=== PATIENT | female | born 1945 | race Caucasian/White ===

== ENCOUNTER 2016-05-25 11:15 | Emergency (ER) | payer MEDICARE, BC ==
[2016-05-25] MEDS ORDERED: IPRATROPIUM-ALBUTEROL 3 ML NEB INHALATION STA (12:18)
--- NOTE | 2016-05-25 12:53 | XR ---
EXAMINATION TYPE: XR chest 2V DATE OF EXAM: 05/25/2016 12:25 PM COMPARISON: Prior chest x-ray September 12, 2012. HISTORY: Cough per order. Congestion and shortness of breath. TECHNIQUE: Frontal and lateral views of the chest are obtained. FINDINGS: There is chronic parenchymal change with small bilateral pleural effusions seen best on la teral chest x-ray. No suspicious focal airspace opacity or pneumothorax is seen bilaterally. The car diac silhouette size is within normal limits. Degenerative change in both shoulders at the glenohumer al joint is noted. IMPRESSION: Chronic emphysematous change with tiny bilateral pleural effusions.
--- NOTE | 2016-05-25 12:56 | ED ---
General Adult HPI - General Chief complaint: Upper Respiratory Infection Stated complaint: CHARAN Time Seen by Provider: 05/25/16 12:13 Source: patient, RN notes reviewed Mode of arrival: ambulatory Limitations: no limitations - History of Present Illness Initial comments: Patient 70-year-old female who presents emergency room today with cough congestion over the last week and a half. Does admit that she was on antibiotics azithromycin and prednisone. States that she is feeling better but is still having some symptoms of cough congestion with some clear sputum at this time. Patient does admit to using albuterol inhaler at home. She again states symptoms are improved but not completely better. Patient states she was worried about a possible pneumonia and decided to come here to the emergency room his doctor shops was closed. Patient denies any recent fever, chills, shortness of breath, chest pain, back pain, abdominal pain, nausea or vomiting, numbness or tingling, dysuria or hematuria, constipation or diarrhea, headaches or visual changes, or any other complaints. - Related Data Home Medications Medication Instructions Recorded Confirmed ALPRAZolam [Xanax] 0.25 mg PO HS PRN 05/25/16 05/25/16 Albuterol Inhaler [Ventolin Hfa 1 - 2 puff INHALATION RT-Q6H PRN 05/25/16 Inhaler] Amitriptyline HCl [Elavil] 10 mg PO BID 05/25/16 05/25/16 Aspirin EC [Ecotrin Low Dose] 81 mg PO HS 05/25/16 05/25/16 Hydrochlorothiazide [Hydrodiuril] 25 mg PO DAILY 05/25/16 05/25/16 Metoprolol Tartrate [Lopressor] 25 mg PO BID 05/25/16 05/25/16 Oxybutynin Chloride [Ditropan] 5 mg PO BID 05/25/16 05/25/16 Simvastatin [Zocor] 40 mg PO HS 05/25/16 05/25/16 Previous Rx's Medication Instructions Recorded Albuterol Nebulized [Ventolin 2.5 mg INHALATION Q4H PRN 10 Days 05/25/16 Nebulized] Allergies Allergy/AdvReac Type Severity Reaction Status Date / Time nitrofurantoin AdvReac Abdominal Verified 05/25/16 12:54 [From Macrodantin] Pain Sulfa (Sulfonamide AdvReac Nausea Verified 05/25/16 12:54 Antibiotics) Review of Systems ROS Statement: Those systems with pertinent positive or pertinent negative responses have been documented in the HPI. ROS Other: All systems not noted in ROS Statement are negative. Past Medical History Past Medical History: Hypertension Additional Past Medical History / Comment(s): stress incontinence History of Any Multi-Drug Resistant Organisms: None Reported Past Surgical History: Bladder Surgery, Breast Surgery, Cholecystectomy, Joint Replacement Additional Past Surgical History / Comment(s): left and right knee replacement, rectocele, bowel surgery Past Psychological History: No Psychological Hx Reported Smoking Status: Former smoker Past Alcohol Use History: None Reported Past Drug Use History: None Reported General Exam - General Exam Comments Initial Comments: General: The patient is awake and alert, in no distress, and does not appear acutely ill. Eye: Pupils are equal, round and reactive to light, extra-ocular movements are intact. No nystagmus. There is normal conjunctiva bilaterally. No signs of icterus. Ears, nose, mouth and throat: There are moist mucous membranes and no oral lesions. Neck: The neck is supple, there is no tenderness or JVD. Cardiovascular: There is a regular rate and rhythm. No murmur, rub or gallop is appreciated. Respiratory: Mild expiratory wheeze on expiration bilaterally. respirations are non-labored, breath sounds are equal. No stridor, rales, or rhonchi. Musculoskeletal: Normal ROM, no tenderness. Strength 5/5. Sensation intact. Pulses equal bilaterally 2+. Neurological: A&O x 3. CN II-XII intact, There are no obvious motor or sensory deficits. Coordination appears grossly intact. Speech is normal. Skin: Skin is warm and dry and no rashes or lesions are noted. Psychiatric: Cooperative, appropriate mood & affect, normal judgment. Limitations: no limitations Course Vital Signs 05/25/16 05/25/16 05/25/16 11:23 12:35 12:42 Temperature 97.5 F L Pulse Rate 81 80 76 Respiratory 20 Rate Blood Pressure 144/67 O2 Sat by Pulse 94 L Oximetry Medical Decision Making - Medical Decision Making Patient reexamined at this time shows no signs of distress. Patient's chest x- ray reviewed shows no sign of pneumonia. Patient admits to feeling better after breathing treatment. Lung sounds clear afterwards. Patient will be given a prescription for breathing machine. And nebulized treatments at home. Patient advised follow-up family doctor over the next 2 days. Advised return if any symptoms increase or worsen or for any other concerns. Disposition Clinical Impression: Acute bronchitis Disposition: HOME SELF-CARE Condition: Good Instructions: Acute Bronchitis (ED) Additional Instructions: Please use medication as discussed. Please follow-up with family doctor in the next 2 days of symptoms have not improved. Please return to emergency room if the symptoms increase or worsen or for any other concerns. Prescriptions: Albuterol Nebulized [Ventolin Nebulized] 2.5 mg INHALATION Q4H PRN 10 Days PRN Reason: Cough Time of Disposition: 13:30
[2016-05-25 13:42] VITALS: BP 132/70; PULSE 74; RESP 18; TEMP 98
== END 2016-05-25 13:42 | disposition home or self-care (01) ==
LOC: EC 11:15
DX: J20.9 Acute bronchitis, unspecified (principal); I10 Essential (primary) hypertension; Z79.82 Long term (current) use of aspirin; Z79.899 Other long term (current) drug therapy; Z87.891 Personal history of nicotine dependence
CPT/HCPCS: 71020; 94640; 99283

== ENCOUNTER 2016-08-21 11:47 | Day surgery (SDC) | payer MEDICARE, BC ==
[2016-08-19 13:27] VITALS: BMI 38.6
[~2016-08-21 11:47] MED LIST: DEXAMETHASONE SOD PHOSPHATE 10 MG/ML 1 ML VIAL IV ONE; HEPARIN SODIUM,PORCINE 5,000 UNIT/ML 1 ML VIAL SQ ONE; HYDROmorphone 1 MG/ML 1 ML SYRINGE IVP PRN; MIDAZOLAM 2 MG/2 ML VIAL IV PRN; ONDANSETRON 4 MG/2 ML VIAL IVP ONE; Pre Op ABX Message 1 EACH MISC MISCELLANE ONE
[2016-08-21] MEDS ORDERED: BUPIVACAINE LIPOSOME/PF 1.3% 20 ML, SODIUM CHLORIDE 0.9% 10 ML MISCELLANE ONE ×2 (12:35)
[2016-08-21] MEDS: LACTATED RINGERS 1,000 ML IV SCH (13:15)
[2016-08-21] MEDS ORDERED: NA PHOS,M-B/NA PHOS,DI-BA 133 ML ENEMA RECTAL ONE (13:30)
[2016-08-21] MEDS ORDERED: ceFAZolin 2 GM in SODIUM CHLORIDE 0.9% 100 ML IVPB STA (14:14)
[2016-08-21] MEDS ORDERED: metroNIDAZOLE-NS PMX 500 MG in SALINE 1 100ML.BAG IVPB STA (14:15)
[2016-08-21] MEDS ORDERED: LIDOCAINE 1% INJ 10MG/ML (20 ML MDV) ONE (14:35)
[2016-08-21] MEDS ORDERED: SUCCINYLCHOLINE CHLORIDE 100 MG/5 ML SYR IV ONE (14:35)
[2016-08-21] MEDS ORDERED: PROPOFOL 10 MG/ML 20 ML VIAL IV ONE (14:35)
[2016-08-21] MEDS ORDERED: MIDAZOLAM 2 MG/2 ML VIAL ONE (14:35)
[2016-08-21] MEDS ORDERED: LIDOCAINE 2%-EPI 1:100,000 20 ML VIAL SQ ONE (15:17)
[2016-08-21] MEDS ORDERED: HYDROcodone/APAP 5-325MG 1 EACH TAB PO PRN (15:21)
--- NOTE | 2016-08-21 15:28 | P.OP ---
Date of Procedure: 08/21/16 Preoperative Diagnosis: Large internal hemorrhoids Postoperative Diagnosis: Low rectal mass 2 Procedure(s) Performed: Exam under anesthesia Transanal excision of rectal mucosal massx2 Anesthesia: MELYA, local Surgeon: Teresita Graham Pathology: other Condition: other (ASA 3) Disposition: PACU Indications for Procedure: 70 years old female presents with rectal bleeding. Informed consent obtained and she elected to undergo exam under anesthesia and possible open hemorrhoidectomy. Operative Findings: Internal hemorrhoids. Rectal mucosal prolapse Description of Procedure: Patient was brought to the operating room and placed in jackknife prone position. The buttock tapes were applied to expose the anal opening. Protruding masses was seen from the anal opening. Small external hemorrhoids seen. Upon insertion of a lighted endoscope,hypervascular protruding mass were seen in the 12 and 9 o'clock position along with hemorrhoids. These were excised using Harmonic. This was closed using 3-0 Vicryl. 30 mL of Exparel was injected Final Pathologic Diagnosis ANORECTAL MUCOSA, BIOPSY: POLYPOID ANORECTAL MUCOSA WITH DILATED SUBMUCOSAL HEMORRHOIDAL TYPE VESSELS, ACUTE AND CHRONIC INFLAMMATION, MUCOSAL ULCERATION, AND EDEMA.
[2016-08-21] MEDS: ACETAMINOPHEN IV (For NPO) 1,000 MG in EMPTY BAG 1 BAG IVPB SCH ×2 (19:22→23:30)
[2016-08-21] MEDS ORDERED: AMITRIPTYLINE HCL 10 MG TAB PO SCH (21:00)
[2016-08-21] MEDS: METOPROLOL SUCCINATE (ER) 25 MG TAB.ER.24H PO SCH (21:20)
[2016-08-22 03:31] VITALS: RESP 16
[2016-08-22] MEDS: ACETAMINOPHEN IV (For NPO) 1,000 MG in EMPTY BAG 1 BAG IVPB SCH ×2 (05:12→13:09)
[2016-08-22] MEDS ORDERED: HYDROCHLOROTHIAZIDE 25 MG TAB PO SCH (09:00)
[2016-08-22] MEDS: METOPROLOL SUCCINATE (ER) 25 MG TAB.ER.24H PO SCH (10:02)
[2016-08-22] MEDS: LACTATED RINGERS 1,000 ML IV SCH (10:03)
[2016-08-22 13:02] VITALS: BP 142/71; PULSE 75; TEMP 97.5
[2016-08-22] MEDS ORDERED: ACETAMINOPHEN TAB 500 MG TAB PO STA (13:17)
--- NOTE | 2016-08-22 14:29 | P.DS ---
Providers Date of admission: 08/21/2016 Expected date of discharge: 08/22/16 Attending physician: Teresita Graham Primary care physician: Sunil Cagle - Discharge Diagnosis(es) (1) Hemorrhoids Status: Acute Hospital Course: Kevin Dudley is 70-year-old female who underwent a hemorrhoidectomy by Dr. graham. Postoperatively she is very well without any complaint of pain nausea vomiting. She been ablating well she's not had used any narcotic pain medication. As him getting very well there is no bleeding. Pain is well-controlled with Tylenol. She is passing flatus. Due to the fact she is doing well I recommended discharge to follow with Dr. graham in a week's time. All questions were answered Procedures: Open hemorrhoidectomy Patient Condition at Discharge: Good Plan - Discharge Summary New Discharge Prescriptions: Docusate [Colace] 100 mg PO BID #30 capsule Hydrocodone/Acetaminophen [[place] 5-325] 1 each PO Q6HR PRN #30 tab PRN Reason: Pain Discharge Medication List ALPRAZolam [Xanax] 0.25 mg PO HS PRN 05/25/16 [History] Albuterol Inhaler [Ventolin Hfa Inhaler] 1 - 2 puff INHALATION RT-Q6H PRN [History] Amitriptyline HCl [Elavil] 10 mg PO HS 05/25/16 [History] Aspirin EC [Ecotrin Low Dose] 81 mg PO HS 05/25/16 [History] Hydrochlorothiazide [Hydrodiuril] 25 mg PO DAILY 05/25/16 [History] Metoprolol Tartrate [Lopressor] 25 mg PO BID 05/25/16 [History] Oxybutynin Chloride [Ditropan] 5 mg PO BID 05/25/16 [History] Simvastatin [Zocor] 40 mg PO HS 05/25/16 [History] Biotin 5 mg PO DAILY 08/19/16 [History] Cholecalciferol [Vitamin D3] 1,000 unit PO DAILY 08/19/16 [History] Cranberry Extract [Cranberry] 500 mg PO DAILY 08/19/16 [History] Flaxseed Oil [[place]-3 Flaxseed Oil] 1,000 mg PO DAILY 08/19/16 [History] L.acidoph,Paracasei, B.lactis [Probiotic] 1 each PO DAILY 08/19/16 [History] Multivits-Min/Iron/FA/Lutein [Centrum Silver Women Tablet] 1 each PO DAILY 08/19 [History] Vitamin E (Dl,Tocopheryl Acet) [Vitamin E] 400 unit PO DAILY 08/19/16 [History] Docusate [Colace] 100 mg PO BID #30 capsule 08/21/16 [Rx] Hydrocodone/Acetaminophen [[place] 5-325] 1 each PO Q6HR PRN #30 tab 08/21/16 [Rx] Follow up Appointment(s)/Referral(s): Teresita Graham MD [STAFF PHYSICIAN] - 08/25/16 (CALL OFFICE FOR APPOINTMENT, CLOSED AT TIME OF DISCHARGE.) Patient Instructions/Handouts: *Surgery [facility] - ([facility]) Hemorrhoidectomy Post-Op Instructions Activity/Diet/Wound Care/Special Instructions: USe sitz bath TID Discharge Disposition: HOME SELF-CARE
== END 2016-08-22 14:00 | disposition home or self-care (01) ==
LOC: OR 11:47 → 3SUR 16:09 → OR 08-22 14:00
PROVIDERS: ATTEND Surgery
DX: K64.8 Other hemorrhoids (principal); K62.6 Ulcer of anus and rectum; K64.4 Residual hemorrhoidal skin tags; J45.909 Unspecified asthma, uncomplicated; I10 Essential (primary) hypertension; Z88.1 Allergy status to other antibiotic agents; Z88.2 Allergy status to sulfonamides; Z87.891 Personal history of nicotine dependence
CPT/HCPCS: 88305; 46255; J2250; J1644; J1100; J0690; J2405; J2001; J0131 ×2; J0330; C9290; J2704

== ENCOUNTER → 2017-05-08 | Outpatient (CLI) | payer MEDICARE, BC ==
--- NOTE | 2017-05-08 16:04 | PE ---
Nuclear medicine PET/CT HISTORY: Solitary pulmonary nodule, R 91.1, lung cancer initial Patient received 16 mCi F-18 FDG intravenously in delayed scanning was performed from the skull base to the mid thighs. An attenuation correction and localization CT was also performed on the exam is co rrelated prior CT chest 04/17/2017. Neck and chest: The large posterior pleural-based mass in the left lower lobe is again noted along th e left lower lobe with loss of fat plane at the level the lateral margin of the aorta and measures ap proximately 7.6 x 6 x 7.2 cm in superior segment. There is associated hypermetabolic uptake. There is no evident adenopathy, no pleural or pericardial effusion. Coronary artery calcifications are present. There is a calcified nodule present within the left upper lobe. Emphysematous changes are present within the lungs. Pulmonary artery is dilated. Abdomen pelvis: There is no evident adrenal mass or retroperitoneal adenopathy. No evident liver mass . Patient is post cholecystectomy. Vascular calcifications are noted. No hypermetabolic uptake. Posto p change noted to the rectosigmoid junction. No evident pelvic adenopathy. Extensive diverticular maxi nge in the sigmoid colon. Uterus is not seen. Osseous structures are within normal limits. Muscular uptake is noted incidentally. IMPRESSION: Findings compatible with bronchogenic carcinoma. Correlate for pulmonary artery hypertens ion. Emphysema. Coronary artery disease. Postop changes.
== END | disposition home or self-care (01) ==
LOC: RADPETMAIN 07:49
PROVIDERS: ATTEND Nurse Practitioner Adult Health
DX: R91.1 Solitary pulmonary nodule (principal); I25.10 Atherosclerotic heart disease of native coronary artery without angina pectoris; J43.9 Emphysema, unspecified; Z98.890 Other specified postprocedural states
CPT/HCPCS: 78815; A9552

== ENCOUNTER 2017-05-12 14:24 | Emergency (ER) | payer MEDICARE, BC ==
[2017-05-12] MEDS ORDERED: methylPREDNISolone SOD SUCCI 125 MG/2 ML VIAL IV STA (15:24)
[2017-05-12] MEDS ORDERED: IPRATROPIUM-ALBUTEROL 3 ML NEB INHALATION STA (15:24)
--- NOTE | 2017-05-12 15:27 | ED ---
General Adult HPI - General Chief complaint: Shortness of Breath Stated complaint: SOB/Cancer Pt Time Seen by Provider: 05/12/17 15:11 Source: patient, RN notes reviewed Mode of arrival: wheelchair Limitations: no limitations - History of Present Illness Initial comments: Patient is a 71-year-old female who presents emergency room today with a chief complaint of some shortness of breath over the last 2 weeks. Patient does admit that she started new medication Breo inhaler. She believes it may be related as shortly after starting this medication can having similar symptoms. Patient does admit that she was recently diagnosed with lung cancer. She states that she was admitted to the hospital and discharged home approximately 3 weeks ago. Patient also admits to some back pain or back. Patient denies any other complaints or symptoms currently. Patient denies any recent fever, chills, chest pain, abdominal pain, nausea or vomiting, numbness or tingling, dysuria or hematuria, constipation or diarrhea, headaches or visual changes, or any other complaints. - Related Data Home Medications Medication Instructions Recorded Confirmed Albuterol Inhaler [Ventolin Hfa 1 - 2 puff INHALATION RT-Q6H PRN 05/25/16 Inhaler] Amitriptyline HCl [Elavil] 10 mg PO HS 05/25/16 05/12/17 Aspirin EC [Ecotrin Low Dose] 81 mg PO HS 05/25/16 05/12/17 Metoprolol Tartrate [Lopressor] 25 mg PO BID 05/25/16 05/12/17 Oxybutynin Chloride [Ditropan] 5 mg PO BID 05/25/16 05/12/17 Simvastatin [Zocor] 40 mg PO HS 05/25/16 05/12/17 Biotin 5 mg PO DAILY 08/19/16 05/12/17 Cholecalciferol [Vitamin D3] 1,000 unit PO DAILY 08/19/16 05/12/17 Cranberry Fruit Extract [Cranberry] 500 mg PO DAILY 08/19/16 05/12/17 Flaxseed Oil [[place]-3 Flaxseed Oil] 1,000 mg PO DAILY 08/19/16 05/12/17 Multivit-Min/Iron/Folic/Lutein 1 tab PO DAILY 08/19/16 05/12/17 [Centrum Silver Women Tablet] Vitamin E (Dl,Tocopheryl Acet) 400 unit PO DAILY 08/19/16 05/12/17 [Vitamin E] Fluticasone/Vilanterol [Breo 1 puff INHALATION RT-DAILY 05/12/17 05/12/17 Ellipta 200-25 Mcg INH] Previous Rx's Medication Instructions Recorded ALPRAZolam [Xanax] 0.25 mg PO TID PRN #90 tab 04/22/17 Famotidine [Pepcid] 20 mg PO DAILY #30 tab 04/22/17 Hydrochlorothiazide [Hydrodiuril] 25 mg PO DAILY #30 tab 04/22/17 Melatonin 5 mg PO HS PRN tablet 04/22/17 Albuterol Nebulized [Ventolin 2.5 mg INHALATION Q4H PRN 10 Days 05/12/17 Nebulized] nebu Allergies Allergy/AdvReac Type Severity Reaction Status Date / Time nitrofurantoin AdvReac Abdominal Verified 05/12/17 14:56 [From Macrodantin] Pain Sulfa (Sulfonamide AdvReac Nausea Verified 05/12/17 14:56 Antibiotics) Review of Systems ROS Statement: Those systems with pertinent positive or pertinent negative responses have been documented in the HPI. ROS Other: All systems not noted in ROS Statement are negative. Past Medical History Past Medical History: COPD, Hyperlipidemia, Hypertension Additional Past Medical History / Comment(s): bleeding from hemorrhoids,stress incontinence,bronchitis, overactive bladder, kidney stone History of Any Multi-Drug Resistant Organisms: None Reported Past Surgical History: Bladder Surgery, Breast Surgery, Cholecystectomy, Joint Replacement Additional Past Surgical History / Comment(s): left complete knee replacement, rt partial knee replacement,rectocele, bowel surgery to unkink colon,cyst removed breast,bladder surgery x3, bladder suspension, hemorrhoidectomy, rectal prolapse repair Past Anesthesia/Blood Transfusion Reactions: No Reported Reaction Additional Past Anesthesia/Blood Transfusion Reaction / Comment(s): no hx blood transfusion Past Psychological History: Anxiety Smoking Status: Former smoker Past Alcohol Use History: None Reported Past Drug Use History: None Reported - Past Family History Mother Family Medical History: No Reported History Father History Unknown: Yes General Exam - General Exam Comments Initial Comments: General: The patient is awake and alert, in no distress, and does not appear acutely ill. Eye: Pupils are equal, round and reactive to light, extra-ocular movements are intact. No nystagmus. There is normal conjunctiva bilaterally. No signs of icterus. Ears, nose, mouth and throat: There are moist mucous membranes and no oral lesions. Neck: The neck is supple, there is no tenderness or JVD. Cardiovascular: There is a regular rate and rhythm. No murmur, rub or gallop is appreciated. Respiratory: Decreased lung sounds bilaterally. respirations are non-labored, breath sounds are equal. No wheezes, stridor, rales, or rhonchi Musculoskeletal: Normal ROM, no tenderness. Strength 5/5. Sensation intact. Pulses equal bilaterally 2+. Neurological: A&O x 3. CN II-XII intact, There are no obvious motor or sensory deficits. Coordination appears grossly intact. Speech is normal. Skin: Skin is warm and dry and no rashes or lesions are noted. Psychiatric: Cooperative, appropriate mood & affect, normal judgment. Limitations: no limitations Course Vital Signs 05/12/17 05/12/17 05/12/17 14:43 15:31 15:41 Temperature 97.9 F Pulse Rate 100 108 H 108 H Respiratory 25 H Rate Blood Pressure 114/58 O2 Sat by Pulse 95 Oximetry 05/12/17 16:15 Temperature 98.8 F Pulse Rate 97 Respiratory 18 Rate Blood Pressure 133/60 O2 Sat by Pulse 95 Oximetry Medical Decision Making - Medical Decision Making Patient's labs been reviewed does show 22,000 white count. Patient's chest x- ray does reveal pulmonary mass. Pulses be visualized on patient's CAT scan which is negative for any evidence of CT. Patient currently being treated for a new lung cancer. Does have a point with oncology next week. Patient states feeling much better here in emergency room after breathing treatment. She denies any complaints at this time. Patient advised to discontinue previously prescribed inhaler. Will be given a prescription for albuterol for her nebulizer at home. Advised to return here to the emergency room symptoms increase worsen or for any other concerns. Patient states understanding. - Lab Data Result diagrams: 05/12/17 15:37 05/12/17 15:37 Lab Results 05/12/17 05/12/17 05/12/17 Range/Units 15:37 15:37 15:37 WBC 22.6 H (3.8-10.6) k/uL RBC 4.36 (3.80-5.40) m/uL Hgb 11.8 (11.4-16.0) gm/dL Hct 36.7 (34.0-46.0) % MCV 84.2 (80.0-100.0) fL MCH 27.0 (25.0-35.0) pg MCHC 32.1 (31.0-37.0) g/dL RDW 15.2 (11.5-15.5) % Plt Count 418 (150-450) k/uL Neutrophils % 85 % Lymphocytes % 9 % Monocytes % 3 % Eosinophils % 1 % Basophils % 0 % Neutrophils # 19.1 H (1.3-7.7) k/uL Lymphocytes # 2.1 (1.0-4.8) k/uL Monocytes # 0.6 (0-1.0) k/uL Eosinophils # 0.2 (0-0.7) k/uL Basophils # 0.1 (0-0.2) k/uL PT (9.0-12.0) sec INR (<1.2) APTT (22.0-30.0) sec Sodium 139 (137-145) mmol/L Potassium 3.5 (3.5-5.1) mmol/L Chloride 99 (98-107) mmol/L Carbon Dioxide 32 H (22-30) mmol/L Anion Gap 8 mmol/L BUN 22 H (7-17) mg/dL Creatinine 0.84 (0.52-1.04) mg/dL Est GFR (MDRD) Af Amer >60 (>60 ml/min/1.73 sqM) Est GFR (MDRD) Non-Af >60 (>60 ml/min/1.73 sqM) Glucose 115 H (74-99) mg/dL Calcium 9.6 (8.4-10.2) mg/dL Magnesium 2.0 (1.6-2.3) mg/dL Total Bilirubin 0.6 (0.2-1.3) mg/dL AST 38 H (14-36) U/L ALT 46 (9-52) U/L Alkaline Phosphatase 136 H (38-126) U/L Total Creatine Kinase <20 L (30-135) U/L CK-MB (CK-2) 0.4 (0.0-2.4) ng/mL CK-MB (CK-2) Rel Index Troponin I 0.020 (0.000-0.034) ng/mL NT-Pro-B Natriuret Pep pg/mL Total Protein 5.6 L (6.3-8.2) g/dL Albumin 3.0 L (3.5-5.0) g/dL 05/12/17 05/12/17 Range/Units 15:37 15:37 WBC (3.8-10.6) k/uL RBC (3.80-5.40) m/uL Hgb (11.4-16.0) gm/dL Hct (34.0-46.0) % MCV (80.0-100.0) fL MCH (25.0-35.0) pg MCHC (31.0-37.0) g/dL RDW (11.5-15.5) % Plt Count (150-450) k/uL Neutrophils % % Lymphocytes % % Monocytes % % Eosinophils % % Basophils % % Neutrophils # (1.3-7.7) k/uL Lymphocytes # (1.0-4.8) k/uL Monocytes # (0-1.0) k/uL Eosinophils # (0-0.7) k/uL Basophils # (0-0.2) k/uL PT 10.5 (9.0-12.0) sec INR 1.1 (<1.2) APTT 23.6 (22.0-30.0) sec Sodium (137-145) mmol/L Potassium (3.5-5.1) mmol/L Chloride (98-107) mmol/L Carbon Dioxide (22-30) mmol/L Anion Gap mmol/L BUN (7-17) mg/dL Creatinine (0.52-1.04) mg/dL Est GFR (MDRD) Af Amer (>60 ml/min/1.73 sqM) Est GFR (MDRD) Non-Af (>60 ml/min/1.73 sqM) Glucose (74-99) mg/dL Calcium (8.4-10.2) mg/dL Magnesium (1.6-2.3) mg/dL Total Bilirubin (0.2-1.3) mg/dL AST (14-36) U/L ALT (9-52) U/L Alkaline Phosphatase (38-126) U/L Total Creatine Kinase (30-135) U/L CK-MB (CK-2) (0.0-2.4) ng/mL CK-MB (CK-2) Rel Index Troponin I (0.000-0.034) ng/mL NT-Pro-B Natriuret Pep 1700 pg/mL Total Protein (6.3-8.2) g/dL Albumin (3.5-5.0) g/dL Disposition Clinical Impression: Bronchitis Disposition: HOME SELF-CARE Condition: Good Instructions: Acute Bronchitis (ED) Additional Instructions: Please follow-up with the system dispatcher / oncologist over the next 2 days. Please use medication as discussed. Please discontinue prescription prescribed inhaler. Please return to the emergency room symptoms increase worsen or for any other concerns. Prescriptions: Albuterol Nebulized [Ventolin Nebulized] 2.5 mg INHALATION Q4H PRN 10 Days nebu PRN Reason: Cough Referrals: Sunil Cagle MD [Primary Care Provider] - 1-2 days Rajendra Burgos MD [STAFF PHYSICIAN] - 1-2 days Time of Disposition: 17:12
[2017-05-12 15:51] LABS: Basophils # (A) 0.1 k/uL (0-0.2); Basophils % (A) 0 %; Eosinophils # (A) 0.2 k/uL (0-0.7); Eosinophils % (A) 1 %; HCT 36.7 % (34.0-46.0); HGB 11.8 gm/dL (11.4-16.0); Lymphocytes # (A) 2.1 k/uL (1.0-4.8); Lymphocytes % (A) 9 %; MCHC 32.1 g/dL (31.0-37.0); MCV 84.2 fL (80.0-100.0); Mean Platelet Volume 6.6; Monocytes # (A) 0.6 k/uL (0-1.0); Monocytes % (A) 3 %; Neutrophils # (A) 19.1 k/uL (1.3-7.7); Neutrophils % (A) 85 %; Platelet Count 418 k/uL (150-450); RBC 4.36 m/uL (3.80-5.40); RDW 15.2 % (11.5-15.5); WBC 22.6 k/uL (3.8-10.6)
[2017-05-12 16:01] LABS: ALT 46 U/L (9-52); AST 38 U/L (14-36); Alkaline Phosphatase 136 U/L (38-126); Anion Gap 8 mmol/L; Blood Urea Nitrogen 22 mg/dL (7-17); Calcium 9.6 mg/dL (8.4-10.2); Carbon Dioxide 32 mmol/L (22-30); Chloride 99 mmol/L (98-107); Glucose 115 mg/dL (74-99); INR 1.1 (<1.2); Partial Thromboplastin Time 23.6 sec (22.0-30.0); Potassium 3.5 mmol/L (3.5-5.1); Prothrombin Time 10.5 sec (9.0-12.0); Sodium 139 mmol/L (137-145); Total Bilirubin 0.6 mg/dL (0.2-1.3); Total Protein 5.6 g/dL (6.3-8.2)
--- NOTE | 2017-05-12 16:03 | XR ---
EXAMINATION TYPE: XR chest 2V DATE OF EXAM: 05/12/2017 COMPARISON: 04/21/2017 INDICATION: Chest pain known lung cancer TECHNIQUE: Frontal and lateral views of the chest are obtained. FINDINGS: The heart size is normal. The pulmonary vasculature is normal. There is enlargement of a left perihilar mass estimated at 9.6 cm cranial caudal by 6.3 cm transverse which has enlarged from prior study.. IMPRESSION: 1. Enlarging left perihilar mass.
[2017-05-12 16:12] LABS: Creatine Kinase <20 U/L (30-135)
[2017-05-12] MEDS ORDERED: RX INFO: IV CONTRAST WAS GIVEN 1 EACH MISC MISCELLANE PRN (16:18)
[2017-05-12 16:24] LABS: Creatine Kinase MB 0.4 ng/mL (0.0-2.4)
--- NOTE | 2017-05-12 17:05 | CT ---
EXAMINATION TYPE: CT angio chest DATE OF EXAM: 05/12/2017 4:57 PM COMPARISON: NONE HISTORY: Difficulty breathing x 1 week. History of lung cancer. CT DLP: 647.00 mGycm Automated exposure control for dose reduction was used. CONTRAST: CTA scan of the thorax is performed with IV Contrast, patient injected with 83 mL of Omnipaque 350, p ulmonary embolism protocol. There are 3-D post processed images.. FINDINGS: Thoracic aorta is intact. There is no evidence of aneurysm or dissection. There is a 9 x 8 cm area of masslike consolidation in the region of superior segment of the left lower lobe. I see no filling defects in the pulmonary arteries. There is no mediastinal adenopathy. The bony thor ax appears intact. There is a 2 cm left bronchial lymph node. IMPRESSION: NO EVIDENCE OF PULMONARY EMBOLISM. LARGE LEFT LOWER LOBE MASS THAT IS INCREASED SLIGHTLY IN SIZE COMP ARED TO 04/27/2017.
[2017-05-12 23:30] VITALS: BP 151/69; PULSE 88; RESP 18; TEMP 97.6
== END 2017-05-12 17:25 | disposition home or self-care (01) ==
LOC: EC 14:24
DX: J44.9 Chronic obstructive pulmonary disease, unspecified (principal); R00.0 Tachycardia, unspecified; E78.5 Hyperlipidemia, unspecified; I10 Essential (primary) hypertension; F41.9 Anxiety disorder, unspecified; Z85.118 Personal history of other malignant neoplasm of bronchus and lung; Z87.891 Personal history of nicotine dependence; Z88.2 Allergy status to sulfonamides; Z88.1 Allergy status to other antibiotic agents; Z79.51 Long term (current) use of inhaled steroids; Z79.82 Long term (current) use of aspirin; Z79.899 Other long term (current) drug therapy
CPT/HCPCS: 99285; 96374; 36415; 94640; 93005; 83880; 80053; 82550; 82553; 83735; 84484; 85025; 85610; 85730; 71046; 71275; J2930; Q9967

== ENCOUNTER 2017-05-31 18:06 | Emergency (ER) | payer MEDICARE, BC ==
--- NOTE | 2017-05-31 19:03 | ED ---
General Adult HPI - General Chief complaint: Recheck/Abnormal Lab/Rx Stated complaint: High potassium Time Seen by Provider: 05/31/17 18:55 Source: patient, RN notes reviewed, old records reviewed Mode of arrival: wheelchair Limitations: no limitations - History of Present Illness Initial comments: 71-year-old female presents for evaluation of outpatient lab abnormality. Patient was called at home today stating that her potassium was high. She is uncertain of how high it was. She had labs drawn on Wednesday which was 3 days ago. These were screening labs as the patient is about to start chemo and radiation for lung cancer. She has a history of COPD. She does have some dyspnea, this is stable, unchanged from baseline. No new complaints today. Patient's only reason for visit is elevated potassium. - Related Data Home Medications Medication Instructions Recorded Confirmed Albuterol Inhaler [Ventolin Hfa 1 - 2 puff INHALATION RT-Q6H PRN 05/25/16 Inhaler] Amitriptyline HCl [Elavil] 10 mg PO HS 05/25/16 05/31/17 Aspirin EC [Ecotrin Low Dose] 81 mg PO HS 05/25/16 05/31/17 Metoprolol Tartrate [Lopressor] 25 mg PO BID 05/25/16 05/31/17 Oxybutynin Chloride [Ditropan] 5 mg PO BID 05/25/16 05/31/17 Simvastatin [Zocor] 40 mg PO HS 05/25/16 05/31/17 Biotin 5 mg PO DAILY 08/19/16 05/31/17 Cholecalciferol [Vitamin D3] 1,000 unit PO DAILY 08/19/16 05/31/17 Cranberry Fruit Extract [Cranberry] 500 mg PO DAILY 08/19/16 05/31/17 Flaxseed Oil [[place]-3 Flaxseed Oil] 1,000 mg PO DAILY 08/19/16 05/31/17 Multivit-Min/Iron/Folic/Lutein 1 tab PO DAILY 08/19/16 05/31/17 [Centrum Silver Women Tablet] Vitamin E (Dl,Tocopheryl Acet) 400 unit PO DAILY 08/19/16 05/31/17 [Vitamin E] Fluticasone/Vilanterol [Breo 1 puff INHALATION RT-DAILY 05/12/17 05/31/17 Ellipta 200-25 Mcg INH] Albuterol Nebulized [Ventolin 2.5 mg INHALATION RT-Q4H PRN 05/31/17 05/31/17 Nebulized] Previous Rx's Medication Instructions Recorded ALPRAZolam [Xanax] 0.25 mg PO TID PRN #90 tab 04/22/17 Famotidine [Pepcid] 20 mg PO DAILY #30 tab 04/22/17 Hydrochlorothiazide [Hydrodiuril] 25 mg PO DAILY #30 tab 04/22/17 Melatonin 5 mg PO HS PRN tablet 04/22/17 Allergies Allergy/AdvReac Type Severity Reaction Status Date / Time nitrofurantoin AdvReac Abdominal Verified 05/31/17 18:59 [From Macrodantin] Pain Sulfa (Sulfonamide AdvReac Nausea Verified 05/31/17 18:59 Antibiotics) Review of Systems ROS Statement: Those systems with pertinent positive or pertinent negative responses have been documented in the HPI. ROS Other: All systems not noted in ROS Statement are negative. Past Medical History Past Medical History: COPD, Hyperlipidemia, Hypertension Additional Past Medical History / Comment(s): bleeding from hemorrhoids,stress incontinence,bronchitis, overactive bladder, kidney stone History of Any Multi-Drug Resistant Organisms: None Reported Past Surgical History: Bladder Surgery, Breast Surgery, Cholecystectomy, Joint Replacement Additional Past Surgical History / Comment(s): left complete knee replacement, rt partial knee replacement,rectocele, bowel surgery to unkink colon,cyst removed breast,bladder surgery x3, bladder suspension, hemorrhoidectomy, rectal prolapse repair Past Anesthesia/Blood Transfusion Reactions: No Reported Reaction Additional Past Anesthesia/Blood Transfusion Reaction / Comment(s): no hx blood transfusion Past Psychological History: Anxiety Smoking Status: Former smoker Past Alcohol Use History: None Reported Past Drug Use History: None Reported - Past Family History Mother Family Medical History: No Reported History Father History Unknown: Yes General Exam Limitations: no limitations General appearance: alert, in no apparent distress Head exam: Present: atraumatic, normocephalic Eye exam: Present: normal appearance, PERRL ENT exam: Present: normal exam Neck exam: Present: normal inspection. Absent: tenderness, meningismus Respiratory exam: Present: other (Mild dyspnea, patient states at baseline). Absent: decreased breath sounds Cardiovascular Exam: Present: regular rate, normal rhythm GI/Abdominal exam: Present: soft. Absent: distended, tenderness Extremities exam: Present: normal inspection, full ROM. Absent: tenderness Neurological exam: Present: alert, oriented X3, CN II-XII intact. Absent: motor sensory deficit Psychiatric exam: Present: normal affect, normal mood Skin exam: Present: warm, dry, intact. Absent: cyanosis, diaphoretic Course Vital Signs 05/31/17 18:09 Temperature 98.2 F Pulse Rate 89 Respiratory 18 Rate Blood Pressure 116/65 O2 Sat by Pulse 93 L Oximetry EKG Findings - EKG Comments: EKG Findings:: EKG shows sinus rhythm with occasional PVC, ventricular rate 100 , GA of 01 20, QRS duration 80, QTC 443, no acute signs of hyperkalemia Medical Decision Making - Medical Decision Making 74-year-old female with diagnosis of squamous cell lung cancer presents with outpatient lab abnormality of elevated potassium. Patient was sent in for evaluation of hyperkalemia. Repeat laboratory studies are obtained, potassium is 4.7 which is normal, magnesium and other electrolytes within normal limits. Patient's white blood cell count is significantly elevated however this has been chronic over the past several months and according to the patient is secondary to her lung cancer. She is also on steroids. Case is discussed with the patient's helix coil winder Dr. Rodas, patient will be discharged with outpatient follow-up. - Lab Data Result diagrams: 05/31/17 19:20 05/31/17 19:20 Lab Results 05/31/17 05/31/17 Range/Units 19:20 19:20 WBC 32.7 H* (3.8-10.6) k/uL RBC 4.24 (3.80-5.40) m/uL Hgb 11.0 L (11.4-16.0) gm/dL Hct 35.9 (34.0-46.0) % MCV 84.5 (80.0-100.0) fL MCH 26.0 (25.0-35.0) pg MCHC 30.8 L (31.0-37.0) g/dL RDW 16.4 H (11.5-15.5) % Plt Count 455 H (150-450) k/uL Neutrophils % (Manual) 81 % Band Neutrophils % 11 % Lymphocytes % (Manual) 6 % Monocytes % (Manual) 1 % Metamyelocytes % 2 % Myelocytes % 1 % Neutrophils # (Manual) 30.00 H (1.3-7.7) k/uL Lymphocytes # (Manual) 1.96 (1.0-4.8) k/uL Monocytes # (Manual) 0.33 (0-1.0) k/uL Metamyelocytes # (Man) 0.65 H (0) k/uL Myelocytes # (Manual) 0.33 H (0) k/uL Nucleated RBCs 0 (0-0) /100 WBC Manual Slide Review Performed Hypochromasia Slight Anisocytosis Slight Sodium 141 (137-145) mmol/L Potassium 4.7 (3.5-5.1) mmol/L Chloride 99 (98-107) mmol/L Carbon Dioxide 33 H (22-30) mmol/L Anion Gap 9 mmol/L BUN 23 H (7-17) mg/dL Creatinine 0.70 (0.52-1.04) mg/dL Est GFR (MDRD) Af Amer >60 (>60 ml/min/1.73 sqM) Est GFR (MDRD) Non-Af >60 (>60 ml/min/1.73 sqM) Glucose 193 H (74-99) mg/dL Calcium 9.6 (8.4-10.2) mg/dL Magnesium 2.1 (1.6-2.3) mg/dL Total Bilirubin 0.2 (0.2-1.3) mg/dL AST 29 (14-36) U/L ALT 54 H (9-52) U/L Alkaline Phosphatase 152 H (38-126) U/L Total Protein 5.3 L (6.3-8.2) g/dL Albumin 2.8 L (3.5-5.0) g/dL Disposition Clinical Impression: Hyperkalemia Disposition: HOME SELF-CARE Condition: Fair Referrals: Sunil Cagle MD [Primary Care Provider] - 1-2 days Darryl Garica MD [STAFF PHYSICIAN] - 1-2 days Time of Disposition: 20:49
[2017-05-31 19:40] LABS: Anisocytosis Slight; HCT 35.9 % (34.0-46.0); Hypochromasia Slight; MCHC 30.8 g/dL (31.0-37.0); MCV 84.5 fL (80.0-100.0); Mean Platelet Volume 6.3; Platelet Count 455 k/uL (150-450); RBC 4.24 m/uL (3.80-5.40); RDW 16.4 % (11.5-15.5)
[2017-05-31 19:43] LABS: WBC 32.7 k/uL (3.8-10.6)
[2017-05-31 19:45] LABS: ALT 54 U/L (9-52); AST 29 U/L (14-36); Albumin 2.8 g/dL (3.5-5.0); Alkaline Phosphatase 152 U/L (38-126); Anion Gap 9 mmol/L; Blood Urea Nitrogen 23 mg/dL (7-17); Calcium 9.6 mg/dL (8.4-10.2); Carbon Dioxide 33 mmol/L (22-30); Chloride 99 mmol/L (98-107); Glucose 193 mg/dL (74-99); Magnesium 2.1 mg/dL (1.6-2.3); Potassium 4.7 mmol/L (3.5-5.1); Sodium 141 mmol/L (137-145); Total Bilirubin 0.2 mg/dL (0.2-1.3); Total Protein 5.3 g/dL (6.3-8.2)
[2017-05-31 20:42] LABS: Neutrophils % (M) 81 %
[2017-05-31 20:43] LABS: Band Neutrophils % 11 %; Lymphocytes # (M) 1.96 k/uL (1.0-4.8); Metamyelocytes # (M) 0.65 k/uL (0); Metamyelocytes % 2 %; Monocytes # (M) 0.33 k/uL (0-1.0); Myelocytes # (M) 0.33 k/uL (0); Myelocytes % 1 %; Nucleated Red Blood Cells 0 /100 WBC (0-0); Total Cells Counted 200
[2017-05-31 21:10] VITALS: BP 121/74; PULSE 82; RESP 16; TEMP 98.7
== END 2017-05-31 21:10 | disposition home or self-care (01) ==
LOC: EC 18:06
DX: E78.5 Hyperlipidemia, unspecified (principal); J44.9 Chronic obstructive pulmonary disease, unspecified; I10 Essential (primary) hypertension; F41.9 Anxiety disorder, unspecified; C34.90 Malignant neoplasm of unspecified part of unspecified bronchus or lung; N32.81 Overactive bladder; Z87.891 Personal history of nicotine dependence; Z79.51 Long term (current) use of inhaled steroids; Z79.82 Long term (current) use of aspirin; Z79.899 Other long term (current) drug therapy; Z88.1 Allergy status to other antibiotic agents; Z88.2 Allergy status to sulfonamides
CPT/HCPCS: 36415; 80053; 83735; 85025; 93005; 99284

== ENCOUNTER → 2017-06-04 | Outpatient (CLI) | payer MEDICARE, BC ==
--- NOTE | 2017-06-04 23:25 | MR ---
EXAMINATION TYPE: MR brain wo/w con DATE OF EXAM: 06/04/2017 COMPARISON: NONE HISTORY: Newly diagnosed Lung cancer with symptoms of Shortness of breath per order. TECHNIQUE: Multiplanar, multisequence images of the brain and brainstem is performed without and with IV contras t, utilizing 10 mL intravenous Gadavist . FINDINGS: Diffusion weighted images demonstrate no evidence of a recent infarct or other diffusion ab normality. There is no worrisome extra-axial fluid collection. There is mild ventricular and sulcal prominence consistent with mild age-related cerebral atrophy. There are scattered foci of T2 hyperint ensity seen throughout the superficial, deep, and periventricular white matter bilaterally. Lesions a re nonspecific in appearance and distribution, most likely on basis of product of chronic small vesse l ischemic change in patient of this age. Midline structures demonstrate normal morphology. The craniocervical junction appears within normal limits. Post contrast images demonstrate no abnormal enhancement. The dural venous sinuses appear pa tent. The visualized sinuses are clear and the globes are intact. Some patchy fluid signal right mast oid air cells is present. IMPRESSION: 1. No suspicious enhancing intraparenchymal mass is seen to suggest metastatic disease to the brain. 2. There is background mild diffuse cerebral atrophy and moderate to severe chronic small vessel isch emic change identified. 3. Patchy fluid signal right mastoid air cells likely product of retained secretions, clinical correl ation to rule out right-sided mastoiditis advised.
== END | disposition home or self-care (01) ==
LOC: RADMRIMAIN 18:31
PROVIDERS: ATTEND Radiology Radiation Oncology
DX: G31.9 Degenerative disease of nervous system, unspecified (principal); I67.82 Cerebral ischemia; C34.12 Malignant neoplasm of upper lobe, left bronchus or lung; R06.02 Shortness of breath
CPT/HCPCS: 70553; A9581

== ENCOUNTER 2017-06-17 10:45 | Emergency (ER) | payer MEDICARE, BC ==
--- NOTE | 2017-06-17 11:18 | ED ---
General Adult HPI - General Chief complaint: Recheck/Abnormal Lab/Rx Stated complaint: Larthargic, Low Blood Pressure, ca pt Time Seen by Provider: 06/17/17 10:50 Source: patient, RN notes reviewed Mode of arrival: wheelchair Limitations: physical limitation - History of Present Illness Initial comments: This is a 71-year-old female presents emergency Department with a previous diagnosis of lung cancer and a recent diagnosis of pneumonia. Patient comes in today to get radiation therapy but when she got there her pulse ox was low because she was off oxygen for about 10 minutes. Patient has been on 2 L of oxygen since she left the hospital. Patient's pulse ox is back up to normal. Patient denied any symptoms. Patient denies difficulty breathing or shortness of breath. Patient denies any lightheadedness or dizziness per patient denies headache patient denies numbness weakness. Patient denies chest pain. Patient' s blood pressure was also in the 90s which family member state has been somewhat normal for her. Patient denies any abdominal pain patient denies nausea vomiting diarrhea. He states that she did not appear to be in any respiratory distress or to be off balance or lightheaded. - Related Data Home Medications Medication Instructions Recorded Confirmed Albuterol Inhaler [Ventolin Hfa 1 - 2 puff INHALATION RT-Q6H PRN 05/25/16 Inhaler] Amitriptyline HCl [Elavil] 10 mg PO HS 05/25/16 06/17/17 Aspirin EC [Ecotrin Low Dose] 81 mg PO HS 05/25/16 06/17/17 Metoprolol Tartrate [Lopressor] 25 mg PO BID 05/25/16 06/17/17 Oxybutynin Chloride [Ditropan] 5 mg PO BID@0800,1700 05/25/16 06/17/17 Simvastatin [Zocor] 40 mg PO HS 05/25/16 06/17/17 Biotin 5 mg PO DAILY@169908/19/16 06/17/17 Cholecalciferol [Vitamin D3] 1,000 unit PO DAILY@169908/19/16 06/17/17 Cranberry Fruit Extract [Cranberry] 500 mg PO DAILY@169908/19/16 06/17/17 Multivit-Min/Iron/Folic/Lutein 1 tab PO DAILY@169908/19/16 06/17/17 [Centrum Silver Women Tablet] Vitamin E (Dl,Tocopheryl Acet) 400 unit PO DAILY@1700 08/19/16 06/17/17 [Vitamin E] Bisacodyl [Dulcolax] 10 mg RECTAL DAILY PRN 06/17/17 06/17/17 Budesonide-Formot 160-4.5 Mcg 2 puff INHALATION RT-BID@06/17/17 06/17/17 [Symbicort 160-4.5 Mcg Inhaler] Famotidine [Pepcid] 20 mg PO DAILY@59906/17/17 06/17/17 Furosemide [Lasix] 40 mg PO DAILY@59906/17/17 06/17/17 HYDROcodone/APAP 5-325MG [Sondheimer 1 tab PO Q4HR PRN 06/17/17 06/17/17 5-325] Ipratropium-Albuterol Nebulize 3 ml INHALATION RT-QID@,,,06/17/1706/17 [Duoneb 0.5 mg-3 mg/3 ml Soln] Levofloxacin [Levaquin] 750 mg PO DAILY 06/17/17 06/17/17 Magnesium Hydroxide [Milk of 2,400 mg PO DAILY PRN 06/17/17 06/17/17 Magnesia] Na Phos,M-B/Na Phos,Di-Ba [Fleet 133 ml RECTAL DAILY PRN 06/17/17 06/17/17 Adult] Hel[place]-3 Fatty Acids/Fish Oil [Fish 1 cap PO DAILY@169906/17/17 06/17/17 Oil 1,000 mg Softgel] Potassium Chloride ER [K-Dur 20] 20 meq PO BID@0800,1700 06/17/17 06/17/17 Sennosides-Docusate Sodium 2 tab PO DAILY 06/17/17 06/17/17 [Senokot-S] Previous Rx's Medication Instructions Recorded Melatonin 5 mg PO HS PRN tablet 04/22/17 ALPRAZolam [Xanax] 0.25 mg PO TID PRN #90 tab 06/16/17 Gabapentin [Neurontin] 300 mg PO HS cap 06/16/17 Temazepam [Restoril] 30 mg PO HS PRN #14 cap 06/16/17 predniSONE 10 mg PO DAILY #10 tab 06/16/17 Allergies Allergy/AdvReac Type Severity Reaction Status Date / Time nitrofurantoin AdvReac Abdominal Verified 06/17/17 11:35 [From Macrodantin] Pain Sulfa (Sulfonamide AdvReac Nausea Verified 06/17/17 11:35 Antibiotics) Review of Systems ROS Statement: Those systems with pertinent positive or pertinent negative responses have been documented in the HPI. ROS Other: All systems not noted in ROS Statement are negative. Past Medical History Past Medical History: Cancer, COPD, Hyperlipidemia, Hypertension Additional Past Medical History / Comment(s): bleeding from hemorrhoids,stress incontinence,bronchitis, overactive bladder, kidney stone Lung CA History of Any Multi-Drug Resistant Organisms: None Reported Past Surgical History: Bladder Surgery, Breast Surgery, Cholecystectomy, Joint Replacement Additional Past Surgical History / Comment(s): left complete knee replacement, rt partial knee replacement,rectocele, bowel surgery to unkink colon,cyst removed breast,bladder surgery x3, bladder suspension, hemorrhoidectomy, rectal prolapse repair Past Anesthesia/Blood Transfusion Reactions: No Reported Reaction Additional Past Anesthesia/Blood Transfusion Reaction / Comment(s): no hx blood transfusion Past Psychological History: Anxiety Smoking Status: Former smoker Past Alcohol Use History: None Reported Past Drug Use History: None Reported - Past Family History Mother Family Medical History: No Reported History Father History Unknown: Yes General Exam - General Exam Comments Initial Comments: GENERAL: Patient is well-developed and well-nourished. Patient is nontoxic and well- hydrated and is in no acute distress. ENT: Neck is soft and supple. No significant lymphadenopathy is noted. Oropharynx is clear. Moist mucous membranes. Neck has full range of motion without eliciting any pain. EYES: The sclera were anicteric and conjunctiva were pink and moist. Extraocular movements were intact and pupils were equal round and reactive to light. Eyelids were unremarkable. PULMONARY: Patient has crackles on the left base and diminished breath sounds on the right. CARDIOVASCULAR: There is a regular rate and rhythm without any murmurs gallops or rubs. ABDOMEN: Soft and nontender with normal bowel sounds. No palpable organomegaly was noted. There is no palpable pulsatile mass. SKIN: Skin is clear with no lesions or rashes and otherwise unremarkable. NEUROLOGIC: Patient is alert and oriented x3. Cranial nerves II through XII are grossly intact. Motor and sensory are also intact. Normal speech, volume and content. Symmetrical smile. MUSCULOSKELETAL: Normal extremities with adequate strength and full range of motion. 2+ edema bilaterally LYMPHATICS: No significant lymphadenopathy is noted PSYCHIATRIC: Normal psychiatric evaluation. Normal interpersonal interactions appears functionally intact in deals appropriately with others. No signs of depression. No signs of anxiety. Limitations: physical limitation Course Vital Signs 06/17/17 06/17/17 06/17/17 10:50 11:04 11:19 Temperature 98.7 F 97.9 F Pulse Rate 83 84 Respiratory 16 18 Rate Blood Pressure 91/53 94/57 103/53 O2 Sat by Pulse 98 96 Oximetry 06/17/17 06/17/17 06/17/17 11:47 12:35 13:01 Temperature Pulse Rate 90 86 94 Respiratory 20 18 18 Rate Blood Pressure 111/56 100/58 122/59 O2 Sat by Pulse 91 L 97 97 Oximetry 06/17/17 13:31 Temperature Pulse Rate 94 Respiratory Rate Blood Pressure 97/52 O2 Sat by Pulse Oximetry Medical Decision Making - Medical Decision Making EKG shows normal sinus rhythm at 88 bpm TX interval is 130 QRS is 86 QT interval 358 QTC is 433. Patient's EKG shows no ST segment elevation or depression or T wave abnormalities are noted. Chest x-ray shows a possible pneumonia I spoke with Dr. Cagle about the pneumonia and the elevated white count he believes at the pneumonia has not resolved in the previous admission and he believes white count is from the steroids that the patient is currently on patient will be discharged home. - Lab Data Result diagrams: 06/17/17 11:50 06/17/17 11:50 Lab Results 06/17/17 06/17/17 06/17/17 Range/Units 11:50 11:50 11:50 WBC 22.3 H (3.8-10.6) k/uL RBC 4.10 (3.80-5.40) m/uL Hgb 10.5 L (11.4-16.0) gm/dL Hct 35.4 (34.0-46.0) % MCV 86.4 (80.0-100.0) fL MCH 25.7 (25.0-35.0) pg MCHC 29.8 L (31.0-37.0) g/dL RDW 17.3 H (11.5-15.5) % Plt Count 282 (150-450) k/uL Neutrophils % 94 % Lymphocytes % 3 % Monocytes % 3 % Eosinophils % 0 % Basophils % 0 % Neutrophils # 20.9 H (1.3-7.7) k/uL Lymphocytes # 0.6 L (1.0-4.8) k/uL Monocytes # 0.6 (0-1.0) k/uL Eosinophils # 0.0 (0-0.7) k/uL Basophils # 0.0 (0-0.2) k/uL Hypochromasia Moderate Anisocytosis Slight PT (9.0-12.0) sec INR (<1.2) APTT (22.0-30.0) sec Sodium 144 (137-145) mmol/L Potassium 4.2 (3.5-5.1) mmol/L Chloride 92 L (98-107) mmol/L Carbon Dioxide 46 H* (22-30) mmol/L Anion Gap 6 mmol/L BUN 24 H (7-17) mg/dL Creatinine 0.80 (0.52-1.04) mg/dL Est GFR (MDRD) Af Amer >60 (>60 ml/min/1.73 sqM) Est GFR (MDRD) Non-Af >60 (>60 ml/min/1.73 sqM) Glucose 149 H (74-99) mg/dL Calcium 8.8 (8.4-10.2) mg/dL Magnesium 2.0 (1.6-2.3) mg/dL Total Bilirubin 0.4 (0.2-1.3) mg/dL AST 26 (14-36) U/L ALT 33 (9-52) U/L Alkaline Phosphatase 131 H (38-126) U/L Total Creatine Kinase <20 L (30-135) U/L CK-MB (CK-2) 0.7 (0.0-2.4) ng/mL CK-MB (CK-2) Rel Index Troponin I 0.070 H* (0.000-0.034) ng/mL NT-Pro-B Natriuret Pep pg/mL Total Protein 5.0 L (6.3-8.2) g/dL Albumin 2.6 L (3.5-5.0) g/dL Urine Color Urine Appearance (Clear) Urine pH (5.0-8.0) Ur Specific [place] (1.001-1.035) Urine Protein (Negative) Urine Glucose (UA) (Negative) Urine Ketones (Negative) Urine Blood (Negative) Urine Nitrite (Negative) Urine Bilirubin (Negative) Urine Urobilinogen (<2.0) mg/dL Ur Leukocyte Esterase (Negative) Urine WBC (0-5) /hpf Ur Squamous Epith Cells (0-4) /hpf Hyaline Casts (0-2) /lpf Urine Mucus (None) /hpf 06/17/17 06/17/17 06/17/17 Range/Units 11:50 11:50 11:50 WBC (3.8-10.6) k/uL RBC (3.80-5.40) m/uL Hgb (11.4-16.0) gm/dL Hct (34.0-46.0) % MCV (80.0-100.0) fL MCH (25.0-35.0) pg MCHC (31.0-37.0) g/dL RDW (11.5-15.5) % Plt Count (150-450) k/uL Neutrophils % % Lymphocytes % % Monocytes % % Eosinophils % % Basophils % % Neutrophils # (1.3-7.7) k/uL Lymphocytes # (1.0-4.8) k/uL Monocytes # (0-1.0) k/uL Eosinophils # (0-0.7) k/uL Basophils # (0-0.2) k/uL Hypochromasia Anisocytosis PT 11.1 (9.0-12.0) sec INR 1.2 H (<1.2) APTT 23.0 (22.0-30.0) sec Sodium (137-145) mmol/L Potassium (3.5-5.1) mmol/L Chloride (98-107) mmol/L Carbon Dioxide (22-30) mmol/L Anion Gap mmol/L BUN (7-17) mg/dL Creatinine (0.52-1.04) mg/dL Est GFR (MDRD) Af Amer (>60 ml/min/1.73 sqM) Est GFR (MDRD) Non-Af (>60 ml/min/1.73 sqM) Glucose (74-99) mg/dL Calcium (8.4-10.2) mg/dL Magnesium (1.6-2.3) mg/dL Total Bilirubin (0.2-1.3) mg/dL AST (14-36) U/L ALT (9-52) U/L Alkaline Phosphatase (38-126) U/L Total Creatine Kinase (30-135) U/L CK-MB (CK-2) (0.0-2.4) ng/mL CK-MB (CK-2) Rel Index Troponin I (0.000-0.034) ng/mL NT-Pro-B Natriuret Pep 70010 pg/mL Total Protein (6.3-8.2) g/dL Albumin (3.5-5.0) g/dL Urine Color Yellow Urine Appearance Clear (Clear) Urine pH 5.0 (5.0-8.0) Ur Specific [place] 1.009 (1.001-1.035) Urine Protein Negative (Negative) Urine Glucose (UA) Negative (Negative) Urine Ketones Negative (Negative) Urine Blood Negative (Negative) Urine Nitrite Negative (Negative) Urine Bilirubin Negative (Negative) Urine Urobilinogen <2.0 (<2.0) mg/dL Ur Leukocyte Esterase Small H (Negative) Urine WBC 2 (0-5) /hpf Ur Squamous Epith Cells 2 (0-4) /hpf Hyaline Casts 4 H (0-2) /lpf Urine Mucus Rare H (None) /hpf Disposition Clinical Impression: Hypoxia Disposition: HOME SELF-CARE Condition: Good Instructions: Dyspnea (ED) Referrals: Sunil Cagle MD [Primary Care Provider] - 1-2 days Time of Disposition: 14:26
[2017-06-17 12:10] VITALS: TEMP 97.9
[2017-06-17 12:24] LABS: Anisocytosis Slight; Basophils % (A) 0 %; Eosinophils % (A) 0 %; HCT 35.4 % (34.0-46.0); HGB 10.5 gm/dL (11.4-16.0); Hypochromasia Moderate; Lymphocytes # (A) 0.6 k/uL (1.0-4.8); Lymphocytes % (A) 3 %; MCH 25.7 pg (25.0-35.0); MCHC 29.8 g/dL (31.0-37.0); MCV 86.4 fL (80.0-100.0); Monocytes # (A) 0.6 k/uL (0-1.0); Monocytes % (A) 3 %; Neutrophils # (A) 20.9 k/uL (1.3-7.7); Neutrophils % (A) 94 %; Platelet Count 282 k/uL (150-450); RDW 17.3 % (11.5-15.5); WBC 22.3 k/uL (3.8-10.6)
[2017-06-17 12:26] LABS: ALT 33 U/L (9-52); AST 26 U/L (14-36); Albumin 2.6 g/dL (3.5-5.0); Alkaline Phosphatase 131 U/L (38-126); Blood Urea Nitrogen 24 mg/dL (7-17); Calcium 8.8 mg/dL (8.4-10.2); Chloride 92 mmol/L (98-107); Glucose 149 mg/dL (74-99); Sodium 144 mmol/L (137-145); Total Bilirubin 0.4 mg/dL (0.2-1.3)
[2017-06-17] MEDS ORDERED: FUROSEMIDE 10 MG/ML 4 ML VIAL IV STA (12:26)
[2017-06-17 12:27] LABS: INR 1.2 (<1.2); Prothrombin Time 11.1 sec (9.0-12.0)
[2017-06-17 12:29] LABS: Appearance,Urine Clear (Clear); Bilirubin,Urine Negative (Negative); Blood,Urine Negative (Negative); Color,Urine Yellow; Glucose,Urine (UA) Negative (Negative); Hyaline Casts,Urine 4 /lpf (0-2); Ketones,Urine Negative (Negative); Leukocyte Esterase,Urine Small (Negative); Mucus,Urine Rare /hpf; Nitrite,Urine Negative (Negative); Protein,Urine Negative (Negative); Specific Gravity,Urine 1.009 (1.001-1.035); Squamous Epithelial Cell,Urine 2 /hpf (0-4); Urobilinogen,Urine <2.0 mg/dL (<2.0); WBC,Urine 2 /hpf (0-5)
--- NOTE | 2017-06-17 12:32 | XR ---
EXAMINATION TYPE: XR chest 2V DATE OF EXAM: 06/17/2017 COMPARISON: NONE INDICATION: Posterior left lung mass, previous abnormal chest TECHNIQUE: Frontal and lateral views of the chest are obtained. FINDINGS: The heart size is mildly prominent. The pulmonary vasculature is normal. Posterior left lung mass is again evident. Small left pleural effusion may be present. Left basilar i nfiltrate may be present. IMPRESSION: 1. Left lower lobe infiltrate. Correlate for pneumonia. 2. Posterior left lung mass.
[2017-06-17 12:36] VITALS: RESP 18
[2017-06-17 12:45] LABS: Anion Gap 6 mmol/L
[2017-06-17 12:48] LABS: Carbon Dioxide 46 mmol/L (22-30); Potassium 4.2 mmol/L (3.5-5.1)
[2017-06-17 12:52] LABS: Creatine Kinase <20 U/L (30-135)
[2017-06-17 13:01] LABS: Creatine Kinase MB 0.7 ng/mL (0.0-2.4)
[2017-06-17] MEDS ORDERED: cefTRIAXone IN SWFI 1,000 MG/10 ML SYRINGE IVP STA (13:43)
[2017-06-17 14:53] VITALS: BP 124/61; PULSE 91
== END 2017-06-17 14:54 | disposition home or self-care (01) ==
LOC: EC 10:45
DX: R09.02 Hypoxemia (principal); R53.83 Other fatigue; D72.829 Elevated white blood cell count, unspecified; E78.5 Hyperlipidemia, unspecified; I10 Essential (primary) hypertension; C34.90 Malignant neoplasm of unspecified part of unspecified bronchus or lung; J44.9 Chronic obstructive pulmonary disease, unspecified; Z87.891 Personal history of nicotine dependence; Z79.82 Long term (current) use of aspirin; Z79.51 Long term (current) use of inhaled steroids; Z79.899 Other long term (current) drug therapy; Z88.2 Allergy status to sulfonamides; Z88.1 Allergy status to other antibiotic agents
CPT/HCPCS: 36415; 93005; 83880; 80053; 82550; 82553; 83735; 84484; 85025; 85610; 85730; 81001; 71046; 99284; 96374; 96375; J1940; J0696

== ENCOUNTER → 2017-06-23 | Outpatient (CLI) | payer MEDICARE, BC ==
--- NOTE | 2017-06-23 16:09 | CT ---
EXAMINATION TYPE: CT angio chest DATE OF EXAM: 06/23/2017 COMPARISON: Prior CT 05/12/2017 HISTORY: PE, shortness of breath and lung mass CT DLP: 455.6 mGycm Automated exposure control for dose reduction was used. CONTRAST: CTA scan of the thorax is performed with IV Contrast, patient injected with 100 mL of Omnipaque 350, pulmonary embolism protocol. MIP images are created and reviewed. 3D reconstructed images are creat ed on an independent workstation and reviewed. FINDINGS: LUNGS: The lungs are similar, left lower lobe lung mass is again noted, there is extension into the l eft hilar region and the mass may grow slightly in the interval, there is extensive emphysematous maxi nge again identified. There is a small left greater than right pleural effusion, no pneumothorax is seen. Some associated basilar atelectatic changes are present. The tracheobronchial tree is patent. Pulmonary nodule in the left upper lobe medially is again noted. AORTA: No additional significant abnormality is seen. MEDIASTINUM: There is satisfactory enhancement of the pulmonary artery and its branches, there is no CT evidence for pulmonary embolism. Pulmonary artery is prominent, consider pulmonary artery hyperten italo. Coronary artery calcifications are extensive. No pericardial effusion is seen. OTHER: No additional significant abnormality is seen. IMPRESSION: ENLARGING LEFT LOWER LOBE LUNG MASS. POSSIBLE PULMONARY ARTERY HYPERTENSION. CORONARY ARTERY DISEASE. EMPHYSEMA. NO EVIDENT PULMONARY EMBOLISM.
== END | disposition home or self-care (01) ==
LOC: RADCTMAIN 12:36
PROVIDERS: ATTEND Internal Medicine Geriatric Medicine
DX: C34.32 Malignant neoplasm of lower lobe, left bronchus or lung (principal); J43.9 Emphysema, unspecified; I25.10 Atherosclerotic heart disease of native coronary artery without angina pectoris
CPT/HCPCS: 71275; Q9967

== ENCOUNTER → 2017-08-16 | Outpatient (CLI) | payer MEDICARE, BC ==
[2017-08-16 14:20] LABS: Blood Urea Nitrogen 17 mg/dL (7-17)
--- NOTE | 2017-08-16 15:39 | CT ---
EXAMINATION TYPE: CT chest w con DATE OF EXAM: 08/16/2017 COMPARISON: Prior CT chest 06/23/[address] chest 04/17/2017, PET CT 05/08/2017 HISTORY: Follow up lung cancer CT DLP: 715 mGycm Automated exposure control for dose reduction was used. CONTRAST: CT scan of the chest is performed with IV Contrast, patient injected with 100 mL of Isovue 300. FINDINGS: LUNGS: Indeterminate nodular density measures 5 mm in the right lower lobe on axial image 36, coronal image 67. The abnormal soft tissue in the left lung base has diminished in size and currently is poo rly defined and show some air bronchograms and measures approximately 3.7 cm in transverse dimension by 5.7 cm x 3.2 cm. Minimal local fluid may be present. Thickening of the interlobular septal lines p resent in the left lower lobe. Emphysematous changes are present. There is no additional mass. MEDIASTINUM: There are no greater than 1 cm hilar or mediastinal lymph nodes. No pericardial effusi on is seen. There is a small hiatal hernia. Patient is post cholecystectomy. AORTA: No additional significant abnormality is seen. OTHER: No additional significant abnormality is seen. IMPRESSION: Abnormal soft tissue in the left lower lobe has diminished in size. There is a soft tiss ue nodule right lower lobe is stable dating to April 2017.
== END | disposition home or self-care (01) ==
LOC: RADCTMAIN 13:39
PROVIDERS: ATTEND Internal Medicine Hematology & Oncology
DX: C34.32 Malignant neoplasm of lower lobe, left bronchus or lung (principal); R91.8 Other nonspecific abnormal finding of lung field; Z88.8 Allergy status to other drugs, medicaments and biological substances
CPT/HCPCS: 82565; 84520; 71260; 36415; Q9967

== ENCOUNTER → 2017-11-16 | Outpatient (CLI) | payer MEDICARE, BC ==
[2017-11-16 13:44] LABS: Blood Urea Nitrogen 20 mg/dL (7-17)
--- NOTE | 2017-11-16 14:51 | CT ---
EXAMINATION TYPE: CT chest w con DATE OF EXAM: 11/16/2017 COMPARISON: 08/16/2017 HISTORY: Follow up to lung CA CT DLP: 549.6 mGycm Automated exposure control for dose reduction was used. CONTRAST: CT scan of the chest is performed with IV Contrast, patient injected with 100 mL of Isovue 300. FINDINGS: LUNGS: Increasing left lower lobe patchy infiltrates with air space consolidation. Small left-sided p leural effusion. The right lung is clear. Upper lobe emphysematous changes are mild to moderate in de gree. MEDIASTINUM: There are no greater than 1 cm hilar or mediastinal lymph nodes. No pericardial effusi on is seen. Thoracic aorta is of normal caliber. The heart is not enlarged. UPPER ABDOMEN: No significant abnormality appreciated. OTHER: Cholecystectomy clips are in place. IMPRESSION: 1. Progressive left lower lobe infiltrates and areas of airspace consolidation. Correlate for pneumon ia. Consider bronchoscopic evaluation if felt clinically indicated.
== END | disposition home or self-care (01) ==
LOC: RADCTMAIN 12:53
PROVIDERS: ATTEND Internal Medicine Hematology & Oncology
DX: C34.32 Malignant neoplasm of lower lobe, left bronchus or lung (principal)
CPT/HCPCS: 82565; 84520; 71260; Q9967

== ENCOUNTER 2017-11-23 11:08 | Emergency (ER) | payer MEDICARE, BC ==
[2017-11-23] MEDS ORDERED: ALBUTEROL NEBULIZED 2.5 MG/3 ML INHALATION STA (11:30)
[2017-11-23] MEDS ORDERED: SODIUM CHLORIDE 0.9% 1,000 ML IV STA (11:30)
[2017-11-23] MEDS ORDERED: IPRATROPIUM 0.5 MG/2.5 ML NEBU INHALATION STA (11:30)
--- NOTE | 2017-11-23 11:32 | ED ---
General Adult HPI - General Stated complaint: Diff Breathing Time Seen by Provider: 11/23/17 11:30 Source: RN notes reviewed, old records reviewed - History of Present Illness Initial comments: This is a 71-year-old female the ER for evaluation today. Patient concern for pneumonia. Patient has multiple medical comorbidities COPD and chemotherapy. Patient with history of CVA. Patient denies any pain. No fevers. Does have mild increased cough no significant congestion. Shortness of breath with exertion. No recent hospitalizations no recent travel history - Related Data Home Medications Medication Instructions Recorded Confirmed Albuterol Inhaler [Ventolin Hfa 1 - 2 puff INHALATION RT-Q6H PRN 05/25/16 Inhaler] Amitriptyline HCl [Elavil] 10 mg PO HS 05/25/16 11/23/17 Aspirin EC [Ecotrin Low Dose] 81 mg PO HS 05/25/16 11/23/17 Metoprolol Tartrate [Lopressor] 25 mg PO BID 05/25/16 11/23/17 Oxybutynin Chloride [Ditropan] 5 mg PO BID@0800,1700 05/25/16 11/23/17 Simvastatin [Zocor] 40 mg PO HS 05/25/16 11/23/17 Biotin 5 mg PO DAILY@1700 08/19/16 11/23/17 Cholecalciferol [Vitamin D3] 1,000 unit PO DAILY 08/19/16 11/23/17 Cranberry Fruit Extract [Cranberry] 500 mg PO DAILY 08/19/16 11/23/17 Multivit-Min/Iron/Folic/Lutein 1 tab PO DAILY@1700 08/19/16 11/23/17 [Centrum Silver Women Tablet] Vitamin E (Dl,Tocopheryl Acet) 400 unit PO DAILY 08/19/16 11/23/17 [Vitamin E] Budesonide-Formot 160-4.5 Mcg 2 puff INHALATION RT-BID 06/17/17 11/23/17 [Symbicort 160-4.5 Mcg Inhaler] Famotidine [Pepcid] 20 mg PO DAILY@0600 06/17/17 11/23/17 Furosemide [Lasix] 40 mg PO DAILY@0600 06/17/17 11/23/17 Ipratropium-Albuterol Nebulize 3 ml INHALATION RT-QID@,,,06/17/1711/23 [Duoneb 0.5 mg-3 mg/3 ml Soln] Potassium Chloride ER [K-Dur 20] 20 meq PO DAILY 06/17/17 11/23/17 Flaxseed Oil [[place]-3 Flaxseed Oil] 1,000 mg PO DAILY 11/23/17 11/23/17 Previous Rx's Medication Instructions Recorded Melatonin 5 mg PO HS PRN tablet 04/22/17 ALPRAZolam [Xanax] 0.25 mg PO TID PRN #90 tab 06/16/17 Gabapentin [Neurontin] 300 mg PO HS cap 06/16/17 Allergies Allergy/AdvReac Type Severity Reaction Status Date / Time nitrofurantoin AdvReac Abdominal Verified 11/23/17 12:05 [From Macrodantin] Pain Sulfa (Sulfonamide AdvReac Nausea Verified 11/23/17 12:05 Antibiotics) Review of Systems ROS Statement: Those systems with pertinent positive or pertinent negative responses have been documented in the HPI. ROS Other: All systems not noted in ROS Statement are negative. Past Medical History Past Medical History: Cancer, COPD, Hyperlipidemia, Hypertension Additional Past Medical History / Comment(s): bleeding from hemorrhoids,stress incontinence,bronchitis, overactive bladder, kidney stone Lung CA History of Any Multi-Drug Resistant Organisms: None Reported Past Surgical History: Bladder Surgery, Breast Surgery, Cholecystectomy, Joint Replacement Additional Past Surgical History / Comment(s): left complete knee replacement, rt partial knee replacement,rectocele, bowel surgery to unkink colon,cyst removed breast,bladder surgery x3, bladder suspension, hemorrhoidectomy, rectal prolapse repair Past Anesthesia/Blood Transfusion Reactions: No Reported Reaction Additional Past Anesthesia/Blood Transfusion Reaction / Comment(s): no hx blood transfusion Past Psychological History: Anxiety Smoking Status: Former smoker Past Alcohol Use History: None Reported Past Drug Use History: None Reported - Past Family History Mother Family Medical History: No Reported History Father History Unknown: Yes General Exam General appearance: alert, in no apparent distress Head exam: Present: atraumatic, normocephalic, normal inspection Eye exam: Present: normal appearance, PERRL, EOMI. Absent: scleral icterus, conjunctival injection, periorbital swelling ENT exam: Present: normal exam, mucous membranes moist Neck exam: Present: normal inspection. Absent: tenderness, meningismus, lymphadenopathy Respiratory exam: Present: normal lung sounds bilaterally, wheezes, decreased breath sounds. Absent: respiratory distress, rales, rhonchi, stridor Cardiovascular Exam: Present: regular rate, normal rhythm, normal heart sounds. Absent: systolic murmur, diastolic murmur, rubs, gallop, clicks GI/Abdominal exam: Present: soft, normal bowel sounds. Absent: distended, tenderness, guarding, rebound, rigid Extremities exam: Present: normal inspection, full ROM, normal capillary refill. Absent: tenderness, pedal edema, joint swelling, calf tenderness Back exam: Present: normal inspection Neurological exam: Present: alert, oriented X3, CN II-XII intact Psychiatric exam: Present: normal affect, normal mood Skin exam: Present: warm, dry, intact, normal color. Absent: rash Course Vital Signs 11/23/17 11/23/17 11/23/17 11:34 12:39 13:42 Temperature 97.6 F Pulse Rate 90 90 87 Respiratory 18 18 Rate Blood Pressure 130/74 146/87 O2 Sat by Pulse 97 97 Oximetry 11/23/17 14:01 Temperature Pulse Rate 96 Respiratory Rate Blood Pressure O2 Sat by Pulse Oximetry - Reevaluation(s) Reevaluation #1: 11/23/17 14:03 A she is in no distress after breathing treatment, able to ambulate without shortness of breath EKG Findings - EKG Comments: EKG Findings:: EKG shows normal sinus rhythm rate of 92, MI 1:30, QRS 82, QTc 457 Medical Decision Making - Medical Decision Making 71 female the ER for evaluation, positive shortness of breath improvement with breathing treatment, anemia but hemoglobin is stable. Patient on chemotherapy. Patient is without acute distress and can be discharged home - Lab Data Result diagrams: 11/23/17 12:03 11/23/17 12:03 Lab Results 11/23/17 11/23/17 11/23/17 Range/Units 12:03 12:03 12:03 WBC 3.9 (3.8-10.6) k/uL RBC 2.75 L (3.80-5.40) m/uL Hgb 8.5 L (11.4-16.0) gm/dL Hct 25.6 L (34.0-46.0) % MCV 93.1 (80.0-100.0) fL MCH 30.7 (25.0-35.0) pg MCHC 33.0 (31.0-37.0) g/dL RDW 23.8 H (11.5-15.5) % Plt Count 69 L (150-450) k/uL Neutrophils % (Manual) 79 % Lymphocytes % (Manual) 6 % Monocytes % (Manual) 14 % Eosinophils % (Manual) 1 % Neutrophils # (Manual) 3.08 (1.3-7.7) k/uL Lymphocytes # (Manual) 0.23 L (1.0-4.8) k/uL Monocytes # (Manual) 0.55 (0-1.0) k/uL Eosinophils # (Manual) 0.04 (0-0.7) k/uL Nucleated RBCs 0 (0-0) /100 WBC Manual Slide Review Performed Polychromasia Present Hypochromasia Slight Poikilocytosis Moderate Anisocytosis Moderate Macrocytosis Slight PT (9.0-12.0) sec INR (<1.2) APTT (22.0-30.0) sec Sodium (137-145) mmol/L Potassium (3.5-5.1) mmol/L Chloride (98-107) mmol/L Carbon Dioxide (22-30) mmol/L Anion Gap mmol/L BUN (7-17) mg/dL Creatinine (0.52-1.04) mg/dL Est GFR (CKD-EPI)AfAm (>60 ml/min/1.73 sqM) Est GFR (CKD-EPI)NonAf (>60 ml/min/1.73 sqM) Glucose (74-99) mg/dL Calcium (8.4-10.2) mg/dL Magnesium (1.6-2.3) mg/dL Total Bilirubin (0.2-1.3) mg/dL AST (14-36) U/L ALT (9-52) U/L Alkaline Phosphatase (38-126) U/L Total Creatine Kinase <20 L (30-135) U/L CK-MB (CK-2) 0.5 (0.0-2.4) ng/mL CK-MB (CK-2) Rel Index Troponin I 0.014 (0.000-0.034) ng/mL NT-Pro-B Natriuret Pep 646 pg/mL Total Protein (6.3-8.2) g/dL Albumin (3.5-5.0) g/dL 11/23/17 11/23/17 Range/Units 12:03 12:03 WBC (3.8-10.6) k/uL RBC (3.80-5.40) m/uL Hgb (11.4-16.0) gm/dL Hct (34.0-46.0) % MCV (80.0-100.0) fL MCH (25.0-35.0) pg MCHC (31.0-37.0) g/dL RDW (11.5-15.5) % Plt Count (150-450) k/uL Neutrophils % (Manual) % Lymphocytes % (Manual) % Monocytes % (Manual) % Eosinophils % (Manual) % Neutrophils # (Manual) (1.3-7.7) k/uL Lymphocytes # (Manual) (1.0-4.8) k/uL Monocytes # (Manual) (0-1.0) k/uL Eosinophils # (Manual) (0-0.7) k/uL Nucleated RBCs (0-0) /100 WBC Manual Slide Review Polychromasia Hypochromasia Poikilocytosis Anisocytosis Macrocytosis PT 10.1 (9.0-12.0) sec INR 1.0 (<1.2) APTT 24.6 (22.0-30.0) sec Sodium 141 (137-145) mmol/L Potassium 4.2 (3.5-5.1) mmol/L Chloride 103 (98-107) mmol/L Carbon Dioxide 31 H (22-30) mmol/L Anion Gap 7 mmol/L BUN 16 (7-17) mg/dL Creatinine 0.69 (0.52-1.04) mg/dL Est GFR (CKD-EPI)AfAm >90 (>60 ml/min/1.73 sqM) Est GFR (CKD-EPI)NonAf 88 (>60 ml/min/1.73 sqM) Glucose 118 H (74-99) mg/dL Calcium 9.1 (8.4-10.2) mg/dL Magnesium 2.1 (1.6-2.3) mg/dL Total Bilirubin 0.4 (0.2-1.3) mg/dL AST 27 (14-36) U/L ALT 24 (9-52) U/L Alkaline Phosphatase 99 (38-126) U/L Total Creatine Kinase (30-135) U/L CK-MB (CK-2) (0.0-2.4) ng/mL CK-MB (CK-2) Rel Index Troponin I (0.000-0.034) ng/mL NT-Pro-B Natriuret Pep pg/mL Total Protein 6.0 L (6.3-8.2) g/dL Albumin 3.7 (3.5-5.0) g/dL - Radiology Data Radiology results: report reviewed (Chest x-ray is unchanged), image reviewed Disposition Clinical Impression: Acute exacerbation of chronic obstructive airways disease, Anemia Disposition: HOME SELF-CARE Condition: Good Instructions: Chronic Bronchitis (ED), Anemia (ED) Is patient prescribed a controlled substance at d/c from ED?: No Referrals: Sunil Cagle MD [Primary Care Provider] - 1-2 days
[2017-11-23 11:45] VITALS: RESP 18; TEMP 97.6
[2017-11-23 12:43] LABS: ALT 24 U/L (9-52); AST 27 U/L (14-36); Albumin 3.7 g/dL (3.5-5.0); Alkaline Phosphatase 99 U/L (38-126); Anion Gap 7 mmol/L; Blood Urea Nitrogen 16 mg/dL (7-17); Calcium 9.1 mg/dL (8.4-10.2); Carbon Dioxide 31 mmol/L (22-30); Chloride 103 mmol/L (98-107); Glucose 118 mg/dL (74-99); Magnesium 2.1 mg/dL (1.6-2.3); Potassium 4.2 mmol/L (3.5-5.1); Sodium 141 mmol/L (137-145); Total Bilirubin 0.4 mg/dL (0.2-1.3)
[2017-11-23 12:53] LABS: Partial Thromboplastin Time 24.6 sec (22.0-30.0); Prothrombin Time 10.1 sec (9.0-12.0)
--- NOTE | 2017-11-23 12:58 | XR ---
EXAMINATION TYPE: XR chest 2V DATE OF EXAM: 11/23/2017 COMPARISON: CT chest from one week ago. Two view chest xray June 17, 2017. PET/CT May 08 7. HISTORY: History of lung cancer and COPD with shortness of breath TECHNIQUE: Frontal and lateral views of the chest are obtained. FINDINGS: There is background chronic emphysematous change with persistent small left pleural effusi on and/or pleural thickening and central left hilar and lateral opacities redemonstrated. Right lung remains clear. Some left-sided volume loss with mediastinal shift is redemonstrated. The cardiac albertina houette size is stable and mildly enlarged. The osseous structures are intact. IMPRESSION: Background chronic emphysematous change and mild cardiomegaly with left-sided volume los s and persistent small left pleural effusion and/or pleural thickening with irregular areas of opacit y mid to lower lung could reflect posttreatment change, and/or areas of residual neoplasm, and/or acu te infectious process on background of chronic change. No significant change from most recent CT one week earlier.
[2017-11-23 12:59] LABS: Creatine Kinase <20 U/L (30-135)
[2017-11-23 13:05] LABS: Anisocytosis Moderate; HCT 25.6 % (34.0-46.0); HGB 8.5 gm/dL (11.4-16.0); Hypochromasia Slight; MCH 30.7 pg (25.0-35.0); MCV 93.1 fL (80.0-100.0); Macrocytosis Slight; Mean Platelet Volume 7.8; Poikilocytosis Moderate; RBC 2.75 m/uL (3.80-5.40); RDW 23.8 % (11.5-15.5); WBC 3.9 k/uL (3.8-10.6)
[2017-11-23 13:06] LABS: Platelet Count 69 k/uL (150-450)
[2017-11-23 13:12] LABS: Creatine Kinase MB 0.5 ng/mL (0.0-2.4); Troponin I 0.014 ng/mL (0.000-0.034)
[2017-11-23 13:18] LABS: Eosinophils # (M) 0.04 k/uL (0-0.7); Lymphocytes # (M) 0.23 k/uL (1.0-4.8); Monocytes # (M) 0.55 k/uL (0-1.0); Neutrophils # (M) 3.08 k/uL (1.3-7.7); Neutrophils % (M) 79 %; Nucleated Red Blood Cells 0 /100 WBC (0-0); Total Cells Counted 100
[2017-11-23 13:19] LABS: Polychromasia Present
[2017-11-23 14:45] VITALS: BP 115/75; PULSE 103
== END 2017-11-23 14:43 | disposition home or self-care (01) ==
LOC: EC 11:08
DX: J44.1 Chronic obstructive pulmonary disease with (acute) exacerbation (principal); D64.9 Anemia, unspecified; C34.90 Malignant neoplasm of unspecified part of unspecified bronchus or lung; E78.5 Hyperlipidemia, unspecified; N32.81 Overactive bladder; F41.9 Anxiety disorder, unspecified; Z87.891 Personal history of nicotine dependence; Z79.51 Long term (current) use of inhaled steroids; Z79.82 Long term (current) use of aspirin; Z79.899 Other long term (current) drug therapy; Z88.1 Allergy status to other antibiotic agents; Z88.2 Allergy status to sulfonamides
CPT/HCPCS: 36415; 71046; 80053; 82550; 82553; 83735; 83880; 84484; 85025; 85610; 85730; 93005; 94644; 99285

== ENCOUNTER → 2018-01-26 | Outpatient (CLI) | payer MEDICARE, BC ==
[2018-01-26 12:02] LABS: Blood Urea Nitrogen 22 mg/dL (7-17)
--- NOTE | 2018-01-26 13:01 | CT ---
EXAMINATION TYPE: CT chest w con DATE OF EXAM: 01/26/2018 COMPARISON: CT chest November 16, 2017 and older studies back to April 17, 2017. PET/CT May 08 17 HISTORY: Follow up lung cancer left lung. CT DLP: 695 mGycm. Automated Exposure Control for Dose Reduction was Utilized. TECHNIQUE: CT scan of the thorax is performed following with IV Contrast, patient injected with 100 mL of Isovue 300. FINDINGS: LUNGS: Background moderate underlying emphysematous changes redemonstrated bilaterally. There is pers istent small left pleural fluid collection. There is persistent irregular masslike consolidation left hilar region with peribronchial consolidation corresponding to site of original neoplasm that is juwan rly irregular and wedge-shaped posteriorly. There is increasing lateral midlung consolidation with ai r bronchograms that has a somewhat triangular shaped. Overall findings are slightly more prominent or consolidative in the left hilar region with more central low density noted for reference axial image 26 abutting the draining inferior left pulmonary vein measuring roughly 4.8 cm transversely by 2.5 c m AP diameter. There is stable 6 mm medial right midlung nodule-like symptoms 18 unchanged from origi nal studies. No pneumothorax is seen bilaterally. No new nodules or masses right lung are clearly gavin ntified. MEDIASTINUM: There are no new greater than 1 cm hilar or mediastinal lymph nodes. Prominent but vicente bcentimeter prevascular, subcarinal, and AP window lymph nodes are felt stable. Stable tiny pericardi al effusion is seen. Main pulmonary artery remains dilated 3.2 cm axial image 24, CT findings consis tent with underlying pulmonary artery hypertension. Stable mild cardiomegaly. Redemonstration of lolis nary artery desiccation which is noted marker for coronary artery disease. OTHER: Small hiatal hernia is present currently. Cholecystectomy clips are redemonstrated. Mild to mo derate multilevel spurring in the thoracic spine is redemonstrated. Roughly 1.0 cm lesion posteriorly upper pole level right kidney favoring simple cyst is seen best coronal image 80. IMPRESSION: There is increasing suspicious irregular low dense masslike consolidation left hilar sabrina on at the area of primary neoplasm worrisome for local neoplastic recurrence. Follow-up PET/CT can be performed to further evaluate.
== END | disposition home or self-care (01) ==
LOC: RADCTMAIN 11:26
PROVIDERS: ATTEND Internal Medicine Hematology & Oncology
DX: R91.8 Other nonspecific abnormal finding of lung field (principal); C34.32 Malignant neoplasm of lower lobe, left bronchus or lung; Z88.2 Allergy status to sulfonamides; Z88.1 Allergy status to other antibiotic agents
CPT/HCPCS: 82565; 84520; 71260; 36415; Q9967

== ENCOUNTER → 2018-04-18 | Outpatient (CLI) | payer MEDICARE, BC ==
[2018-04-18 11:16] LABS: Blood Urea Nitrogen 19 mg/dL (7-17)
--- NOTE | 2018-04-18 13:15 | CT ---
EXAMINATION TYPE: CT chest w con DATE OF EXAM: 04/18/2018 COMPARISON: Prior chest 01/26/2018 HISTORY: Follow up scan per patient CT DLP: 514.8 mGycm Automated exposure control for dose reduction was used. CONTRAST: CT scan of the chest is performed with IV Contrast, patient injected with 100 mL of Isovue 300. FINDINGS: LUNGS: There is abnormal density at the left lung base similar to prior exam, calcified nodule again seen in the lingula. Emphysematous changes are present within the lungs. No evident pleural or perica rdial effusion. Finding loss present in the left hemithorax, there are interstitial changes. MEDIASTINUM: Abnormal soft tissue density in the left hilar region shows a similar appearance. Medias tinal nodes show a stable appearance. Coronary artery calcifications again seen. AORTA: No additional significant abnormality is seen. OTHER: Small hiatal hernia is present. Colonic interposition present anterior to the liver. No evide nt adrenal mass. Patient is post cholecystectomy. Nonobstructive calcifications, vascular calcificati ons associated with the left kidney. IMPRESSION: Findings are similar to prior exam. No significant interval change.
== END | disposition home or self-care (01) ==
LOC: RADCTMAIN 10:39
PROVIDERS: ATTEND Internal Medicine Hematology & Oncology
DX: Z03.89 Encounter for observation for other suspected diseases and conditions ruled out (principal); C34.32 Malignant neoplasm of lower lobe, left bronchus or lung
CPT/HCPCS: 82565; 84520; 71260; 36415; Q9967

== ENCOUNTER → 2018-05-28 | Outpatient (CLI) | payer MEDICARE, BC ==
--- NOTE | 2018-05-31 16:09 | PE ---
Nuclear medicine PET/CT HISTORY: Lung carcinoma, subsequent Patient received 11.7 mCi F-18 FDG intravenously in delayed scanning was performed from the skull bas e to the mid thighs. Localization and attenuation correction CT scan was performed. Correlation to prior nuclear medicine PET/CT 05/08/2017, chest CT 04/18/2018 Neck and chest: There is no cervical or supraclavicular adenopathy. Right upper lobe lung nodule medi ally is stable and subcentimeter in size. The parenchymal density seen in the left lower lobe shows g reater confluence, there is likely posttreatment change with areas of air bronchogram, there is volum e loss. There is hypermetabolic uptake noted within the left lower lobe mass in peripheral pattern ce ntral low uptake, SUV is 13.6, tumor volume appears somewhat decreased. The left lower lobe atelectat ic change which is developed in the interval shows SUV 4.4, more peripherally in the left lower lobe there is uptake present with SUV 5.4. No other significant changes. Abdomen pelvis: There is no adrenal mass. Patient is post cholecystectomy. Liver is unremarkable. The re is a small hiatal hernia. No retroperitoneal adenopathy. No suspicious hypermetabolic uptake. Dive rticular change noted in the sigmoid colon, postop changes noted rectum. No pelvic adenopathy. No анан picious hypermetabolic uptake. Osseous structures show mild uptake possibly due to posttreatment, marrow activation changes. IMPRESSION: Interval findings of the left lower lobe. Findings likely due to treatment.
== END | disposition home or self-care (01) ==
LOC: RADPETMAIN 12:12
PROVIDERS: ATTEND Nurse Practitioner Adult Health
DX: R91.1 Solitary pulmonary nodule (principal)
CPT/HCPCS: 78815; A9552

== ENCOUNTER 2018-06-06 12:19 | Inpatient (IN) | payer MEDICARE, BC ==
[2018-06-06] MEDS ORDERED: HYDROmorphone 1 MG/ML 1 ML SYRINGE IVP STA (13:29)
[2018-06-06] MEDS ORDERED: IPRATROPIUM-ALBUTEROL 3 ML NEB INHALATION STA (13:29)
--- NOTE | 2018-06-06 13:33 | ED ---
General Adult HPI - General Chief complaint: Shortness of Breath Stated complaint: Back pain/sob Time Seen by Provider: 06/06/18 12:30 Source: patient, RN notes reviewed Mode of arrival: ambulatory Limitations: no limitations - History of Present Illness Initial comments: Patient is a pleasant 72-year-old female presenting to the emergency Department with thoracic back pain. Symptoms started several weeks ago. Symptoms have progressed. Patient is having some increase source of breath over the past couple of days. Patient does have a history of lung cancer that has improved with treatment. Patient did see Dr. Quinn today. Results from recent PET scan showed recurrent of cancer. Patient was advised come to the emergency department for hospitalization. She states Dr. Quinn will discuss case further with Dr. Garcia and come up with a plan of treatment for her. She states she was also sent here for pain control. Patient states she does feel a little bit chilled. - Related Data Home Medications Medication Instructions Recorded Confirmed Amitriptyline HCl [Elavil] 10 mg PO HS 05/25/16 06/06/18 Aspirin EC [Ecotrin Low Dose] 81 mg PO HS 05/25/16 06/06/18 Metoprolol Tartrate [Lopressor] 25 mg PO BID 05/25/16 06/06/18 Oxybutynin Chloride [Ditropan] 5 mg PO BID@0800,1700 05/25/16 06/06/18 Simvastatin [Zocor] 40 mg PO HS 05/25/16 06/06/18 Biotin 5 mg PO DAILY@1700 08/19/16 06/06/18 Cholecalciferol [Vitamin D3] 1,000 unit PO DAILY 08/19/16 06/06/18 Cranberry Fruit Extract [Cranberry] 500 mg PO DAILY 08/19/16 06/06/18 Multivit-Min/Iron/Folic/Lutein 1 tab PO DAILY@1700 08/19/16 06/06/18 [Centrum Silver Women Tablet] Budesonide-Formot 160-4.5 Mcg 2 puff INHALATION RT-BID 06/17/17 06/06/18 [Symbicort 160-4.5 Mcg Inhaler] Famotidine [Pepcid] 20 mg PO DAILY@0600 06/17/17 06/06/18 Furosemide [Lasix] 40 mg PO DAILY@0600 06/17/17 11/23/17 Potassium Chloride ER [K-Dur 20] 20 meq PO DAILY 06/17/17 06/06/18 Flaxseed Oil [[place]-3 Flaxseed Oil] 1,000 mg PO DAILY 11/23/17 06/06/18 Albuterol Inhaler [Ventolin Hfa 2 puff INHALATION RT-Q4H 06/06/18 06/06/18 Inhaler] Albuterol Nebulized (Conc) 2.5 mg INHALATION RT-QID 06/06/18 06/06/18 [Ventolin Nebulized (Conc)] Baclofen [Lioresal] 10 mg PO TID 06/06/18 06/06/18 Cyclobenzaprine [Flexeril] 10 mg PO BID 06/06/18 06/06/18 Formoterol Fumarate [Perforomist] 20 mcg PO RT-BID 06/06/18 06/06/18 Furosemide [Lasix] 40 mg PO DAILY 06/06/18 06/06/18 Hydrochlorothiazide [Hydrodiuril] 25 mg PO DAILY 06/06/18 06/06/18 Previous Rx's Medication Instructions Recorded Melatonin 5 mg PO HS PRN tablet 04/22/17 ALPRAZolam [Xanax] 0.25 mg PO TID PRN #90 tab 06/16/17 Allergies Allergy/AdvReac Type Severity Reaction Status Date / Time nitrofurantoin AdvReac Abdominal Verified 06/06/18 13:33 [From Macrodantin] Pain Sulfa (Sulfonamide AdvReac Nausea Verified 06/06/18 13:33 Antibiotics) Review of Systems ROS Statement: Those systems with pertinent positive or pertinent negative responses have been documented in the HPI. ROS Other: All systems not noted in ROS Statement are negative. Constitutional: Reports: chills Eyes: Denies: eye pain ENT: Denies: ear pain Respiratory: Reports: cough, dyspnea Cardiovascular: Denies: chest pain Endocrine: Reports: fatigue Gastrointestinal: Denies: abdominal pain Genitourinary: Denies: dysuria Musculoskeletal: Reports: back pain Skin: Denies: rash Neurological: Denies: weakness Past Medical History Past Medical History: Cancer, COPD, Hyperlipidemia, Hypertension Additional Past Medical History / Comment(s): bleeding from hemorrhoids,stress incontinence,bronchitis, overactive bladder, kidney stone Lung CA History of Any Multi-Drug Resistant Organisms: None Reported Past Surgical History: Bladder Surgery, Breast Surgery, Cholecystectomy, Joint Replacement Additional Past Surgical History / Comment(s): left complete knee replacement, rt partial knee replacement,rectocele, bowel surgery to unkink colon,cyst removed breast,bladder surgery x3, bladder suspension, hemorrhoidectomy, rectal prolapse repair Past Anesthesia/Blood Transfusion Reactions: No Reported Reaction Additional Past Anesthesia/Blood Transfusion Reaction / Comment(s): no hx blood transfusion Past Psychological History: Anxiety Smoking Status: Former smoker Past Alcohol Use History: None Reported Past Drug Use History: None Reported - Past Family History Mother Family Medical History: No Reported History Father History Unknown: Yes General Exam Limitations: no limitations General appearance: alert, in no apparent distress Head exam: Present: atraumatic Eye exam: Present: normal appearance, PERRL ENT exam: Present: normal oropharynx Neck exam: Present: normal inspection Respiratory exam: Present: decreased breath sounds Cardiovascular Exam: Present: regular rate, normal rhythm Expanded Peripheral pulses: 2+: Posterior Tibialis (R), Posterior Tibialis (L) GI/Abdominal exam: Present: soft. Absent: tenderness Extremities exam: Present: normal inspection. Absent: pedal edema, calf tenderness Back exam: Present: tenderness (Mild tenderness left lateral mid thoracic region ) Neurological exam: Present: alert Psychiatric exam: Present: normal affect, normal mood Skin exam: Present: normal color Course Vital Signs 06/06/18 06/06/18 06/06/18 12:26 12:40 13:00 Temperature 99.1 F Pulse Rate 89 93 Respiratory 18 19 Rate Blood Pressure 133/72 126/109 O2 Sat by Pulse 98 92 L 97 Oximetry 06/06/18 06/06/18 06/06/18 13:30 13:48 13:57 Temperature Pulse Rate 92 92 91 Respiratory 25 H Rate Blood Pressure 136/80 O2 Sat by Pulse 99 Oximetry 06/06/18 06/06/18 06/06/18 14:00 14:30 15:00 Temperature Pulse Rate 97 102 H Respiratory 21 30 H 39 H Rate Blood Pressure 113/71 125/89 116/53 O2 Sat by Pulse 96 99 96 Oximetry - Reevaluation(s) Reevaluation #1: 06/06/18 17:02 Patient does have concern for sepsis diagnosed at 1702. Blood culture and lactic acid and antibiotics will be added. EKG Findings - EKG Comments: EKG Findings:: Normal sinus rhythm 88. WV 1:30. QRS 82. QT 356. QTc 4:30. Left axis. Normal QRS. No acute ST change. Medical Decision Making - Medical Decision Making Patient reevaluated and updated. Case was discussed in detail with Dr. Cagle, who will admit his patient with consults. He does also recommend antibiotics and Decadron. Case was also discussed with Dr. Garcia, who will consult. - Lab Data Result diagrams: 06/06/18 13:05 06/06/18 13:05 Lab Results 06/06/18 06/06/18 06/06/18 Range/Units 13:05 13:05 13:05 WBC 17.2 H (3.8-10.6) k/uL RBC 4.05 (3.80-5.40) m/uL Hgb 11.1 L (11.4-16.0) gm/dL Hct 33.9 L (34.0-46.0) % MCV 83.5 (80.0-100.0) fL MCH 27.3 (25.0-35.0) pg MCHC 32.7 (31.0-37.0) g/dL RDW 15.6 H (11.5-15.5) % Plt Count 401 (150-450) k/uL Neutrophils % 86 % Lymphocytes % 6 % Monocytes % 5 % Eosinophils % 1 % Basophils % 0 % Neutrophils # 14.8 H (1.3-7.7) k/uL Lymphocytes # 1.0 (1.0-4.8) k/uL Monocytes # 0.8 (0-1.0) k/uL Eosinophils # 0.2 (0-0.7) k/uL Basophils # 0.0 (0-0.2) k/uL Hypochromasia Slight PT 10.3 (9.0-12.0) sec INR 1.0 (<1.2) APTT 28.2 (22.0-30.0) sec Sodium 141 (137-145) mmol/L Potassium 5.3 H (3.5-5.1) mmol/L Chloride 102 (98-107) mmol/L Carbon Dioxide 33 H (22-30) mmol/L Anion Gap 6 mmol/L BUN 21 H (7-17) mg/dL Creatinine 0.66 (0.52-1.04) mg/dL Est GFR (CKD-EPI)AfAm >90 (>60 ml/min/1.73 sqM) Est GFR (CKD-EPI)NonAf 89 (>60 ml/min/1.73 sqM) Glucose 94 (74-99) mg/dL Calcium 9.4 (8.4-10.2) mg/dL Total Bilirubin 0.5 (0.2-1.3) mg/dL AST 36 (14-36) U/L ALT 25 (9-52) U/L Alkaline Phosphatase 147 H (38-126) U/L Total Protein 6.4 (6.3-8.2) g/dL Albumin 3.3 L (3.5-5.0) g/dL - Radiology Data Radiology results: image reviewed (Chest x-ray shows left lower lobe volume loss and consolidation.) Critical Care Time Critical Care Time: Yes Total Critical Care Time: 32 Disposition Clinical Impression: Squamous cell carcinoma of lung, stage III, Acute exacerbation of chronic obstructive airways disease, Pneumonia, Sepsis Disposition: ADMITTED IP TO THIS HOSP Is patient prescribed a controlled substance at d/c from ED?: No Referrals: Sunil Cagle MD [Primary Care Provider] - 1-2 days Decision Time: 17:03
[2018-06-06 13:57] LABS: Basophils % (A) 0 %; Eosinophils # (A) 0.2 k/uL (0-0.7); Eosinophils % (A) 1 %; HCT 33.9 % (34.0-46.0); HGB 11.1 gm/dL (11.4-16.0); Hypochromasia Slight; Lymphocytes % (A) 6 %; MCH 27.3 pg (25.0-35.0); MCHC 32.7 g/dL (31.0-37.0); MCV 83.5 fL (80.0-100.0); Monocytes # (A) 0.8 k/uL (0-1.0); Monocytes % (A) 5 %; Neutrophils # (A) 14.8 k/uL (1.3-7.7); Neutrophils % (A) 86 %; Platelet Count 401 k/uL (150-450); RBC 4.05 m/uL (3.80-5.40); RDW 15.6 % (11.5-15.5); WBC 17.2 k/uL (3.8-10.6)
[2018-06-06 14:10] LABS: ALT 25 U/L (9-52); AST 36 U/L (14-36); Albumin 3.3 g/dL (3.5-5.0); Alkaline Phosphatase 147 U/L (38-126); Anion Gap 6 mmol/L; Blood Urea Nitrogen 21 mg/dL (7-17); Calcium 9.4 mg/dL (8.4-10.2); Carbon Dioxide 33 mmol/L (22-30); Chloride 102 mmol/L (98-107); Glucose 94 mg/dL (74-99); Potassium 5.3 mmol/L (3.5-5.1); Sodium 141 mmol/L (137-145); Total Bilirubin 0.5 mg/dL (0.2-1.3); Total Protein 6.4 g/dL (6.3-8.2)
[2018-06-06 14:35] LABS: Partial Thromboplastin Time 28.2 sec (22.0-30.0); Prothrombin Time 10.3 sec (9.0-12.0)
--- NOTE | 2018-06-06 15:08 | XR ---
EXAMINATION TYPE: XR chest 2V DATE OF EXAM: 06/06/2018 COMPARISON: 11/23/[address] 05/28/2018 HISTORY: 72 year-old female shortness of breath, left-sided pain, difficulty breathing TECHNIQUE: Frontal and lateral views FINDINGS: Heart normal size. Persistent left mid and lower lung opacity with volume loss characterized by eleva tion of the left hemidiaphragm and shift of the heart towards the left. Right lung and pleural space appear clear. IMPRESSION: Left lower lobe volume loss with consolidation that could represent pneumonia or postradiation therap y change. Underlying neoplastic recurrence noted posteromedially in the left lower lobe on patient's PET/CT.
[2018-06-06] MEDS ORDERED: IPRATROPIUM-ALBUTEROL 3 ML NEB INHALATION PRN (17:04)
[2018-06-06] MEDS ORDERED: PNEUMONIA PROTOCOL UTILIZED 1 EACH MISC PO PRN (17:04)
[2018-06-06] MEDS ORDERED: AZITHROMYCIN 500 MG in SODIUM CHLORIDE 0.9% 250 ML IVPB STA (17:07)
[2018-06-06] MEDS ORDERED: SODIUM CHLORIDE 0.9% 500 ML 500 ML IV STA (17:11)
[2018-06-06] MEDS: SODIUM CHLORIDE 0.9% 1,000 ML IV SCH (19:00)
[2018-06-06] MEDS: IPRATROPIUM-ALBUTEROL 3 ML NEB INHALATION SCH (20:12)
[2018-06-06 21:28] VITALS: BMI 34.7
[2018-06-06] MEDS: DEXAMETHASONE SOD PHOSPHATE 4 MG/ML 1 ML VIAL IV SCH ×2 (22:49→23:27)
[2018-06-06] MEDS: MORPHINE SULFATE 4 MG/ML SYRINGE IVP PRN (23:44)
[2018-06-07] MEDS ORDERED: ALBUTEROL INHALER 60 PUFF/8 GM INHALER INHALATION SCH
[2018-06-07] MEDS: MELATONIN 5 MG TABLET PO PRN ×2 (01:06→23:55)
[2018-06-07] MEDS: ALPRAZolam 0.25 MG TAB PO PRN ×2 (01:06→23:55)
[2018-06-07] MEDS: SODIUM CHLORIDE 0.9% 1,000 ML IV SCH ×3 (04:25→23:54)
[2018-06-07] MEDS: FAMOTIDINE 20 MG TAB PO SCH (05:24)
[2018-06-07] MEDS: DEXAMETHASONE SOD PHOSPHATE 4 MG/ML 1 ML VIAL IV SCH ×3 (05:24→18:01)
[2018-06-07] MEDS: MORPHINE SULFATE 4 MG/ML SYRINGE IVP PRN ×3 (05:24→22:01)
[2018-06-07] MEDS: IPRATROPIUM-ALBUTEROL 3 ML NEB INHALATION SCH ×4 (07:09→20:35)
[2018-06-07] MEDS: SYMBICORT 160-4.5 MCG INHALER INHALATION SCH ×3 (07:09→20:41)
[2018-06-07] MEDS: FORMOTEROL FUMARATE 20 MCG/2 ML NEBU INHALATION SCH ×2 (07:09→20:35)
[2018-06-07] MEDS ORDERED: SODIUM CHLORIDE 0.9% NEBULIZ 3 ML INHALATION ONE (07:35)
[2018-06-07] MEDS: CYCLOBENZAPRINE 10 MG TAB PO SCH ×2 (07:59→22:03)
[2018-06-07] MEDS: CHOLECALCIFEROL 1,000 UNIT TAB PO SCH (07:59)
[2018-06-07] MEDS: METOPROLOL TARTRATE 25 MG TAB PO SCH ×2 (07:59→22:03)
[2018-06-07] MEDS: OXYBUTYNIN CHLORIDE 5 MG TAB PO SCH ×2 (07:59→16:59)
[2018-06-07] MEDS: AZITHROMYCIN 500 MG TAB PO SCH (08:00)
[2018-06-07] MEDS: FUROSEMIDE 40 MG TAB PO SCH (08:00)
[2018-06-07] MEDS: POTASSIUM CHLORIDE ER 20 MEQ TAB.ER PO SCH (08:00)
[2018-06-07] MEDS: BACLOFEN 10 MG TAB PO SCH ×3 (08:00→22:03)
[2018-06-07] MEDS ORDERED: ALBUTEROL NEB (CONC) 2.5 MG/0.5 ML INHALATION SCH (08:00)
[2018-06-07] MEDS ORDERED: NON-FORMULARY DRUG (Flaxseed Oil [Omega-3 Flaxseed Oil] 1,000 MG) PO SCH (09:00)
[2018-06-07] MEDS ORDERED: NON-FORMULARY DRUG (Cranberry Fruit Extract [Cranberry] 500 MG) PO SCH (09:00)
--- NOTE | 2018-06-07 10:06 | XR ---
EXAMINATION TYPE: XR chest 2V DATE OF EXAM: 06/07/2018 COMPARISON: 06/06/2018 HISTORY: Shortness of breath TECHNIQUE: Frontal and lateral views of the chest are obtained. FINDINGS: Scattered senescent parenchymal changes noted. Hyperinflation compatible with COPD. Persistent infiltrate left perihilar left lower lobe regions. Follow-up until resolution recommended. Suspect pneumonia. Heart size is stable. Mediastinal structures are stable and grossly unremarkable. No evidence for hilar prominence. Degenerative changes dorsal spine. IMPRESSION: 1. Persistent infiltrate left perihilar left lower lobe regions. Follow-up until resolution recommend ed. Suspect pneumonia.
--- NOTE | 2018-06-07 15:20 | P.PN ---
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 She was not felt to be a surgical candidate, and therefore initiated concurrent chemoradiation. She only tolerated her first cycle of chemotherapy however, and finished radiotherapy treatment on 07/26/2017. She now has imaging worrisome for local recurrence within the left lung. Since being seen in our office yesterday, the patient has been improving. She is still having left posterior rib pain, but it is now only 4-5/10. Seems improved, and she is having fewer muscle spasms (on flexeril). She was running a fever in the ER and there is some concern for possible pneumonia (perhaps post-obstructive). She is feeling quite fatigued. Very anxious regarding recurrent cancer. Objective - Vital Signs Vital signs: Vital Signs Temp 98.0 F 06/07/18 07:21 Pulse 96 06/07/18 11:30 Resp 18 06/07/18 08:00 BP 128/68 06/07/18 07:21 Pulse Ox 95 06/07/18 07:21 Intake & Output 06/06/18 06/07/18 06/07/18 18:59 06:59 18:59 Weight 91.626 kg Other: Voiding Method Bedside Commode # Voids 1 - Constitutional General appearance: Present: no acute distress - EENT Eyes: Present: EOMI, PERRLA ENT: Present: hearing grossly normal - Neck Neck: Absent: lymphadenopathy - Respiratory Respiratory: bilateral: diminished (left more diminished at base) - Cardiovascular Rhythm: regular - Gastrointestinal General gastrointestinal: Absent: distended, tenderness - Integumentary Integumentary: Present: pale. Absent: flushed - Neurologic Neurologic: Present: CNII-XII intact. 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 She was not felt to be a surgical candidate, and therefore initiated concurrent chemoradiation. She only tolerated her first cycle of chemotherapy however, and finished radiotherapy treatment on 07/26/2017. She now has imaging suggestive of recurrent disease - likely resulting in her posterior rib pain. 1. Right posterior rib pain: Likely 2/2 recurrent tumor in left lung which has mass effect on the rib. Continue PRN morphine, flexeril and decadron. The patient had a CT simulation for palliative radiotherapy for her pain done yesterday. Working on plan currently; may start while patient hospitalized if she is in house for more than a couple days. 2. Recurrent squamous cell lung cancer: High suspicion based on imaging; pulmonary following. Discussed briefly with Dr. Garcia - she may be a candidate for 2nd line immunotherapy despite low PDL1. No clear evidence of DM. 3. Concern for Pneumonia: Currently on Azithro/Ceftriaxone. Possible due to post-obstruction from tumor. Time with Patient: Less than 30
--- NOTE | 2018-06-07 16:12 | CONS ---
CONSULTATION DATE OF CONSULTATION: 06/07/2018 This is a 72-year-old female who presents to the emergency department with complaints of back pain and shortness of breath. Her pain is primarily thoracic in nature. It started several weeks ago. Her symptoms have progressed. In addition, she has had some increasing shortness of breath over the couple days prior to admission. The patient has recently been seen by her radiation oncologist, who was concerned and re- ordered a PET scan. The PET scan showed progression of her disease, primarily in the left lower lung. She is status post both radiation and chemotherapy for her lung cancer. The patient apparently was sent into the emergency room by her radiation therapist for additional therapy. She was seen in the ER and admitted. Apparently Dr. Quinn and Dr. Garcia are supposed to discuss the case and come up with a plan of treatment. This may include additional chemotherapy and/or radiation therapy. In addition to all of this, the patient states that she is having significant cough. She has got significant thick phlegm production. Slight fever. No chills. Not coughing up any blood. Appetite is good. There is no weight loss. No nausea, vomiting or diarrhea. CURRENT HOME MEDICATIONS: 1. Elavil. 2. Low-dose aspirin. 3. Lopressor. 4. Ditropan. 5. Zocor. 6. Biotin. 7. D3. 8. Cranberry. 9. Eye vitamins. 10.Symbicort. 11.Pepcid. 12.Lasix. 13.Potassium. 14.Flaxseed oil. 15.Albuterol inhaler. 16.Albuterol updrafts. 17.Baclofen. 18.Flexeril. 19.Perforomist. 20.Hydrochlorothiazide. In addition, the patient has been on Xanax and melatonin in the past. ALLERGIES: INCLUDE MACROBID and SULFA ANTIBIOTICS. MEDICAL HISTORY: Includes: 1. Diagnosis of lung cancer a couple of years back. 2. Underlying COPD. 3. Hyperlipidemia. 4. Hypertension. 5. Bleeding hemorrhoids. 6. Stress urinary incontinence. 7. Overactive bladder. 8. Kidney stones. SURGICAL HISTORY: Includes: 1. Bladder surgery. 2. Breast surgery. 3. Cholecystectomy. 4. Joint replacement. 5. Left complete knee replacement. 6. Right partial knee replacement. 7. Rectocele repair. 8. Bowel surgery. 9. Multiple other procedures. SOCIAL HISTORY: Positive for previous tobacco use. She denies any alcohol use or illicit drug use. FAMILY HISTORY: Noncontributory. REVIEW OF SYSTEMS: CONSTITUTIONAL: Fever. NEUROLOGIC: Negative. HEENT: Negative. CARDIOVASCULAR: Chest and back pain, primarily back. PULMONARY: Shortness of breath, cough, chest congestion, thick phlegm production. GI/: Negative. RHEUMATOLOGIC/IMMUNOLOGIC: Negative. ENDOCRINOLOGIC: Negative. DERMATOLOGIC: Negative. PHYSICAL EXAMINATION: Current vital signs are reviewed. Temperature is 98.3, heart rate 94, respiratory rate 18, blood pressure 102/59, mean 73, three-liter saturation 95%. Appears in no acute distress. No conversational dyspnea. No audible wheezing. No use of accessory muscles. HEENT examination is grossly unremarkable. Mucous membranes are moist. Nasal oxygen in place. NECK: Supple. Full range of motion. No adenopathy or thyromegaly. Cardiovascular examination reveals regular rhythm rate. S1, S2 normal. No S3, S4, or murmur. LUNGS: Severely diminished breath sounds throughout. A few scattered mild rhonchi. No wheezes or crackles. Breath sounds are equal bilaterally but diminished throughout. There is prolongation on forced maneuver. Abdomen is soft. Bowel sounds are heard. Extremities are intact. No cyanosis, clubbing or edema. Skin without rash. Neurologic examination is brief but nonfocal. IMAGING: Chest x-ray is reviewed. PET scan is reviewed. PET scan shows significant increased uptake in the left lower lobe area. LABS: Reviewed. White count 17.2, hemoglobin 11.1, hematocrit 33.9, platelet count 401,000. PT, INR, PTT normal. Sodium 141, potassium 5.3, chloride 102, CO2 33, anion gap 6. BUN and creatinine were 21 and 0.66. Albumin 3.3. Influenza studies are negative. Medications are reviewed and will be adjusted accordingly. ASSESSMENT: 1. Recurrent lung cancer, left lower lobe. 2. Pneumonia, left lower lobe, possibly post-obstructive in nature. 3. Chronic obstructive pulmonary disease exacerbation. 4. History of lung cancer of left lung/left lower lobe. 5. Hyperlipidemia. 6. Hypertension. 7. History of bleeding hemorrhoids. 8. History of stress urinary incontinence. 9. History of kidney stones. 10.History of overactive bladder. PLAN: The patient's medications are reviewed. They will be adjusted accordingly. We will make sure she is on antibiotics and updrafts. Additional recommendations and suggestions are forthcoming. Will await the conference by Dr. Garcia and Dr. Adrien Quinn to determine what the best course of treatment for this patient will be. This is in lieu of the fact that the most recent PET scan showed progression of disease, particularly in the left lower lobe. Additional recommendations and suggestions are forthcoming. Prognosis is very guarded. MMODL / IJN: [id number] /
[2018-06-07] MEDS: MULTIVITAMINS, THERA 1 EACH TAB PO SCH (16:59)
[2018-06-07] MEDS ORDERED: NON-FORMULARY DRUG (Biotin [Biotin] 5 MG) PO SCH (17:00)
--- NOTE | 2018-06-07 17:51 | P.CONS ---
History of Present Illness - Reason for Consult Consult date: 06/07/18 recurrent non-small cell lung cancer Requesting physician: Fazal Tripp - Chief Complaint pain in back, SOB - History of Present Illness Nani is a very pleasant female patient of Dr. Garcia who presented tp ER 04/17/17 with c/o recurrent bronchitis and persistent cough that started around February 2017, associated with progressive SOB. CXR revealed 7.9cm LLL lung mass, CT chest 04/17/17 revealed 5.6 x 6 x 4.9 cm mass in LLL, 6.4mm calcified RUL nodule. FNA 04/21/17 was positive for squamous cell carcinoma, PDL-1 was negative, nextgen sequencing revealed TP53. 05/08/17 staging PET revealed suspicious uptake in 7.6cm LLL lung mass with loss of fat plane at the level of lateral margin of aorta, otherwise negative. PFT's revealed poor lung function. She started concurrent weekly carbo/taxol with XRT on 06/02/17. Admitted to ICU with pneumonia and sepsis, discharged on 06/16/17 to [facility], [place] from [facility] 07/13/17. Chemo was held, she continued with XRT, her performance status did not permit concurrent chemoradiation, completed XRT on 07/26/17. 08/16/17 treatment f/u CT chest revealed improvement of her disease. She started chemotherapy with carboplatin/gemzar on 09/03/17 and completed 4 cycles on 11/12/17. F/U CT 11/16/17 revealed airspace disease and consolidation in LLL, 01/26/18 revealed about stable findings and consolidation in LLL, possibly related to XRT, 04/18/18 revealed no evidence of progression. Pt continued to c/o of excessive fatigue , persistent exertional dyspnea, left sided rib and shoulder pain for about 2 months, wraps around the shoulder and around breast to anterior chest, worse when she cough. These persist/progressive complaints led to patient having PET scan 4 days ago. When patient was seeing Dr. Quinn for results he noted that she was very weak, lethargic, short of breath-more than normal so, he recommended she come to the hospital for evaluation and subsequently she was admitted. Since admission patient has been started on steroids which has helped her discomfort in her back and left shoulder. She has been started on antibiotics and nebulizers with some improvement in her cough and SOB. Patient did have a MAXIMUM TEMPERATURE of 101.7 Fahrenheit on admit. She is feeling a little better today, but anxious, as would be expected, with recurrent disease. Denies headaches, dizziness, unilateral weakness, vision changes, numbness, tingling, nausea, acute changes in bowel or bladder habits. Review of Systems 14 point review of systems is negative except as stated in HPI Past Medical History Past Medical History: Cancer, COPD, Hyperlipidemia, Hypertension, Pneumonia Additional Past Medical History / Comment(s): past bleeding from hemorrhoids, stress incontinence,bronchitis, overactive bladder, kidney stone, Lung CA no sx but completed chemo and radiation, 06-06-17 pne/sepsis. History of Any Multi-Drug Resistant Organisms: None Reported Past Surgical History: Bladder Surgery, Breast Surgery, Cholecystectomy, Joint Replacement Additional Past Surgical History / Comment(s): left complete knee replacement, rt partial knee replacement,rectocele, bowel surgery to unkink colon,cyst removed breast,bladder surgery x3, bladder suspension, hemorrhoidectomy, rectal prolapse repair Past Anesthesia/Blood Transfusion Reactions: No Reported Reaction Additional Past Anesthesia/Blood Transfusion Reaction / Comm: no hx blood transfusion Past Psychological History: No Psychological Hx Reported Smoking Status: Former smoker Past Alcohol Use History: None Reported Past Drug Use History: None Reported - Past Family History Mother Family Medical History: No Reported History Father History Unknown: Yes Additional Family Medical History / Comment(s): Sister with breast cancer, sister with colon cancer, brother with lung cancer Medications and Allergies Home Medications Medication Instructions Recorded Confirmed Type Amitriptyline HCl [Elavil] 10 mg PO HS 05/25/16 06/06/18 History Aspirin EC [Ecotrin Low Dose] 81 mg PO HS 05/25/16 06/06/18 History Metoprolol Tartrate [Lopressor] 25 mg PO BID 05/25/16 06/06/18 History Oxybutynin Chloride [Ditropan] 5 mg PO BID@0800,1700 05/25/16 06/06/18 History Simvastatin [Zocor] 40 mg PO HS 05/25/16 06/06/18 History Biotin 5 mg PO DAILY@1700 08/19/16 06/06/18 History Cholecalciferol [Vitamin D3] 1,000 unit PO DAILY 08/19/16 06/06/18 History Cranberry Fruit Extract [Cranberry] 500 mg PO DAILY 08/19/16 06/06/18 History Multivit-Min/Iron/Folic/Lutein 1 tab PO DAILY@1700 08/19/16 06/06/18 History [Centrum Silver Women Tablet] Melatonin 5 mg PO HS PRN tablet 04/22/17 06/06/18 Rx ALPRAZolam [Xanax] 0.25 mg PO TID PRN #90 tab 06/16/17 06/06/18 Rx Budesonide-Formot 160-4.5 Mcg 2 puff INHALATION RT-BID 06/17/17 06/06/18 History [Symbicort 160-4.5 Mcg Inhaler] Famotidine [Pepcid] 20 mg PO DAILY@0600 06/17/17 06/06/18 History Furosemide [Lasix] 40 mg PO DAILY@0600 06/17/17 11/23/17 History Potassium Chloride ER [K-Dur 20] 20 meq PO DAILY 06/17/17 06/06/18 History Flaxseed Oil [[place]-3 Flaxseed Oil] 1,000 mg PO DAILY 11/23/17 06/06/18 History Albuterol Inhaler [Ventolin Hfa 2 puff INHALATION RT-Q4H 06/06/18 06/06/18 History Inhaler] Albuterol Nebulized (Conc) 2.5 mg INHALATION RT-QID 06/06/18 06/06/18 History [Ventolin Nebulized (Conc)] Baclofen [Lioresal] 10 mg PO TID 06/06/18 06/06/18 History Cyclobenzaprine [Flexeril] 10 mg PO BID 06/06/18 06/06/18 History Formoterol Fumarate [Perforomist] 20 mcg PO RT-BID 06/06/18 06/06/18 History Furosemide [Lasix] 40 mg PO DAILY 06/06/18 06/06/18 History Hydrochlorothiazide [Hydrodiuril] 25 mg PO DAILY 06/06/18 06/06/18 History Allergies Allergy/AdvReac Type Severity Reaction Status Date / Time nitrofurantoin AdvReac Abdominal Verified 06/06/18 13:33 [From Macrodantin] Pain Sulfa (Sulfonamide AdvReac Nausea Verified 06/06/18 13:33 Antibiotics) Physical Exam Vitals: Vital Signs Temp Pulse Pulse Resp BP BP Pulse Ox 06/07/18 15:00 18 06/07/18 13:57 98.3 F 94 18 102/59 95 06/07/18 11:30 96 06/07/18 11:17 92 06/07/18 08:00 18 06/07/18 07:43 92 06/07/18 07:36 96 06/07/18 07:35 96 06/07/18 07:26 92 06/07/18 07:21 98.0 F 91 18 128/68 95 06/06/18 23:00 99.1 F 95 20 124/82 98 06/06/18 22:02 100.3 F H 06/06/18 21:30 105 H 16 105/75 06/06/18 20:29 96 06/06/18 20:12 98 06/06/18 20:00 96 20 115/61 99 06/06/18 19:24 101.7 F H 06/06/18 19:00 101 H 20 118/85 99 06/06/18 18:30 98 19 126/66 06/06/18 17:30 97 20 113/75 Intake and Output 06/07/18 06/07/18 06/07/18 06:59 14:59 22:59 Intake Total 600 Balance 600 Intake: Oral 600 Other: Voiding Method Bedside Commode Toilet # Voids 1 3 - Constitutional General appearance: average body habitus, cooperative, no acute distress - EENT Eyes: anicteric sclerae, EOMI ENT: hearing grossly normal, normal oropharynx - Neck Neck: no lymphadenopathy - Respiratory Respiratory: bilateral: CTA, diminished, rhonchi (anterior, left greater than right) - Cardiovascular Rhythm: regular Heart sounds: normal: S1, S2 Abnormal Heart Sounds: no systolic murmur, no diastolic murmur, no rub, no S3 Gallop, no S4 Gallop, no click, no other leg Peripheral Edema: bilateral: None - Gastrointestinal General gastrointestinal: no absent bowel sounds, no decreased bowel sounds, no distended, no hepatomegaly, no hyperactive bowel sounds, normal bowel sounds, no organomegaly, no rigid, no scaphoid, soft, no splenomegaly, no tenderness, no umbilical hernia, no ventral hernia - Integumentary Integumentary: pale - Neurologic Neurologic: CNII-XII intact - Musculoskeletal patient is able to raise both of her arms above her head symmetrically Musculoskeletal: strength equal bilaterally - Psychiatric Psychiatric: A&O x's 3, appropriate affect, intact judgment & insight Results CBC & Chem 7: 06/06/18 13:05 06/06/18 13:05 Labs: Microbiology - Last 24 Hours (Table) 06/06/18 13:05 Blood Culture - Preliminary Blood No Growth after 24 hours Comments: previous PET scan reviewed Chest x-ray: report reviewed Assessment and Plan (1) Pneumonia Narrative/Plan: T-max 101.7F on admission, chest x-ray suspicious for pneumonia in the left lower lobe. Flu A&B returned negative. CBC within normal limits. Continue empiric antibiotics at the direction of internal medicine. Pulmonary is consulted Current Visit: Yes Status: Acute Priority: High Code(s): J18.9 - PNEUMONIA , UNSPECIFIED ORGANISM SNOMED Code(s): 870047402 (2) Pain of metastatic malignancy Narrative/Plan: Steroids initiated with some relief. Radiation to start soon. Pain meds prescribed and will be titrated for comfort Current Visit: Yes Status: Acute Code(s): G89.3 - NEOPLASM RELATED PAIN ( ACUTE) (CHRONIC) SNOMED Code(s): 180033220 (3) Squamous cell carcinoma of lung, stage III Narrative/Plan: Patient recently had PET scan. Discussed case with Dr. Quinn and Dr. Garcia, who have both reviewed PET and the implications for the patient. Unfortunately , it is felt that patient has recurrent disease. Patient has been simulated that she can begin therapy to painful bone metastases , dexamethasone started to help with swelling and pain control. Pt will meet with Dr. Garcia after XRT completed to discuss further treatment options. Current Visit: Yes Status: Chronic Priority: High Code(s): C34.90 - MALIGNANT NEOPLASM OF UNSP PART OF UNSP BRONCHUS OR LUNG SNOMED Code(s): 459304993 Time with Patient: Greater than 30 (>35min spent, >50% counseling and coordinating care)
--- NOTE | 2018-06-07 20:22 | P.HPIM ---
History of Present Illness H&P Date: 06/06/18 Chief Complaint: Severe back pain, relapse lung cancer, possible bone metastasis , COPD, CAD 72-year-old female one of my office patient who had lung cancer was treated with chemotherapy and radiation has been seen oncology on regular basis. Patient just had her PET scan recently which was slightly bit abnormal. Patient was in to see Dr. Quinn her radiation oncologist recently complaining of worsening thoracic pain in the left side consist back in 2017, review her x- ray and findings were consistent with recurrent her lung cancer specially in the base of the left lung. Patient apparently was sent to the emergency department by Dr. Quinn and Dr. Garcia to be admitted for pain management possible need for biopsy or the need to go for urgent radiation therapy. Review of Systems CONSTITUTIONAL: Well-developed no acute respiratory distress.still complaining of left chest wall and left sided thoracic pain EYES: No icterus sclerae, no conjunctivitis. EARS, NOSE, MOUTH, THROAT, and FACE: No sore throat, lymphadenopathy, carotid bruits or deformity. RESPIRATORY: positive chest wall pain positive thoracic spine pain CARDIOVASCULAR: positive chest pain positive PND orthopnea and pa GASTROINTESTINAL: No Abd pain, Nausea or vomiting, no Diarrhea or constipation, No GI Bleed, no distention or masses. GENITOURINARY: Negative for Hematuria or UTI, no kidney stones. INTEGUMENT/BREAST: Negative for any muscular injury with mild osteoarthritis.. HEMATOLOGIC/LYMPHATIC: Negative for bleed or purpura. MUSCULOSKELTAL: Negative for Myalgia or arthralgia. NEURLOGICAL: No LOC, Sz or syncope, blurred vision dizziness or abnormality.. BEHAVIORAL/PSYCH: Negative. ENDOCRINE: Negative. Past Medical History Past Medical History: Cancer, COPD, Hyperlipidemia, Hypertension, Pneumonia Additional Past Medical History / Comment(s): past bleeding from hemorrhoids, stress incontinence,bronchitis, overactive bladder, kidney stone, Lung CA no sx but completed chemo and radiation, 06-06-17 pne/sepsis. History of Any Multi-Drug Resistant Organisms: None Reported Past Surgical History: Bladder Surgery, Breast Surgery, Cholecystectomy, Joint Replacement Additional Past Surgical History / Comment(s): left complete knee replacement, rt partial knee replacement,rectocele, bowel surgery to unkink colon,cyst removed breast,bladder surgery x3, bladder suspension, hemorrhoidectomy, rectal prolapse repair Past Anesthesia/Blood Transfusion Reactions: No Reported Reaction Additional Past Anesthesia/Blood Transfusion Reaction / Comment(s): no hx blood transfusion Smoking Status: Former smoker - Past Family History Mother Family Medical History: No Reported History Father History Unknown: Yes Medications and Allergies Home Medications Medication Instructions Recorded Confirmed Type Amitriptyline HCl [Elavil] 10 mg PO HS 05/25/16 06/06/18 History Aspirin EC [Ecotrin Low Dose] 81 mg PO HS 05/25/16 06/06/18 History Metoprolol Tartrate [Lopressor] 25 mg PO BID 05/25/16 06/06/18 History Oxybutynin Chloride [Ditropan] 5 mg PO BID@0800,1700 05/25/16 06/06/18 History Simvastatin [Zocor] 40 mg PO HS 05/25/16 06/06/18 History Biotin 5 mg PO DAILY@1700 08/19/16 06/06/18 History Cholecalciferol [Vitamin D3] 1,000 unit PO DAILY 08/19/16 06/06/18 History Cranberry Fruit Extract [Cranberry] 500 mg PO DAILY 08/19/16 06/06/18 History Multivit-Min/Iron/Folic/Lutein 1 tab PO DAILY@1700 08/19/16 06/06/18 History [Centrum Silver Women Tablet] Melatonin 5 mg PO HS PRN tablet 04/22/17 06/06/18 Rx ALPRAZolam [Xanax] 0.25 mg PO TID PRN #90 tab 06/16/17 06/06/18 Rx Budesonide-Formot 160-4.5 Mcg 2 puff INHALATION RT-BID 06/17/17 06/06/18 History [Symbicort 160-4.5 Mcg Inhaler] Famotidine [Pepcid] 20 mg PO DAILY@0600 06/17/17 06/06/18 History Furosemide [Lasix] 40 mg PO DAILY@0600 06/17/17 11/23/17 History Potassium Chloride ER [K-Dur 20] 20 meq PO DAILY 06/17/17 06/06/18 History Flaxseed Oil [[place]-3 Flaxseed Oil] 1,000 mg PO DAILY 11/23/17 06/06/18 History Albuterol Inhaler [Ventolin Hfa 2 puff INHALATION RT-Q4H 06/06/18 06/06/18 History Inhaler] Albuterol Nebulized (Conc) 2.5 mg INHALATION RT-QID 06/06/18 06/06/18 History [Ventolin Nebulized (Conc)] Baclofen [Lioresal] 10 mg PO TID 06/06/18 06/06/18 History Cyclobenzaprine [Flexeril] 10 mg PO BID 06/06/18 06/06/18 History Formoterol Fumarate [Perforomist] 20 mcg PO RT-BID 06/06/18 06/06/18 History Furosemide [Lasix] 40 mg PO DAILY 06/06/18 06/06/18 History Hydrochlorothiazide [Hydrodiuril] 25 mg PO DAILY 06/06/18 06/06/18 History Allergies Allergy/AdvReac Type Severity Reaction Status Date / Time nitrofurantoin AdvReac Abdominal Verified 06/06/18 13:33 [From Macrodantin] Pain Sulfa (Sulfonamide AdvReac Nausea Verified 06/06/18 13:33 Antibiotics) Physical Exam Vitals: Vital Signs Temp Pulse Resp BP Pulse Ox 06/06/18 22:02 100.3 F H 06/06/18 21:30 105 H 16 105/75 06/06/18 20:29 96 06/06/18 20:12 98 06/06/18 20:00 96 20 115/61 99 06/06/18 19:24 101.7 F H 06/06/18 19:00 101 H 20 118/85 99 06/06/18 18:30 98 19 126/66 06/06/18 17:30 97 20 113/75 06/06/18 17:00 83 20 116/67 06/06/18 16:30 85 12 117/65 100 06/06/18 16:00 87 16 145/82 100 06/06/18 15:30 92 21 129/43 99 06/06/18 15:00 102 H 39 H 116/53 96 06/06/18 14:30 97 30 H 125/89 99 06/06/18 14:00 21 113/71 96 06/06/18 13:57 91 06/06/18 13:48 92 06/06/18 13:30 92 25 H 136/80 99 06/06/18 13:00 93 19 126/109 97 06/06/18 12:40 92 L 06/06/18 12:26 99.1 F 89 18 133/72 98 Intake and Output 06/06/18 06/06/18 06/06/18 06:59 14:59 22:59 Other: Weight 91.626 kg General Appearance: Alert, cooperative, no distress, appears stated age. Neck HEENT: Supple, no lymphadenopathy, no thyroid enlargement, no carotid bruits. Lungs: decreased breath sond in the left side positive fine rhonchi with slight crackle positive mild expiratory wheezes Chest Wall: decrease expansion with deep inspiration positive tenderness of the left side and no deformity was found on exam, positive costochondral pain and discomfort of the left side. Heart: Regular rate and rhythm, S1, S2 normal, no murmur, rub or gallop. Back: Symmetric, no curvature, ROM normal, no CVA tenderness. Abdomen: Soft, non-tender, bowel sounds active all four quadrants, no masses, no organomegaly. Extremities: Extremities normal, atraumatic, no cyanosis or edema. Pulses: 2+ and symmetric. Skin: Skin color, texture, tugor normal, no rashes or lesions. Neurologic: Alert oriented x3 cranial nerves II through XII intact, no motor deficit, no abnormal balance or gait. Results CBC & Chem 7: 06/06/18 13:05 06/06/18 13:05 Labs: Abnormal Lab Results - Last 24 Hours (Table) 06/06/18 06/06/18 Range/Units 13:05 13:05 WBC 17.2 H (3.8-10.6) k/uL Hgb 11.1 L (11.4-16.0) gm/dL Hct 33.9 L (34.0-46.0) % RDW 15.6 H (11.5-15.5) % Neutrophils # 14.8 H (1.3-7.7) k/uL Potassium 5.3 H (3.5-5.1) mmol/L Carbon Dioxide 33 H (22-30) mmol/L BUN 21 H (7-17) mg/dL Alkaline Phosphatase 147 H (38-126) U/L Albumin 3.3 L (3.5-5.0) g/dL Thrombosis Risk Factor Assmnt - DVT/VTE Prophylaxis DVT/VTE Prophylaxis: Pharmacologic Prophylaxis ordered, Mechanical Prophylaxis ordered Assessment and Plan Plan: 1 intractable back pain: Most likely metastasis from lung cancer, patient will need probably MRI of the entire spinal cord the meanwhile can be on Decadron if agreeable patient will be seen Dr. Quinn and discussed the result possibility going for radiation therapy. 2 recurrent lung cancer: Patient was on chemotherapy and finished radiation as well will be seen Dr. Garcia and talk about further management including chemoimmunotherapy. 3 COPD with mild exacerbation: Patient will continue on O2 along with bronchodilator and steroid inhaler nebulizer. Patient seen Dr. Burgos on regular basis consult their service at this point. 4 obstructive pneumonitis: Patient will be started on ceftriaxone 1 g daily and azithromycin 500 mg a day steroid gonzalez patient will be on no Solu-Medrol or prednisone. 5 CAD: Seeing cardiology patient not having any cardiac symptoms at this point remain on metoprolol and furosemide and still can benefit from a long acting isosorbide. 6 hyperglycemia: Patient be on Accu-Chek with sliding scales coverage. 7 chronic pain syndrome: Has been on baclofen and hydrocodone. 8 hyperlipidemia: Has been on simvastatin 40 mg daily. 9 arrhythmia mostly nonsustained A. fib has been on metoprolol with pulse rate is under control. 10 chronic incontinence: Post surgery remain on Ditropan on as-needed basis. 11 GI prophylaxis: Patient remain on Pepcid. 12 DVT prophylaxis: Patient will be on heparin subcutaneous. CODE STATUS: Full code. Admit patient to inpatient status for more than 2 nights.
[2018-06-07] MEDS: ATORVASTATIN 20 MG TAB PO SCH (22:03)
[2018-06-07] MEDS: ASPIRIN 81 MG PO SCH (22:04)
[2018-06-07] MEDS: AMITRIPTYLINE HCL 10 MG TAB PO SCH (22:06)
[2018-06-08] MEDS: DEXAMETHASONE SOD PHOSPHATE 4 MG/ML 1 ML VIAL IV SCH ×5 (00:29→23:51)
[2018-06-08] MEDS: FAMOTIDINE 20 MG TAB PO SCH (06:41)
[2018-06-08] MEDS: OXYBUTYNIN CHLORIDE 5 MG TAB PO SCH ×2 (08:03→16:55)
[2018-06-08] MEDS: BACLOFEN 10 MG TAB PO SCH ×3 (08:03→21:22)
[2018-06-08] MEDS: FUROSEMIDE 40 MG TAB PO SCH (08:03)
[2018-06-08] MEDS: METOPROLOL TARTRATE 25 MG TAB PO SCH ×2 (08:03→21:22)
[2018-06-08] MEDS: CHOLECALCIFEROL 1,000 UNIT TAB PO SCH (08:03)
[2018-06-08] MEDS: CYCLOBENZAPRINE 10 MG TAB PO SCH ×2 (08:03→21:22)
[2018-06-08] MEDS: AZITHROMYCIN 500 MG TAB PO SCH (08:03)
[2018-06-08] MEDS: POTASSIUM CHLORIDE ER 20 MEQ TAB.ER PO SCH (08:03)
[2018-06-08] MEDS: MORPHINE SULFATE 4 MG/ML SYRINGE IVP PRN ×2 (08:04→21:27)
[2018-06-08] MEDS: IPRATROPIUM-ALBUTEROL 3 ML NEB INHALATION SCH ×4 (08:32→20:02)
[2018-06-08] MEDS: FORMOTEROL FUMARATE 20 MCG/2 ML NEBU INHALATION SCH ×2 (08:33→20:02)
[2018-06-08] MEDS: SYMBICORT 160-4.5 MCG INHALER INHALATION SCH ×2 (08:34→20:02)
[2018-06-08] MEDS: SODIUM CHLORIDE 0.9% 1,000 ML IV SCH (11:08)
--- NOTE | 2018-06-08 13:32 | P.PN ---
Subjective Progress Note Date: 06/08/18 72-year-old female one of my office patient who had lung cancer was treated with chemotherapy and radiation has been seen oncology on regular basis. Patient just had her PET scan recently which was slightly bit abnormal. Patient was in to see Dr. Quinn her radiation oncologist recently complaining of worsening thoracic pain in the left side consist back in 2017, review her x- ray and findings were consistent with recurrent her lung cancer specially in the base of the left lung. Patient apparently was sent to the emergency department by Dr. Quinn and Dr. Garcia to be admitted for pain management possible need for biopsy or the need to go for urgent radiation therapy. 06/08: Patient is followed by oncology and radiation oncology for recurrent squamous cell carcinoma stage III of the left lower lung with recurrent disease. Recommendations are to continue morphine, Flexeril and Decadron. Plan for radiation therapy and possibly secondary immunotherapy. Patient is followed by Dr. Catalan for pneumonia and COPD exacerbation. Patient states that her breathing is improved from yesterday. She has been afebrile, pulse ox 96-97 % on 3 L nasal cannula. Pulse running 92-104. Blood culture showing no growth at 24 hours and see him culture is in progress. IV fluids will be discontinued. Patient is continued on azithromycin, ceftriaxone, DuoNeb, Perforomist, Symbicort and IV Decadron. Review of Systems CONSTITUTIONAL: Well-developed no acute respiratory distress. Complains of left chest wall and left sided thoracic pain EYES: No icterus sclerae, no conjunctivitis. EARS, NOSE, MOUTH, THROAT, and FACE: No sore throat, lymphadenopathy, carotid bruits or deformity. RESPIRATORY: positive chest wall pain positive thoracic spine pain CARDIOVASCULAR: positive chest pain positive PND orthopnea and pa GASTROINTESTINAL: No Abd pain, Nausea or vomiting, no Diarrhea or constipation, No GI Bleed, no distention or masses. GENITOURINARY: Negative for Hematuria or UTI, no kidney stones. INTEGUMENT/BREAST: Negative for any muscular injury with mild osteoarthritis.. HEMATOLOGIC/LYMPHATIC: Negative for bleed or purpura. MUSCULOSKELTAL: Negative for Myalgia or arthralgia. NEURLOGICAL: No LOC, Sz or syncope, blurred vision dizziness or abnormality.. BEHAVIORAL/PSYCH: Negative. ENDOCRINE: Negative. Objective - Vital Signs Vital signs: Vital Signs Temp 97.9 F 06/08/18 07:16 Pulse 92 06/08/18 12:14 Resp 16 06/08/18 08:00 BP 132/81 06/08/18 07:16 Pulse Ox 97 06/08/18 07:16 Intake & Output 06/07/18 06/08/18 06/08/18 18:59 06:59 18:59 Intake Total 600 Balance 600 Intake: Oral 600 Other: Voiding Method Toilet Toilet Toilet # Voids 3 2 - Exam General Appearance: Alert, cooperative, no distress, appears stated age. Patient is found ambulating in her room. Neck HEENT: Supple, no lymphadenopathy, no thyroid enlargement, no carotid bruits. Lungs: decreased breath sond in the left side positive fine rhonchi with slight crackle positive mild expiratory wheezes Chest Wall: decrease expansion with deep inspiration positive tenderness of the left side and no deformity was found on exam, positive costochondral pain and discomfort of the left side. Heart: Regular rate and rhythm, S1, S2 normal, no murmur, rub or gallop. Back: Symmetric, no curvature, ROM normal, no CVA tenderness. Abdomen: Soft, non-tender, bowel sounds active all four quadrants, no masses, no organomegaly. Extremities: Extremities normal, atraumatic, no cyanosis or edema. Pulses: 2+ and symmetric. Skin: Skin color, texture, tugor normal, no rashes or lesions. Neurologic: Alert oriented x3 cranial nerves II through XII intact, no motor deficit, no abnormal balance or gait. - Labs CBC & Chem 7: 06/06/18 13:05 06/06/18 13:05 Labs: Microbiology - Last 24 Hours (Table) 06/07/18 20:30 Gram Stain - Preliminary Sputum Sputum Culture - Preliminary 06/06/18 13:05 Blood Culture - Preliminary Blood No Growth after 24 hours Assessment and Plan Plan: 1 intractable back pain: Most likely metastasis from lung cancer. Consults with radiation oncology and oncology appreciated. Continue Decadron 4 mg IV every 6 hours, Flexeril 10 mg twice daily morphine as needed for pain control. Arrangements to be made for radiation treatment. 2 recurrent lung cancer: Patient was on chemotherapy and finished radiation as well will be seen Dr. Garcia and talk about further management including chemoimmunotherapy. 3 COPD with mild exacerbation: Patient will continue on O2, azithromycin, ceftriaxone, DuoNeb, Perforomist, Symbicort and IV Decadron. Patient seen Dr. Burgos on regular basis consult their service at this point. 4 obstructive pneumonitis: Patient will be started on ceftriaxone 1 g daily and azithromycin 500 mg a day. 5 CAD: Seeing cardiology patient not having any cardiac symptoms at this point remain on metoprolol and furosemide and still can benefit from a long acting isosorbide. 6 hyperglycemia: Patient be on Accu-Chek with sliding scales coverage. 7 chronic pain syndrome: Has been on baclofen and hydrocodone. 8 hyperlipidemia: Has been on simvastatin 40 mg daily. 9 arrhythmia mostly paroxysmal A. fib has been on metoprolol with pulse rate is under control. 10 chronic incontinence: Post surgery remain on Ditropan on as-needed basis. 11 GI prophylaxis: Patient remain on Pepcid. 12 DVT prophylaxis: 13. Chronic hypoxic respiratory failure on home O2 CODE STATUS: Full code. Discharge plan: Home Impression and plan of care have been directed as dictated by the signing physician. Maria Guadalupe Zaragoza nurse practitioner acting as scribe for signing physician.
--- NOTE | 2018-06-08 15:12 | P.PN ---
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 Patient experienced complications with pneumonia and sepsis during her treatment, she required hospitalizations, and rehab following her hospitalizations. Her performance status was quite poor , and did not allow for concurrent chemoradiation. Other medical history includes COPD, hypertension, hyperlipidemia, anxiety, former smoker. Patient was admitted through the emergency department on 06/06/2018 complaints of thoracic back pain, progressive in nature. Patient was seen by radiation oncology Dr. Quinn, and the PET scan was done, which showed increased uptake in the left lower lobe mass with SUV of 13.6. Left lower lobe atelectatic change with SUV of 4.4, and more peripherally in the left lower lobe with uptake of 5.4. She has developed shortness of breath, cough, congestion, fever and left lower lobe postobstructive pneumonia. Currently she is on a combination of Zithromax and Rocephin, today's exam she is awake and alert, sitting up in bed, in no acute distress, she is currently on 3 L per nasal cannula, her pulse ox is 97%, she is afebrile. No new labs. Blood culture showed no growth, sputum cultures pending. Medical and radiation oncology has been consulted for recurrent left lower lung carcinoma of the lung, stage III, possibility of starting radiation therapy or chest wall discomfort, likely being caused by left lung mass. Objective - Vital Signs Vital signs: Vital Signs Temp 97.9 F 06/08/18 07:16 Pulse 92 06/08/18 12:14 Resp 16 06/08/18 08:00 BP 132/81 06/08/18 07:16 Pulse Ox 97 06/08/18 07:16 Intake & Output 06/07/18 06/08/18 06/08/18 18:59 06:59 18:59 Intake Total 600 Balance 600 Intake: Oral 600 Other: Voiding Method Toilet Toilet Toilet # Voids 3 2 - Exam GENERAL EXAM: Alert, pleasant, 72-year-old white female on 2 L per nasal cannula comfortable in no apparent distress. HEAD: Normocephalic/atraumatic. EYES: Normal reaction of pupils, equal size. Conjunctiva pink, sclera white. NOSE: Clear with pink turbinates. THROAT: No erythema or exudates. NECK: No masses, no JVD, no thyroid enlargement, no adenopathy. CHEST: No chest wall deformity. Symmetrical expansion. LUNGS: Equal air entry with diminished breath sounds at the bases, CVS: Regular rate and rhythm, normal S1 and S2, no gallops, no murmurs, no rubs ABDOMEN: Soft, nontender. No hepatosplenomegaly, normal bowel sounds, no guarding or rigidity. EXTREMITIES: No clubbing, no edema, no cyanosis, 2+ pulses and upper and lower extremities. MUSCULOSKELETAL: Muscle strength and tone normal. SPINE: No scoliosis or deformity SKIN: No rashes CENTRAL NERVOUS SYSTEM: Alert and oriented -3. No focal deficits, tone is normal in all 4 extremities. PSYCHIATRIC: Alert and oriented -3. Appropriate affect. Intact judgment and insight. - Labs CBC & Chem 7: 06/06/18 13:05 06/06/18 13:05 Labs: Microbiology - Last 24 Hours (Table) 06/07/18 20:30 Gram Stain - Preliminary Sputum Sputum Culture - Preliminary 06/06/18 13:05 Blood Culture - Preliminary Blood No Growth after 24 hours Assessment and Plan Plan: Assessment: #1. Recurrent squamous cell lung cancer, in the left lower lobe #2. Post-obstructive pneumonia of the left lower lobe #3. Chronic Obstructive pulmonary disease exacerbation #4. History of left lower lobe , cell cancer, status post chemoradiation #5. Hypertension #6. Lipidemia #7. Stress urinary incontinence Plan: Continue current antibiotic coverage, sputum cultures pending, blood culture has been negative, no worsening dyspnea, still has the left-sided chest wall discomfort, medical and radiation oncology are following. Fever or chills, continue with nebulized bronchodilators, IV steroids have been given. Continue to follow I performed a history & physical examination of the patient and discussed their management with my nurse practitioner, Harika Jones. I reviewed the nurse practitioner's note and agree with the documented findings and plan of care. Lung sounds are positive decreased lung sounds The findings and the impression was discussed with the patient. I attest to the documentation by the nurse practitioner. Time with Patient: Less than 30
--- NOTE | 2018-06-08 16:27 | MR ---
MR thoracic spine with and without contrast HISTORY: Abnormal PET/CT, spinal metastasis Multiplanar multisequence and postcontrast images obtained through the thoracic spine following 10 cc Gadavist IV. Correlation to nuclear medicine PET/CT 05/28/2018 At T6 there are marrow signal changes present compatible with extension of patient's posterior left l beau mass. There is extension into the spinal canal with local mass effect on the left lateral aspect of the thecal sac. This extends into the neural foramen on the left. The rib at T6 and T7 also show s ignal changes on the left compatible with tumor involvement. There is associated enhancement followin g contrast administration patient's tumor mass which extends into the spinal canal. Thoracic cord sig nal is maintained. Superior endplate of T5, posterior aspect of T7 also show some marrow signal schaeffer es, no significant spinal stenosis. Some marrow signal changes also present at T4, T8-T9 may be due t o prior treatment. IMPRESSION: Patient's lung mass extends into the spinal canal as described.
[2018-06-08] MEDS: MULTIVITAMINS, THERA 1 EACH TAB PO SCH (17:00)
--- NOTE | 2018-06-08 19:33 | P.PN ---
Subjective Progress Note Date: 06/08/18 Principal diagnosis: pain from malignancy, recurrent NSCLC, pneumonia Pt seen in f/u, pain in left arm, shoulder, back is better, breathing better, sitting up eating Objective - Vital Signs Vital signs: Vital Signs Temp 98.4 F 06/08/18 13:40 Pulse 102 H 06/08/18 16:40 Resp 18 06/08/18 16:00 BP 103/56 06/08/18 13:40 Pulse Ox 95 06/08/18 16:30 Intake & Output 06/08/18 06/08/18 06/09/18 06:59 18:59 06:59 Intake Total 1440 Balance 1440 Intake: Oral 1440 Other: Voiding Method Toilet Toilet # Voids 2 2 - Constitutional General appearance: Present: average body habitus, cooperative, no acute distress - EENT Eyes: Present: anicteric sclerae, EOMI - Respiratory Respiratory: bilateral: diminished - Cardiovascular Heart sounds: normal: S1, S2 - Gastrointestinal General gastrointestinal: Present: normal bowel sounds, soft - Neurologic Neurologic: Present: CNII-XII intact - Musculoskeletal Musculoskeletal: Present: strength equal bilaterally - Psychiatric Psychiatric: Present: A&O x's 3, appropriate affect, intact judgment & insight - Labs CBC & Chem 7: 06/06/18 13:05 06/06/18 13:05 Labs: Microbiology - Last 24 Hours (Table) 06/06/18 13:05 Blood Culture - Preliminary Blood No Growth after 48 hours 06/07/18 20:30 Gram Stain - Preliminary Sputum Sputum Culture - Preliminary Assessment and Plan (1) Pneumonia Narrative/Plan: Cont treatment per Pulmonary, fever pattern better Current Visit: Yes Status: Acute Priority: High Code(s): J18.9 - PNEUMONIA , UNSPECIFIED ORGANISM SNOMED Code(s): 303168011 (2) Pain of metastatic malignancy Narrative/Plan: Improved with steroids. Discussed case with Dr. Quinn. Concern is for invasion of spinal mass on cord. MRI thoracic spine ordered. Further recommendations to follow. Pt will cont steroids Current Visit: Yes Status: Acute Code(s): G89.3 - NEOPLASM RELATED PAIN ( ACUTE) (CHRONIC) SNOMED Code(s): 872022341 (3) Squamous cell carcinoma of lung, stage III Narrative/Plan: Discussed case with Dr. Quinn and Dr. Garcia. Pt now has metastatic, incurable disease. Treatment is palliative in intent. Dr. Quinn managing radiation. Dexamethasone cont to help with swelling and pain control. Dr. Garcia has not decided on definite systemic treatment yet. Pt understands that systemic treatment will not begin until after XRT. Current Visit: Yes Status: Chronic Priority: High Code(s): C34.90 - MALIGNANT NEOPLASM OF UNSP PART OF UNSP BRONCHUS OR LUNG SNOMED Code(s): 773784321
[2018-06-08] MEDS: ATORVASTATIN 20 MG TAB PO SCH (21:22)
[2018-06-08] MEDS: ASPIRIN 81 MG PO SCH (21:22)
[2018-06-08] MEDS: AMITRIPTYLINE HCL 10 MG TAB PO SCH (22:37)
[2018-06-08] MEDS: MELATONIN 5 MG TABLET PO PRN (22:37)
[2018-06-08] MEDS: ALPRAZolam 0.25 MG TAB PO PRN (22:37)
[2018-06-09] MEDS: DEXAMETHASONE SOD PHOSPHATE 4 MG/ML 1 ML VIAL IV SCH ×4 (06:07→22:53)
[2018-06-09] MEDS: FAMOTIDINE 20 MG TAB PO SCH (06:08)
[2018-06-09] MEDS: SYMBICORT 160-4.5 MCG INHALER INHALATION SCH ×2 (07:17→19:28)
[2018-06-09] MEDS: FORMOTEROL FUMARATE 20 MCG/2 ML NEBU INHALATION SCH ×2 (07:17→19:26)
[2018-06-09] MEDS: IPRATROPIUM-ALBUTEROL 3 ML NEB INHALATION SCH ×4 (07:17→19:28)
[2018-06-09] MEDS: POTASSIUM CHLORIDE ER 20 MEQ TAB.ER PO SCH (08:22)
[2018-06-09] MEDS: AZITHROMYCIN 500 MG TAB PO SCH (08:22)
[2018-06-09] MEDS: OXYBUTYNIN CHLORIDE 5 MG TAB PO SCH ×2 (08:22→18:01)
[2018-06-09] MEDS: CHOLECALCIFEROL 1,000 UNIT TAB PO SCH (08:22)
[2018-06-09] MEDS: FUROSEMIDE 40 MG TAB PO SCH (08:22)
[2018-06-09] MEDS: CYCLOBENZAPRINE 10 MG TAB PO SCH ×2 (08:22→20:11)
[2018-06-09] MEDS: BACLOFEN 10 MG TAB PO SCH ×3 (08:22→21:55)
[2018-06-09] MEDS: MORPHINE SULFATE 4 MG/ML SYRINGE IVP PRN ×3 (08:28→21:55)
[2018-06-09] MEDS: METOPROLOL TARTRATE 25 MG TAB PO SCH ×2 (08:34→20:11)
[2018-06-09 09:47] LABS: Basophils % (A) 0 %; Eosinophils # (A) 0.1 k/uL (0-0.7); Eosinophils % (A) 0 %; HCT 35.6 % (34.0-46.0); HGB 10.3 gm/dL (11.4-16.0); Hypochromasia Marked; Lymphocytes # (A) 0.6 k/uL (1.0-4.8); Lymphocytes % (A) 2 %; MCH 25.3 pg (25.0-35.0); MCHC 29.1 g/dL (31.0-37.0); Mean Platelet Volume 7.4; Monocytes # (A) 0.8 k/uL (0-1.0); Monocytes % (A) 3 %; Neutrophils # (A) 23.4 k/uL (1.3-7.7); Neutrophils % (A) 94 %; Platelet Count 556 k/uL (150-450); RBC 4.09 m/uL (3.80-5.40); RDW 15.7 % (11.5-15.5)
[2018-06-09 10:10] LABS: ALT 27 U/L (9-52); AST 22 U/L (14-36); Alkaline Phosphatase 155 U/L (38-126); Anion Gap 8 mmol/L; Blood Urea Nitrogen 29 mg/dL (7-17); Calcium 8.8 mg/dL (8.4-10.2); Carbon Dioxide 29 mmol/L (22-30); Chloride 106 mmol/L (98-107); Glucose 145 mg/dL (74-99); Potassium 5.2 mmol/L (3.5-5.1); Sodium 143 mmol/L (137-145); Total Bilirubin 0.3 mg/dL (0.2-1.3); Total Protein 5.7 g/dL (6.3-8.2)
--- NOTE | 2018-06-09 12:50 | P.PN ---
Subjective Progress Note Date: 06/09/18 72-year-old female one of my office patient who had lung cancer was treated with chemotherapy and radiation has been seen oncology on regular basis. Patient just had her PET scan recently which was slightly bit abnormal. Patient was in to see Dr. Quinn her radiation oncologist recently complaining of worsening thoracic pain in the left side consist back in 2017, review her x- ray and findings were consistent with recurrent her lung cancer specially in the base of the left lung. Patient apparently was sent to the emergency department by Dr. Quinn and Dr. Garcia to be admitted for pain management possible need for biopsy or the need to go for urgent radiation therapy. 06/08: Patient is followed by oncology and radiation oncology for recurrent squamous cell carcinoma stage III of the left lower lung with recurrent disease. Recommendations are to continue morphine, Flexeril and Decadron. Plan for radiation therapy and possibly secondary immunotherapy. Patient is followed by Dr. Catalan for pneumonia and COPD exacerbation. Patient states that her breathing is improved from yesterday. She has been afebrile, pulse ox 96-97 % on 3 L nasal cannula. Pulse running 92-104. Blood culture showing no growth at 24 hours and see him culture is in progress. IV fluids will be discontinued. Patient is continued on azithromycin, ceftriaxone, DuoNeb, Perforomist, Symbicort and IV Decadron. 06/09: Thoracic spine MRI reveals lung mass extends into the spinal canal and radiation oncology is planning to target this area. Patient has been afebrile, pulse running in the 80s and 90s. Pulse ox is 100% on 2 L nasal cannula. White count is 25, hemoglobin 10.3, potassium 5.2, creatinine 0.59. Patient is continued on IV Decadron. Anticipate probable discharge by tomorrow. Review of Systems CONSTITUTIONAL: Well-developed no acute respiratory distress. Complains of left chest wall and left sided thoracic pain EYES: No icterus sclerae, no conjunctivitis. EARS, NOSE, MOUTH, THROAT, and FACE: No sore throat, lymphadenopathy, carotid bruits or deformity. RESPIRATORY: positive chest wall pain positive thoracic spine pain CARDIOVASCULAR: positive chest pain positive PND orthopnea GASTROINTESTINAL: No Abd pain, Nausea or vomiting, no Diarrhea or constipation, No GI Bleed, no distention or masses. GENITOURINARY: Negative for Hematuria or UTI, no kidney stones. INTEGUMENT/BREAST: Negative for any muscular injury with mild osteoarthritis.. HEMATOLOGIC/LYMPHATIC: Negative for bleed or purpura. MUSCULOSKELTAL: Negative for Myalgia or arthralgia. NEURLOGICAL: No LOC, Sz or syncope, blurred vision dizziness or abnormality.. BEHAVIORAL/PSYCH: Negative. ENDOCRINE: Negative. Objective - Vital Signs Vital signs: Vital Signs Temp 97.6 F 06/09/18 06:25 Pulse 88 06/09/18 11:16 Resp 18 06/09/18 06:25 BP 133/72 06/09/18 06:25 Pulse Ox 100 06/09/18 06:25 Intake & Output 06/08/18 06/09/18 06/09/18 18:59 06:59 18:59 Intake Total 1440 750 Balance 1440 750 Intake: Oral 1440 750 Other: Voiding Method Toilet Toilet # Voids 2 2 - Exam General Appearance: Alert, cooperative, no distress, appears stated age. No respiratory distress while at rest. Neck HEENT: Supple, no lymphadenopathy, no thyroid enlargement, no carotid bruits. Lungs: decreased breath sond in the left side positive fine rhonchi with slight crackle positive mild expiratory wheezes Chest Wall: decrease expansion with deep inspiration positive tenderness of the left side and no deformity was found on exam, positive costochondral pain and discomfort of the left side. Heart: Regular rate and rhythm, S1, S2 normal, no murmur, rub or gallop. Back: Symmetric, no curvature, ROM normal, no CVA tenderness. Abdomen: Soft, non-tender, bowel sounds active all four quadrants, no masses, no organomegaly. Extremities: Extremities normal, atraumatic, no cyanosis or edema. Pulses: 2+ and symmetric. Skin: Skin color, texture, tugor normal, no rashes or lesions. Neurologic: Alert oriented x3 cranial nerves II through XII intact, no motor deficit, no abnormal balance or gait. - Labs CBC & Chem 7: 06/09/18 08:41 06/09/18 08:41 Labs: Abnormal Lab Results - Last 24 Hours (Table) 06/09/18 06/09/18 Range/Units 08:41 08:41 WBC 25.0 H (3.8-10.6) k/uL Hgb 10.3 L (11.4-16.0) gm/dL MCHC 29.1 L (31.0-37.0) g/dL RDW 15.7 H (11.5-15.5) % Plt Count 556 H (150-450) k/uL Neutrophils # 23.4 H (1.3-7.7) k/uL Lymphocytes # 0.6 L (1.0-4.8) k/uL Potassium 5.2 H (3.5-5.1) mmol/L BUN 29 H (7-17) mg/dL Glucose 145 H (74-99) mg/dL Alkaline Phosphatase 155 H (38-126) U/L Total Protein 5.7 L (6.3-8.2) g/dL Albumin 3.0 L (3.5-5.0) g/dL Microbiology - Last 24 Hours (Table) 06/06/18 13:05 Blood Culture - Preliminary Blood No Growth after 48 hours Assessment and Plan Plan: 1 intractable back pain secondary to metastatic disease from lung cancer. Consults with radiation oncology and oncology appreciated. Continue Decadron 4 mg IV every 6 hours, Flexeril 10 mg twice daily morphine as needed for pain control. Arrangements to be made for radiation treatment. 2 recurrent lung cancer: Patient was on chemotherapy and finished radiation as well will be seen Dr. Garcia and talk about further management including chemoimmunotherapy. 3 COPD with mild exacerbation: Patient will continue on O2, azithromycin, ceftriaxone, DuoNeb, Perforomist, Symbicort and IV Decadron. Patient seen Dr. Burgos on regular basis consult their service at this point. 4 obstructive pneumonitis: Patient will be started on ceftriaxone 1 g daily and azithromycin 500 mg a day. 5 CAD: Seeing cardiology patient not having any cardiac symptoms at this point remain on metoprolol and furosemide and still can benefit from a long acting isosorbide. 6 hyperglycemia: Patient be on Accu-Chek with sliding scales coverage. 7 chronic pain syndrome: Has been on baclofen and hydrocodone. 8 hyperlipidemia: Has been on simvastatin 40 mg daily. 9 arrhythmia mostly paroxysmal A. fib has been on metoprolol with pulse rate is under control. 10 chronic incontinence: Post surgery remain on Ditropan on as-needed basis. 11 GI prophylaxis: Patient remain on Pepcid. 12 DVT prophylaxis: 13. Chronic hypoxic respiratory failure on home O2 CODE STATUS: Full code. Discharge plan: Home in the next 24 hours Impression and plan of care have been directed as dictated by the signing physician. Maria Guadalupe Zaragoza nurse practitioner acting as scribe for signing physician.
--- NOTE | 2018-06-09 13:51 | P.PN ---
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 Patient experienced complications with pneumonia and sepsis during her treatment, she required hospitalizations, and rehab following her hospitalizations. Her performance status was quite poor , and did not allow for concurrent chemoradiation. Other medical history includes COPD, hypertension, hyperlipidemia, anxiety, former smoker. Patient was admitted through the emergency department on 06/06/2018 complaints of thoracic back pain, progressive in nature. Patient was seen by radiation oncology Dr. Quinn, and the PET scan was done, which showed increased uptake in the left lower lobe mass with SUV of 13.6. Left lower lobe atelectatic change with SUV of 4.4, and more peripherally in the left lower lobe with uptake of 5.4. She has developed shortness of breath, cough, congestion, fever and left lower lobe postobstructive pneumonia. Currently she is on a combination of Zithromax and Rocephin, today's exam she is awake and alert, sitting up in bed, in no acute distress, she is currently on 3 L per nasal cannula, her pulse ox is 97%, she is afebrile. No new labs. Blood culture showed no growth, sputum cultures pending. Medical and radiation oncology has been consulted for recurrent left lower lung carcinoma of the lung, stage III, possibility of starting radiation therapy or chest wall discomfort, likely being caused by left lung mass. On 06/09/2018 patient seen in follow-up on medical surgical floor. She is sitting up on the edge of the bed, in no acute distress, she is satting 100% on 2 L per nasal cannula, hemodynamically she stable, afebrile, thoracic spine MRI was performed yesterday, and showed extension of the left lung mass into the spinal canal with local mass effect on the left lateral aspect of the thecal sac. This extended into the neural roman on the left, the rib at T6 and T7 also showed signal changes on the left compatible with tumor involvement. The tumor mass also extended into the spinal canal, superior endplate of 55, and posterior aspect of T7 also showed some marrow signal changes but no significant spinal stenosis. We spoke to the radiation oncology, and the plan is to start radiation treatments tomorrow. Patient's steroids have been switched to Decadron 4 mg every 6 hours. Antibiotic coverage includes Zithromax and Rocephin. Lung sounds are diminished bilaterally Objective - Vital Signs Vital signs: Vital Signs Temp 97.6 F 06/09/18 06:25 Pulse 88 06/09/18 11:16 Resp 18 06/09/18 06:25 BP 133/72 06/09/18 06:25 Pulse Ox 100 06/09/18 06:25 Intake & Output 06/08/18 06/09/18 06/09/18 18:59 06:59 18:59 Intake Total 1440 750 Balance 1440 750 Intake: Oral 1440 750 Other: Voiding Method Toilet Toilet # Voids 2 2 - Exam GENERAL EXAM: Alert, pleasant, 72-year-old white female on 2 L per nasal cannula comfortable in no apparent distress. HEAD: Normocephalic/atraumatic. EYES: Normal reaction of pupils, equal size. Conjunctiva pink, sclera white. NOSE: Clear with pink turbinates. THROAT: No erythema or exudates. NECK: No masses, no JVD, no thyroid enlargement, no adenopathy. CHEST: No chest wall deformity. Symmetrical expansion. LUNGS: Equal air entry with diminished breath sounds at the bases, CVS: Regular rate and rhythm, normal S1 and S2, no gallops, no murmurs, no rubs ABDOMEN: Soft, nontender. No hepatosplenomegaly, normal bowel sounds, no guarding or rigidity. EXTREMITIES: No clubbing, no edema, no cyanosis, 2+ pulses and upper and lower extremities. MUSCULOSKELETAL: Muscle strength and tone normal. SPINE: No scoliosis or deformity SKIN: No rashes CENTRAL NERVOUS SYSTEM: Alert and oriented -3. No focal deficits, tone is normal in all 4 extremities. PSYCHIATRIC: Alert and oriented -3. Appropriate affect. Intact judgment and insight. - Labs CBC & Chem 7: 06/09/18 08:41 06/09/18 08:41 Labs: Abnormal Lab Results - Last 24 Hours (Table) 06/09/18 06/09/18 Range/Units 08:41 08:41 WBC 25.0 H (3.8-10.6) k/uL Hgb 10.3 L (11.4-16.0) gm/dL MCHC 29.1 L (31.0-37.0) g/dL RDW 15.7 H (11.5-15.5) % Plt Count 556 H (150-450) k/uL Neutrophils # 23.4 H (1.3-7.7) k/uL Lymphocytes # 0.6 L (1.0-4.8) k/uL Potassium 5.2 H (3.5-5.1) mmol/L BUN 29 H (7-17) mg/dL Glucose 145 H (74-99) mg/dL Alkaline Phosphatase 155 H (38-126) U/L Total Protein 5.7 L (6.3-8.2) g/dL Albumin 3.0 L (3.5-5.0) g/dL Microbiology - Last 24 Hours (Table) 06/06/18 13:05 Blood Culture - Preliminary Blood No Growth after 48 hours Assessment and Plan Plan: Assessment: #1. Recurrent squamous cell lung cancer, in the left lower lobe, MRI the thoracic spine showed extension of the posterior left lung mass into the spinal canal with local mass effect on the left lateral aspect of the thecal sac, extending into the neural roman on the left, to the ribs at T6 and T7, and superior endplate of T5, posterior aspect of T7 with some marrow signal changes but no spinal stenosis. Patient will start radiation treatments tomorrow #2. Post-obstructive pneumonia of the left lower lobe #3. Chronic Obstructive pulmonary disease exacerbation #4. History of left lower lobe , cell cancer, status post chemoradiation #5. Hypertension #6. Lipidemia #7. Stress urinary incontinence Plan: Continue current antibiotic coverage, breathing treatments, dexamethasone. Case was discussed with radiation oncology, and the plan is to start radiation treatments tomorrow, thoracic MRI showed extension of the left lung mass into the spinal canal, involvement of the ribs at T6, T7, T5. I performed a history & physical examination of the patient and discussed their management with my nurse practitioner, Harika Jones. I reviewed the nurse practitioner's note and agree with the documented findings and plan of care. Lung sounds are positive decreased lung sounds The findings and the impression was discussed with the patient. I attest to the documentation by the nurse practitioner. Time with Patient: Less than 30
[2018-06-09] MEDS ORDERED: BISACODYL 10 MG SUPP RECTAL PRN (14:07)
[2018-06-09] MEDS ORDERED: MAGNESIUM HYDROXIDE 2,400 MG/10 ML CUP PO PRN (14:07)
--- NOTE | 2018-06-09 18:00 | P.PN ---
Subjective Progress Note Date: 06/09/18 Principal diagnosis: pain from malignancy, recurrent NSCLC, pneumonia Patient seen today in follow-up. We reviewed the results of her MRI, case was discussed with radiation oncology as well as internal medicine. Patient is able to move her left upper extremity, mild pain, can be monitored at times, medications she is currently using are helping. She is sitting up at the bedside today eating her lunch, no acute changes in breathing, congested sounding cough, occasional sputum not purulent or bloody, denies constipation. Objective - Vital Signs Vital signs: Vital Signs Temp 97.7 F 06/09/18 14:31 Pulse 88 06/09/18 15:17 Resp 16 06/09/18 14:31 BP 136/63 06/09/18 14:31 Pulse Ox 98 06/09/18 14:31 Intake & Output 06/08/18 06/09/18 06/09/18 18:59 06:59 18:59 Intake Total 1440 750 840 Balance 1440 750 840 Intake: Oral 1440 750 840 Other: Voiding Method Toilet Toilet Toilet # Voids 2 2 3 - Constitutional General appearance: Present: average body habitus, cooperative, mild distress - EENT Eyes: Present: anicteric sclerae, EOMI ENT: Present: hearing grossly normal - Respiratory Respiratory: bilateral: diminished - Cardiovascular Heart sounds: normal: S1, S2 Abnormal Heart Sounds: Absent: systolic murmur, diastolic murmur, rub, S3 Gallop , S4 Gallop, click, other - Peripheral edema leg Peripheral Edema: bilateral: Trace - Gastrointestinal General gastrointestinal: Present: normal bowel sounds, soft - Integumentary Integumentary: Present: normal - Neurologic Neurologic Comment(s): no numbness or tingling in the left arm or back Neurologic: Present: CNII-XII intact - Musculoskeletal Musculoskeletal Comment(s): mild left upper weakness Musculoskeletal: Present: strength equal bilaterally - Psychiatric Psychiatric: Present: A&O x's 3, appropriate affect, intact judgment & insight - Labs CBC & Chem 7: 06/09/18 08:41 06/09/18 08:41 Labs: Abnormal Lab Results - Last 24 Hours (Table) 06/09/18 06/09/18 Range/Units 08:41 08:41 WBC 25.0 H (3.8-10.6) k/uL Hgb 10.3 L (11.4-16.0) gm/dL MCHC 29.1 L (31.0-37.0) g/dL RDW 15.7 H (11.5-15.5) % Plt Count 556 H (150-450) k/uL Neutrophils # 23.4 H (1.3-7.7) k/uL Lymphocytes # 0.6 L (1.0-4.8) k/uL Potassium 5.2 H (3.5-5.1) mmol/L BUN 29 H (7-17) mg/dL Glucose 145 H (74-99) mg/dL Alkaline Phosphatase 155 H (38-126) U/L Total Protein 5.7 L (6.3-8.2) g/dL Albumin 3.0 L (3.5-5.0) g/dL Microbiology - Last 24 Hours (Table) 06/06/18 13:05 Blood Culture - Preliminary Blood No Growth after 72 hours - Imaging and Cardiology MRI of the spine report reviewed Assessment and Plan (1) Pneumonia Narrative/Plan: Cont treatment per Pulmonary, fever pattern better Current Visit: Yes Status: Acute Priority: High Code(s): J18.9 - PNEUMONIA , UNSPECIFIED ORGANISM SNOMED Code(s): 516936404 (2) Pain of metastatic malignancy Narrative/Plan: Patient will be provided with a steroid taper prescription. She was instructed on eating when taking steroids to prevent gastrointestinal upset and some of the other side effects including insomnia, increased appetite, irritability. Patient is going to use Tylenol for pain she will be provided with a 3 day prescription for [facility] if needed. Reviewed prevention of narcotic-induced constipation. Plan is to start radiation to the spine soon. Current Visit: Yes Status: Acute Code(s): G89.3 - NEOPLASM RELATED PAIN ( ACUTE) (CHRONIC) SNOMED Code(s): 108778063 (3) Squamous cell carcinoma of lung, stage III Narrative/Plan: Discussed case with Dr. Quinn and Dr. Garcia. Pt now has metastatic, incurable disease. Treatment is palliative in intent. Dr. Quinn managing radiation. Dexamethasone cont to help with swelling and pain control. Dr. Garcia has not decided on definite systemic treatment yet. Pt understands that systemic treatment will not begin until after XRT. Follow up with Dr. Garcia scheduled Current Visit: Yes Status: Chronic Priority: High Code(s): C34.90 - MALIGNANT NEOPLASM OF UNSP PART OF UNSP BRONCHUS OR LUNG SNOMED Code(s): 435883759
[2018-06-09] MEDS: MULTIVITAMINS, THERA 1 EACH TAB PO SCH (18:01)
[2018-06-09] MEDS: ATORVASTATIN 20 MG TAB PO SCH (20:10)
[2018-06-09] MEDS: AMITRIPTYLINE HCL 10 MG TAB PO SCH (20:11)
[2018-06-09] MEDS: ASPIRIN 81 MG PO SCH (21:55)
[2018-06-09] MEDS: MELATONIN 5 MG TABLET PO PRN (22:53)
[2018-06-09] MEDS: ALPRAZolam 0.25 MG TAB PO PRN (22:53)
[2018-06-10] MEDS: DEXAMETHASONE SOD PHOSPHATE 4 MG/ML 1 ML VIAL IV SCH ×2 (06:18→11:42)
[2018-06-10] MEDS: FAMOTIDINE 20 MG TAB PO SCH (06:18)
[2018-06-10] MEDS: MORPHINE SULFATE 4 MG/ML SYRINGE IVP PRN (06:33)
[2018-06-10] MEDS: IPRATROPIUM-ALBUTEROL 3 ML NEB INHALATION SCH ×2 (06:49→10:39)
[2018-06-10] MEDS: FORMOTEROL FUMARATE 20 MCG/2 ML NEBU INHALATION SCH (07:06)
[2018-06-10 07:49] VITALS: RESP 16
[2018-06-10] MEDS: POTASSIUM CHLORIDE ER 20 MEQ TAB.ER PO SCH (09:14)
[2018-06-10] MEDS: FUROSEMIDE 40 MG TAB PO SCH (09:41)
[2018-06-10] MEDS: OXYBUTYNIN CHLORIDE 5 MG TAB PO SCH (09:41)
[2018-06-10] MEDS: METOPROLOL TARTRATE 25 MG TAB PO SCH (09:43)
[2018-06-10] MEDS: CYCLOBENZAPRINE 10 MG TAB PO SCH (09:43)
[2018-06-10] MEDS: BACLOFEN 10 MG TAB PO SCH (09:43)
[2018-06-10] MEDS: AZITHROMYCIN 500 MG TAB PO SCH (09:43)
[2018-06-10] MEDS: SYMBICORT 160-4.5 MCG INHALER INHALATION SCH (10:26)
--- NOTE | 2018-06-10 12:58 | P.DS ---
Providers Date of admission: 06/06/18 17:04 Expected date of discharge: 06/10/18 Attending physician: Sunil Cagle Consults: 06/06/18 17:04 Consult Physician Routine Consulting Provider: Rajendra Burgos Consult Reason/Comments: Pneumonia, lung cancer Do you want consulting provider notified?: Yes Consult Physician Routine Consulting Provider: Darryl Garcia Consult Reason/Comments: Oncological care Do you want consulting provider notified?: Already Contacted Consult Physician Routine Consulting Provider: Matthew Quinn Consult Reason/Comments: Radiation oncology evaluation and care Do you want consulting provider notified?: Yes Primary care physician: [facility] Course: 72-year-old female one of my office patient who had lung cancer was treated with chemotherapy and radiation has been seen oncology on regular basis. Patient just had her PET scan recently which was slightly bit abnormal. Patient was in to see Dr. Quinn her radiation oncologist recently complaining of worsening thoracic pain in the left side consist back in 2016, review her x- ray and findings were consistent with recurrent her lung cancer specially in the base of the left lung. Patient apparently was sent to the emergency department by Dr. Quinn and Dr. Garcia to be admitted for pain management possible need for biopsy or the need to go for urgent radiation therapy. 06/08: Patient is followed by oncology and radiation oncology for recurrent squamous cell carcinoma stage III of the left lower lung with recurrent disease. Recommendations are to continue morphine, Flexeril and Decadron. Plan for radiation therapy and possibly secondary immunotherapy. Patient is followed by Dr. Catalan for pneumonia and COPD exacerbation. Patient states that her breathing is improved from yesterday. She has been afebrile, pulse ox 96-97 % on 3 L nasal cannula. Pulse running 92-104. Blood culture showing no growth at 24 hours and see him culture is in progress. IV fluids will be discontinued. Patient is continued on azithromycin, ceftriaxone, DuoNeb, Perforomist, Symbicort and IV Decadron. 06/09: Thoracic spine MRI reveals lung mass extends into the spinal canal and radiation oncology is planning to target this area. Patient has been afebrile, pulse running in the 80s and 90s. Pulse ox is 100% on 2 L nasal cannula. White count is 25, hemoglobin 10.3, potassium 5.2, creatinine 0.59. Patient is continued on IV Decadron. Anticipate probable discharge by tomorrow. 06/10: Patient is scheduled for radiation therapy on Wednesday. Patient states her breathing status is stable at this point. Pulse ox is 97% on 3 L nasal cannula. She has been afebrile. Patient states she had a suppository this morning with good results with bowel movement. Oncology has provided prescriptions for dexamethasone and Millry. Patient will be discharged home today in stable condition. Discharge diagnoses: 1 intractable back pain secondary to metastatic disease from lung cancer. 2 recurrent lung cancer 3 COPD with mild exacerbation 4 obstructive pneumonitis, gram-negative pneumonia 5 CAD 6 hyperglycemia 7 chronic pain syndrome 8 hyperlipidemia 9 paroxysmal A. fib 10 chronic incontinence 11 Chronic hypoxic respiratory failure on home O2 Discharge plan: Home Impression and plan of care have been directed as dictated by the signing physician. Maria Guadalupe Zaragoza nurse practitioner acting as scribe for signing physician. Patient Condition at Discharge: Good Plan - Discharge Summary Discharge Rx Participant: Yes New Discharge Prescriptions: New RX: Dexamethasone 4 mg PO QID #74 tablet HYDROcodone/APAP 5-325MG [Millry 5] 1 each PO Q8HR PRN #9 tab PRN Reason: Severe Pain RX: Azithromycin [Zithromax] 500 mg PO DAILY #5 tab RX: Magnesium Hydroxide [Milk of Magnesia Concentrate] 2,400 mg PO BID PRN ml PRN Reason: Constipation Continue RX: Simvastatin [Zocor] 40 mg PO HS RX: Metoprolol Tartrate [Lopressor] 25 mg PO BID RX: Oxybutynin Chloride [Ditropan] 5 mg PO BID@0800,1700 RX: Aspirin EC [Ecotrin Low Dose] 81 mg PO HS RX: Amitriptyline HCl [Elavil] 10 mg PO HS RX: Cholecalciferol [Vitamin D3] 1,000 unit PO DAILY RX: Multivit-Min/Iron/Folic/Lutein [Centrum Silver Women Tablet] 1 tab PO DAILY@1700 RX: Cranberry Fruit Extract [Cranberry] 500 mg PO DAILY RX: Biotin 5 mg PO DAILY@1700 RX: Melatonin 5 mg PO HS PRN tablet PRN Reason: Insomnia RX: ALPRAZolam [Xanax] 0.25 mg PO TID PRN #90 tab PRN Reason: Anxiety RX: Famotidine [Pepcid] 20 mg PO DAILY@0600 RX: Furosemide [Lasix] 40 mg PO DAILY@0600 RX: Potassium Chloride ER [K-Dur 20] 20 meq PO DAILY RX: Flaxseed Oil [[place]-3 Flaxseed Oil] 1,000 mg PO DAILY RX: Baclofen [Lioresal] 10 mg PO TID RX: Albuterol Inhaler [Ventolin Hfa Inhaler] 2 puff INHALATION RT-Q4H RX: Formoterol Fumarate [Perforomist] 20 mcg PO RT-BID RX: Albuterol Nebulized (Conc) [Ventolin Nebulized (Conc)] 2.5 mg INHALATION RT-QID RX: Hydrochlorothiazide [Hydrodiuril] 25 mg PO DAILY RX: Cyclobenzaprine [Flexeril] 10 mg PO BID RX: Furosemide [Lasix] 40 mg PO DAILY Discharge Medication List RX: Amitriptyline HCl [Elavil] 10 mg PO HS 05/25/16 [History] RX: Aspirin EC [Ecotrin Low Dose] 81 mg PO HS 05/25/16 [History] RX: Metoprolol Tartrate [Lopressor] 25 mg PO BID 05/25/16 [History] RX: Oxybutynin Chloride [Ditropan] 5 mg PO BID@0800,1700 05/25/16 [History] RX: Simvastatin [Zocor] 40 mg PO HS 05/25/16 [History] RX: Biotin 5 mg PO DAILY@1700 08/19/16 [History] RX: Cholecalciferol [Vitamin D3] 1,000 unit PO DAILY 08/19/16 [History] RX: Cranberry Fruit Extract [Cranberry] 500 mg PO DAILY 08/19/16 [History] RX: Multivit-Min/Iron/Folic/Lutein [Centrum Silver Women Tablet] 1 tab PO DAILY@ 1700 08/19/16 [History] RX: Melatonin 5 mg PO HS PRN tablet 04/22/17 [Rx] RX: ALPRAZolam [Xanax] 0.25 mg PO TID PRN #90 tab 06/16/17 [Rx] RX: Famotidine [Pepcid] 20 mg PO DAILY@0600 06/17/17 [History] RX: Furosemide [Lasix] 40 mg PO DAILY@0600 06/17/17 [History] RX: Potassium Chloride ER [K-Dur 20] 20 meq PO DAILY 06/17/17 [History] RX: Flaxseed Oil [[place]-3 Flaxseed Oil] 1,000 mg PO DAILY 11/23/17 [History] RX: Albuterol Inhaler [Ventolin Hfa Inhaler] 2 puff INHALATION RT-Q4H 06/06/18 [ History] RX: Albuterol Nebulized (Conc) [Ventolin Nebulized (Conc)] 2.5 mg INHALATION RT- QID 06/06/18 [History] RX: Baclofen [Lioresal] 10 mg PO TID 06/06/18 [History] RX: Cyclobenzaprine [Flexeril] 10 mg PO BID 06/06/18 [History] RX: Formoterol Fumarate [Perforomist] 20 mcg PO RT-BID 06/06/18 [History] RX: Furosemide [Lasix] 40 mg PO DAILY 06/06/18 [History] RX: Hydrochlorothiazide [Hydrodiuril] 25 mg PO DAILY 06/06/18 [History] HYDROcodone/APAP 5-325MG [Millry 5] 1 each PO Q8HR PRN #9 tab 06/09/18 [Rx] RX: Dexamethasone 4 mg PO QID #74 tablet 06/09/18 [Rx] RX: Azithromycin [Zithromax] 500 mg PO DAILY #5 tab 06/10/18 [Rx] RX: Magnesium Hydroxide [Milk of Magnesia Concentrate] 2,400 mg PO BID PRN ml 06/10/18 [Rx] Follow up Appointment(s)/Referral(s): Sunil Cagle MD [Primary Care Provider] - 06/16/18 11:00 am Mathtew Quinn MD [STAFF PHYSICIAN] - 1 Week Darryl Garcia MD [STAFF PHYSICIAN] - 06/21/18 12:00 pm Patient Instructions/Handouts: Pneumonia (DC) Activity/Diet/Wound Care/Special Instructions: Radiation therapy to start 06/13/2018 at [facility] [place] [facility] at 1:15. [employer] will provide transportation so be ready to be picked up at 12:45. Cardiac diet. Activity as tolerated Oxygen via nasal cannula as needed at home. Discharge Disposition: HOME SELF-CARE
--- NOTE | 2018-06-10 13:51 | P.PN ---
Subjective Progress Note Date: 06/10/18 Principal diagnosis: Recurrent lung cancer, left lower lobe, post obstructive pneumonia of the left lower lobe This is a 72-year-old white female patient past medical history of squamous cell carcinoma of the left lower lobe diagnosed in April 2017, patient was treated with chemotherapy and radiation. Patient experienced complications with pneumonia and sepsis during her treatment, she required hospitalizations, and rehab following her hospitalizations. Her performance status was quite poor , and did not allow for concurrent chemoradiation. Other medical history includes COPD, hypertension, hyperlipidemia, anxiety, former smoker. Patient was admitted through the emergency department on 06/06/2018 complaints of thoracic back pain, progressive in nature. Patient was seen by radiation oncology Dr. Quinn, and the PET scan was done, which showed increased uptake in the left lower lobe mass with SUV of 13.6. Left lower lobe atelectatic change with SUV of 4.4, and more peripherally in the left lower lobe with uptake of 5.4. She has developed shortness of breath, cough, congestion, fever and left lower lobe postobstructive pneumonia. Currently she is on a combination of Zithromax and Rocephin, today's exam she is awake and alert, sitting up in bed, in no acute distress, she is currently on 3 L per nasal cannula, her pulse ox is 97%, she is afebrile. No new labs. Blood culture showed no growth, sputum cultures pending. Medical and radiation oncology has been consulted for recurrent left lower lung carcinoma of the lung, stage III, possibility of starting radiation therapy or chest wall discomfort, likely being caused by left lung mass. On 06/09/2018 patient seen in follow-up on medical surgical floor. She is sitting up on the edge of the bed, in no acute distress, she is satting 100% on 2 L per nasal cannula, hemodynamically she stable, afebrile, thoracic spine MRI was performed yesterday, and showed extension of the left lung mass into the spinal canal with local mass effect on the left lateral aspect of the thecal sac. This extended into the neural roman on the left, the rib at T6 and T7 also showed signal changes on the left compatible with tumor involvement. The tumor mass also extended into the spinal canal, superior endplate of 55, and posterior aspect of T7 also showed some marrow signal changes but no significant spinal stenosis. We spoke to the radiation oncology, and the plan is to start radiation treatments tomorrow. Patient's steroids have been switched to Decadron 4 mg every 6 hours. Antibiotic coverage includes Zithromax and Rocephin. Lung sounds are diminished bilaterally On 06/10/2018 patient seen in follow-up on medical surgical floor. She is awake and alert, in no acute distress, she is supposed to start her radiation treatments today, for the palliation of her pain symptoms related to the extension of the left lung mass into the spinal canal and to the left lateral aspect of the thecal sac with local mass effect. He remains on 3 L per nasal cannula, her pulse ox is 97%, she is afebrile, hemodynamically she stable, lung sounds are diminished, no rhonchi, no wheezes, no fever or chills. Blood and sputum cultures are negative. Today's labs been reviewed, white blood cell count is 25, this could be related to addition of Decadron steroids, sodium was 143, potassium is 5.2, patient potassium supplements were held today, chloride is 106, BUN is 29, creatinine is 0.59. Influenza was not detected remains on oral Zithromax, 500 mg daily, she is on Symbicort, nebulized treatments. Her breathing is improving. Patient is supposed to be discharged home today after her radiation treatment. Need follow-up with Dr. Burgos in the office in 7-10 days. Objective - Vital Signs Vital signs: Vital Signs Temp 97.9 F 06/10/18 05:50 Pulse 99 06/10/18 13:00 Resp 16 06/10/18 13:00 BP 151/79 06/10/18 05:50 Pulse Ox 97 06/10/18 06:52 Intake & Output 06/09/18 06/10/18 06/10/18 18:59 06:59 18:59 Intake Total 840 1000 Balance 840 1000 Intake: Oral 840 1000 Other: Voiding Method Toilet Toilet # Voids 3 2 - Exam GENERAL EXAM: Alert, pleasant, 72-year-old white female on 3 L per nasal cannula comfortable in no apparent distress. HEAD: Normocephalic/atraumatic. EYES: Normal reaction of pupils, equal size. Conjunctiva pink, sclera white. NOSE: Clear with pink turbinates. THROAT: No erythema or exudates. NECK: No masses, no JVD, no thyroid enlargement, no adenopathy. CHEST: No chest wall deformity. Symmetrical expansion. LUNGS: Equal air entry with diminished breath sounds at the bases, CVS: Regular rate and rhythm, normal S1 and S2, no gallops, no murmurs, no rubs ABDOMEN: Soft, nontender. No hepatosplenomegaly, normal bowel sounds, no guarding or rigidity. EXTREMITIES: No clubbing, no edema, no cyanosis, 2+ pulses and upper and lower extremities. MUSCULOSKELETAL: Muscle strength and tone normal. SPINE: No scoliosis or deformity SKIN: No rashes CENTRAL NERVOUS SYSTEM: Alert and oriented -3. No focal deficits, tone is normal in all 4 extremities. PSYCHIATRIC: Alert and oriented -3. Appropriate affect. Intact judgment and insight. - Labs CBC & Chem 7: 06/09/18 08:41 06/09/18 08:41 Labs: Microbiology - Last 24 Hours (Table) 06/07/18 20:30 Gram Stain - Final Sputum Sputum Culture - Final 06/06/18 13:05 Blood Culture - Preliminary Blood No Growth after 72 hours Assessment and Plan Plan: Assessment: #1. Recurrent squamous cell lung cancer, in the left lower lobe, MRI the thoracic spine showed extension of the posterior left lung mass into the spinal canal with local mass effect on the left lateral aspect of the thecal sac, extending into the neural roman on the left, to the ribs at T6 and T7, and superior endplate of T5, posterior aspect of T7 with some marrow signal changes but no spinal stenosis. Patient will start radiation treatments tomorrow #2. Post-obstructive pneumonia of the left lower lobe #3. Chronic Obstructive pulmonary disease exacerbation #4. History of left lower lobe , cell cancer, status post chemoradiation #5. Hypertension #6. Lipidemia #7. Stress urinary incontinence Plan: From pulmonary perspective patient is stable for discharge home today following her radiation treatment, on the course of oral antibiotics, patient can continue on her maintenance nebulized treatments, she has oxygen at home. She will need follow-up with Dr. Burgos in the office in 7-10 days. I performed a history & physical examination of the patient and discussed their management with my nurse practitioner, Harika Jones. I reviewed the nurse practitioner's note and agree with the documented findings and plan of care. Lung sounds are positive decreased lung sounds The findings and the impression was discussed with the patient. I attest to the documentation by the nurse practitioner. Time with Patient: Less than 30
[2018-06-10 14:27] VITALS: BP 134/65; PULSE 95; TEMP 98.3
--- NOTE | 2018-06-14 09:26 | CDI ---
Documentation Clarification Form Date: 06/14/18 From: Elinor Silva Phone: If you have a question regarding this query, please contact Nena Jorge at [phone] between 8am and 5pm. Admit Date: 06/06/2018 5:04:00 PM Patient Name: Nani Byers Visit Number: [id number] Discharge Date: 06/10/2018 3:03:00 PM ATTENTION: The Clinical Documentation Specialists (CDI) and [facility] Coding Staff appreciate your assistance in clarifying documentation. Please respond to the clarification below the line at the bottom and electronically sign. The CDI & [facility] Coding staff will review the response and follow-up if needed. Please note: Queries are made part of the Legal Health Record. If you have any questions, please contact the author of this message via ITS. Dr. Sunil Cagle The patient presented with acute exacerbation of COPD, pneumonia, sepsis and stage III lung cancer per documentation in the ED note. History/Risk Factors: Sepsis is also documented in Dr. Alcaraz's consult note but not documented during the rest of the stay. Clinical Indicators: Elevated WBC and tachycardia WBC: 17.2 Lactic acid: 1.2 Blood cultures: No growth. Vitals signs on admission: T. 99.1 then 101.7 on 06/06, P. 89 - 102 in the ED, R. 18 - 39 in the ED, BP 133/72 Treatment: Antibiotics: IV & PO Zithromax, IV Ceftriaxone IV Bolus: 1/2 liter at 999 mls/hor then @ 100 mls/hr In your professional opinion, please clarify if these findings signify one of the following conditions and cause, if known: Condition Sepsis ruled out SIRS, without underlying infectious process Sepsis Severe Sepsis Septic Shock Other, please specify Unable to determine Link or clarify if there is associated (due to/with): Organ failure Shock sepsis MTDD
== END 2018-06-10 15:03 | disposition home or self-care (01) | DRG 871 ==
LOC: EC 12:19 → 3NMEDONC 17:04 → 4MS4W 22:21
PROVIDERS: ADMIT Internal Medicine Geriatric Medicine; ATTEND Internal Medicine Geriatric Medicine
PROC: DB021ZZ Beam Radiation of Lung using Photons 1 - 10 MeV (ICD-10-PCS; principal; 2018-06-06)
DX: A41.50 Gram-negative sepsis, unspecified (principal); J15.6 Pneumonia due to other Gram-negative bacteria; C34.32 Malignant neoplasm of lower lobe, left bronchus or lung; C79.49 Secondary malignant neoplasm of other parts of nervous system; J44.0 Chronic obstructive pulmonary disease with (acute) lower respiratory infection; J44.1 Chronic obstructive pulmonary disease with (acute) exacerbation; J96.11 Chronic respiratory failure with hypoxia; I48.0 Paroxysmal atrial fibrillation; E78.5 Hyperlipidemia, unspecified; G89.3 Neoplasm related pain (acute) (chronic); G89.4 Chronic pain syndrome; I10 Essential (primary) hypertension; I25.10 Atherosclerotic heart disease of native coronary artery without angina pectoris; N32.81 Overactive bladder; N39.3 Stress incontinence (female) (male); F41.9 Anxiety disorder, unspecified; R73.9 Hyperglycemia, unspecified; Z79.51 Long term (current) use of inhaled steroids; Z79.899 Other long term (current) drug therapy; Z79.82 Long term (current) use of aspirin; Z88.1 Allergy status to other antibiotic agents; Z88.2 Allergy status to sulfonamides; Z87.442 Personal history of urinary calculi; Z87.891 Personal history of nicotine dependence; Z92.21 Personal history of antineoplastic chemotherapy; Z92.3 Personal history of irradiation; Z99.81 Dependence on supplemental oxygen; Z90.49 Acquired absence of other specified parts of digestive tract; Z96.653 Presence of artificial knee joint, bilateral; Z80.3 Family history of malignant neoplasm of breast; Z80.1 Family history of malignant neoplasm of trachea, bronchus and lung; Z80.0 Family history of malignant neoplasm of digestive organs
CPT/HCPCS: 36415; 71046; 72157; 77300; 77301; 77332; 77338; 77470; 80053; 83605; 85025; 85610; 85730; 87040; 87070; 87205; 87502; 93005; 94640; 94760; 96361; 96365; 96367; 96374; 99291

== ENCOUNTER 2018-08-21 23:13 | Inpatient (IN) | payer MEDICARE, BC ==
[2018-08-21] MEDS ORDERED: ACETAMINOPHEN TAB 500 MG TAB PO STA (23:23)
--- NOTE | 2018-08-21 23:24 | ED ---
SOB HPI - General Stated Complaint: SOB,Back pain Time Seen by Provider: 08/21/18 23:14 - History of Present Illness Initial Comments: Nani is a pleasant 72-year-old female with a history of lung cancer for which she's undergone chemo and radiation for approximately a year and a half and has developed progression of disease with metastases. Patient is currently undergoing chemotherapy infusion once every 3 weeks her most recent was August 18. Patient reports that since that time she's been experiencing worsening shortness of breath with any exertion and pleuritic chest pain. Patient reports that over the past 2 nights she's noticed that anytime she gets up to use the restroom she feels very short of breath. She also reports worsening pain in her upper back and pain with deep inspiration. Patient reports that she has been evaluated by her oncologist for this and they believe the pain is secondary to cast disease and side effect of the medications. Patient reports she is unable to sleep last night due to her urinary frequency and the pain and shortness breath she experienced every time she got up to use the restroom. At that tonight she's got up multiple times continues to feel short of breath and come to the ER for evaluation. - Related Data Home Medications Medication Instructions Recorded Confirmed Amitriptyline HCl [Elavil] 10 mg PO HS 05/25/16 08/21/18 Aspirin EC [Ecotrin Low Dose] 81 mg PO HS 05/25/16 08/21/18 Metoprolol Tartrate [Lopressor] 25 mg PO BID 05/25/16 08/21/18 Oxybutynin Chloride [Ditropan] 5 mg PO BID@0800,1700 05/25/16 08/21/18 Simvastatin [Zocor] 40 mg PO HS 05/25/16 08/21/18 Potassium Chloride ER [K-Dur 20] 20 meq PO DAILY 06/17/17 08/21/18 Albuterol Nebulized (Conc) 2.5 mg INHALATION RT-QID 06/06/18 08/21/18 [Ventolin Nebulized (Conc)] Furosemide [Lasix] 40 mg PO DAILY 06/06/18 08/21/18 Previous Rx's Medication Instructions Recorded Melatonin 5 mg PO HS PRN tablet 04/22/17 ALPRAZolam [Xanax] 0.25 mg PO TID PRN #90 tab 06/16/17 Allergies Allergy/AdvReac Type Severity Reaction Status Date / Time nitrofurantoin AdvReac Abdominal Verified 08/21/18 23:28 [From Macrodantin] Pain Sulfa (Sulfonamide AdvReac Nausea Verified 08/21/18 23:28 Antibiotics) Review of Systems ROS Statement: Those systems with pertinent positive or pertinent negative responses have been documented in the HPI. ROS Other: All systems not noted in ROS Statement are negative. Past Medical History Past Medical History: Cancer, COPD, Hyperlipidemia, Hypertension, Pneumonia Additional Past Medical History / Comment(s): past bleeding from hemorrhoids,stress incontinence,bronchitis, overactive bladder, kidney stone, LLL Lung CA, 06-06-17 pne/sepsis. History of Any Multi-Drug Resistant Organisms: None Reported Past Surgical History: Bladder Surgery, Breast Surgery, Cholecystectomy, Joint Replacement Additional Past Surgical History / Comment(s): left complete knee replacement, rt partial knee replacement,rectocele, bowel surgery to unkink colon,cyst remov ed breast,bladder surgery x3, bladder suspension, hemorrhoidectomy, rectal prolapse repair Past Anesthesia/Blood Transfusion Reactions: No Reported Reaction Additional Past Anesthesia/Blood Transfusion Reaction / Comment(s): no hx blood transfusion Smoking Status: Former smoker - Past Family History Mother Family Medical History: No Reported History Father History Unknown: Yes Additional Family Medical History / Comment(s): Sister with breast cancer, sister with colon cancer, brother with lung cancer General Exam - General Exam Comments Initial Comments: Physical Exam GENERAL: Chronically ill appearing elderly female HENT: Normocephalic, Atraumatic. EYES: PERRL, EOMI PULMONARY: Tachypnea CARDIOVASCULAR: Tachycardia ABDOMEN: Soft and nontender with normal bowel sounds. SKIN: Pale, warm to the touch : Deferred NEUROLOGIC: Patient is alert and oriented x3. Moving all extremities spontaneously MUSCULOSKELETAL: Normal extremities with adequate strength and full range of motion. No lower extremity swelling or edema. No calf tenderness. PSYCHIATRIC: Normal psychiatric evaluation. Limitations: no limitations Course Vital Signs 08/21/18 08/22/18 08/22/18 23:18 00:36 01:56 Temperature 102.6 F H 100 F H Pulse Rate 110 H 97 95 Respiratory 26 H 26 H 20 Rate Blood Pressure 133/78 124/83 98/71 O2 Sat by Pulse 98 98 99 Oximetry Procedures - Sepsis Sepsis Focused Exam #1 Sepsis Focused Exam Date: 08/22/18 Sepsis Focused Exam Time: 01:45 Sepsis Focused Exam Complete: Yes Vital Signs & RN Notes Reviewed: Yes Capillary Refill: < 2 Seconds: Fingers, Toes Peripheral Pulses: Normal: Radial (R), Radial (L) Skin Color: Normal for Patient Respiratory Exam: decreased breath sounds (LLL) Cardiovascular Exam: regular rate, normal rhythm Medical Decision Making - Medical Decision Making The patient was seen and evaluated history was obtained from patient and review of medical records Patient vital signs were reviewed patient is tachycardic, tachypneic and febrile A sepsis workup was initiated Tylenol was ordered for the patient's fever as well as IV fluids Labs reveal leukocytosis, chronic anemia Chest x-ray is concerning for left lower no pneumonia considering that this is where the patient has a known masses is concerning for postobstructive pneumonia therefore Rocephin and azithromycin and clindamycin will be ordered Influenza was negative for chest x-rays concerning for left lower lobe pneumonia next line next line patient care was discussed with the admitting physician Dr. Arrieta who recommends IV cefepime twice a day consult to pulmonology and oncology and agrees with plan for admission for further management. Admission orders were placed. - Lab Data Result diagrams: 08/21/18 23:53 08/21/18 23:53 Lab Results 08/21/18 08/21/18 08/21/18 Range/Units 23:53 23:53 23:53 WBC 14.5 H (3.8-10.6) k/uL RBC 3.79 L (3.80-5.40) m/uL Hgb 10.0 L (11.4-16.0) gm/dL Hct 31.9 L (34.0-46.0) % MCV 84.0 (80.0-100.0) fL MCH 26.3 (25.0-35.0) pg MCHC 31.3 (31.0-37.0) g/dL RDW 18.7 H (11.5-15.5) % Plt Count 495 H (150-450) k/uL Neutrophils % 77 % Lymphocytes % 13 % Monocytes % 6 % Eosinophils % 1 % Basophils % 0 % Neutrophils # 11.2 H (1.3-7.7) k/uL Lymphocytes # 1.9 (1.0-4.8) k/uL Monocytes # 0.9 (0-1.0) k/uL Eosinophils # 0.2 (0-0.7) k/uL Basophils # 0.0 (0-0.2) k/uL Hypochromasia Marked Poikilocytosis Slight Anisocytosis Slight Microcytosis Slight PT (9.0-12.0) sec INR (<1.2) APTT (22.0-30.0) sec Sodium 140 (137-145) mmol/L Potassium 4.5 (3.5-5.1) mmol/L Chloride 100 (98-107) mmol/L Carbon Dioxide 33 H (22-30) mmol/L Anion Gap 7 mmol/L BUN 16 (7-17) mg/dL Creatinine 0.51 L (0.52-1.04) mg/dL Est GFR (CKD-EPI)AfAm >90 (>60 ml/min/1.73 sqM) Est GFR (CKD-EPI)NonAf >90 (>60 ml/min/1.73 sqM) Glucose 119 H (74-99) mg/dL Plasma Lactic Acid Sacha 1.0 (0.7-2.0) mmol/L Calcium 9.3 (8.4-10.2) mg/dL Total Bilirubin 0.4 (0.2-1.3) mg/dL AST 18 (14-36) U/L ALT 18 (9-52) U/L Alkaline Phosphatase 142 H (38-126) U/L Troponin I (0.000-0.034) ng/mL Total Protein 5.9 L (6.3-8.2) g/dL Albumin 3.1 L (3.5-5.0) g/dL Influenza Type A RNA (Not Detectd) Influenza Type B (PCR) (Not Detectd) 08/21/18 08/21/18 08/22/18 Range/Units 23:53 23:53 00:33 WBC (3.8-10.6) k/uL RBC (3.80-5.40) m/uL Hgb (11.4-16.0) gm/dL Hct (34.0-46.0) % MCV (80.0-100.0) fL MCH (25.0-35.0) pg MCHC (31.0-37.0) g/dL RDW (11.5-15.5) % Plt Count (150-450) k/uL Neutrophils % % Lymphocytes % % Monocytes % % Eosinophils % % Basophils % % Neutrophils # (1.3-7.7) k/uL Lymphocytes # (1.0-4.8) k/uL Monocytes # (0-1.0) k/uL Eosinophils # (0-0.7) k/uL Basophils # (0-0.2) k/uL Hypochromasia Poikilocytosis Anisocytosis Microcytosis PT 11.0 (9.0-12.0) sec INR 1.0 (<1.2) APTT 28.3 (22.0-30.0) sec Sodium (137-145) mmol/L Potassium (3.5-5.1) mmol/L Chloride (98-107) mmol/L Carbon Dioxide (22-30) mmol/L Anion Gap mmol/L BUN (7-17) mg/dL Creatinine (0.52-1.04) mg/dL Est GFR (CKD-EPI)AfAm (>60 ml/min/1.73 sqM) Est GFR (CKD-EPI)NonAf (>60 ml/min/1.73 sqM) Glucose (74-99) mg/dL Plasma Lactic Acid Sacha (0.7-2.0) mmol/L Calcium (8.4-10.2) mg/dL Total Bilirubin (0.2-1.3) mg/dL AST (14-36) U/L ALT (9-52) U/L Alkaline Phosphatase (38-126) U/L Troponin I 0.013 (0.000-0.034) ng/mL Total Protein (6.3-8.2) g/dL Albumin (3.5-5.0) g/dL Influenza Type A RNA Not Detected (Not Detectd) Influenza Type B (PCR) Not Detected (Not Detectd) - EKG Data -: EKG Interpreted by Me EKG Comments: EKG was obtained at 11:22 PM, rate is 111 rhythm is sinus tachycardia with PVCs in a pattern of bigeminy. There is leftward deviation. In her bowels, VT 122, QRS 80, QTC is 451 there are no acute ST elevations or depressions no evidence of acute ischemia or infarction when compared to previous EKG from May of this year and his tachycardia and bigeminy has replaced the sinus rhythm. Critical Care Time Critical Care Time: Yes Total Critical Care Time: 15 Disposition Clinical Impression: Squamous cell carcinoma of lung, stage III, Pain of metastatic malignancy, Sepsis, Pneumonia Disposition: ADMITTED IP TO THIS HOSP Condition: Serious
[2018-08-22 00:06] LABS: Anisocytosis Slight; Basophils % (A) 0 %; Eosinophils # (A) 0.2 k/uL (0-0.7); Eosinophils % (A) 1 %; HCT 31.9 % (34.0-46.0); Hypochromasia Marked; Lymphocytes # (A) 1.9 k/uL (1.0-4.8); Lymphocytes % (A) 13 %; MCH 26.3 pg (25.0-35.0); MCHC 31.3 g/dL (31.0-37.0); Mean Platelet Volume 6.4; Microcytosis Slight; Monocytes # (A) 0.9 k/uL (0-1.0); Monocytes % (A) 6 %; Neutrophils # (A) 11.2 k/uL (1.3-7.7); Neutrophils % (A) 77 %; Platelet Count 495 k/uL (150-450); Poikilocytosis Slight; RBC 3.79 m/uL (3.80-5.40); RDW 18.7 % (11.5-15.5); WBC 14.5 k/uL (3.8-10.6)
[2018-08-22 00:14] LABS: Partial Thromboplastin Time 28.3 sec (22.0-30.0)
[2018-08-22 00:21] LABS: ALT 18 U/L (9-52); AST 18 U/L (14-36); Albumin 3.1 g/dL (3.5-5.0); Alkaline Phosphatase 142 U/L (38-126); Anion Gap 7 mmol/L; Blood Urea Nitrogen 16 mg/dL (7-17); Calcium 9.3 mg/dL (8.4-10.2); Carbon Dioxide 33 mmol/L (22-30); Chloride 100 mmol/L (98-107); Glucose 119 mg/dL (74-99); Potassium 4.5 mmol/L (3.5-5.1); Sodium 140 mmol/L (137-145); Total Bilirubin 0.4 mg/dL (0.2-1.3); Total Protein 5.9 g/dL (6.3-8.2)
[2018-08-22] MEDS ORDERED: MORPHINE SULFATE 4 MG/ML SYRINGE IVP STA (00:22)
[2018-08-22] MEDS: SODIUM CHLORIDE 0.9% 500 ML 500 ML IV SCH (00:29)
--- NOTE | 2018-08-22 01:04 | XR ---
EXAM: XR Chest, 2 Views CLINICAL HISTORY: ITS.REASON XR Reason: Fever TECHNIQUE: Frontal and lateral views of the chest. COMPARISON: 06/07/18 FINDINGS: Lungs: Nonspecific left lower lobe consolidation. Pleural space: Unremarkable. No pneumothorax. Heart: No suspicious enlargement. Mediastinum: Unremarkable. Bones/joints: No acute fracture. IMPRESSION: Nonspecific left lower lobe consolidation. No definite change. Correlate with CT.
[2018-08-22] MEDS ORDERED: NALOXONE 0.4 MG/ML 1 ML VIAL IV PRN (01:40)
[2018-08-22] MEDS ORDERED: PNEUMONIA PROTOCOL UTILIZED 1 EACH MISC PO PRN (01:42)
[2018-08-22] MEDS ORDERED: IPRATROPIUM-ALBUTEROL 3 ML NEB INHALATION PRN (01:43)
[2018-08-22] MEDS ORDERED: CEFEPIME 1 GM in SODIUM CHLORIDE 0.9% 50 ML IVPB SCH (01:45)
[2018-08-22] MEDS ORDERED: AZITHROMYCIN 500 MG in SODIUM CHLORIDE 0.9% 250 ML IVPB STA (01:47)
[2018-08-22] MEDS ORDERED: cefTRIAXone IN SWFI 1,000 MG/10 ML SYRINGE IVP STA (01:47)
[2018-08-22] MEDS ORDERED: CLINDAMYCIN 600 MG in DEXTROSE 5% IN WATER 50 ML IVPB STA ×2 (01:47)
[2018-08-22 03:36] LABS: Appearance,Urine Cloudy (Clear); Bacteria,Urine Moderate /hpf; Bilirubin,Urine Negative (Negative); Blood,Urine Trace (Negative); Color,Urine Yellow; Glucose,Urine (UA) Negative (Negative); Hyaline Casts,Urine 2 /lpf (0-2); Ketones,Urine Negative (Negative); Leukocyte Esterase,Urine Large (Negative); Mucus,Urine Few /hpf; Nitrite,Urine Positive (Negative); PH, Urine 5.5 (5.0-8.0); Protein,Urine 1+ (Negative); RBC,Urine 5 /hpf (0-5); Specific Gravity,Urine 1.025 (1.001-1.035); Squamous Epithelial Cell,Urine 1 /hpf (0-4); Urobilinogen,Urine <2.0 mg/dL (<2.0)
[2018-08-22] MEDS: IBUPROFEN 400 MG TAB PO PRN (06:19)
[2018-08-22] MEDS: MORPHINE SULFATE 4 MG/ML SYRINGE IV PRN ×3 (07:58→21:18)
[2018-08-22] MEDS: PIPERACILLIN-TAZOBACTAM 3.375 GM in SODIUM CHLORIDE 0.9% 100 ML IVPB SCH ×2 (10:05→18:07)
[2018-08-22] MEDS: POTASSIUM CHLORIDE ER 20 MEQ TAB.ER PO SCH (10:07)
[2018-08-22] MEDS: METOPROLOL TARTRATE 25 MG TAB PO SCH ×2 (10:07→21:08)
[2018-08-22] MEDS: FUROSEMIDE 40 MG TAB PO SCH (10:08)
--- NOTE | 2018-08-22 11:12 | P.HPIM ---
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 Patient just started immunotherapy in July of this year. She recently completed a 5 week course of steroids secondary to metastatic pain. Patient is complaining of muscle aches in the back and around to the front thought to be a side effect of her new medication. Patient states that she has had increasing shortness of breath with a sitter should and increased shortness of breath just getting to the bathroom. She complains of cough that seems to be unchanged from her baseline. She is complaining of increased pain to the upper back with increased pain with deep breathing. She also complains of increased urinary frequency and have negative to the bathroom only during the night. She states she has an overactive bladder does not have much feeling. Patient came into [facility] emergency center for evaluation. Influenza testing was negative, white count 14.5, hemoglobin 10, platelet count 495, alkaline phosphatase 142, CO2 33, troponin 0.013. Urinalysis was cloudy, nitrate positive, leukoesterase large, WBC greater than 182 bacteria moderate. Temperature max 102.6. Chest x-ray showed nonspecific left lower lobe consolidation. No definite change. EKG was a sinus rhythm with frequent PVCs. Patient was provided IV antibiotics emergency center and placed on the [facility] floor consult with pulmonary medicine and oncology requested. Review of Systems All systems: negative Constitutional: Reports chills, Reports fatigue, Reports fever, Denies poor appetite Eyes: denies blurred vision, denies pain Ears, nose, mouth and throat: Denies dysphagia, Denies headache, Denies hoarseness, Denies mouth pain, Denies nasal congestion, Denies nasal discharge, Denies sore throat, Denies vertigo Cardiovascular: Reports decreased exercise tolerance, Reports dyspnea on ex ertion, Denies chest pain, Denies edema, Denies leg edema, Denies lightheadedness, Denies shortness of breath, Denies syncope Respiratory: Reports cough, Reports cough with sputum, Reports dyspnea, Denies excessive sputum, Denies hemoptysis, Denies home oxygen, Denies wheezing Gastrointestinal: Denies abdominal pain, Denies diarrhea, Denies nausea, Denies vomiting Genitourinary: Reports urge incontinence, Reports urgency, Reports urinary frequency, Denies dysuria, Denies hematuria Musculoskeletal: Denies frequent falls, Denies gait dysfunction, Denies myalgias Integumentary: Denies pruritus, Denies rash, Denies wounds Neurological: Denies aphasia, Denies change in speech, Denies confusion, Denies gait dysfunction, Denies numbness, Denies seizures, Denies weakness Psychiatric: Denies anxiety, Denies depression Endocrine: Denies fatigue, Denies weight change Past Medical History Past Medical History: Cancer, COPD, Hyperlipidemia, Hypertension, Pneumonia Additional Past Medical History / Comment(s): past bleeding from hemo rrhoids,stress incontinence,bronchitis, overactive bladder, kidney stone, LLL Lung CA, 06-06-17 pne/sepsis. History of Any Multi-Drug Resistant Organisms: None Reported Past Surgical History: Bladder Surgery, Breast Surgery, Cholecystectomy, Joint Replacement Additional Past Surgical History / Comment(s): left complete knee replacement, rt partial knee replacement,rectocele, bowel surgery to unkink colon,cyst removed breast,bladder surgery x3, bladder suspension, hemorrhoidectomy, rectal prolapse repair Past Anesthesia/Blood Transfusion Reactions: No Reported Reaction Additional Past Anesthesia/Blood Transfusion Reaction / Comment(s): no hx blood transfusion Past Psychological History: No Psychological Hx Reported Additional Psychological History / Comment(s): hx panic attack. pt [facility]/has pull cord memrgnecy system, uses walker when up has 02 Smoking Status: Former smoker Past Alcohol Use History: None Reported Additional Past Alcohol Use History / Comment(s): Patient was a smoker one to 2 packs per day for 30 years and quit in 1998. No illicit drug use, alcohol abuse. Patient lives in [facility]. Past Drug Use History: None Reported - Past Family History Mother Family Medical History: No Reported History Additional Family Medical History / Comment(s): Mother at age 80 from old age. Heart palpitations Father History Unknown: Yes Additional Family Medical History / Comment(s): Father when he was young from ruptured hernia. Sister with breast cancer, sister with colon cancer, sister with lung cancer, brother with lung cancer Medications and Allergies Home Medications Medication Instructions Recorded Confirmed Type Amitriptyline HCl [Elavil] 10 mg PO HS 05/25/16 08/21/18 History Aspirin EC [Ecotrin Low Dose] 81 mg PO HS 05/25/16 08/21/18 History Metoprolol Tartrate [Lopressor] 25 mg PO BID 05/25/16 08/21/18 History Oxybutynin Chloride [Ditropan] 5 mg PO BID@0800,1700 05/25/16 08/21/18 History Simvastatin [Zocor] 40 mg PO HS 05/25/16 08/21/18 History Melatonin 5 mg PO HS PRN tablet 04/22/17 08/21/18 Rx ALPRAZolam [Xanax] 0.25 mg PO TID PRN #90 tab 06/16/17 08/21/18 Rx Potassium Chloride ER [K-Dur 20] 20 meq PO DAILY 06/17/17 08/21/18 History Albuterol Nebulized (Conc) 2.5 mg INHALATION RT-QID 06/06/18 08/21/18 History [Ventolin Nebulized (Conc)] Furosemide [Lasix] 40 mg PO DAILY 06/06/18 08/21/18 History Allergies Allergy/AdvReac Type Severity Reaction Status Date / Time nitrofurantoin AdvReac Abdominal Verified 08/21/18 23:28 [From Macrodantin] Pain Sulfa (Sulfonamide AdvReac Nausea Verified 08/21/18 23:28 Antibiotics) Physical Exam Vitals: Vital Signs Temp Pulse Pulse Resp BP BP Pulse Ox 08/22/18 07:00 97.6 F 95 16 114/64 97 08/22/18 03:00 97.9 F 93 18 92/61 98 08/22/18 01:56 100 F H 95 20 98/71 99 08/22/18 00:36 97 26 H 124/83 98 08/21/18 23:18 102.6 F H 110 H 26 H 133/78 98 Intake and Output 08/21/18 08/22/18 08/22/18 22:59 06:59 14:59 Intake Total 450 Output Total 150 Balance 300 Intake: Oral 450 Output: Urine 150 Other: Voiding Method Bedside Commode Weight 89.811 kg Gen: This is a 72-year-old female. She is resting in bed and appears to be comfortable and in no acute distress. HEENT: Head is atraumatic, normocephalic. Pupils equal, round. Sclerae is anicteric. NECK: Supple. No JVD. No lymphadenopathy. No thyromegaly. LUNGS: Clear to auscultation. No wheezes or rhonchi. No intercostal retractions. HEART: Regular rate and rhythm. No murmur. ABDOMEN: Soft. Bowel sounds are present. No masses. No tenderness. EXTREMITIES: No pedal edema. No calf tenderness. NEUROLOGICAL: Patient is awake, alert and oriented x3. Cranial nerves 2 through 12 are grossly intact. Results CBC & Chem 7: 08/21/18 23:53 08/21/18 23:53 Labs: Abnormal Lab Results - Last 24 Hours (Table) 08/21/18 08/21/18 08/22/18 Range/Units 23:53 23:53 03:15 WBC 14.5 H (3.8-10.6) k/uL RBC 3.79 L (3.80-5.40) m/uL Hgb 10.0 L (11.4-16.0) gm/dL Hct 31.9 L (34.0-46.0) % RDW 18.7 H (11.5-15.5) % Plt Count 495 H (150-450) k/uL Neutrophils # 11.2 H (1.3-7.7) k/uL Carbon Dioxide 33 H (22-30) mmol/L Creatinine 0.51 L (0.52-1.04) mg/dL Glucose 119 H (74-99) mg/dL Alkaline Phosphatase 142 H (38-126) U/L Total Protein 5.9 L (6.3-8.2) g/dL Albumin 3.1 L (3.5-5.0) g/dL Urine Appearance Cloudy H (Clear) Urine Protein 1+ H (Negative) Urine Blood Trace H (Negative) Urine Nitrite Positive H (Negative) Ur Leukocyte Esterase Large H (Negative) Urine WBC >182 H (0-5) /hpf Urine Bacteria Moderate H (None) /hpf Urine Mucus Few H (None) /hpf Thrombosis Risk Factor Assmnt - Choose All That Apply Any of the Below Risk Factors Present?: No Other Risk Factors: Yes Each Risk Factor Represents 2 Points: Age 61-74 years Thrombosis Risk Factor Assessment Total Risk Factor Score: 2 Thrombosis Risk Factor Assessment Level: Low Risk Assessment and Plan Plan: 1. Possible gram-negative pneumonia. Patient will be started on Zosyn. Continue DuoNeb treatments every 4 hours as needed. Consult with pulmonary medicine. Repeat chest x-ray in the morning. 2. Acute UTI secondary to overactive bladder and incontinence. Urine culture in progress. Continue Zosyn. Check postvoid residual. 3. Squamous cell carcinoma of the left lower lung with recurrence, nonsurgical candidate. Patient started immunotherapy in July. Consult with oncology. 4. Posterior rib and muscle pain likely secondary to recurrent tumor status post recent radiation for palliative treatment. This has been reported as related to immunotherapy. 5. Hypertension. Continue Lopressor 25 mg twice daily. 6. Hyperlipidemia. Continue Lipitor 20 mg at bedtime. 7. COPD, stable without exacerbation. Consult with pulmonary medicine. 8. DVT prophylaxis. Heparin subcu. 9. GI prophylaxis. Pepcid. Patient will be admitted to the hospital for a minimum of 2 night stay. Discharge plan: Home to senior apartment, possibly with homecare. Impression and plan of care have been directed as dictated by the signing physician. Maria Guadalupe Zaragoza nurse practitioner acting as scribe for signing physician.
[2018-08-22 11:19] LABS: Glucose,Whole Blood 93 mg/dL (75-99)
--- NOTE | 2018-08-22 14:55 | P.CNPUL ---
History of Present Illness Consult date: 08/22/18 Requesting physician: Samara Arrieta Reason for consult: dyspnea, other Chief complaint: Exertional dyspnea, fever, pain across her back History of present illness: This is a 72-year-old female patient of Dr. 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 Patient was initially diagnosed in April 2017 and was treated with chemotherapy and radiation. Patient did experience pneumonia and sepsis during her treatment, which required hospitalizations. Her overall poor performance status did not allow for concurrent chemoradiation. Most recent PET scan in May 2018 showed recurrent disease in the left lung. Thoracic spine MRI showed a bony metastasis. Patient completed a course of XRT and recently was started on immunotherapy and has received her second treatment last . She could not think of the name of her immunotherapy, but she receives it every 3 weeks. On 08/21/2018 presented to the hospital with complaints of creasing shortness of breath with ambulation, he states she could not catch her breath while she was ambulating to the bathroom, and had to sit and rest to recover. Since the initiation of immunotherapy she has been of increased pain in her back in her right and left shoulders, joint pain. She was told that this could happen with immunotherapy. She denied any fever or chills, no sweats, she does have an occasional cough but it is not any worse than usual, she does have history of underlying COPD she is on oxygen at home, no significant chest congestion, no hemoptysis. She states she was treated with 5 days of antibiotics 2 or 3 weeks ago, for a suspected urinary tract infection. She could not recall the name of it. Chest x-ray was completed and showed nonspecific left lower lobe consolidation, no change compared to previous chest x-ray from 06/07/2018. Patient was febrile on presentation the temp of 102.6F. Labs showed mild leukocytosis, with white blood cell count of 14.5, hemoglobin of 10.0, sodium is 140, potassium is 4.5, chloride is 100, CO2 33, BUN is 16, creatinine 0.51. Troponin was negative 1. Influenza screen was negative, urinalysis showed evidence of infection, with the large amount of leuks, greater than 182 white blood cell count, moderate bacteria and mucus. Review of Systems All systems: negative Constitutional: Denies chills, Denies fever Eyes: denies blurred vision, denies pain Ears, nose, mouth and throat: Denies headache, Denies sore throat Cardiovascular: Denies chest pain, Denies shortness of breath Respiratory: Reports dyspnea, Reports home oxygen, Reports respiratory infections, Denies cough Gastrointestinal: Denies abdominal pain, Denies diarrhea, Denies nausea, Denies vomiting Genitourinary: Reports urinary frequency, Denies dysuria, Denies hematuria Musculoskeletal: Denies myalgias Integumentary: Denies pruritus, Denies rash Neurological: Denies numbness, Denies weakness Psychiatric: Denies anxiety, Denies depression Endocrine: Denies fatigue, Denies weight change Past Medical History Past Medical History: Cancer, COPD, Hyperlipidemia, Hypertension, Pneumonia Additional Past Medical History / Comment(s): past bleeding from hemorrhoids,stress incontinence,bronchitis, overactive bladder, kidney stone, L LL Lung CA, 06-06-17 pne/sepsis. History of Any Multi-Drug Resistant Organisms: None Reported Past Surgical History: Bladder Surgery, Breast Surgery, Cholecystectomy, Joint Replacement Additional Past Surgical History / Comment(s): left complete knee replacement, rt partial knee replacement,rectocele, bowel surgery to unkink colon,cyst removed breast,bladder surgery x3, bladder suspension, hemorrhoidectomy, rectal prolapse repair Past Anesthesia/Blood Transfusion Reactions: No Reported Reaction Additional Past Anesthesia/Blood Transfusion Reaction / Comment(s): no hx blood transfusion Past Psychological History: No Psychological Hx Reported Additional Psychological History / Comment(s): hx panic attack. pt lives in [facility]/has pull cord [employer] system, uses walker when up has 02 Smoking Status: Former smoker Past Alcohol Use History: None Reported Additional Past Alcohol Use History / Comment(s): Patient was a smoker one to 2 packs per day for 30 years and quit in 1998. No illicit drug use, alcohol abuse. Patient lives in [facility]. Past Drug Use History: None Reported - Past Family History Mother Family Medical History: No Reported History Additional Family Medical History / Comment(s): Mother at age 80 from old age. Heart palpitations Father History Unknown: Yes Additional Family Medical History / Comment(s): Father when he was young from ruptured hernia. Sister with breast cancer, sister with colon cancer, sister with lung cancer, brother with lung cancer Medications and Allergies Home Medications Medication Instructions Recorded Confirmed Type Amitriptyline HCl [Elavil] 10 mg PO HS 05/25/16 08/21/18 History Aspirin EC [Ecotrin Low Dose] 81 mg PO HS 05/25/16 08/21/18 History Metoprolol Tartrate [Lopressor] 25 mg PO BID 05/25/16 08/21/18 History Oxybutynin Chloride [Ditropan] 5 mg PO BID@0800,1700 05/25/16 08/21/18 History Simvastatin [Zocor] 40 mg PO HS 05/25/16 08/21/18 History Melatonin 5 mg PO HS PRN tablet 04/22/17 08/21/18 Rx ALPRAZolam [Xanax] 0.25 mg PO TID PRN #90 tab 06/16/17 08/21/18 Rx Potassium Chloride ER [K-Dur 20] 20 meq PO DAILY 06/17/17 08/21/18 History Albuterol Nebulized (Conc) 2.5 mg INHALATION RT-QID 06/06/18 08/21/18 History [Ventolin Nebulized (Conc)] Furosemide [Lasix] 40 mg PO DAILY 06/06/18 08/21/18 History Allergies Allergy/AdvReac Type Severity Reaction Status Date / Time nitrofurantoin AdvReac Abdominal Verified 08/21/18 23:28 [From Macrodantin] Pain Sulfa (Sulfonamide AdvReac Nausea Verified 08/21/18 23:28 Antibiotics) Physical Exam Vitals: Vital Signs Temp Pulse Pulse Resp BP BP Pulse Ox 08/22/18 11:18 92 08/22/18 11:04 94 08/22/18 07:00 97.6 F 95 16 114/64 97 08/22/18 03:00 97.9 F 93 18 92/61 98 08/22/18 01:56 100 F H 95 20 98/71 99 08/22/18 00:36 97 26 H 124/83 98 08/21/18 23:18 102.6 F H 110 H 26 H 133/78 98 Intake and Output 08/21/18 08/22/18 08/22/18 22:59 06:59 14:59 Intake Total 450 Output Total 150 Balance 300 Intake: Oral 450 Output: Urine 150 Other: Voiding Method Bedside Commode # Voids 1 Weight 89.811 kg GENERAL EXAM: Alert, pleasant, 72-year-old white female, on 4 L of oxygen with a pulse ox of 98% comfortable in no apparent distress. HEAD: Normocephalic/atraumatic. EYES: Normal reaction of pupils, equal size. Conjunctiva pink, sclera white. NOSE: Clear with pink turbinates. THROAT: No erythema or exudates. NECK: No masses, no JVD, no thyroid enlargement, no adenopathy. CHEST: No chest wall deformity. Symmetrical expansion. LUNGS: Equal air entry with some expiratory wheezes CVS: Regular rate and rhythm, normal S1 and S2, no gallops, no murmurs, no rubs ABDOMEN: Soft, nontender. No hepatosplenomegaly, normal bowel sounds, no guarding or rigidity. EXTREMITIES: No clubbing, no edema, no cyanosis, 2+ pulses and upper and lower extremities. MUSCULOSKELETAL: Muscle strength and tone normal. SPINE: No scoliosis or deformity SKIN: No rashes CENTRAL NERVOUS SYSTEM: Alert and oriented -3. No focal deficits, tone is normal in all 4 extremities. PSYCHIATRIC: Alert and oriented -3. Appropriate affect. Intact judgment and insight. Results - Laboratory Findings CBC and BMP: 08/21/18 23:53 08/21/18 23:53 PT/INR, D-dimer PT 11.0 sec (9.0-12.0) 08/21/18 23:53 INR 1.0 (<1.2) 08/21/18 23:53 Abnormal lab findings: Abnormal Labs 08/21/18 08/21/18 08/22/18 23:53 23:53 03:15 WBC 14.5 H RBC 3.79 L Hgb 10.0 L Hct 31.9 L RDW 18.7 H Plt Count 495 H Neutrophils # 11.2 H Carbon Dioxide 33 H Creatinine 0.51 L Glucose 119 H Alkaline Phosphatase 142 H Total Protein 5.9 L Albumin 3.1 L Urine Appearance Cloudy H Urine Protein 1+ H Urine Blood Trace H Urine Nitrite Positive H Ur Leukocyte Esterase Large H Urine WBC >182 H Urine Bacteria Moderate H Urine Mucus Few H - Diagnostic Findings Chest x-ray: report reviewed, image reviewed Additional studies: EKG reviewed Assessment and Plan Plan: Assessment: #1. Shortness of breath, possibly related to mild exacerbation of COPD, and increased back pain. Chest x-ray has been reviewed, and showed a stable left lower lobe consolidation related to underlying lung cancer, squamous cell lung cancer. Doubt underlying pneumonia #2. Back pain possibly related to bony metastasis, and initiation of immunotherapy #3. Acute urinary tract infection patient has stress urinary incontinence. Recently treated on outpatient basis with a 5 day course of oral antibiotics #4. Recurrent squamous cell lung cancer with bony metastasis, diagnosed in 2017 status post chemoradiation with recent recurrence, status post XRT to the spine for painful bony metastasis and most recently on immunotherapy #5. Chronic obstructive pulmonary disease causing hypoxemic respiratory failure on home oxygen, stable #6. Hypertension, hyperlipidemia #7. Urinary incontinence Plan: Continue Zosyn for antibiotic coverage, will await the results of the blood and urine cultures. Chest x-ray has been reviewed with Dr. Dunn, and compared to previous exams, stable left lower lobe consolidation related to left lower lung mass, no change from prior. Patient does have some scattered expiratory wheezing, we will treat her for mild exacerbation of COPD, and acute urinary tr act infection. Doubt pneumonia. Influenza screen was negative. Oncology has been consulted. Continue breathing treatments, we will add IV Solu-Medrol, Pulmicort and Perforomist. Continue to follow. I performed a history & physical examination of the patient and discussed their management with my nurse practitioner, Harika Jones. I reviewed the nurse practitioner's note and agree with the documented findings and plan of care. Lung sounds are positive for clear breath sounds. The findings and the impression was discussed with the patient. I attest to the documentation by the nurse practitioner. Time with Patient: Greater than 30
--- NOTE | 2018-08-22 16:13 | P.CONS ---
History of Present Illness - Reason for Consult Consult date: 08/22/18 Sepsis Requesting physician: Kinjal Ramirez - Chief Complaint Fever - History of Present Illness This is a very nice lady who presented with recurrent bronchitis and persistent cough,started around ,her dyspnea became progressivley worse,came to ER on 04/17/2017,CXR revealed 7.9cm LLL lung mass,CT scan of chest on 04/17/2017 revealed 5.6x6x4.9 cm mass in LLL,6.4mm calcified RUL nodule. On 04/21/2017,FNA of lung mass was positive for squamous cell carcinoma. On 05/08/2017,PET scan revealed suspicious uptake in 7.6cm LLL lung mass with loss of fat plane at the level of lateral margin of aorta,otherwise negative. She had PFT which revealed poor lung function. She started concurrent weekly carbo/taxol with XRT on 06/02/2017,she ended up admitted to ICU on 06/06/2017 with pneumonia and spesis,discharged on 06/16/2017,she discharged from [facility] on 07/13/2017,chemo was held and she continued with XRT,her performance status did not permit concurrent emily moradiation,she completed XRT on 07/26/2017. 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 On 08/16/2017,repeat CT scan of chest revealed improvement of her disease. She started chemotherapy with carboplatin/gemzar on 09/03/2017 and completed 4 cycles on 11/12/2017. Repeat CT scan of chest 11/16/2017 revealed airspace disease and consolidation in LLL. Repeat CT scan of chest on 01/26/2018 revealed about stable finding and consolidation in LLL,possibly related to XRT Repeat CT scan of chest on 04/18/2018 revealed no evidence of progression Due to worsening left sided chest pain,repeat PET scan on 05/31/2018 revealed LLL mass,extending to T-spine. MRI of T-spine revealed large LLL mass extending to spinal canal. She completed palliative XRT to the LLL lesion on 06/29/2018. On 07/28/2018,she started Tecentriq Review of Systems A 14 point review of systems assessed and completed and all negative except HPI Past Medical History Past Medical History: Cancer, COPD, Hyperlipidemia, Hypertension, Pneumonia Additional Past Medical History / Comment(s): past bleeding from hemorrhoids,s tress incontinence,bronchitis, overactive bladder, kidney stone, LLL Lung CA, 06-06-17 pne/sepsis. History of Any Multi-Drug Resistant Organisms: None Reported Past Surgical History: Bladder Surgery, Breast Surgery, Cholecystectomy, Joint Replacement Additional Past Surgical History / Comment(s): left complete knee replacement, rt partial knee replacement,rectocele, bowel surgery to unkink colon,cyst removed breast,bladder surgery x3, bladder suspension, hemorrhoidectomy, rectal prolapse repair Past Anesthesia/Blood Transfusion Reactions: No Reported Reaction Additional Past Anesthesia/Blood Transfusion Reaction / Comm: no hx blood transfusion Past Psychological History: No Psychological Hx Reported Additional Psychological History / Comment(s): hx panic attack. pt [facility] in [facility]/has pull cord [employer] system, uses walker when up has Smoking Status: Former smoker Past Alcohol Use History: None Reported Additional Past Alcohol Use History / Comment(s): Patient was a smoker one to 2 packs per day for 30 years and quit in 1998. No illicit drug use, alcohol abuse. Patient lives in [facility]. Past Drug Use History: None Reported - Past Family History Mother Family Medical History: No Reported History Additional Family Medical History / Comment(s): Mother at age 80 from old age. Heart palpitations Father History Unknown: Yes Additional Family Medical History / Comment(s): Father when he was young from ruptured hernia. Sister with breast cancer, sister with colon cancer, sister with lung cancer, brother with lung cancer Medications and Allergies Home Medications Medication Instructions Recorded Confirmed Type Amitriptyline HCl [Elavil] 10 mg PO HS 05/25/16 08/21/18 History Aspirin EC [Ecotrin Low Dose] 81 mg PO HS 05/25/16 08/21/18 History Metoprolol Tartrate [Lopressor] 25 mg PO BID 05/25/16 08/21/18 History Oxybutynin Chloride [Ditropan] 5 mg PO BID@0800,1700 05/25/16 08/21/18 History Simvastatin [Zocor] 40 mg PO HS 05/25/16 08/21/18 History Melatonin 5 mg PO HS PRN tablet 04/22/17 08/21/18 Rx ALPRAZolam [Xanax] 0.25 mg PO TID PRN #90 tab 06/16/17 08/21/18 Rx Potassium Chloride ER [K-Dur 20] 20 meq PO DAILY 06/17/17 08/21/18 History Albuterol Nebulized (Conc) 2.5 mg INHALATION RT-QID 06/06/18 08/21/18 History [Ventolin Nebulized (Conc)] Furosemide [Lasix] 40 mg PO DAILY 06/06/18 08/21/18 History Allergies Allergy/AdvReac Type Severity Reaction Status Date / Time nitrofurantoin AdvReac Abdominal Verified 08/21/18 23:28 [From Macrodantin] Pain Sulfa (Sulfonamide AdvReac Nausea Verified 08/21/18 23:28 Antibiotics) Physical Exam Vitals: Vital Signs Temp Pulse Pulse Resp BP BP Pulse Ox 08/22/18 14:10 100.1 F H 74 16 110/57 95 08/22/18 11:18 92 08/22/18 11:04 94 08/22/18 07:00 97.6 F 95 16 114/64 97 08/22/18 03:00 97.9 F 93 18 92/61 98 08/22/18 01:56 100 F H 95 20 98/71 99 08/22/18 00:36 97 26 H 124/83 98 08/21/18 23:18 102.6 F H 110 H 26 H 133/78 98 Intake and Output 08/22/18 08/22/18 08/22/18 06:59 14:59 22:59 Intake Total 950 Output Total 150 Balance 800 Intake: Oral 950 Output: Urine 150 Other: Voiding Method Bedside Commode # Voids 1 Weight 89.811 kg Gen: Alert and Oriented, Mild Distress Head: NC, NT Neck Supple No palpable adenopathy HR: Tachy, Reg Lungs: Tight, Diminished, Mild increase Abdomen: S/Nd Ext: Mild Edema Results CBC & Chem 7: 08/21/18 23:53 08/21/18 23:53 Labs: Abnormal Lab Results - Last 24 Hours (Table) 08/21/18 08/21/18 08/22/18 Range/Units 23:53 23:53 03:15 WBC 14.5 H (3.8-10.6) k/uL RBC 3.79 L (3.80-5.40) m/uL Hgb 10.0 L (11.4-16.0) gm/dL Hct 31.9 L (34.0-46.0) % RDW 18.7 H (11.5-15.5) % Plt Count 495 H (150-450) k/uL Neutrophils # 11.2 H (1.3-7.7) k/uL Carbon Dioxide 33 H (22-30) mmol/L Creatinine 0.51 L (0.52-1.04) mg/dL Glucose 119 H (74-99) mg/dL Alkaline Phosphatase 142 H (38-126) U/L Total Protein 5.9 L (6.3-8.2) g/dL Albumin 3.1 L (3.5-5.0) g/dL Urine Appearance Cloudy H (Clear) Urine Protein 1+ H (Negative) Urine Blood Trace H (Negative) Urine Nitrite Positive H (Negative) Ur Leukocyte Esterase Large H (Negative) Urine WBC >182 H (0-5) /hpf Urine Bacteria Moderate H (None) /hpf Urine Mucus Few H (None) /hpf Microbiology - Last 24 Hours (Table) 08/22/18 03:15 Urine Culture - Preliminary Urine,Voided Chest x-ray: report reviewed Assessment and Plan Plan: Assessment and recommendations: Non-Small Cell Lung Cancer/Squamous Cell Carcinoma - Progressive, Metastatic Disease: - Recent treatment with Immune Therapy Tecentriq, Status POst Cycle 2 08/18/18 - Progression on Recent PET, Concern for Thoracic Spine Compression Pathological - MRI Spine with Contrast Ordered Post Obstructive Pneumonia. - On Zosyn. - Pulmonary medicine following. - CTA Ordered for further evaluation UTI: - Known overactive bladder and incontinence. - Urine culture in progress. - Continue Zosyn. Neoplastic Related Pain: - Continue Supportive pain management and Bowel Regimen - Further assess Thoracic Spine cord involvement. Febrile On Immunotherapy: - T-Max 102.4 - Jordan Cultures in Progress Leukocytosis: Reactive to Infection Normocytic Anemia: - Secondary to malignancy and treatment Physician Attest: I have completed the full history and physical of this patient and developed the above impression and plan, agree with dictation by Yolanda Yanes, Dictated as a scribe.
[2018-08-22] MEDS: IPRATROPIUM-ALBUTEROL 3 ML NEB INHALATION SCH ×2 (16:36→20:14)
[2018-08-22 17:45] LABS: Glucose,Whole Blood 103 mg/dL (75-99)
[2018-08-22] MEDS: HEPARIN SODIUM,PORCINE 5,000 UNIT/ML 1 ML VIAL SQ SCH (18:07)
[2018-08-22] MEDS: methylPREDNISolone SOD SUCCI 40 MG/ML 1 ML VIAL IV SCH (18:07)
[2018-08-22] MEDS: OXYBUTYNIN CHLORIDE 5 MG TAB PO SCH (18:08)
[2018-08-22] MEDS: ACETAMINOPHEN TAB 325 MG TAB PO PRN (18:13)
[2018-08-22 20:04] LABS: Glucose,Whole Blood 232 mg/dL (75-99)
[2018-08-22] MEDS: BUDESONIDE 1 MG/2 ML NEBU INHALATION SCH (20:14)
[2018-08-22] MEDS: FORMOTEROL FUMARATE 20 MCG/2 ML NEBU INHALATION SCH (20:14)
[2018-08-22] MEDS: ATORVASTATIN 20 MG TAB PO SCH (21:08)
[2018-08-22] MEDS: ASPIRIN 81 MG PO SCH (21:08)
[2018-08-22] MEDS: AMITRIPTYLINE HCL 10 MG TAB PO SCH (21:09)
[2018-08-22] MEDS: MELATONIN 5 MG TABLET PO PRN (21:53)
[2018-08-23] MEDS: HEPARIN SODIUM,PORCINE 5,000 UNIT/ML 1 ML VIAL SQ SCH ×4 (00:19→23:15)
[2018-08-23] MEDS: methylPREDNISolone SOD SUCCI 40 MG/ML 1 ML VIAL IV SCH ×4 (00:19→23:15)
[2018-08-23] MEDS: PIPERACILLIN-TAZOBACTAM 3.375 GM in SODIUM CHLORIDE 0.9% 100 ML IVPB SCH ×3 (02:28→16:58)
[2018-08-23] MEDS: MORPHINE SULFATE 4 MG/ML SYRINGE IV PRN ×3 (02:33→20:54)
[2018-08-23 07:12] LABS: Glucose,Whole Blood 150 mg/dL (75-99)
[2018-08-23] MEDS: POTASSIUM CHLORIDE ER 20 MEQ TAB.ER PO SCH (07:22)
[2018-08-23] MEDS: OXYBUTYNIN CHLORIDE 5 MG TAB PO SCH ×2 (07:22→16:58)
[2018-08-23] MEDS: FAMOTIDINE 20 MG TAB PO SCH (07:22)
[2018-08-23] MEDS: FUROSEMIDE 40 MG TAB PO SCH (07:23)
[2018-08-23] MEDS: METOPROLOL TARTRATE 25 MG TAB PO SCH ×2 (07:23→20:55)
[2018-08-23] MEDS: FORMOTEROL FUMARATE 20 MCG/2 ML NEBU INHALATION SCH ×2 (07:27→20:04)
[2018-08-23] MEDS: BUDESONIDE 1 MG/2 ML NEBU INHALATION SCH ×2 (07:28→20:04)
[2018-08-23] MEDS: IPRATROPIUM-ALBUTEROL 3 ML NEB INHALATION SCH ×5 (07:28→20:04)
--- NOTE | 2018-08-23 10:42 | XR ---
EXAMINATION TYPE: XR chest 2V DATE OF EXAM: 08/23/2018 COMPARISON: 08/22/2018 HISTORY: Follow-up for pneumonia TECHNIQUE: Frontal and lateral views of the chest are obtained. FINDINGS: There is a similar appearing left perihilar and basilar opacity although loculated air is seen on the lateral view likely representing multifocal air trapping. Left hemidiaphragm elevation is again noted. Recurrence noted on the prior PET/CT is not clearly delineated radiographically. Mild u nderlying emphysematous changes seen. Leftward mediastinal shift secondary to volume loss and cardiac mediastinal silhouette appears within normal limits. There is diffuse mild osseous demineralization. IMPRESSION: Similar-appearing left perihilar and left basilar opacity may represent a combination of pneumonia and post therapy change. The known recurrence is better appreciated on PET/CT.
[2018-08-23 11:52] LABS: Glucose,Whole Blood 148 mg/dL (75-99)
--- NOTE | 2018-08-23 11:52 | P.PN ---
Subjective Progress Note Date: 08/23/18 Principal diagnosis: Exertional dyspnea, fever, pain across her back. This is a 72-year-old female patient of Dr. 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 Patient was initially diagnosed in April 2017 and was treated with chemotherapy and radiation. Patient did experience pneumonia and sepsis during her treatment, which required hospitalizations. Her overall poor performance status did not allow for concurrent chemoradiation. Most recent PET scan in May 2018 showed recurrent disease in the left lung. Thoracic spine MRI showed a bony metastasis. Patient completed a course of XRT and recently was started on immunotherapy and has received her second treatment last . She could not think of the name of her immunotherapy, but she receives it every 3 weeks. On 08/21/2018 presented to the hospital with complaints of creasing shortness of breath with ambulation, he states she could not catch her breath while she was ambulating to the bathroom, and had to sit and rest to recover. Since the initiation of immunotherapy she has been of increased pain in her back in her right and left shoulders, joint pain. She was told that this could happen with immunotherapy. She denied any fever or chills, no sweats, she does have an occasional cough but it is not any worse than usual, she does have history of underlying COPD she is on oxygen at home, no significant chest congestion, no hemoptysis. She states she was treated with 5 days of antibiotics 2 or 3 weeks ago, for a suspected urinary tract infection. She could not recall the name of it. Chest x-ray was completed and showed nonspecific left lower lobe consolidation, no change compared to previous chest x-ray from 06/07/2018. Patient was febrile on presentation the temp of 102.6F. Labs showed mild leukocytosis, with white blood cell count of 14.5, hemoglobin of 10.0, sodium is 140, potassium is 4.5, chloride is 100, CO2 33, BUN is 16, creatinine 0.51. Troponin was negative 1. Influenza screen was negative, urinalysis showed evidence of infection, with the large amount of leuks, greater than 182 white blood cell count, moderate bacteria and mucus. The patient is seen today 08/23/2018 in follow-up on the regular medical floor. She is awake and alert in no acute distress. She is currently maintaining good O2 saturations in the 90s on 2 L/m per nasal cannula. She's been afebrile. Hemodynamically stable. Blood culture reveals no growth. Urine culture pending. Blood glucose 150. Currently on DuoNeb inhalations, Pulmicort and Perforomist inhalations, IV Solu-Medrol and Zosyn. Chest x-ray reveals a similar appearing left perihilar and left basilar opacity. Thoracic spine MRI and CTA of the chest are planned for today. Objective - Vital Signs Vital signs: Vital Signs Temp 97.7 F 08/23/18 05:00 Pulse 88 08/23/18 07:46 Resp 20 08/23/18 08:00 BP 128/73 08/23/18 05:00 Pulse Ox 96 08/23/18 05:00 Intake & Output 08/22/18 08/23/18 08/23/18 18:59 06:59 18:59 Intake Total 950 1180 Output Total 150 300 Balance 800 880 Intake: Oral 950 1180 Output: Urine 150 300 Other: Voiding Method Bedside Commode Bedside Commode Toilet # Voids 1 2 - Exam GENERAL EXAM: Alert, pleasant, 72-year-old white female, on 2 L of oxygen with a pulse ox of 96% comfortable in no apparent distress. HEAD: Normocephalic/atraumatic. EYES: Normal reaction of pupils, equal size. Conjunctiva pink, sclera white. NOSE: Clear with pink turbinates. THROAT: No erythema or exudates. NECK: No masses, no JVD, no thyroid enlargement, no adenopathy. CHEST: No chest wall deformity. Symmetrical expansion. LUNGS: Equal air entry with some expiratory wheezes, crackles in left posterior base. CVS: Regular rate and rhythm, normal S1 and S2, no gallops, no murmurs, no rubs ABDOMEN: Soft, nontender. No hepatosplenomegaly, normal bowel sounds, no g uarding or rigidity. EXTREMITIES: No clubbing, no edema, no cyanosis, 2+ pulses and upper and lower extremities. MUSCULOSKELETAL: Muscle strength and tone normal. SPINE: No scoliosis or deformity SKIN: No rashes CENTRAL NERVOUS SYSTEM: No focal deficits, tone is normal in all 4 extremities. PSYCHIATRIC: Alert and oriented -3. Appropriate affect. Intact judgment and insight. - Labs CBC & Chem 7: 08/21/18 23:53 08/21/18 23:53 Labs: Abnormal Lab Results - Last 24 Hours (Table) 08/22/18 08/22/18 08/23/18 Range/Units 17:44 20:02 07:08 POC Glucose (mg/dL) 103 H 232 H 150 H (75-99) mg/dL Creatine Kinase (30-135) U/L 08/23/18 Range/Units 07:55 POC Glucose (mg/dL) (75-99) mg/dL Creatine Kinase <20 L (30-135) U/L Microbiology - Last 24 Hours (Table) 08/21/18 23:53 Blood Culture - Preliminary Blood No Growth after 24 hours 08/22/18 03:15 Urine Culture - Preliminary Urine,Voided Assessment and Plan Assessment: Assessment: #1. Shortness of breath, possibly related to mild exacerbation of COPD, and increased back pain. Chest x-ray has been reviewed, and showed a stable left lower lobe consolidation related to underlying lung cancer, squamous cell lung cancer. Doubt underlying pneumonia #2. Back pain possibly related to bony metastasis, and initiation of immunotherapy #3. Acute urinary tract infection patient has stress urinary incontinence. Recently treated on outpatient basis with a 5 day course of oral antibiotics #4. Recurrent squamous cell lung cancer with bony metastasis, diagnosed in 2017 status post chemoradiation with recent recurrence, status post XRT to the spine for painful bony metastasis and most recently on immunotherapy #5. Chronic obstructive pulmonary disease causing hypoxemic respiratory failure on home oxygen, stable #6. Hypertension, hyperlipidemia #7. Urinary incontinence Plan: The patient was seen and evaluated by Dr. Garcia. Chest x-ray reviewed. Thoracic spine MRI and CAT scan are pending. She is currently stable from the pulmonary standpoint. We'll continue to follow make further recommendations based on her clinical status. I, the cosigning physician, performed a history & physical examination of the patient. Lungs sounds with crackles in left posterior base. Maintaining good O2 saturations in the 90s on 2 L/m per nasal cannula. I discussed the assessment and plan of care with my nurse practitioner, Conchita Carlisle. I attest to the above note as dictated by her.
--- NOTE | 2018-08-23 13:05 | CT ---
EXAMINATION TYPE: CT angio chest DATE OF EXAM: 08/23/2018 COMPARISON: 04/18/2018 and PET/CT dated 05/28/2018 HISTORY: SOB CT DLP: 436.1 mGycm. Automated Exposure Control for Dose Reduction was Utilized. CONTRAST: CTA scan of the thorax is performed with IV Contrast, patient injected with 100 mL of Isovue 370, pul monary embolism protocol. MIP Images are created on CT scanner and reviewed. FINDINGS: LUNGS: There are at least 16 Right-sided pulmonary nodules measuring up to 1.3 x 1.3 cm within the right lower lobe. These are com patible with metastasis. The known left lower lobe pulmonary mass does not demonstrate clear borders as there is associated br onchial narrowing and postobstructive atelectasis. There is increasing confluence medially within the lower lobe in comparison to the prior of 04/18/2018. Left basilar fibrosis and hemithorax volume los s on the basis of posttreatment change. There is underlying moderate centrilobular emphysematous helms ge. Left basilar consolidation appears similar to the attenuation similar to that of the paraspinal musc ulature and appears as atelectasis with a small left pleural effusion rather than pneumonia. MEDIASTINUM: There is satisfactory enhancement of the pulmonary artery and its branches, there is no CT evidence for pulmonary embolism. Conglomeration of lymph nodes in the prevascular space is seen me asuring up to 9 mm in short axis. Left paratracheal abnormal lymph node measures 1.1 cm in short axis . Subcarinal lymph node contains a benign punctate calcification as is a right infrahilar lymph node. Heart is mildly enlarged. No pericardial effusion. There are abnormal paraesophageal lymph nodes meagan suring up to 7 mm in short axis adjacent to a small hiatal hernia. No cardiomegaly or pericardial eff usion is seen. Main pulmonary arteries enlarged measuring 3.3 cm. OTHER: Gallbladder surgically absent. Nonobstructing 3 mm left upper pole renal calculus is seen. The re is a similar appearing compression deformity of the approximately T5 vertebral body with sclerosis , most compatible with a pathologic metastatic compression deformity. Mild multilevel degenerative ch anges of the spine are seen throughout. There is a somewhat mottled appearance of the bone marrow at the posterior margins of ribs 5, 6, 7, and 8 that may be on the basis of osseous demineralization or additional foci of metastasis. IMPRESSION: 1. No evidence of pulmonary embolus. 2. New numerous right-sided metastatic pulmonary nodules measuring up to 1.3 cm (approximately 15 in number). 3. Increasing consolidation within the left lower lobe at the site of known neoplasm and small left p leural effusion suspicious for recurrence and surrounding postobstructive atelectasis. 4. Known compression deformity of the approximately T5 vertebral body appearing pathologic with surro unding sclerosis. Additional sites within multiple posterior ribs with a mottled bone marrow may rela te to osseous demineralization or additional foci of metastasis.
--- NOTE | 2018-08-23 14:32 | MR ---
EXAMINATION TYPE: MR thoracic spine wo/w con DATE OF EXAM: 08/23/2018 COMPARISON: 06/08/2018 HISTORY: Cord compression CONTRAST: Performed utilizing 9 mL intravenous Gadavist gadolinium contrast. TECHNIQUE: Multiplanar, multiecho imaging on a 3.0 Mila magnet is performed through the thoracic spi ne. FINDINGS: T5 T6 Signal changes within the vertebral bodies compatible with metastatic disease. Signal abnormali ty is present to a lesser degree T7-T8 compatible with metastatic disease. This was present previousl y. There is approximately 40% loss of anterior vertebral body height of T5 with a compression deformi ty. This is progressive from the comparison of 06/08/2018. There is soft tissue mass posterior to the T6 level and to a lesser degree T5 level. This has cord co mpression. Posterior soft tissue density in the spinal canal is also present at the T6 level. In the axial plane this is in the left anterior lateral and posterior left lateral regions with cord contact and displacement. Canal narrowing is present, increasing from previous examination. Cord deformity i s not identified. Soft tissue abnormality extends into the left paraspinal region within the lung fie ld. This is enhancing. Spinal cord maintains normal signal through its visualized course. Vertebral body alignment is normal. Disc heights are preserved. Disc desiccation is present. IMPRESSIONS: 1. Soft tissue mass within the left paraspinal region of the lung field extending into the left intra thecal canal adjacent to the spinal cord. Cord deformity is not identified. However, the degree of na rrowing is increasing from the comparison 06/08/2018. No cord displacement is evident. 2. Extensive metastasis within the T5-T8 levels.
[2018-08-23 17:34] LABS: ALT 16 U/L (9-52); AST 16 U/L (14-36); Albumin 3.1 g/dL (3.5-5.0); Alkaline Phosphatase 140 U/L (38-126); Anion Gap 9 mmol/L; Blood Urea Nitrogen 17 mg/dL (7-17); Calcium 9.7 mg/dL (8.4-10.2); Carbon Dioxide 33 mmol/L (22-30); Chloride 99 mmol/L (98-107); Glucose 139 mg/dL (74-99); Potassium 4.4 mmol/L (3.5-5.1); Sodium 141 mmol/L (137-145); Total Bilirubin 0.3 mg/dL (0.2-1.3); Total Protein 6.1 g/dL (6.3-8.2)
[2018-08-23 17:36] LABS: Anisocytosis Slight; Basophils % (A) 0 %; Eosinophils # (A) 0.1 k/uL (0-0.7); Eosinophils % (A) 0 %; HCT 33.2 % (34.0-46.0); HGB 9.9 gm/dL (11.4-16.0); Hypochromasia Marked; Lymphocytes # (A) 1.5 k/uL (1.0-4.8); Lymphocytes % (A) 11 %; MCH 26.2 pg (25.0-35.0); MCHC 29.7 g/dL (31.0-37.0); MCV 88.3 fL (80.0-100.0); Mean Platelet Volume 8.6; Monocytes # (A) 0.2 k/uL (0-1.0); Monocytes % (A) 1 %; Neutrophils % (A) 87 %; Platelet Count 491 k/uL (150-450); Poikilocytosis Slight; RBC 3.76 m/uL (3.80-5.40); RDW 17.6 % (11.5-15.5); WBC 13.8 k/uL (3.8-10.6)
--- NOTE | 2018-08-23 17:58 | P.PN ---
Subjective Progress Note Date: 08/23/18 Principal diagnosis: Metastatic Lung Feeling a little better today Objective - Vital Signs Vital signs: Vital Signs Temp 98.5 F 08/23/18 11:49 Pulse 97 08/23/18 11:49 Resp 16 08/23/18 16:00 BP 111/73 08/23/18 11:49 Pulse Ox 93 L 08/23/18 11:49 Intake & Output 08/22/18 08/23/18 08/23/18 18:59 06:59 18:59 Intake Total 950 1180 Output Total 150 300 Balance 800 880 Intake: Oral 950 1180 Output: Urine 150 300 Other: Voiding Method Bedside Commode Bedside Commode Toilet # Voids 1 2 6 - Exam Gen: Alert and Oriented, Mild Distress Head: NC, NT Neck Supple No palpable adenopathy HR: Tachy, Reg Lungs: Tight, Diminished, Mild increase Abdomen: S/Nd Ext: Mild Edema - Labs CBC & Chem 7: 08/23/18 07:55 08/23/18 07:55 Labs: Abnormal Lab Results - Last 24 Hours (Table) 08/22/18 08/23/18 08/23/18 Range/Units 20:02 07:08 07:55 WBC (3.8-10.6) k/uL RBC (3.80-5.40) m/uL Hgb (11.4-16.0) gm/dL Hct (34.0-46.0) % MCHC (31.0-37.0) g/dL RDW (11.5-15.5) % Plt Count (150-450) k/uL Neutrophils # (1.3-7.7) k/uL Carbon Dioxide (22-30) mmol/L Creatinine (0.52-1.04) mg/dL Glucose (74-99) mg/dL POC Glucose (mg/dL) 232 H 150 H (75-99) mg/dL Alkaline Phosphatase (38-126) U/L Creatine Kinase <20 L (30-135) U/L Total Protein (6.3-8.2) g/dL Albumin (3.5-5.0) g/dL 08/23/18 08/23/18 08/23/18 Range/Units 07:55 07:55 11:51 WBC 13.8 H (3.8-10.6) k/uL RBC 3.76 L (3.80-5.40) m/uL Hgb 9.9 L (11.4-16.0) gm/dL Hct 33.2 L (34.0-46.0) % MCHC 29.7 L (31.0-37.0) g/dL RDW 17.6 H (11.5-15.5) % Plt Count 491 H (150-450) k/uL Neutrophils # 12.0 H (1.3-7.7) k/uL Carbon Dioxide 33 H (22-30) mmol/L Creatinine 0.47 L (0.52-1.04) mg/dL Glucose 139 H (74-99) mg/dL POC Glucose (mg/dL) 148 H (75-99) mg/dL Alkaline Phosphatase 140 H (38-126) U/L Creatine Kinase (30-135) U/L Total Protein 6.1 L (6.3-8.2) g/dL Albumin 3.1 L (3.5-5.0) g/dL Microbiology - Last 24 Hours (Table) 08/22/18 03:15 Urine Culture - Preliminary Urine,Voided Gram Neg Bacilli 08/21/18 23:53 Blood Culture - Preliminary Blood No Growth after 24 hours Assessment and Plan Plan: Assessment and recommendations: Non-Small Cell Lung Cancer/Squamous Cell Carcinoma - Progressive, Metastatic Disease: - Recent treatment with Immune Therapy Tecentriq, Status POst Cycle 2 08/18/18 - Progression on Recent PET, Concern for Thoracic Spine Compression Pathological - MRI Spine with Contrast Ordered Post Obstructive Pneumonia. - On Zosyn. - Pulmonary medicine following. - CTA Ordered for further evaluation UTI: - Known overactive bladder and incontinence. - Urine culture in progress. - Continue Zosyn. Neoplastic Related Pain: - Continue Supportive pain management and Bowel Regimen - Further assess Thoracic Spine cord involvement. Febrile On Immunotherapy: - T-Max 102.4 - Jordan Cultures in Progress Leukocytosis: Reactive to Infection Normocytic Anemia: - Secondary to malignancy and treatment Plan: I have reviewed the MRI of thoracic spine, will initiate dexamethasone/PPI and consult radiation oncology Physician Attest: I have completed the full history and physical of this patient and developed the above impression and plan, agree with dictation by Yolanda Yanes, Dictated as a scribe.
[2018-08-23 20:47] LABS: Glucose,Whole Blood 194 mg/dL (75-99)
[2018-08-23] MEDS: ATORVASTATIN 20 MG TAB PO SCH (20:55)
[2018-08-23] MEDS: AMITRIPTYLINE HCL 10 MG TAB PO SCH (20:55)
[2018-08-23] MEDS: ASPIRIN 81 MG PO SCH (20:55)
[2018-08-23] MEDS: MELATONIN 5 MG TABLET PO PRN (23:16)
[2018-08-23] MEDS: ALPRAZolam 0.25 MG TAB PO PRN (23:16)
[2018-08-24] MEDS: PIPERACILLIN-TAZOBACTAM 3.375 GM in SODIUM CHLORIDE 0.9% 100 ML IVPB SCH ×3 (02:00→18:32)
[2018-08-24] MEDS: MORPHINE SULFATE 4 MG/ML SYRINGE IV PRN ×2 (04:44→20:36)
[2018-08-24 07:02] LABS: Glucose,Whole Blood 144 mg/dL (75-99)
[2018-08-24] MEDS: methylPREDNISolone SOD SUCCI 40 MG/ML 1 ML VIAL IV SCH ×2 (07:08→17:26)
[2018-08-24] MEDS: FUROSEMIDE 40 MG TAB PO SCH (07:09)
[2018-08-24] MEDS: FAMOTIDINE 20 MG TAB PO SCH (07:09)
[2018-08-24] MEDS: METOPROLOL TARTRATE 25 MG TAB PO SCH ×2 (07:09→20:29)
[2018-08-24] MEDS: POTASSIUM CHLORIDE ER 20 MEQ TAB.ER PO SCH (07:09)
[2018-08-24] MEDS: HEPARIN SODIUM,PORCINE 5,000 UNIT/ML 1 ML VIAL SQ SCH ×2 (07:09→17:26)
[2018-08-24] MEDS: OXYBUTYNIN CHLORIDE 5 MG TAB PO SCH ×2 (07:11→17:28)
[2018-08-24] MEDS: ALPRAZolam 0.25 MG TAB PO PRN ×2 (07:11→14:53)
[2018-08-24 07:16] LABS: Anisocytosis Slight; Basophils % (A) 0 %; Eosinophils % (A) 0 %; HCT 31.4 % (34.0-46.0); HGB 9.3 gm/dL (11.4-16.0); Hypochromasia Marked; Lymphocytes # (A) 0.9 k/uL (1.0-4.8); Lymphocytes % (A) 5 %; MCH 25.5 pg (25.0-35.0); MCHC 29.6 g/dL (31.0-37.0); MCV 86.2 fL (80.0-100.0); Monocytes # (A) 0.7 k/uL (0-1.0); Monocytes % (A) 4 %; Neutrophils % (A) 90 %; Platelet Count 527 k/uL (150-450); RBC 3.64 m/uL (3.80-5.40); RDW 18.5 % (11.5-15.5); WBC 17.8 k/uL (3.8-10.6)
[2018-08-24 07:41] LABS: ALT 16 U/L (9-52); AST 17 U/L (14-36); Albumin 3.1 g/dL (3.5-5.0); Alkaline Phosphatase 119 U/L (38-126); Anion Gap 7 mmol/L; Blood Urea Nitrogen 25 mg/dL (7-17); Calcium 9.4 mg/dL (8.4-10.2); Carbon Dioxide 33 mmol/L (22-30); Chloride 100 mmol/L (98-107); Glucose 121 mg/dL (74-99); Potassium 4.6 mmol/L (3.5-5.1); Sodium 140 mmol/L (137-145); Total Bilirubin 0.3 mg/dL (0.2-1.3)
[2018-08-24] MEDS: IPRATROPIUM-ALBUTEROL 3 ML NEB INHALATION SCH ×4 (08:18→20:07)
[2018-08-24] MEDS: FORMOTEROL FUMARATE 20 MCG/2 ML NEBU INHALATION SCH ×2 (08:18→20:07)
[2018-08-24] MEDS: BUDESONIDE 1 MG/2 ML NEBU INHALATION SCH (08:43)
[2018-08-24] MEDS ORDERED: SODIUM CHLORIDE 0.65% NASAL SPRAY 44 ML BTL NASAL PRN (10:17)
[2018-08-24] MEDS: DOCUSATE 100 MG CAP PO PRN (10:28)
[2018-08-24] MEDS: CLOTRIMAZOLE TROCHE 10 MG TROCHE MUCOUS MEM SCH ×3 (10:47→20:29)
[2018-08-24 11:11] LABS: Glucose,Whole Blood 227 mg/dL (75-99)
--- NOTE | 2018-08-24 12:01 | P.PN ---
Subjective Progress Note Date: 08/24/18 Principal diagnosis: Exertional dyspnea, fever, pain across her back. This is a 72-year-old female patient of Dr. 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 Patient was initially diagnosed in April 2017 and was treated with chemotherapy and radiation. Patient did experience pneumonia and sepsis during her treatment, which required hospitalizations. Her overall poor performance status did not allow for concurrent chemoradiation. Most recent PET scan in May 2018 showed recurrent disease in the left lung. Thoracic spine MRI showed a bony metastasis. Patient completed a course of XRT and recently was started on immunotherapy and has received her second treatment last . She could not think of the name of her immunotherapy, but she receives it every 3 weeks. On 08/21/2018 presented to the hospital with complaints of creasing shortness of breath with ambulation, he states she could not catch her breath while she was ambulating to the bathroom, and had to sit and rest to recover. Since the initiation of immunotherapy she has been of increased pain in her back in her right and left shoulders, joint pain. She was told that this could happen with immunotherapy. She denied any fever or chills, no sweats, she does have an occasional cough but it is not any worse than usual, she does have history of underlying COPD she is on oxygen at home, no significant chest congestion, no hemoptysis. She states she was treated with 5 days of antibiotics 2 or 3 weeks ago, for a suspected urinary tract infection. She could not recall the name of it. Chest x-ray was completed and showed nonspecific left lower lobe consolidation, no change compared to previous chest x-ray from 06/07/2018. Patient was febrile on presentation the temp of 102.6F. Labs showed mild leukocytosis, with white blood cell count of 14.5, hemoglobin of 10.0, sodium is 140, potassium is 4.5, chloride is 100, CO2 33, BUN is 16, creatinine 0.51. Troponin was negative 1. Influenza screen was negative, urinalysis showed evidence of infection, with the large amount of leuks, greater than 182 white blood cell count, moderate bacteria and mucus. The patient is seen today 08/23/2018 in follow-up on the regular medical floor. She is awake and alert in no acute distress. She is currently maintaining good O2 saturations in the 90s on 2 L/m per nasal cannula. She's been afebrile. Hemodynamically stable. Blood culture reveals no growth. Urine culture pending. Blood glucose 150. Currently on DuoNeb inhalations, Pulmicort and Perforomist inhalations, IV Solu-Medrol and Zosyn. Chest x-ray reveals a similar appearing left perihilar and left basilar opacity. Thoracic spine MRI and CTA of the chest are planned for today. The patient is seen today 08/24/2018 in follow-up on the regular medical floor. She is currently awake and alert in no acute distress. She states she did have some increasing shortness of breath and anxiety last evening. Improved today. Maintaining good O2 saturations in the 90s on 2 L/m per nasal cannula. She's been afebrile. Hemodynamically stable. Blood culture reveals no growth. Urine culture positive for E. coli. Currently on Zosyn. White count 17.8. Hemoglobin 9.3. Platelet count 527,000, creatinine 0.58. CT angiogram revealed no evidence of pulmonary embolus. There are new numerous right-sided metastatic pulmonary nodules measuring up to 1.3 cm. There is increasing consolidation within the left lower lobe at the site of known neoplasm and a small left pleural effusion suspicious for recurrence and surrounding postobstructive atelectasis. There is no compression deformity at approximately T5 vertebrae appearing pathologic with surrounding sclerosis. Additional sites within multiple posterior ribs with a mottled bone marrow may relate to osseous demineralization or additional foci of metastasis. MRI of the spine revealed a soft tissue mass within the left paraspinal region of the lung field extending into the left intrathecal canal adjacent to the spinal cord. Cord deformity is not identified. However, the degree of narrowing is increasing from the comparison on 06/08/2018. No cord displacement is evident. There is extensive metastasis within the T5 through T8 levels. Objective - Vital Signs Vital signs: Vital Signs Temp 97.9 F 08/24/18 05:00 Pulse 86 08/24/18 08:42 Resp 18 08/24/18 08:00 BP 96/63 08/24/18 05:00 Pulse Ox 96 08/24/18 05:00 Intake & Output 08/23/18 08/24/18 08/24/18 18:59 06:59 18:59 Other: Voiding Method Toilet Bedside Commode Bedside Commode # Voids 6 4 1 # Bowel Movements 0 - Exam GENERAL EXAM: Alert, pleasant, 72-year-old white female, on 2 L of oxygen with a pulse ox of 96% comfortable in no apparent distress. HEAD: Normocephalic/atraumatic. EYES: Normal reaction of pupils, equal size. Conjunctiva pink, sclera white. NOSE: Clear with pink turbinates. THROAT: No erythema or exudates. NECK: No masses, no JVD, no thyroid enlargement, no adenopathy. CHEST: No chest wall deformity. Symmetrical expansion. LUNGS: Equal air entry with some expiratory wheezes, crackles in left posterior base. CVS: Regular rate and rhythm, normal S1 and S2, no gallops, no murmurs, no rubs ABDOMEN: Soft, nontender. No hepatosplenomegaly, normal bowel sounds, no guarding or rigidity. EXTREMITIES: No clubbing, no edema, no cyanosis, 2+ pulses and upper and lower extremities. MUSCULOSKELETAL: Muscle strength and tone normal. SPINE: No scoliosis or deformity. Some back pain noted. SKIN: No rashes CENTRAL NERVOUS SYSTEM: No focal deficits, tone is normal in all 4 extremities. PSYCHIATRIC: Alert and oriented -3. Appropriate affect. Intact judgment and insight. - Labs CBC & Chem 7: 08/24/18 06:23 08/24/18 06:23 Labs: Abnormal Lab Results - Last 24 Hours (Table) 08/23/18 08/23/18 08/23/18 Range/Units 07:55 07:55 11:51 WBC 13.8 H (3.8-10.6) k/uL RBC 3.76 L (3.80-5.40) m/uL Hgb 9.9 L (11.4-16.0) gm/dL Hct 33.2 L (34.0-46.0) % MCHC 29.7 L (31.0-37.0) g/dL RDW 17.6 H (11.5-15.5) % Plt Count 491 H (150-450) k/uL Neutrophils # 12.0 H (1.3-7.7) k/uL Lymphocytes # (1.0-4.8) k/uL Carbon Dioxide 33 H (22-30) mmol/L BUN (7-17) mg/dL Creatinine 0.47 L (0.52-1.04) mg/dL Glucose 139 H (74-99) mg/dL POC Glucose (mg/dL) 148 H (75-99) mg/dL Alkaline Phosphatase 140 H (38-126) U/L Total Protein 6.1 L (6.3-8.2) g/dL Albumin 3.1 L (3.5-5.0) g/dL 08/23/18 08/24/18 08/24/18 Range/Units 20:37 06:23 06:23 WBC 17.8 H (3.8-10.6) k/uL RBC 3.64 L (3.80-5.40) m/uL Hgb 9.3 L (11.4-16.0) gm/dL Hct 31.4 L (34.0-46.0) % MCHC 29.6 L (31.0-37.0) g/dL RDW 18.5 H (11.5-15.5) % Plt Count 527 H (150-450) k/uL Neutrophils # 16.0 H (1.3-7.7) k/uL Lymphocytes # 0.9 L (1.0-4.8) k/uL Carbon Dioxide 33 H (22-30) mmol/L BUN 25 H (7-17) mg/dL Creatinine (0.52-1.04) mg/dL Glucose 121 H (74-99) mg/dL POC Glucose (mg/dL) 194 H (75-99) mg/dL Alkaline Phosphatase (38-126) U/L Total Protein 6.0 L (6.3-8.2) g/dL Albumin 3.1 L (3.5-5.0) g/dL 08/24/18 08/24/18 Range/Units 07:00 11:08 WBC (3.8-10.6) k/uL RBC (3.80-5.40) m/uL Hgb (11.4-16.0) gm/dL Hct (34.0-46.0) % MCHC (31.0-37.0) g/dL RDW (11.5-15.5) % Plt Count (150-450) k/uL Neutrophils # (1.3-7.7) k/uL Lymphocytes # (1.0-4.8) k/uL Carbon Dioxide (22-30) mmol/L BUN (7-17) mg/dL Creatinine (0.52-1.04) mg/dL Glucose (74-99) mg/dL POC Glucose (mg/dL) 144 H 227 H (75-99) mg/dL Alkaline Phosphatase (38-126) U/L Total Protein (6.3-8.2) g/dL Albumin (3.5-5.0) g/dL Microbiology - Last 24 Hours (Table) 08/22/18 03:15 Urine Culture - Final Urine,Voided Escherichia coli 08/21/18 23:53 Blood Culture - Preliminary Blood No Growth after 48 hours Assessment and Plan Assessment: Assessment: #1. Shortness of breath, possibly related to mild exacerbation of COPD, and increased back pain. Chest x-ray has been reviewed, and showed a stable left lower lobe consolidation related to underlying lung cancer, squamous cell lung cancer. CT angiogram ruled out pulmonary embolism. There is however new multiple lesions in the right lung largest measuring 1.3 cm. #2. Back pain related to bony metastasis, MRI of the spine reveals a soft tissue mass within the left paraspinal region of the left lung field extending into the left intrathecal canal adjacent to the spinal cord. Cord deformity is identified. However, the degree of narrowing is increasing from the comparison of 06/08/2018. No cord displacement is evident. There is extensive metastasis within the T5 through T8 levels #3. Acute urinary tract infection patient has stress urinary incontinence. Recently treated on outpatient basis with a 5 day course of oral antibiotics. Current urine positive for E. coli. Currently on Zosyn. #4. Recurrent squamous cell lung cancer with bony metastasis, diagnosed in 2017 status post chemoradiation with recent recurrence, status post XRT to the spine for painful bony metastasis and most recently on immunotherapy #5. Chronic obstructive pulmonary disease causing hypoxemic respiratory failure on home oxygen, stable #6. Hypertension, hyperlipidemia #7. Urinary incontinence Plan: The patient was seen and evaluated by Dr. Garcia. Thoracic spine MRI and CT angiogram reviewed. There are new numerous right-sided metastatic pulmonary nodules measuring up to 1.3 cm. Increasing consolidation of left lower lobe at the site of known neoplasm with a small left pleural effusion. Soft tissue mass within the left paraspinal region extending into the left intrathecal canal a djacent to the spinal cord. There is also noted extensive metastasis and within the T5-T8 levels. Radiation oncology has been consulted. Oncology is on the case as well. We'll continue to follow and make further recommendations based on her clinical status. I, the cosigning physician, performed a history & physical examination of the patient. Lungs sounds with crackles in left posterior base. Maintaining good O2 saturations in the 90s on 2 L/m per nasal cannula. I discussed the assessment and plan of care with my nurse practitioner, Conchita Carlisle. I attest to the above note as dictated by her.
--- NOTE | 2018-08-24 12:35 | P.PN ---
Subjective Progress Note Date: 08/23/18 This is a 72-year-old female patient of Radha Alexander, Kai with past medical history of 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 Patient just started immunotherapy in July of this year. She recently completed a 5 week course of steroids secondary to metastatic pain. Patient is complaining of muscle aches in the back and around to the front thought to be a side effect of her new medication. Patient states that she has had increasing shortness of breath with a sitter should and increased shortness of breath just getting to the bathroom. She complains of cough that seems to be unchanged from her baseline. She is complaining of increased pain to the upper back with increased pain with deep breathing. She also complains of increased urinary frequency and have negative to the bathroom only during the night. She states she has an overactive bladder does not have much feeling. Patient came into [facility] emergency center for evaluation. Influenza testing was negative, white count 14.5, hemoglobin 10, platelet count 495, alkaline phosphatase 142, CO2 33, troponin 0.013. Urinalysis was cloudy, nitrate positive, leukoesterase large, WBC greater than 182 bacteria moderate. Temperature max 102.6. Chest x-ray showed nonspecific left lower lobe consolidation. No definite change. EKG was a sinus rhythm with frequent PVCs. Patient was provided IV antibiotics emergency center and placed on the [facility] floor consult with pulmonary medicine and oncology requested. 08/23: Temperature max 100.1, pulse 88, blood pressure 120/73, pulse ox 96% on 2 L nasal cannula. Patient has been seen by oncology and MRI thoracic spine has been ordered. CTA of the chest also ordered. Patient has also been seen by Dr. Garcia and shortness of breath possibly related to mild COPD exacerbation and increased back pain. The left lower lobe consolidation is related to underlying lung cancer and doubts pneumonia. Repeat chest x-ray reveals similar-appearing left perihilar and left basilar obesity may represent examination pneumonia and posttherapy change. Patient states that her thoracic pain is somewhat better from yesterday. She has been afebrile, heart rate in the 80s, blood pressure 111/73 and pulse ox 93% on 3 L nasal cannula. Patient is normally on home O2 at 2 L. WBC 13.8, hemoglobin 9.9, platelet count 491, creatinine 0.47, CO2 33. Blood sugars running 148-232 secondary to steroids. She is continued on IV Zosyn. Review of Systems Constitutional: Denies chills, Reports fatigue, Reports fever, Denies poor appetite Eyes: denies blurred vision, denies pain Ears, nose, mouth and throat: Denies dysphagia, Denies headache, Denies hoarseness, Denies mouth pain, Denies nasal congestion, Denies nasal discharge, Denies sore throat, Denies vertigo Cardiovascular: Reports decreased exercise tolerance, Reports dyspnea on exertion, Denies chest pain, Denies edema, Denies leg edema, Denies lightheadedness, Denies shortness of breath, Denies syncope Respiratory: Reports cough, Reports cough with sputum, Reports dyspnea, Denies excessive sputum, Denies hemoptysis, Denies home oxygen, Denies wheezing Gastrointestinal: Denies abdominal pain, Denies diarrhea, Denies nausea, Denies vomiting Genitourinary: Reports urge incontinence, Reports urgency, Reports urinary frequency, Denies dysuria, Denies hematuria Musculoskeletal: Denies frequent falls, Denies gait dysfunction, Denies myalgias Integumentary: Denies pruritus, Denies rash, Denies wounds Neurological: Denies aphasia, Denies change in speech, Denies confusion, Denies gait dysfunction, Denies numbness, Denies seizures, Denies weakness Psychiatric: Denies anxiety, Denies depression Endocrine: Denies fatigue, Denies weight change Objective - Vital Signs Vital signs: Vital Signs Temp 97.7 F 08/23/18 05:00 Pulse 88 08/23/18 07:46 Resp 20 08/23/18 08:00 BP 128/73 08/23/18 05:00 Pulse Ox 96 08/23/18 05:00 Intake & Output 08/22/18 08/23/18 08/23/18 18:59 06:59 18:59 Intake Total 950 1180 Output Total 150 300 Balance 800 880 Intake: Oral 950 1180 Output: Urine 150 300 Other: Voiding Method Bedside Commode Bedside Commode Toilet # Voids 1 2 - Exam Gen: This is a 72-year-old female. She is resting in bed and appears to be comfortable and in no acute distress. Patient is able to speak in full sentences with no difficulty in breathing. HEENT: Head is atraumatic, normocephalic. Pupils equal, round. Sclerae is anicteric. NECK: Supple. No JVD. No lymphadenopathy. No thyromegaly. LUNGS: Clear to auscultation. No wheezes or rhonchi. No intercostal retractions. HEART: Regular rate and rhythm. No murmur. ABDOMEN: Soft. Bowel sounds are present. No masses. No tenderness. EXTREMITIES: No pedal edema. No calf tenderness. NEUROLOGICAL: Patient is awake, alert and oriented x3. Cranial nerves 2 through 12 are grossly intact. - Labs CBC & Chem 7: 08/24/18 06:23 08/24/18 06:23 Labs: Abnormal Lab Results - Last 24 Hours (Table) 08/22/18 08/22/18 08/23/18 Range/Units 17:44 20:02 07:08 POC Glucose (mg/dL) 103 H 232 H 150 H (75-99) mg/dL Creatine Kinase (30-135) U/L 08/23/18 Range/Units 07:55 POC Glucose (mg/dL) (75-99) mg/dL Creatine Kinase <20 L (30-135) U/L Microbiology - Last 24 Hours (Table) 08/21/18 23:53 Blood Culture - Preliminary Blood No Growth after 24 hours 08/22/18 03:15 Urine Culture - Preliminary Urine,Voided Assessment and Plan Plan: 1. Sepsis secondary to Possible gram-negative pneumonia and/or UTI. Patient will be started on Zosyn. Continue DuoNeb treatments every 4 hours as needed. Consult with pulmonary medicine. 2. Acute UTI secondary to overactive bladder and incontinence. Urine culture in progress. Continue Zosyn. Check postvoid residual. 3. Squamous cell carcinoma of the left lower lung with recurrence, nonsurgical candidate. Patient started immunotherapy in July. Oncology consult appreciated. Thoracic MRI ordered and CTA of the chest. 4. Posterior rib and muscle pain likely secondary to recurrent tumor status post recent radiation for palliative treatment. This has been reported as related to immunotherapy. 5. Hypertension. Continue Lopressor 25 mg twice daily. 6. Hyperlipidemia. Continue Lipitor 20 mg at bedtime. 7. COPD, stable without exacerbation. Consult with pulmonary medicine. 8. DVT prophylaxis. Heparin subcu. 9. GI prophylaxis. Pepcid. Discharge plan: Home to senior apartment, possibly with homecare. Impression and plan of care have been directed as dictated by the signing physician. Maria Guadalupe Zaragoza nurse practitioner acting as scribe for signing physician.
--- NOTE | 2018-08-24 12:48 | P.PN ---
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 Patient just started immunotherapy in July of this year. She recently completed a 5 week course of steroids secondary to metastatic pain. Patient is complaining of muscle aches in the back and around to the front thought to be a side effect of her new medication. Patient states that she has had increasing shortness of breath with a sitter should and increased shortness of breath just getting to the bathroom. She complains of cough that seems to be unchanged from her baseline. She is complaining of increased pain to the upper back with increased pain with deep breathing. She also complains of increased urinary frequency and have negative to the bathroom only during the night. She states she has an overactive bladder does not have much feeling. Patient came into [facility] emergency center for evaluation. Influenza testing was negative, white count 14.5, hemoglobin 10, platelet count 495, alkaline phosphatase 142, CO2 33, troponin 0.013. Urinalysis was cloudy, nitrate positive, leukoesterase large, WBC greater than 182 bacteria moderate. Temperature max 102.6. Chest x-ray showed nonspecific left lower lobe consolidation. No definite change. EKG was a sinus rhythm with frequent PVCs. Patient was provided IV antibiotics emergency center and placed on the [facility] floor consult with pulmonary medicine and oncology requested. 08/23: Temperature max 100.1, pulse 88, blood pressure 120/73, pulse ox 96% on 2 L nasal cannula. Patient has been seen by oncology and MRI thoracic spine has been ordered. CTA of the chest also ordered. Patient has also been seen by Dr. Garcia and shortness of breath possibly related to mild COPD exacerbation and increased back pain. The left lower lobe consolidation is related to underlying lung cancer and doubts pneumonia. Repeat chest x-ray reveals similar-appearing left perihilar and left basilar obesity may represent examination pneumonia and posttherapy change. Patient states that her thoracic pain is somewhat better from yesterday. She has been afebrile, heart rate in the 80s, blood pressure 111/73 and pulse ox 93% on 3 L nasal cannula. Patient is normally on home O2 at 2 L. WBC 13.8, hemoglobin 9.9, platelet count 491, creatinine 0.47, CO2 33. Blood sugars running 148-232 secondary to steroids. She is continued on IV Zosyn. 08/24: Repeat lab work reveals white count 17.8, hemoglobin 9.3, platelet count 527, CO2 33, creatinine 0.58 and BUN 25. Thoracic spine MRI reveals soft tissue mass within the left paraspinal region of the lung field extending into the left intrathecal canal adjacent to the spinal cord. Cord deformity is not ident ified. However degree of narrowing is increasing from the comparison from May. No cord displacement is evident. Extensive metastasis within the T5 through T8 levels. CTA of the chest showed no signs of pulmonary embolism. New numerous right-sided metastatic pulmonary nodules measuring up to 1.3 cm. Increasing consolidation within the left lower lobe at the site of known neoplasm and small left pleural effusion suspicious for recurrence and surrounding postobstructive atelectasis. No compressive deformity of T5 vertebral body appearing pathologic with surrounding sclerosis. Additional sites within multiple posterior ribs with mottled bone marrow may relate to osseous demineralization or additional foci of metastasis. Consult needed for Dr. Marino regarding T5 fracture. Consult has also been added for Dr. Quinn. Urine culture revealed 10,000-49,000 colonies of E. coli that is susceptible to Zosyn. Review of Systems Constitutional: Denies chills, Reports fatigue, Reports fever, Denies poor appetite Eyes: denies blurred vision, denies pain Ears, nose, mouth and throat: Denies dysphagia, Denies headache, Denies hoarseness, Denies mouth pain, Denies nasal congestion, Denies nasal discharge, Denies sore throat, Denies vertigo Cardiovascular: Reports decreased exercise tolerance, Reports dyspnea on exertion, Denies chest pain, Denies edema, Denies leg edema, Denies lightheadedness, Denies shortness of breath, Denies syncope Respiratory: Reports cough, Reports cough with sputum, Reports dyspnea, Denies excessive sputum, Denies hemoptysis, Denies home oxygen, Denies wheezing Gastrointestinal: Denies abdominal pain, Denies diarrhea, Denies nausea, Denies vomiting Genitourinary: Reports urge incontinence, Reports urgency, Reports urinary frequency, Denies dysuria, Denies hematuria Musculoskeletal: Denies frequent falls, Denies gait dysfunction, Denies myalgias, reports thoracic back pain Integumentary: Denies pruritus, Denies rash, Denies wounds Neurological: Denies aphasia, Denies change in speech, Denies confusion, Denies gait dysfunction, Denies numbness, Denies seizures, Denies weakness Psychiatric: Denies anxiety, Denies depression Endocrine: Denies fatigue, Denies weight change Objective - Vital Signs Vital signs: Vital Signs Temp 97.9 F 08/24/18 05:00 Pulse 86 08/24/18 08:42 Resp 18 08/24/18 08:00 BP 96/63 08/24/18 05:00 Pulse Ox 96 08/24/18 05:00 Intake & Output 08/23/18 08/24/18 08/24/18 18:59 06:59 18:59 Other: Voiding Method Toilet Bedside Commode Bedside Commode # Voids 6 4 1 # Bowel Movements 0 - Exam Gen: This is a 72-year-old female. She is resting in bed and appears to be comfortable and in no acute distress. Patient is able to speak in full sentences with no difficulty in breathing. HEENT: Head is atraumatic, normocephalic. Pupils equal, round. Sclerae is anicteric. NECK: Supple. No JVD. No lymphadenopathy. No thyromegaly. LUNGS: Clear to auscultation. No wheezes or rhonchi. No intercostal retractions. No accessory muscle usage. No rash noted to the posterior thorax. HEART: Regular rate and rhythm. No murmur. ABDOMEN: Soft. Bowel sounds are present. No masses. No tenderness. EXTREMITIES: No pedal edema. No calf tenderness. NEUROLOGICAL: Patient is awake, alert and oriented x3. Cranial nerves 2 through 12 are grossly intact. - Labs CBC & Chem 7: 08/24/18 06:23 08/24/18 06:23 Labs: Abnormal Lab Results - Last 24 Hours (Table) 08/23/18 08/23/18 08/23/18 Range/Units 07:55 07:55 11:51 WBC 13.8 H (3.8-10.6) k/uL RBC 3.76 L (3.80-5.40) m/uL Hgb 9.9 L (11.4-16.0) gm/dL Hct 33.2 L (34.0-46.0) % MCHC 29.7 L (31.0-37.0) g/dL RDW 17.6 H (11.5-15.5) % Plt Count 491 H (150-450) k/uL Neutrophils # 12.0 H (1.3-7.7) k/uL Lymphocytes # (1.0-4.8) k/uL Carbon Dioxide 33 H (22-30) mmol/L BUN (7-17) mg/dL Creatinine 0.47 L (0.52-1.04) mg/dL Glucose 139 H (74-99) mg/dL POC Glucose (mg/dL) 148 H (75-99) mg/dL Alkaline Phosphatase 140 H (38-126) U/L Total Protein 6.1 L (6.3-8.2) g/dL Albumin 3.1 L (3.5-5.0) g/dL 08/23/18 08/24/18 08/24/18 Range/Units 20:37 06:23 06:23 WBC 17.8 H (3.8-10.6) k/uL RBC 3.64 L (3.80-5.40) m/uL Hgb 9.3 L (11.4-16.0) gm/dL Hct 31.4 L (34.0-46.0) % MCHC 29.6 L (31.0-37.0) g/dL RDW 18.5 H (11.5-15.5) % Plt Count 527 H (150-450) k/uL Neutrophils # 16.0 H (1.3-7.7) k/uL Lymphocytes # 0.9 L (1.0-4.8) k/uL Carbon Dioxide 33 H (22-30) mmol/L BUN 25 H (7-17) mg/dL Creatinine (0.52-1.04) mg/dL Glucose 121 H (74-99) mg/dL POC Glucose (mg/dL) 194 H (75-99) mg/dL Alkaline Phosphatase (38-126) U/L Total Protein 6.0 L (6.3-8.2) g/dL Albumin 3.1 L (3.5-5.0) g/dL 08/24/18 Range/Units 07:00 WBC (3.8-10.6) k/uL RBC (3.80-5.40) m/uL Hgb (11.4-16.0) gm/dL Hct (34.0-46.0) % MCHC (31.0-37.0) g/dL RDW (11.5-15.5) % Plt Count (150-450) k/uL Neutrophils # (1.3-7.7) k/uL Lymphocytes # (1.0-4.8) k/uL Carbon Dioxide (22-30) mmol/L BUN (7-17) mg/dL Creatinine (0.52-1.04) mg/dL Glucose (74-99) mg/dL POC Glucose (mg/dL) 144 H (75-99) mg/dL Alkaline Phosphatase (38-126) U/L Total Protein (6.3-8.2) g/dL Albumin (3.5-5.0) g/dL Microbiology - Last 24 Hours (Table) 08/22/18 03:15 Urine Culture - Final Urine,Voided Escherichia coli 08/21/18 23:53 Blood Culture - Preliminary Blood No Growth after 48 hours Assessment and Plan Plan: 1. Sepsis secondary to Possible gram-negative pneumonia and/or UTI. Patient will be started on Zosyn. Continue DuoNeb treatments every 4 hours as needed. Consult with pulmonary medicine. 2. Acute UTI secondary to overactive bladder and incontinence. Urine culture in progress. Continue Zosyn. Check postvoid residual. 3. Squamous cell carcinoma of the left lower lung with recurrence, nonsurgical candidate. Patient started immunotherapy in July. Oncology consult apprec iated. Thoracic MRI ordered and CTA of the chest. 4. Posterior rib and muscle pain likely secondary to recurrent tumor status post recent radiation for palliative treatment. This has been reported as related to immunotherapy. 5. Hypertension. Continue Lopressor 25 mg twice daily. 6. Hyperlipidemia. Continue Lipitor 20 mg at bedtime. 7. COPD, stable without exacerbation. Consult with pulmonary medicine. 8. DVT prophylaxis. Heparin subcu. 9. GI prophylaxis. Pepcid. 10. T5 fracture, pathologic. Consults with Drs. Marino and Kai Discharge plan: Home to senior apartment, possibly with homecare. Impression and plan of care have been directed as dictated by the signing josefina joel. Maria Guadalupe Zaragoza nurse practitioner acting as scribe for signing physician.
[2018-08-24] MEDS: INSULIN ASPART (NovoLOG) 100 UNIT/ML VIAL SQ SCH ×3 (12:53→20:30)
--- NOTE | 2018-08-24 15:33 | P.CNOR ---
<Rafita Richards - Last Filed: 08/24/18 15:29> History of Present Illness - [facility] Consult date: 08/24/18 Requesting physician: Maria Guadalupe Zaragoza Consult reason: fracture (T5 metastatic compression fracture deformity), other (Thoracic cord compression) History of present illness: Patient is a very pleasant 72-year-old female who is seen and examined at the bedside by Dr. Mahin Marino and myself for further evaluation after T5 compression fracture deformity and metastatic disease to the thoracic spine with cord comp ression. Patient is known to have non-small cell lung cancer/squamous cell carcinoma and has been working through treatment since [address] Quinn and chemotherapy with Dr. Webb. Patient states she is not currently experiencing any significant changes in her bilateral lower extremities. She is not experiencing any lower extremity weakness or radiculopathy bilaterally. She is able to ambulate and move within the bed without significant difficulty. She states she does have some pain in her thoracic spine but also has chronic pain in her lumbar spine. She does not have any significant exacerbation of thoracic pain as compared to her lumbar pain. She is known have COPD and is on oxygen at all times. She is currently being seen by medicine, pulmonology, and oncology. She is currently being treated for lung cancer, shortness of breath, acute urinary tract infection and sepsis secondary to possible gram-negative pneumonia and/or UTI. She states at the bedside she does not wish to have any surgical intervention in regards to her thoracic spine. Past Medical History Past Medical History: Cancer, COPD, Hyperlipidemia, Hypertension, Pneumonia Additional Past Medical History / Comment(s): past bleeding from hemorrhoids,stress incontinence,bronchitis, overactive bladder, kidney stone, LLL Lung CA, 06-06-17 pne/sepsis. History of Any Multi-Drug Resistant Organisms: None Reported Past Surgical History: Bladder Surgery, Breast Surgery, Cholecystectomy, Joint Replacement Additional Past Surgical History / Comment(s): left complete knee replacement, rt partial knee replacement,rectocele, bowel surgery to unkink colon,cyst removed breast,bladder surgery x3, bladder suspension, hemorrhoidectomy, rectal prolapse repair Past Anesthesia/Blood Transfusion Reactions: No Reported Reaction Additional Past Anesthesia/Blood Transfusion Reaction / Comm: no hx blood transfusion Past Psychological History: No Psychological Hx Reported Additional Psychological History / Comment(s): hx panic attack. pt lives in [facility]/has pull cord memrgnecy system, uses walker when up has 02 Smoking Status: Former smoker Past Alcohol Use History: None Reported Additional Past Alcohol Use History / Comment(s): Patient was a smoker one to 2 packs per day for 30 years and quit in 1998. No illicit drug use, alcohol abu se. Patient lives in [facility]. Past Drug Use History: None Reported - Past Family History Mother Family Medical History: No Reported History Additional Family Medical History / Comment(s): Mother at age 80 from old age. Heart palpitations Father History Unknown: Yes Additional Family Medical History / Comment(s): Father when he was young from ruptured hernia. Sister with breast cancer, sister with colon cancer, sister with lung cancer, brother with lung cancer Medications and Allergies Home Medications Medication Instructions Recorded Confirmed Type Amitriptyline HCl [Elavil] 10 mg PO HS 05/25/16 08/21/18 History Aspirin EC [Ecotrin Low Dose] 81 mg PO HS 05/25/16 08/21/18 History Metoprolol Tartrate [Lopressor] 25 mg PO BID 05/25/16 08/21/18 History Oxybutynin Chloride [Ditropan] 5 mg PO BID@0800,1700 05/25/16 08/21/18 History Simvastatin [Zocor] 40 mg PO HS 05/25/16 08/21/18 History Melatonin 5 mg PO HS PRN tablet 04/22/17 08/21/18 Rx ALPRAZolam [Xanax] 0.25 mg PO TID PRN #90 tab 06/16/17 08/21/18 Rx Potassium Chloride ER [K-Dur 20] 20 meq PO DAILY 06/17/17 08/21/18 History Albuterol Nebulized (Conc) 2.5 mg INHALATION RT-QID 06/06/18 08/21/18 History [Ventolin Nebulized (Conc)] Furosemide [Lasix] 40 mg PO DAILY 06/06/18 08/21/18 History Allergies Allergy/AdvReac Type Severity Reaction Status Date / Time nitrofurantoin AdvReac Abdominal Verified 08/21/18 23:28 [From Macrodantin] Pain Sulfa (Sulfonamide AdvReac Nausea Verified 08/21/18 23:28 Antibiotics) Physical Examination Physical exam: Patient is awake, alert, and oriented 3 Vital signs stable Adequate chest excursion with deep inspiration and expiration; patient currently on O2 nasal cannula Examination of lumbar spine reveals skin is intact with no abrasions, lacerations, or bruises; no erythema, purulence or signs of infection Incidence of some skin changes following previous radiation treatment along the thoracic spine Mild pain with palpation along the midline of the upper thoracic spine and upper lumbar spine Dorsiflexion, plantarflexion, and extensor hallucis longus positive sustained bilaterally Lower extremity strength 5/5 bilaterally Patient is ramses to move legs independently in bed without significant difficulty Straight leg test negative bilateral lower extremities No signs or symptoms of DVT; no calf pain Neurovascularly intact Results Pertinent studies: MRI of the thoracic spine with and without contrast taken on 08/23/2018: T5 and T6 signal changes within the vertebral bodies compatible with metastatic disease; signal abnormality is present to a lesser degree at T7 and T8 compatible with metastatic disease; changes were seen previously; T5 compression fracture deformity with approximately 40% height loss which has progressed as compared to previous imaging taken on 06/08/2018; evidence of soft tissue posterior mass to the T5 and T6 level with cord compression; posterior soft tissue density in the spinal canal also present at T6; soft tissue abnormality extends into the left paraspinal region within the lung field which is enhanced; spinal cord maintains normal signal throughout as well as coursed; overall vertebral body alignment appears adequately maintained - Labs Labs: Abnormal Lab Results - Last 24 Hours (Table) 08/23/18 08/23/18 08/23/18 Range/Units 07:55 07:55 20:37 WBC 13.8 H (3.8-10.6) k/uL RBC 3.76 L (3.80-5.40) m/uL Hgb 9.9 L (11.4-16.0) gm/dL Hct 33.2 L (34.0-46.0) % MCHC 29.7 L (31.0-37.0) g/dL RDW 17.6 H (11.5-15.5) % Plt Count 491 H (150-450) k/uL Neutrophils # 12.0 H (1.3-7.7) k/uL Lymphocytes # (1.0-4.8) k/uL Carbon Dioxide 33 H (22-30) mmol/L BUN (7-17) mg/dL Creatinine 0.47 L (0.52-1.04) mg/dL Glucose 139 H (74-99) mg/dL POC Glucose (mg/dL) 194 H (75-99) mg/dL Alkaline Phosphatase 140 H (38-126) U/L Total Protein 6.1 L (6.3-8.2) g/dL Albumin 3.1 L (3.5-5.0) g/dL 08/24/18 08/24/18 08/24/18 Range/Units 06:23 06:23 07:00 WBC 17.8 H (3.8-10.6) k/uL RBC 3.64 L (3.80-5.40) m/uL Hgb 9.3 L (11.4-16.0) gm/dL Hct 31.4 L (34.0-46.0) % MCHC 29.6 L (31.0-37.0) g/dL RDW 18.5 H (11.5-15.5) % Plt Count 527 H (150-450) k/uL Neutrophils # 16.0 H (1.3-7.7) k/uL Lymphocytes # 0.9 L (1.0-4.8) k/uL Carbon Dioxide 33 H (22-30) mmol/L BUN 25 H (7-17) mg/dL Creatinine (0.52-1.04) mg/dL Glucose 121 H (74-99) mg/dL POC Glucose (mg/dL) 144 H (75-99) mg/dL Alkaline Phosphatase (38-126) U/L Total Protein 6.0 L (6.3-8.2) g/dL Albumin 3.1 L (3.5-5.0) g/dL 08/24/18 Range/Units 11:08 WBC (3.8-10.6) k/uL RBC (3.80-5.40) m/uL Hgb (11.4-16.0) gm/dL Hct (34.0-46.0) % MCHC (31.0-37.0) g/dL RDW (11.5-15.5) % Plt Count (150-450) k/uL Neutrophils # (1.3-7.7) k/uL Lymphocytes # (1.0-4.8) k/uL Carbon Dioxide (22-30) mmol/L BUN (7-17) mg/dL Creatinine (0.52-1.04) mg/dL Glucose (74-99) mg/dL POC Glucose (mg/dL) 227 H (75-99) mg/dL Alkaline Phosphatase (38-126) U/L Total Protein (6.3-8.2) g/dL Albumin (3.5-5.0) g/dL Microbiology - Last 24 Hours (Table) 08/22/18 03:15 Urine Culture - Final Urine,Voided Escherichia coli 08/21/18 23:53 Blood Culture - Preliminary Blood No Growth after 48 hours H & H 08/21/18 08/23/18 08/24/18 Range/Units 23:53 07:55 06:23 Hgb 10.0 L 9.9 L 9.3 L (11.4-16.0) gm/dL Hct 31.9 L 33.2 L 31.4 L (34.0-46.0) % Coagulation 08/21/18 Range/Units 23:53 INR 1.0 (<1.2) Result Diagrams: 08/24/18 06:23 08/24/18 06:23 Assessment and Plan Assessment: Assessment: Non-small cell lung cancer/squamous cell carcinoma metastatic to spine T5 vertebral body compression fracture with approximately 40% height loss Metastatic bony changes at T5, T6, T7, and T8 Thoracic cord compression at the T5 and T6 levels Thoracic and lumbar back pain History of radiation and chemotherapy Pneumonia Acute urinary tract infection COPD Shortness of breath (1) Compression fracture of T5 vertebra Current Visit: Yes Status: Acute Code(s): S22.050A - WEDGE COMPRESSION FRACTURE OF T5-T6 VERTEBRA, INIT SNOMED Code(s): 609149991 (2) UTI (urinary tract infection) Current Visit: Yes Status: Acute Code(s): N39.0 - URINARY TRACT INFECTION, SITE NOT SPECIFIED SNOMED Code(s): 34355829 (3) COPD (chronic obstructive pulmonary disease) Current Visit: Yes Status: Acute Code(s): J44.9 - CHRONIC OBSTRUCTIVE PULMONARY DISEASE, UNSPECIFIED SNOMED Code(s): 60748365 (4) Pain of metastatic malignancy Current Visit: Yes Status: Acute Code(s): G89.3 - NEOPLASM RELATED PAIN (ACUTE) (CHRONIC) SNOMED Code(s): 262570020 (5) Pneumonia Current Visit: Yes Status: Acute Priority: High Code(s): J18.9 - PNEUMONIA, UNSPECIFIED ORGANISM SNOMED Code(s): 091282651 (6) Squamous cell carcinoma of lung, stage III Current Visit: Yes Status: Chronic Priority: High Code(s): C34.90 - MALIGNANT NEOPLASM OF UNSP PART OF UNSP BRONCHUS OR LUNG SNOMED Code(s): 299216097 (7) Lung mass Current Visit: No Status: Acute Priority: High Code(s): R91.8 - OTHER NONSPECIFIC ABNORMAL FINDING OF LUNG FIELD SNOMED Code(s): 940298460 Plan: Plan: 1. Patient has been seen and examined at the bedside by myself and Dr. Mahin Marino. Patient does have evidence of significant changes in her thoracic spine with evidence of metastatic disease at T5, T6, T7, and T8. Patient does have evidence of cord compression at T5 and T6. She does not have evidence of any significant change in function of bilateral lower extremities. She is not currently experiencing any lower extremity weakness or radiculopathy bilaterally. She is able to move well in bed without difficulty. She states she is able to ambulate without significant difficulty in regards to her lower extremities. She does have some thoracic back pain that has been ongoing. She has some chronic low back pain as well. She does not feel her symptoms are significantly different than they were prior to imaging which showed evidence of T5 compression fracture deformity. At this time, we will continue with conservative treatment in regards to her metastatic disease to the thoracic spine with known T5 compression fracture deformity and T5 and T6 cord compression. We are not planning for acute surgical intervention at her thoracic spine. We will not plan for bracing at this time as her pain has been adequately controlled. We discussed upon discharge she should plan to follow with a neurosurgeon for further evaluation and to discuss possible treatment options proceeding forward if she were to start to experience neurologic change in bilateral lower extremities. Patient states currently she is not sure she wants to proceed forward with that consultation. We reemphasized the importance of consultation with neurosurgery as if she were to have changes from a neurological standpoint the appropriate surgical intervention at her thoracic spine would be unable to be performed at this facility and would need to be performed at a tertiary facility. 2. Patient will continue to be seen and examined by medicine, pulmonology, and oncology 3. From an orthopedic spine standpoint, patient is clear for discharge once cleared by other medical providers. We will plan to have her follow up on an as-needed basis in the outpatient setting. Time with Patient: Greater than 30 (Including obtaining history, physical examination, reviewing of imaging, and dictation.) <Daily Marino - Last Filed: 08/24/18 15:40> Physical Examination Osteopathic Statement: *. No significant issues noted on an osteopathic structural exam other than those noted in the History and Physical/Consult. Results - Labs Labs: Abnormal Lab Results - Last 24 Hours (Table) 08/23/18 08/23/18 08/23/18 Range/Units 07:55 07:55 20:37 WBC 13.8 H (3.8-10.6) k/uL RBC 3.76 L (3.80-5.40) m/uL Hgb 9.9 L (11.4-16.0) gm/dL Hct 33.2 L (34.0-46.0) % MCHC 29.7 L (31.0-37.0) g/dL RDW 17.6 H (11.5-15.5) % Plt Count 491 H (150-450) k/uL Neutrophils # 12.0 H (1.3-7.7) k/uL Lymphocytes # (1.0-4.8) k/uL Carbon Dioxide 33 H (22-30) mmol/L BUN (7-17) mg/dL Creatinine 0.47 L (0.52-1.04) mg/dL Glucose 139 H (74-99) mg/dL POC Glucose (mg/dL) 194 H (75-99) mg/dL Alkaline Phosphatase 140 H (38-126) U/L Total Protein 6.1 L (6.3-8.2) g/dL Albumin 3.1 L (3.5-5.0) g/dL 08/24/18 08/24/18 08/24/18 Range/Units 06:23 06:23 07:00 WBC 17.8 H (3.8-10.6) k/uL RBC 3.64 L (3.80-5.40) m/uL Hgb 9.3 L (11.4-16.0) gm/dL Hct 31.4 L (34.0-46.0) % MCHC 29.6 L (31.0-37.0) g/dL RDW 18.5 H (11.5-15.5) % Plt Count 527 H (150-450) k/uL Neutrophils # 16.0 H (1.3-7.7) k/uL Lymphocytes # 0.9 L (1.0-4.8) k/uL Carbon Dioxide 33 H (22-30) mmol/L BUN 25 H (7-17) mg/dL Creatinine (0.52-1.04) mg/dL Glucose 121 H (74-99) mg/dL POC Glucose (mg/dL) 144 H (75-99) mg/dL Alkaline Phosphatase (38-126) U/L Total Protein 6.0 L (6.3-8.2) g/dL Albumin 3.1 L (3.5-5.0) g/dL 08/24/18 Range/Units 11:08 WBC (3.8-10.6) k/uL RBC (3.80-5.40) m/uL Hgb (11.4-16.0) gm/dL Hct (34.0-46.0) % MCHC (31.0-37.0) g/dL RDW (11.5-15.5) % Plt Count (150-450) k/uL Neutrophils # (1.3-7.7) k/uL Lymphocytes # (1.0-4.8) k/uL Carbon Dioxide (22-30) mmol/L BUN (7-17) mg/dL Creatinine (0.52-1.04) mg/dL Glucose (74-99) mg/dL POC Glucose (mg/dL) 227 H (75-99) mg/dL Alkaline Phosphatase (38-126) U/L Total Protein (6.3-8.2) g/dL Albumin (3.5-5.0) g/dL Microbiology - Last 24 Hours (Table) 08/22/18 03:15 Urine Culture - Final Urine,Voided Escherichia coli 08/21/18 23:53 Blood Culture - Preliminary Blood No Growth after 48 hours H & H 04/08/23/18 08/24/18 Range/Units 23:53 07:55 06:23 Hgb 10.0 L 9.9 L 9.3 L (11.4-16.0) gm/dL Hct 31.9 L 33.2 L 31.4 L (34.0-46.0) % Coagulation 08/21/18 Range/Units 23:53 INR 1.0 (<1.2) Result Diagrams: 08/24/18 06:23 08/24/18 06:23 Assessment and Plan Plan: The patient was seen and examined at bedside. I reviewed the imaging and the above dictation. Patient is not having any neurologic changes. She has some pain at her chest which may be partially due to the compression deformity and changes at her mid thoracic spine with likely metastasis. The patient is quite comfortable with her motion. As she is not having any neurologic decline I do not think that she requires any acute surgical int ervention. With her comfort I think it is okay to keep her out of the brace as it would be quite difficult for her to tolerate a brace for the T5 level as it may need to extend up and control her cervical spine as well. She seems to be too comfortable to have to put her in this type of restriction. It is okay for her to mobilize and endplate around her room and into the hallways as she is comfortable. There is evidence of mass around her thoracic spine with some cord distortion. There is no cord signal change and I do not think that she is having any neurologic decline or neurologic loss at this point. With the mass at her thoracic spine and I recommended that she should follow up with a neurosurgery service for further evaluation once she is discharged from the hospital. We would not be able to provide surgical care for her thoracic spine here at [facility] and I recommended that she have evaluation with a tertiary center such as [facility] for neurosurgical consultation after she is discharged. She says she will consider this but would like to avoid any surgery which is understandable. Even if she is not interested in surgical intervention I think it is worthwhile for her to have evaluation given her MRI findings and status.
[2018-08-24 17:11] LABS: Glucose,Whole Blood 99 mg/dL (75-99)
[2018-08-24 20:13] LABS: Glucose,Whole Blood 154 mg/dL (75-99)
[2018-08-24] MEDS: AMITRIPTYLINE HCL 10 MG TAB PO SCH (20:29)
[2018-08-24] MEDS: ASPIRIN 81 MG PO SCH (20:29)
[2018-08-24] MEDS: ATORVASTATIN 20 MG TAB PO SCH (20:30)
--- NOTE | 2018-08-24 23:59 | P.PN ---
Subjective Progress Note Date: 08/24/18 Principal diagnosis: Metastatic Lung Feeling a little better today but very anxious during conversation. Many questions and re-mediation provided Objective - Vital Signs Vital signs: Vital Signs Temp 97.4 F L 08/24/18 21:00 Pulse 105 H 08/24/18 21:00 Resp 24 08/24/18 21:00 BP 158/83 08/24/18 21:00 Pulse Ox 92 L 08/24/18 21:00 Intake & Output 08/24/18 08/24/18 08/25/18 06:59 18:59 06:59 Intake Total 590 Balance 590 Intake: Oral 590 Other: Voiding Method Bedside Commode Bedside Commode Bedside Commode # Voids 4 6 2 # Bowel Movements 0 0 0 - Exam Gen: Alert and Oriented, Mild Distress Head: NC, NT Neck Supple No palpable adenopathy HR: Tachy, Reg Lungs: Tight, Diminished, Mild increase Abdomen: S/Nd Ext: Mild Edema - Labs CBC & Chem 7: 08/24/18 06:23 08/24/18 06:23 Labs: Abnormal Lab Results - Last 24 Hours (Table) 08/24/18 08/24/18 08/24/18 Range/Units 06:23 06:23 07:00 WBC 17.8 H (3.8-10.6) k/uL RBC 3.64 L (3.80-5.40) m/uL Hgb 9.3 L (11.4-16.0) gm/dL Hct 31.4 L (34.0-46.0) % MCHC 29.6 L (31.0-37.0) g/dL RDW 18.5 H (11.5-15.5) % Plt Count 527 H (150-450) k/uL Neutrophils # 16.0 H (1.3-7.7) k/uL Lymphocytes # 0.9 L (1.0-4.8) k/uL Carbon Dioxide 33 H (22-30) mmol/L BUN 25 H (7-17) mg/dL Glucose 121 H (74-99) mg/dL POC Glucose (mg/dL) 144 H (75-99) mg/dL Total Protein 6.0 L (6.3-8.2) g/dL Albumin 3.1 L (3.5-5.0) g/dL 08/24/18 08/24/18 Range/Units 11:08 20:11 WBC (3.8-10.6) k/uL RBC (3.80-5.40) m/uL Hgb (11.4-16.0) gm/dL Hct (34.0-46.0) % MCHC (31.0-37.0) g/dL RDW (11.5-15.5) % Plt Count (150-450) k/uL Neutrophils # (1.3-7.7) k/uL Lymphocytes # (1.0-4.8) k/uL Carbon Dioxide (22-30) mmol/L BUN (7-17) mg/dL Glucose (74-99) mg/dL POC Glucose (mg/dL) 227 H 154 H (75-99) mg/dL Total Protein (6.3-8.2) g/dL Albumin (3.5-5.0) g/dL Microbiology - Last 24 Hours (Table) 08/22/18 03:15 Urine Culture - Final Urine,Voided Escherichia coli 08/21/18 23:53 Blood Culture - Preliminary Blood No Growth after 48 hours Assessment and Plan Plan: Assessment and recommendations: Non-Small Cell Lung Cancer/Squamous Cell Carcinoma - Progressive, Metastatic Disease: - Recent treatment with Immune Therapy Tecentriq, Status POst Cycle 2 08/18/18 - Progression on Recent PET, Concern for Thoracic Spine Compression Pathological - MRI Spine with Contrast Ordered Pain in back/THoracic Spine: - WIll further review imaging with radiologist and Radiation Oncology in the am - Continue on Dexamethasone in the interim/PPI Post Obstructive Pneumonia. - On Zosyn. - Pulmonary medicine following. - CTA Ordered for further evaluation was reviewed no evidence of PE noted UTI:E-Coli - Known overactive bladder and incontinence. - Urine culture in progress. - Continue Zosyn. per Primary team Neoplastic Related Pain: - Continue Supportive pain management and Bowel Regimen - Further assess Thoracic Spine cord involvement. Febrile On Immunotherapy: - Improved today - Jordan Cultures from Blood Negative at this time - UTI POsitive E-coli noted above Leukocytosis: Reactive to Infection Normocytic Anemia: - Secondary to malignancy and treatment Plan: I have reviewed the MRI of thoracic spine, will initiate dexamethasone/PPI and consult radiation oncology Physician Attest: I have completed the full history and physical of this patient and developed the above impression and plan, agree with dictation by Yolanda Yanes, Dictated as a scribe.
[2018-08-25] MEDS: CLOTRIMAZOLE TROCHE 10 MG TROCHE MUCOUS MEM SCH ×6 (01:14→23:44)
[2018-08-25] MEDS: ALPRAZolam 0.25 MG TAB PO PRN ×2 (01:14→23:48)
[2018-08-25] MEDS: HEPARIN SODIUM,PORCINE 5,000 UNIT/ML 1 ML VIAL SQ SCH ×4 (01:14→23:44)
[2018-08-25] MEDS: PIPERACILLIN-TAZOBACTAM 3.375 GM in SODIUM CHLORIDE 0.9% 100 ML IVPB SCH ×3 (01:14→17:14)
[2018-08-25] MEDS: methylPREDNISolone SOD SUCCI 40 MG/ML 1 ML VIAL IV SCH ×4 (01:15→23:44)
[2018-08-25] MEDS: MELATONIN 5 MG TABLET PO PRN (01:29)
[2018-08-25] MEDS: MORPHINE SULFATE 4 MG/ML SYRINGE IV PRN (05:47)
[2018-08-25 07:06] LABS: Glucose,Whole Blood 185 mg/dL (75-99)
[2018-08-25] MEDS: IPRATROPIUM-ALBUTEROL 3 ML NEB INHALATION SCH ×4 (08:16→20:01)
[2018-08-25] MEDS: FORMOTEROL FUMARATE 20 MCG/2 ML NEBU INHALATION SCH ×2 (08:16→20:01)
[2018-08-25] MEDS: METOPROLOL TARTRATE 25 MG TAB PO SCH ×2 (09:11→20:38)
[2018-08-25] MEDS: FUROSEMIDE 40 MG TAB PO SCH (09:11)
[2018-08-25] MEDS: FAMOTIDINE 20 MG TAB PO SCH (09:11)
[2018-08-25] MEDS: OXYBUTYNIN CHLORIDE 5 MG TAB PO SCH ×2 (09:11→17:14)
[2018-08-25] MEDS: POTASSIUM CHLORIDE ER 20 MEQ TAB.ER PO SCH (09:11)
[2018-08-25] MEDS: INSULIN ASPART (NovoLOG) 100 UNIT/ML VIAL SQ SCH ×4 (09:12→20:38)
[2018-08-25] MEDS: ACETAMINOPHEN TAB 325 MG TAB PO PRN ×2 (09:29→15:53)
[2018-08-25] MEDS: DOCUSATE 100 MG CAP PO PRN (09:35)
--- NOTE | 2018-08-25 10:10 | P.CONS ---
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 She was not felt to be a surgical candidate, and therefore initiated concurrent chemoradiation. She only tolerated her first cycle of chemotherapy however, and finished radiotherapy treatment on 07/26/2017. Unfortunately, she now presents with a locally recurrent disease, which is large in size and invading the spinal canal. She was treated with a palliative dose of radiotherapy finishing 06/29/2018 for worsening back pain related to recurrence. She has now been hospitalized again with UTI and back pain. Following her course of radiotherapy in June, the patient did report improvement in her back pain. She went on to initiate second line immunotherapy for her progressive disease. She has only completed 2 cycles of this, with the last cycle being this past . The patient was having some aches and pains, including in the back, which she attributed to the therapy. However, over the weekend the patient reports she had increased frequency of urination. When she was getting up at night to go to the restroom, she felt she was having trouble catching her breath. On Wednesday she called EMS, and was evaluated in the ER. She was found to be febrile, and had evidence of UTI. CT PE protocol was performed on August 23. This revealed the known left lung lesion, showing slight progression. There was no evidence of multiple right sided lung nodules up to 1.6 cm, worrisome for metastatic disease. No evidence of PE. Considering she was having back pain, repeat MRI of the thoracic spine was performed on August 23. When compared to the previous MRI from the end of May, there appears to be increased extension of tumor into the spinal canal without cord compression. The patient reports her back pain has improved since she has been initiated on Decadron and morphine. She was evaluated by ortho-spine, and the recommendation is that she undergo outpatient neurosurgical evaluation. The patient currently denies any weakness, numbness or tingling of the upper/lower extremities. She has had no complaints of saddle anesthesia or difficulty with bladder/bowel control. Review of Systems Constitutional: Reports fever, Reports malaise, Denies chills Eyes: denies blurred vision Ears, nose, mouth and throat: Denies headache Cardiovascular: Reports dyspnea on exertion, Denies chest pain Respiratory: Reports cough, Reports dyspnea, Reports home oxygen, Reports pain on inspiration (improved), Denies hemoptysis Gastrointestinal: Denies abdominal pain, Denies BRBPR Musculoskeletal: Denies arm numbness/tingling, Denies leg numbness/tingling Integumentary: Denies rash Neurological: Denies ataxia, Denies confusion, Denies memory loss, Denies motor disturbance, Denies paresthesias Psychiatric: Reports anxiety Past Medical History Past Medical History: Cancer, COPD, Hyperlipidemia, Hypertension, Pneumonia Additional Past Medical History / Comment(s): past bleeding from hemorrhoids,stress incontinence,bronchitis, overactive bladder, kidney stone, LLL Lung CA, 06-06-17 pne/sepsis. History of Any Multi-Drug Resistant Organisms: None Reported Past Surgical History: Bladder Surgery, Breast Surgery, Cholecystectomy, Joint Replacement Additional Past Surgical History / Comment(s): left complete knee replacement, rt partial knee replacement,rectocele, bowel surgery to unkink colon,cyst removed breast,bladder surgery x3, bladder suspension, hemorrhoidectomy, rectal prolapse repair Past Anesthesia/Blood Transfusion Reactions: No Reported Reaction Additional Past Anesthesia/Blood Transfusion Reaction / Comm: no hx blood transfusion Past Psychological History: No Psychological Hx Reported Additional Psychological History / Comment(s): hx panic attack. pt [facility]/has pull cord memrgnecy system, uses walker when up has 02 Smoking Status: Former smoker Past Alcohol Use History: None Reported Additional Past Alcohol Use History / Comment(s): Patient was a smoker one to 2 packs per day for 30 years and quit in 1998. No illicit drug use, alcohol abuse. Patient lives in [facility]. Past Drug Use History: None Reported - Past Family History Mother Family Medical History: No Reported History Additional Family Medical History / Comment(s): Mother at age 80 from old age. Heart palpitations Father History Unknown: Yes Additional Family Medical History / Comment(s): Father when he was young from ruptured hernia. Sister with breast cancer, sister with colon cancer, sister with lung cancer, brother with lung cancer Medications and Allergies Home Medications Medication Instructions Recorded Confirmed Type Amitriptyline HCl [Elavil] 10 mg PO HS 05/25/16 08/21/18 History Aspirin EC [Ecotrin Low Dose] 81 mg PO HS 05/25/16 08/21/18 History Metoprolol Tartrate [Lopressor] 25 mg PO BID 05/25/16 08/21/18 History Oxybutynin Chloride [Ditropan] 5 mg PO BID@0800,1700 05/25/16 08/21/18 History Simvastatin [Zocor] 40 mg PO HS 05/25/16 08/21/18 History Melatonin 5 mg PO HS PRN tablet 04/22/17 08/21/18 Rx ALPRAZolam [Xanax] 0.25 mg PO TID PRN #90 tab 06/16/17 08/21/18 Rx Potassium Chloride ER [K-Dur 20] 20 meq PO DAILY 06/17/17 08/21/18 History Albuterol Nebulized (Conc) 2.5 mg INHALATION RT-QID 06/06/18 08/21/18 History [Ventolin Nebulized (Conc)] Furosemide [Lasix] 40 mg PO DAILY 06/06/18 08/21/18 History Allergies Allergy/AdvReac Type Severity Reaction Status Date / Time nitrofurantoin AdvReac Abdominal Verified 08/21/18 23:28 [From Macrodantin] Pain Sulfa (Sulfonamide AdvReac Nausea Verified 08/21/18 23:28 Antibiotics) Physical Exam Vitals: Vital Signs Temp Pulse Pulse Resp BP Pulse Ox 08/25/18 08:40 84 08/25/18 08:26 80 08/25/18 08:17 84 08/25/18 08:00 16 08/25/18 05:00 97.6 F 85 16 163/83 96 08/24/18 21:00 97.4 F L 105 H 24 158/83 92 L 08/24/18 20:32 88 08/24/18 20:19 86 08/24/18 20:18 86 08/24/18 20:07 82 08/24/18 15:18 18 08/24/18 11:50 98.0 F 93 18 120/74 95 Intake and Output 08/24/18 08/25/18 08/25/18 22:59 06:59 14:59 Intake Total 590 Balance 590 Intake: Oral 590 Other: Voiding Method Bedside Commode # Voids 2 2 # Bowel Movements 0 - Constitutional General appearance: no acute distress - EENT Eyes: EOMI, PERRLA - Neck Neck: no lymphadenopathy - Respiratory Respiratory: right: CTA, left: diminished (left base dec breath sounds) - Cardiovascular Rhythm: regular Heart sounds: normal: S1, S2 - Gastrointestinal General gastrointestinal: no distended, soft - Neurologic Neurologic: CNII-XII intact - Musculoskeletal Musculoskeletal: strength equal bilaterally - Psychiatric Psychiatric: A&O x's 3, appropriate affect (anxious) Results CBC & Chem 7: 08/24/18 06:23 08/24/18 06:23 Labs: Abnormal Lab Results - Last 24 Hours (Table) 08/24/18 08/24/18 08/25/18 Range/Units 11:08 20:11 07:06 POC Glucose (mg/dL) 227 H 154 H 185 H (75-99) mg/dL Microbiology - Last 24 Hours (Table) 08/21/18 23:53 Blood Culture - Preliminary Blood No Growth after 72 hours 08/22/18 03:15 Urine Culture - Final Urine,Voided Escherichia coli CT scan - chest: report reviewed, image reviewed Assessment and Plan Plan: Nani Byers is a 72 year old Female with a stage IIIA (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 She was not felt to be a surgical candidate, and therefore initiated concurrent chemoradiation. She only tolerated her first cycle of chemotherapy however, and finished radiotherapy treatment on 07/26/2017. Unfortunately, she now presents with a locally recurrent disease, which is large in size and invading the spinal canal. She was treated with a palliative dose of radiotherapy finishing 06/29/2018 for worsening back pain related to recurrence. 1. Back pain: Based on the patient's repeat MRI exam, there appears to be increasing tumor infiltration of the spinal canal without cord compression in the upper thoracic spine. This is direct extension from the patient's left lung cancer. Unfortunately, this area has been heavily previously radiated, and it is unlikely that further radiotherapy would offer much benefit. The patient has no sequelae of cord compression at this time, and her back pain is currently under control. Therefore, no urgent intervention is required. The patient was recommended to seek outpatient neurosurgical evaluation. She is reluctant to do this, as she understands she has recurrent cancer which is not curable. I explained to the patient I am concerned that if this lesion progressed further she could have antoine cord compression. I will discuss this further with Dr. Garcia and her other consulting physicians. Continue decadron + pain control. We will arrange outpatient follow-up. 2. Non-small cell lung cancer - Recurrent/metastatic: The patient has only had 2 cycles of immunotherapy, and therefore it is too early to assess efficacy. However, it is disconcerting that over the past 3 months she has now developed right sided lung metastasis which were not seen on her previous imaging. Time with Patient: Greater than 30
[2018-08-25 11:37] LABS: Glucose,Whole Blood 161 mg/dL (75-99)
[2018-08-25] MEDS: LIDOCAINE 5% PATCH TOPICAL SCH (12:09)
[2018-08-25] MEDS: IBUPROFEN 400 MG TAB PO PRN (12:12)
--- NOTE | 2018-08-25 14:00 | P.PN ---
Subjective Progress Note Date: 08/25/18 This is a 72-year-old female patient of Radha Alexander, Kai with past medical history of 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 Patient just started immunotherapy in July of this year. She recently completed a 5 week course of steroids secondary to metastatic pain. Patient is complaining of muscle aches in the back and around to the front thought to be a side effect of her new medication. Patient states that she has had increasing shortness of breath with a sitter should and increased shortness of breath just getting to the bathroom. She complains of cough that seems to be unchanged from her baseline. She is complaining of increased pain to the upper back with increased pain with deep breathing. She also complains of increased urinary frequency and have negative to the bathroom only during the night. She states she has an overactive bladder does not have much feeling. Patient came into [facility] emergency [facility] for evaluation. Influenza testing was negative, white count 14.5, hemoglobin 10, platelet count 495, alkaline phosphatase 142, CO2 33, troponin 0.013. Urinalysis was cloudy, nitrate positive, leukoesterase large, WBC greater than 182 bacteria moderate. Temperature max 102.6. Chest x-ray showed nonspecific left lower lobe consolidation. No definite change. EKG was a sinus rhythm with frequent PVCs. Patient was provided IV antibiotics emergency center and placed on the [facility] floor consult with pulmonary medicine and oncology requested. 08/23: Temperature max 100.1, pulse 88, blood pressure 120/73, pulse ox 96% on 2 L nasal cannula. Patient has been seen by oncology and MRI thoracic spine has been ordered. CTA of the chest also ordered. Patient has also been seen by Dr. Gracia and shortness of breath possibly related to mild COPD exacerbation and increased back pain. The left lower lobe consolidation is related to underlying lung cancer and doubts pneumonia. Repeat chest x-ray reveals similar-appearing left perihilar and left basilar obesity may represent examination pneumonia and posttherapy change. Patient states that her thoracic pain is somewhat better from yesterday. She has been afebrile, heart rate in the 80s, blood pressure 111/73 and pulse ox 93% on 3 L nasal cannula. Patient is normally on home O2 at 2 L. WBC 13.8, hemoglobin 9.9, platelet count 491, creatinine 0.47, CO2 33. Blood sugars running 148-232 secondary to steroids. She is continued on IV Zosyn. 08/24: Repeat lab work reveals white count 17.8, hemoglobin 9.3, platelet count 527, CO2 33, creatinine 0.58 and BUN 25. Thoracic spine MRI reveals soft tissue mass within the left paraspinal region of the lung field extending into the left intrathecal canal adjacent to the spinal cord. Cord deformity is not ident ified. However degree of narrowing is increasing from the comparison from May. No cord displacement is evident. Extensive metastasis within the T5 through T8 levels. CTA of the chest showed no signs of pulmonary embolism. New numerous right-sided metastatic pulmonary nodules measuring up to 1.3 cm. Increasing consolidation within the left lower lobe at the site of known neoplasm and small left pleural effusion suspicious for recurrence and surrounding postobstructive atelectasis. No compressive deformity of T5 vertebral body appearing pathologic with surrounding sclerosis. Additional sites within multiple posterior ribs with mottled bone marrow may relate to osseous demineralization or additional foci of metastasis. Consult needed for Dr. Marino regarding T5 fracture. Consult has also been added for Dr. Quinn. Urine culture revealed 10,000-49,000 colonies of E. coli that is susceptible to Zosyn. 08/25: Patient has been seen by Dr. Marino with recommendations for evaluation by tertiary care center for her compression deformity in the mid thoracic spine. Patient has also been seen by Dr. Quinn and no further radiotherapy will be recommended at this time as patient does not have cord compression and pain is under control. Patient states that her thoracic pain is much improved today. She is able to speak in full sentences and shortness of breath is improved as we ll. Patient remains afebrile, blood pressure 143/71, pulse ox 96% on 2 L which is her baseline. Patient's discharge plan is to return home. The patient will be monitored overnight and plan for discharge home tomorrow. Review of Systems Constitutional: Denies chills, Reports fatigue, Reports fever, Denies poor appetite Ears, nose, mouth and throat: Denies dysphagia, Denies headache, Denies hoarseness, Denies mouth pain, Denies nasal congestion, Denies nasal discharge, Denies sore throat, Denies vertigo Cardiovascular: Reports decreased exercise tolerance, Reports dyspnea on exertion, Denies chest pain, Denies edema, Denies leg edema, Denies lightheadedness, Denies shortness of breath, Denies syncope Respiratory: Reports cough, Reports cough with sputum, denies dyspnea, Denies excessive sputum, Denies hemoptysis, Denies home oxygen, Denies wheezing Gastrointestinal: Denies abdominal pain, Denies diarrhea, Denies nausea, Denies vomiting Genitourinary: Reports urge incontinence, Reports urgency, Reports urinary frequency, Denies dysuria, Denies hematuria Musculoskeletal: Denies frequent falls, Denies gait dysfunction, Denies myalgias, reports thoracic back pain Integumentary: Denies pruritus, Denies rash, Denies wounds Neurological: Denies aphasia, Denies change in speech, Denies confusion, Denies gait dysfunction, Denies numbness, Denies seizures, Denies weakness Psychiatric: Denies anxiety, Denies depression Endocrine: Denies fatigue, Denies weight change Objective - Vital Signs Vital signs: Vital Signs Temp 97.6 F 08/25/18 05:00 Pulse 84 08/25/18 08:40 Resp 16 08/25/18 05:00 BP 163/83 08/25/18 05:00 Pulse Ox 96 08/25/18 05:00 Intake & Output 08/24/18 08/25/18 08/25/18 18:59 06:59 18:59 Intake Total 590 Balance 590 Intake: Oral 590 Other: Voiding Method Bedside Commode Bedside Commode # Voids 6 2 # Bowel Movements 0 0 - Exam Gen: This is a 72-year-old female. She is resting in recliner and ayush ears to be comfortable and in no acute distress. Patient is able to speak in full sentences with no difficulty in breathing. HEENT: Head is atraumatic, normocephalic. Pupils equal, round. Sclerae is anicteric. NECK: Supple. No JVD. No lymphadenopathy. No thyromegaly. LUNGS: Clear to auscultation. No wheezes or rhonchi. No intercostal retractions. No accessory muscle usage. No rash noted to the posterior thorax. HEART: Regular rate and rhythm. No murmur. ABDOMEN: Soft. Bowel sounds are present. No masses. No tenderness. EXTREMITIES: No pedal edema. No calf tenderness. NEUROLOGICAL: Patient is awake, alert and oriented x3. Cranial nerves 2 through 12 are grossly intact. - Labs CBC & Chem 7: 08/24/18 06:23 08/24/18 06:23 Labs: Abnormal Lab Results - Last 24 Hours (Table) 08/24/18 08/24/18 08/25/18 Range/Units 11:08 20:11 07:06 POC Glucose (mg/dL) 227 H 154 H 185 H (75-99) mg/dL Microbiology - Last 24 Hours (Table) 08/21/18 23:53 Blood Culture - Preliminary Blood No Growth after 72 hours 08/22/18 03:15 Urine Culture - Final Urine,Voided Escherichia coli Assessment and Plan Plan: 1. Sepsis secondary to Possible gram-negative pneumonia and UTI. Patient will be started on Zosyn. Continue DuoNeb treatments every 4 hours as needed. Consult with pulmonary medicine. 2. Acute E. coli UTI secondary to overactive bladder and incontinence. Urine culture in progress. Continue Zosyn. Transition to oral antibiotic tomorrow. 3. Squamous cell carcinoma of the left lower lung with recurrence, nonsurgical candidate. Patient started immunotherapy in July. Oncology consult appreciated. Thoracic MRI ordered and CTA of the chest. 4. Posterior rib and muscle pain likely secondary to recurrent tumor status post recent radiation for palliative treatment. Consult with radiation oncology and Dr. Marino appreciated. 5. Hypertension. Continue Lopressor 25 mg twice daily. 6. Hyperlipidemia. Continue Lipitor 20 mg at bedtime. 7. COPD, stable without exacerbation. Consult with pulmonary medicine. 8. DVT prophylaxis. Heparin subcu. 9. GI prophylaxis. Pepcid. 10. T5 fracture, pathologic. Consults with Drs. Marino and Kai [facility] Impression and plan of care have been directed as dictated by the signing physician. Maria Guadalupe Zaragoza nurse practitioner acting as scribe for signing physician.
[2018-08-25 16:38] LABS: Glucose,Whole Blood 224 mg/dL (75-99)
[2018-08-25 19:55] LABS: Glucose,Whole Blood 161 mg/dL (75-99)
[2018-08-25] MEDS: ATORVASTATIN 20 MG TAB PO SCH (20:38)
[2018-08-25] MEDS: AMITRIPTYLINE HCL 10 MG TAB PO SCH (20:38)
[2018-08-25] MEDS: ASPIRIN 81 MG PO SCH (20:38)
--- NOTE | 2018-08-25 21:24 | P.PN ---
Subjective Progress Note Date: 08/25/18 Principal diagnosis: Metastatic Lung I have seen and evaluates patient today, her pain is improved since dexamethasone initiation, ortho spine and radiation oncology feel with her increased pain and changes in MRI an outpatient neurosurgical evaluation isappropriate and we can set this up at discharge. She remains anxious as this discussion was brought up but is willing to follow-up Objective - Vital Signs Vital signs: Vital Signs Temp 97.1 F L 08/25/18 12:56 Pulse 88 08/25/18 20:17 Resp 16 08/25/18 15:12 BP 143/71 08/25/18 12:56 Pulse Ox 96 08/25/18 12:56 Intake & Output 08/25/18 08/25/18 08/26/18 06:59 18:59 06:59 Intake Total 590 Balance 590 Intake: Oral 590 Other: Voiding Method Bedside Commode # Voids 2 3 # Bowel Movements 0 2 - Exam Gen: Alert and Oriented, Mild Distress Head: NC, NT Neck Supple No palpable adenopathy HR: Tachy, Reg Lungs: Tight, Diminished, Mild increase Abdomen: S/Nd Ext: Mild Edema - Labs CBC & Chem 7: 08/24/18 06:23 08/24/18 06:23 Labs: Abnormal Lab Results - Last 24 Hours (Table) 08/25/18 08/25/18 08/25/18 Range/Units 07:06 11:35 16:36 POC Glucose (mg/dL) 185 H 161 H 224 H (75-99) mg/dL 08/25/18 Range/Units 19:54 POC Glucose (mg/dL) 161 H (75-99) mg/dL Microbiology - Last 24 Hours (Table) 08/21/18 23:53 Blood Culture - Preliminary Blood No Growth after 72 hours Assessment and Plan Plan: Assessment and recommendations: Non-Small Cell Lung Cancer/Squamous Cell Carcinoma - Progressive, Metastatic Disease: - Recent treatment with Immune Therapy Tecentriq, Status POst Cycle 2 08/18/18 - Progression on Recent PET, Concern for Thoracic Spine Compression Pathological - MRI Spine with Contrast Ordered Pain in back/THoracic Spine: - WIll further review imaging with radiologist and Radiation Oncology in the am - Continue on Dexamethasone in the interim/PPI Post Obstructive Pneumonia. - On Zosyn. - Pulmonary medicine following. - CTA Ordered for further evaluation was reviewed no evidence of PE noted UTI:E-Coli - Known overactive bladder and incontinence. - Urine culture in progress. - Continue Zosyn. per Primary team Neoplastic Related Pain: - Continue Supportive pain management and Bowel Regimen - Further assess Thoracic Spine cord involvement. Febrile On Immunotherapy: - Improved today - Jordan Cultures from Blood Negative at this time - UTI POsitive E-coli noted above Leukocytosis: Reactive to Infection Normocytic Anemia: - Secondary to malignancy and treatment Plan: - COntinue on dexamethasone/PPI - Ortho-spine and Radiation Onc Rec reviewed, will set patient up with out atient neurosurgery evaluation at discharge. - DISPO PLan Per primary team for resolution of UTI and abx recs - Continue Dex at discharge and will taper as outpatient - FOllow-up in our office within 2 weeks of discharge, assist with arranging outpatient consultation for patient prior to discharge Physician Attest: I have completed the full history and physical of this patient and developed the above impression and plan, agree with dictation by Yolanda Yanes, Dictated as a scribe.
[2018-08-26] MEDS: MELATONIN 5 MG TABLET PO PRN ×2 (00:49→23:55)
[2018-08-26] MEDS: ACETAMINOPHEN TAB 325 MG TAB PO PRN ×2 (00:49→15:55)
[2018-08-26] MEDS: PIPERACILLIN-TAZOBACTAM 3.375 GM in SODIUM CHLORIDE 0.9% 100 ML IVPB SCH ×3 (00:53→16:00)
[2018-08-26] MEDS: CLOTRIMAZOLE TROCHE 10 MG TROCHE MUCOUS MEM SCH ×4 (06:08→20:34)
[2018-08-26] MEDS: IBUPROFEN 400 MG TAB PO PRN ×2 (06:08→23:57)
[2018-08-26 07:07] LABS: Glucose,Whole Blood 278 mg/dL (75-99)
[2018-08-26] MEDS: IPRATROPIUM-ALBUTEROL 3 ML NEB INHALATION SCH ×4 (07:37→20:18)
[2018-08-26] MEDS: FORMOTEROL FUMARATE 20 MCG/2 ML NEBU INHALATION SCH ×2 (07:37→20:18)
[2018-08-26] MEDS: methylPREDNISolone SOD SUCCI 40 MG/ML 1 ML VIAL IV SCH (08:23)
[2018-08-26] MEDS: METOPROLOL TARTRATE 25 MG TAB PO SCH ×2 (08:23→20:34)
[2018-08-26] MEDS: POTASSIUM CHLORIDE ER 20 MEQ TAB.ER PO SCH (08:23)
[2018-08-26] MEDS: FUROSEMIDE 40 MG TAB PO SCH (08:23)
[2018-08-26] MEDS: FAMOTIDINE 20 MG TAB PO SCH (08:23)
[2018-08-26] MEDS: HEPARIN SODIUM,PORCINE 5,000 UNIT/ML 1 ML VIAL SQ SCH ×3 (08:24→23:55)
[2018-08-26] MEDS: LIDOCAINE 5% PATCH TOPICAL SCH (08:24)
[2018-08-26] MEDS: INSULIN ASPART (NovoLOG) 100 UNIT/ML VIAL SQ SCH ×4 (08:24→20:34)
[2018-08-26] MEDS: OXYBUTYNIN CHLORIDE 5 MG TAB PO SCH ×2 (08:25→15:57)
[2018-08-26 11:43] LABS: Glucose,Whole Blood 113 mg/dL (75-99)
--- NOTE | 2018-08-26 12:44 | P.PN ---
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 Patient just started immunotherapy in July of this year. She recently completed a 5 week course of steroids secondary to metastatic pain. Patient is complaining of muscle aches in the back and around to the front thought to be a side effect of her new medication. Patient states that she has had increasing shortness of breath with a sitter should and increased shortness of breath just getting to the bathroom. She complains of cough that seems to be unchanged from her baseline. She is complaining of increased pain to the upper back with increased pain with deep breathing. She also complains of increased urinary frequency and have negative to the bathroom only during the night. She states she has an overactive bladder does not have much feeling. Patient came into [facility] emergency center for evaluation. Influenza testing was negative, white count 14.5, hemoglobin 10, platelet count 495, alkaline phosphatase 142, CO2 33, troponin 0.013. Urinalysis was cloudy, nitrate positive, leukoesterase large, WBC greater than 182 bacteria moderate. Temperature max 102.6. Chest x-ray showed nonspecific left lower lobe consolidation. No definite change. EKG was a sinus rhythm with frequent PVCs. Patient was provided IV antibiotics emergency center and placed on the [facility] floor consult with pulmonary medicine and oncology requested. 08/23: Temperature max 100.1, pulse 88, blood pressure 120/73, pulse ox 96% on 2 L nasal cannula. Patient has been seen by oncology and MRI thoracic spine has been ordered. CTA of the chest also ordered. Patient has also been seen by Dr. Garcia and shortness of breath possibly related to mild COPD exacerbation and increased back pain. The left lower lobe consolidation is related to underlying lung cancer and doubts pneumonia. Repeat chest x-ray reveals similar-appearing left perihilar and left basilar obesity may represent examination pneumonia and posttherapy change. Patient states that her thoracic pain is somewhat better from yesterday. She has been afebrile, heart rate in the 80s, blood pressure 111/73 and pulse ox 93% on 3 L nasal cannula. Patient is normally on home O2 at 2 L. WBC 13.8, hemoglobin 9.9, platelet count 491, creatinine 0.47, CO2 33. Blood sugars running 148-232 secondary to steroids. She is continued on IV Zosyn. 08/24: Repeat lab work reveals white count 17.8, hemoglobin 9.3, platelet count 527, CO2 33, creatinine 0.58 and BUN 25. Thoracic spine MRI reveals soft tissue mass within the left paraspinal region of the lung field extending into the left intrathecal canal adjacent to the spinal cord. Cord deformity is not ident ified. However degree of narrowing is increasing from the comparison from May. No cord displacement is evident. Extensive metastasis within the T5 through T8 levels. CTA of the chest showed no signs of pulmonary embolism. New numerous right-sided metastatic pulmonary nodules measuring up to 1.3 cm. Increasing consolidation within the left lower lobe at the site of known neoplasm and small left pleural effusion suspicious for recurrence and surrounding postobstructive atelectasis. No compressive deformity of T5 vertebral body appearing pathologic with surrounding sclerosis. Additional sites within multiple posterior ribs with mottled bone marrow may relate to osseous demineralization or additional foci of metastasis. Consult needed for Dr. Marino regarding T5 fracture. Consult has also been added for Dr. Quinn. Urine culture revealed 10,000-49,000 colonies of E. coli that is susceptible to Zosyn. 08/25: Patient has been seen by Dr. Marino with recommendations for evaluation by tertiary care center for her compression deformity in the mid thoracic spine. Patient has also been seen by Dr. Quinn and no further radiotherapy will be recommended at this time as patient does not have cord compression and pain is under control. Patient states that her thoracic pain is much improved today. She is able to speak in full sentences and shortness of breath is improved as we ll. Patient remains afebrile, blood pressure 143/71, pulse ox 96% on 2 L which is her baseline. Patient's discharge plan is to return home. The patient will be monitored overnight and plan for discharge home tomorrow. 08/26: Patient has been afebrile, heart rate in the 80s, blood pressure 131/72, pulse ox 97% on 2 L nasal cannula. Patient states she has been up and walking without shortness of breath. The lidocaine patches started yesterday seemed to be helping. She states she is overall about 75% better than when she came in. She is complaining of postnasal drainage but no sputum production. Patient is very anxious as she feels she has not talked all her consultants in the past 24 hours. We will plan to continue IV antibiotics for another 24 hours and discharge home tomorrow. Solu-Medrol will be discontinued and patient started on prednisone in the morning. Urine culture is finalized with E. coli. Review of Systems Constitutional: Denies chills, Reports fatigue, denies fever, Denies poor appetite Ears, nose, mouth and throat: Denies dysphagia, Denies headache, Denies hoarseness, Denies mouth pain, Denies nasal congestion, Denies nasal discharge, Denies sore throat, Denies vertigo Cardiovascular: Reports decreased exercise tolerance, Reports dyspnea on exertion, Denies chest pain, Denies edema, Denies leg edema, Denies lightheadedness, Denies shortness of breath, Denies syncope Respiratory: Reports cough, denies cough with sputum, denies dyspnea, Denies excessive sputum, Denies hemoptysis, Denies home oxygen, Denies wheezing Gastrointestinal: Denies abdominal pain, Denies diarrhea, Denies nausea, Denies vomiting Genitourinary: Reports urge incontinence, Reports urgency, Reports urinary frequency, Denies dysuria, Denies hematuria Musculoskeletal: Denies frequent falls, Denies gait dysfunction, Denies myalgias, reports thoracic back pain Integumentary: Denies pruritus, Denies rash, Denies wounds Neurological: Denies aphasia, Denies change in speech, Denies confusion, Denies gait dysfunction, Denies numbness, Denies seizures, Denies weakness Psychiatric: Denies anxiety, Denies depression Endocrine: Denies fatigue, Denies weight change Objective - Vital Signs Vital signs: Vital Signs Temp 97.6 F 08/26/18 05:00 Pulse 88 08/26/18 07:58 Resp 18 08/26/18 08:00 BP 131/72 08/26/18 05:00 Pulse Ox 97 08/26/18 05:00 Intake & Output 08/25/18 08/26/18 08/26/18 18:59 06:59 18:59 Intake Total 310 Balance 310 Intake: IV 160 ns@20 160 Intake, IV Titration 150 Amount Piperacillin-Tazobactam 3 150 .375 gm In Sodium Chloride 0.9% 100 ml @ 25 mls/hr IVPB Q8H [facility] Rx#: [id number] Other: Voiding Method Bedside Commode # Voids 3 4 # Bowel Movements 2 1 - Exam Gen: This is a 72-year-old female. She is resting in recliner and appears to be comfortable and in no acute distress. Patient is able to speak in full sentences with no difficulty in breathing. HEENT: Head is atraumatic, normocephalic. Pupils equal, round. Sclerae is anict cathy. NECK: Supple. No JVD. No lymphadenopathy. No thyromegaly. LUNGS: Clear to auscultation. No wheezes or rhonchi. No intercostal retractions. No accessory muscle usage. No rash noted to the posterior thorax. Back pain is improved. HEART: Regular rate and rhythm. No murmur. ABDOMEN: Soft. Bowel sounds are present. No masses. No tenderness. EXTREMITIES: No pedal edema. No calf tenderness. NEUROLOGICAL: Patient is awake, alert and oriented x3. Cranial nerves 2 through 12 are grossly intact. - Labs CBC & Chem 7: 08/24/18 06:23 08/24/18 06:23 Labs: Abnormal Lab Results - Last 24 Hours (Table) 08/25/18 08/25/18 08/25/18 Range/Units 11:35 16:36 19:54 POC Glucose (mg/dL) 161 H 224 H 161 H (75-99) mg/dL 08/26/18 Range/Units 07:06 POC Glucose (mg/dL) 278 H (75-99) mg/dL Microbiology - Last 24 Hours (Table) 08/21/18 23:53 Blood Culture - Preliminary Blood No Growth after 96 hours Assessment and Plan Plan: 1. Sepsis secondary to Possible gram-negative pneumonia and UTI. Patient will be started on Zosyn. Continue DuoNeb treatments every 4 hours as needed. Consult with pulmonary medicine. 2. Acute E. coli UTI secondary to overactive bladder and incontinence. Urine culture in progress. Continue Zosyn. Transition to oral antibiotic tomorrow. 3. Squamous cell carcinoma of the left lower lung with recurrence, nonsurgical candidate. Patient started immunotherapy in July. Oncology consult appreciated. Thoracic MRI ordered and CTA of the chest. 4. Posterior rib and muscle pain likely secondary to recurrent tumor status post recent radiation for palliative treatment. Consult with radiation oncology and Dr. Marino appreciated. Lidocaine patch 5. Hypertension. Continue Lopressor 25 mg twice daily. 6. Hyperlipidemia. Continue Lipitor 20 mg at bedtime. 7. COPD, stable without exacerbation. Consult with pulmonary medicine. 8. DVT prophylaxis. Heparin subcu. 9. GI prophylaxis. Pepcid. 10. T5 fracture, pathologic. Consults with Drs. Marino and Kai Discharge plan: Home to [facility] on Wednesday Impression and plan of care have been directed as dictated by the signing physician. Maria Guadalupe Zaragoza nurse practitioner acting as scribe for signing physician.
[2018-08-26 16:27] LABS: Glucose,Whole Blood 121 mg/dL (75-99)
[2018-08-26 20:03] LABS: Glucose,Whole Blood 175 mg/dL (75-99)
[2018-08-26] MEDS: ASPIRIN 81 MG PO SCH (20:34)
[2018-08-26] MEDS: AMITRIPTYLINE HCL 10 MG TAB PO SCH (20:34)
[2018-08-26] MEDS: ATORVASTATIN 20 MG TAB PO SCH (20:34)
[2018-08-26] MEDS: ALPRAZolam 0.25 MG TAB PO PRN (23:55)
[2018-08-27] MEDS: ACETAMINOPHEN TAB 325 MG TAB PO PRN ×2 (01:48→08:21)
[2018-08-27] MEDS: PIPERACILLIN-TAZOBACTAM 3.375 GM in SODIUM CHLORIDE 0.9% 100 ML IVPB SCH ×2 (02:15→08:21)
[2018-08-27] MEDS: CLOTRIMAZOLE TROCHE 10 MG TROCHE MUCOUS MEM SCH ×3 (06:09→14:28)
[2018-08-27 06:59] LABS: Glucose,Whole Blood 117 mg/dL (75-99)
[2018-08-27] MEDS: INSULIN ASPART (NovoLOG) 100 UNIT/ML VIAL SQ SCH ×2 (08:07→14:27)
[2018-08-27] MEDS: FAMOTIDINE 20 MG TAB PO SCH (08:20)
[2018-08-27] MEDS: METOPROLOL TARTRATE 25 MG TAB PO SCH (08:20)
[2018-08-27] MEDS: POTASSIUM CHLORIDE ER 20 MEQ TAB.ER PO SCH (08:20)
[2018-08-27] MEDS: OXYBUTYNIN CHLORIDE 5 MG TAB PO SCH (08:21)
[2018-08-27] MEDS: LIDOCAINE 5% PATCH TOPICAL SCH (08:23)
[2018-08-27] MEDS: IPRATROPIUM-ALBUTEROL 3 ML NEB INHALATION SCH ×2 (08:23→11:41)
[2018-08-27] MEDS: FORMOTEROL FUMARATE 20 MCG/2 ML NEBU INHALATION SCH (08:23)
[2018-08-27] MEDS: HEPARIN SODIUM,PORCINE 5,000 UNIT/ML 1 ML VIAL SQ SCH (08:24)
[2018-08-27] MEDS ORDERED: predniSONE 20 MG TAB PO SCH (09:00)
[2018-08-27 11:06] LABS: Glucose,Whole Blood 259 mg/dL (75-99)
[2018-08-27] MEDS: FUROSEMIDE 40 MG TAB PO SCH (11:42)
[2018-08-27 12:08] VITALS: BP 121/54; PULSE 78; RESP 18; TEMP 98.2
--- NOTE | 2018-08-27 13:23 | P.DS ---
Providers Date of admission: 08/22/18 01:42 Attending physician: Samara Arrieta Consults: 08/22/18 01:40 Consult Physician Urgent Consulting Provider: Rajendra Burgos Consult Reason/Comments: pneumonia Do you want consulting provider notified?: Yes, Notify in am Consult Physician Urgent Consulting Provider: Darryl Garcia Consult Reason/Comments: established patient Do you want consulting provider notified?: Yes, Notify in am 08/23/18 16:45 Consult Physician Routine Consulting Provider: Matthew Quinn Consult Reason/Comments: compression T5 Do you want consulting provider notified?: Yes 08/24/18 11:15 Consult Physician Routine Consulting Provider: Daily Marino Consult Reason/Comments: T5 fx Do you want consulting provider notified?: Yes Primary care physician: [place] Hospital Course: This is a 72-year-old female patient of Radha Alexander, Kai with past medical history of 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 Patient just started immunotherapy in July of this year. She recently completed a 5 week course of steroids secondary to metastatic pain. Patient is complaining of muscle aches in the back and around to the front thought to be a side effect of her new medication. Patient states that she has had increasing shortness of breath with a sitter should and increased shortness of breath just getting to the bathroom. She complains of cough that seems to be unchanged from her baseline. She is complaining of increased pain to the upper back with increased pain with deep breathing. She also complains of increased urinary frequency and have negative to the bathroom only during the night. She states she has an overactive bladder does not have much feeling. Patient came into [facility] emergency center for evaluation. Influenza testing was negative, white count 14.5, hemoglobin 10, platelet count 495, alkaline phosphatase 142, CO2 33, troponin 0.013. Urinalysis was cloudy, nitrate positive, leukoesterase large, WBC greater than 182 bacteria moderate. Temperature max 102.6. Chest x-ray showed nonspecific left lower lobe consolidation. No definite change. EKG was a sinus rhythm with frequent PVCs. Patient was provided IV antibiotics emergency center and placed on the [facility] floor consult with pulmonary medicine and oncology requested. 08/23: Temperature max 100.1, pulse 88, blood pressure 120/73, pulse ox 96% on 2 L nasal cannula. Patient has been seen by oncology and MRI thoracic spine has been ordered. CTA of the chest also ordered. Patient has also been seen by Dr. Garcia and shortness of breath possibly related to mild COPD exacerbation and increased back pain. The left lower lobe consolidation is related to underlying lung cancer and doubts pneumonia. Repeat chest x-ray reveals similar-appearing left perihilar and left basilar obesity may represent examination pneumonia and posttherapy change. Patient states that her thoracic pain is somewhat better from yesterday. She has been afebrile, heart rate in the 80s, blood pressure 111/73 and pulse ox 93% on 3 L nasal cannula. Patient is normally on home O2 at 2 L. WBC 13.8, hemoglobin 9.9, platelet count 491, creatinine 0.47, CO2 33. Blood sugars running 148-232 secondary to steroids. She is continued on IV Zosyn. 08/24: Repeat lab work reveals white count 17.8, hemoglobin 9.3, platelet count 527, CO2 33, creatinine 0.58 and BUN 25. Thoracic spine MRI reveals soft tissue mass within the left paraspinal region of the lung field extending into the left intrathecal canal adjacent to the spinal cord. Cord deformity is not identified. However degree of narrowing is increasing from the comparison from May. No cord displacement is evident. Extensive metastasis within the T5 through T8 levels. CTA of the chest showed no signs of pulmonary embolism. New numerous right-sided metastatic pulmonary nodules measuring up to 1.3 cm. Increasing consolidation within the left lower lobe at the site of known n eoplasm and small left pleural effusion suspicious for recurrence and surrounding postobstructive atelectasis. No compressive deformity of T5 vertebral body appearing pathologic with surrounding sclerosis. Additional sites within multiple posterior ribs with mottled bone marrow may relate to osseous demineralization or additional foci of metastasis. Consult needed for Dr. Marino regarding T5 fracture. Consult has also been added for Dr. Quinn. Urine culture revealed 10,000-49,000 colonies of E. coli that is susceptible to Zosyn. 08/25: Patient has been seen by Dr. Marino with recommendations for evaluation by tertiary care center for her compression deformity in the mid thoracic spine. Patient has also been seen by Dr. Quinn and no further radiotherapy will be recommended at this time as patient does not have cord compression and pain is under control. Patient states that her thoracic pain is much improved today. She is able to speak in full sentences and shortness of breath is improved as well. Patient remains afebrile, blood pressure 143/71, pulse ox 96% on 2 L which is her baseline. Patient's discharge plan is to return home. The patient will be monitored overnight and plan for discharge home tomorrow. 08/26: Patient has been afebrile, heart rate in the 80s, blood pressure 131/72, pulse ox 97% on 2 L nasal cannula. Patient states she has been up and walking without shortness of breath. The lidocaine patches started yesterday seemed to be helping. She states she is overall about 75% better than when she came in. She is complaining of postnasal drainage but no sputum production. Patient is very anxious as she feels she has not talked all her consultants in the past 24 hours. We will plan to continue IV antibiotics for another 24 hours and discharge home tomorrow. Solu-Medrol will be discontinued and patient started on prednisone in the morning. Urine culture is finalized with E. coli. 08/27: Patient is resting comfortably in bed. She is anxious to go home states that she is feeling much better than she was when she came in. Patient has been on oral prednisone as of yesterday not complaining of any shortness of breath or difficulty breathing. Patient does have lidocaine patches on and states that they have helped with pain management. Patient remains afebrile. Her heart rate in the 80s, blood pressure 121/54. 1. Sepsis secondary to Possible gram-negative pneumonia and UTI. 2. Acute E. coli UTI secondary to overactive bladder and incontinence. 3. Squamous cell carcinoma of the left lower lung with recurrence, nonsurgical candidate. 4. Posterior rib and muscle pain likely secondary to recurrent tumor status post recent radiation for palliative treatment. 5. Hypertension. 6. Hyperlipidemia. 7. COPD, stable without exacerbation. 8. T5 fracture, pathologic. Consults with Drs. Marino and Kai Disposition: Home to [facility] Impression and plan of care have been directed as dictated by the signing dg alarcon. Sandra Wolf nurse practitioner acting as scribe for signing physician. Patient Condition at Discharge: Good Plan - Discharge Summary Discharge Rx Participant: Yes New Discharge Prescriptions: New Cephalexin [Keflex] 250 mg PO Q8HR #9 capsule Lidocaine [Lidocaine 3% Topical Cream] 1 applic TOPICAL BID #30 gram Nystatin 100,000 Unit/ml Susp [Mycostatin Oral Susp] 5 ml PO QID #60 ml predniSONE 40 mg PO DAILY #14 tab Acetaminophen Tab [Tylenol] 650 mg PO Q6HR PRN tab PRN Reason: Mild Pain Or Fever > 100.5 Continue Simvastatin [Zocor] 40 mg PO HS Metoprolol Tartrate [Lopressor] 25 mg PO BID Oxybutynin Chloride [Ditropan] 5 mg PO BID@0800,1700 Aspirin EC [Ecotrin Low Dose] 81 mg PO HS Amitriptyline HCl [Elavil] 10 mg PO HS Melatonin 5 mg PO HS PRN tablet PRN Reason: Insomnia ALPRAZolam [Xanax] 0.25 mg PO TID PRN #90 tab PRN Reason: Anxiety Potassium Chloride ER [K-Dur 20] 20 meq PO DAILY Albuterol Nebulized (Conc) [Ventolin Nebulized (Conc)] 2.5 mg INHALATION RT- QID Furosemide [Lasix] 40 mg PO DAILY Discharge Medication List Amitriptyline HCl [Elavil] 10 mg PO HS 05/25/16 [History] Aspirin EC [Ecotrin Low Dose] 81 mg PO HS 05/25/16 [History] Metoprolol Tartrate [Lopressor] 25 mg PO BID 05/25/16 [History] Oxybutynin Chloride [Ditropan] 5 mg PO BID@0800,1700 05/25/16 [History] Simvastatin [Zocor] 40 mg PO HS 05/25/16 [History] Melatonin 5 mg PO HS PRN tablet 04/22/17 [Rx] ALPRAZolam [Xanax] 0.25 mg PO TID PRN #90 tab 06/16/17 [Rx] Potassium Chloride ER [K-Dur 20] 20 meq PO DAILY 06/17/17 [History] Albuterol Nebulized (Conc) [Ventolin Nebulized (Conc)] 2.5 mg INHALATION RT-QID 06/06/18 [History] Furosemide [Lasix] 40 mg PO DAILY 06/06/18 [History] Acetaminophen Tab [Tylenol] 650 mg PO Q6HR PRN tab 08/27/18 [Rx] Cephalexin [Keflex] 250 mg PO Q8HR #9 capsule 08/27/18 [Rx] Lidocaine [Lidocaine 3% Topical Cream] 1 applic TOPICAL BID #30 gram 08/27/18 [Rx] Nystatin 100,000 Unit/ml Susp [Mycostatin Oral Susp] 5 ml PO QID #60 ml 08/27/18 [Rx] predniSONE 40 mg PO DAILY #14 tab 08/27/18 [Rx] Follow up Appointment(s)/Referral(s): Sunil Cagle MD [Primary Care Provider] - 1 Week Rafita Richards PAC [PHYSICIAN PRODUCT SUPPORT REP] - As Needed (Patient may follow-up with Rafita Richards PA-C or Dr. Mahin Marino at [facility] on an as needed basis following discharge. ) Rajendra Burgos MD [STAFF PHYSICIAN] - 1 Week Darryl Garcia MD [STAFF PHYSICIAN] - 1 Week Discharge Disposition: HOME SELF-CARE
[2018-08-27] MEDS: ALPRAZolam 0.25 MG TAB PO PRN (14:09)
== END 2018-08-27 15:30 | disposition home or self-care (01) | DRG 871 ==
LOC: EC 23:13 → 4SSUR 08-22 01:42 → 3NMEDONC 08-22 15:21
PROVIDERS: ADMIT Internal Medicine; ATTEND Internal Medicine
PROC: 05HD33Z Insertion of Infusion Device into Right Cephalic Vein, Percutaneous Approach (ICD-10-PCS; principal; 2018-08-26 12:05)
DX: A41.50 Gram-negative sepsis, unspecified (principal); J15.6 Pneumonia due to other Gram-negative bacteria; J96.91 Respiratory failure, unspecified with hypoxia; N39.0 Urinary tract infection, site not specified; C34.32 Malignant neoplasm of lower lobe, left bronchus or lung; C79.51 Secondary malignant neoplasm of bone; M84.58XA Pathological fracture in neoplastic disease, other specified site, initial encounter for fracture; G95.29 Other cord compression; C78.01 Secondary malignant neoplasm of right lung; J44.0 Chronic obstructive pulmonary disease with (acute) lower respiratory infection; D63.0 Anemia in neoplastic disease; B96.20 Unspecified Escherichia coli [E. coli] as the cause of diseases classified elsewhere; I10 Essential (primary) hypertension; N39.3 Stress incontinence (female) (male); N32.81 Overactive bladder; E78.5 Hyperlipidemia, unspecified; G89.3 Neoplasm related pain (acute) (chronic); F41.0 Panic disorder [episodic paroxysmal anxiety]; I49.3 Ventricular premature depolarization; M54.5 Low back pain; E66.9 Obesity, unspecified; Z68.35 Body mass index [BMI] 35.0-35.9, adult; Z99.81 Dependence on supplemental oxygen; Z79.82 Long term (current) use of aspirin; Z79.899 Other long term (current) drug therapy; Z92.3 Personal history of irradiation; Z92.21 Personal history of antineoplastic chemotherapy; Z87.442 Personal history of urinary calculi; Z90.49 Acquired absence of other specified parts of digestive tract; Z96.653 Presence of artificial knee joint, bilateral; Z87.891 Personal history of nicotine dependence; Z87.01 Personal history of pneumonia (recurrent); Z98.890 Other specified postprocedural states; Z88.2 Allergy status to sulfonamides; Z88.8 Allergy status to other drugs, medicaments and biological substances; Z80.3 Family history of malignant neoplasm of breast; Z80.0 Family history of malignant neoplasm of digestive organs; Z80.1 Family history of malignant neoplasm of trachea, bronchus and lung
CPT/HCPCS: 36410; 36415; 71046; 71275; 72157; 76937; 80053; 81001; 82550; 83605; 84484; 85025; 85610; 85730; 87040; 87077; 87086; 87186; 87502; 93005; 94640; 94760; 96361; 96374; 96375; 99285

== ENCOUNTER 2018-09-04 18:07 | Inpatient (IN) | payer MEDICARE, BC ==
[2018-09-04] MEDS ORDERED: ALBUTEROL NEBULIZED 2.5 MG/3 ML INHALATION STA (18:27)
[2018-09-04] MEDS ORDERED: IPRATROPIUM 0.5 MG/2.5 ML NEBU INHALATION STA (18:27)
[2018-09-04] MEDS ORDERED: methylPREDNISolone SOD SUCCI 125 MG/2 ML VIAL IV STA (18:27)
[2018-09-04] MEDS ORDERED: SODIUM CHLORIDE 0.9% 1,000 ML IV STA (18:27)
[2018-09-04] MEDS ORDERED: HYDROmorphone 1 MG/ML 1 ML SYRINGE IVP STA (18:28)
--- NOTE | 2018-09-04 18:34 | ED ---
Skin/Abscess/FB HPI - General Chief complaint: Skin/Abscess/Foreign Body Stated complaint: SHINGLES Time Seen by Provider: 09/04/18 18:12 Source: patient, EMS, RN notes reviewed, old records reviewed Mode of arrival: EMS Limitations: no limitations - History of Present Illness Initial comments: This is a 72-year-old female the ER for evaluation. Today patient has multiple complaints. This have significant underlying respiratory distress and respirat ory disease. Patient's coming in with left-sided flank pain and rash. New- onset rash 4 days. Patient states she believes it may be shingles, she has received a shingles vaccine no she did. Patient denies any other complaints of headache. No fevers. Mild nausea no vomiting, increasing shortness of breath. Patient denies chest pain or abdominal pain. Patient has significant pain to the area of the rash MD complaint: rash -: days(s) Tetanus Up to Date: yes Location: back (Left lateral back, under scapula) Severity: moderate (18) Severity scale (1-10): 7 Quality: burning, sharp Consistency: constant Context: none Associated symptoms: shortness of breath Treatments Prior to Arrival: none - Related Data Home Medications Medication Instructions Recorded Confirmed Aspirin EC [Ecotrin Low Dose] 81 mg PO HS 05/25/16 09/04/18 Metoprolol Tartrate [Lopressor] 25 mg PO BID 05/25/16 09/04/18 Oxybutynin Chloride [Ditropan] 5 mg PO BID@0800,1700 05/25/16 09/04/18 Simvastatin [Zocor] 40 mg PO HS 05/25/16 09/04/18 Potassium Chloride ER [K-Dur 20] 20 meq PO DAILY 06/17/17 09/04/18 Albuterol Nebulized (Conc) 2.5 mg INHALATION RT-QID 06/06/18 09/04/18 [Ventolin Nebulized (Conc)] Furosemide [Lasix] 40 mg PO DAILY 06/06/18 09/04/18 Formoterol Fumarate [Perforomist] 20 mcg INHALATION BID 09/04/18 09/04/18 Previous Rx's Medication Instructions Recorded Melatonin 5 mg PO HS PRN tablet 04/22/17 ALPRAZolam [Xanax] 0.25 mg PO TID PRN #90 tab 06/16/17 Lidocaine [Lidocaine 3% Topical 1 applic TOPICAL BID #30 gram 08/27/18 Cream] Amitriptyline HCl [Elavil] 25 mg PO HS #30 tab 09/06/18 HYDROcodone/APAP 5-325MG [Crane 1 tab PO Q6HR PRN 3 Days #12 tab 09/06/18 5-325] diphenhydrAMINE [Benadryl] 25 mg PO QID PRN cap 09/06/18 valACYclovir HCL [Valtrex] 1,000 mg PO BID #14 tablet 09/06/18 Allergies Allergy/AdvReac Type Severity Reaction Status Date / Time nitrofurantoin AdvReac Abdominal Verified 09/04/18 21:37 [From Macrodantin] Pain Sulfa (Sulfonamide AdvReac Nausea Verified 09/04/18 21:37 Antibiotics) Review of Systems ROS Statement: Those systems with pertinent positive or pertinent negative responses have been documented in the HPI. ROS Other: All systems not noted in ROS Statement are negative. Past Medical History Past Medical History: Cancer, COPD, Hyperlipidemia, Hypertension, Pneumonia Additional Past Medical History / Comment(s): past bleeding from hemorrhoids,stress incontinence,bronchitis, overactive bladder, kidney stone, LLL Lung CA, 06-06-17 pne/sepsis. History of Any Multi-Drug Resistant Organisms: None Reported Past Surgical History: Bladder Surgery, Breast Surgery, Cholecystectomy, Joint Replacement Additional Past Surgical History / Comment(s): left complete knee replacement, rt partial knee replacement,rectocele, bowel surgery to unkink colon,cyst removed breast,bladder surgery x3, bladder suspension, hemorrhoidectomy, rectal prolapse repair Past Anesthesia/Blood Transfusion Reactions: No Reported Reaction Additional Past Anesthesia/Blood Transfusion Reaction / Comment(s): no hx blood transfusion Past Psychological History: No Psychological Hx Reported Smoking Status: Former smoker Past Alcohol Use History: None Reported Past Drug Use History: None Reported - Past Family History Mother Family Medical History: No Reported History Additional Family Medical History / Comment(s): Mother at age 80 from old age. Heart palpitations Father History Unknown: Yes Additional Family Medical History / Comment(s): Father when he was young from ruptured hernia. Sister with breast cancer, sister with colon cancer, sis ter with lung cancer, brother with lung cancer General Exam - General Exam Comments Initial Comments: Does have vesicular rash in dermatomal under scapula Limitations: no limitations General appearance: alert, in no apparent distress Head exam: Present: atraumatic, normocephalic, normal inspection Eye exam: Present: normal appearance, PERRL, EOMI. Absent: scleral icterus, conjunctival injection, periorbital swelling ENT exam: Present: normal exam, mucous membranes moist Neck exam: Present: normal inspection. Absent: tenderness, meningismus, lymphadenopathy Respiratory exam: Present: normal lung sounds bilaterally. Absent: respiratory distress, wheezes, rales, rhonchi, stridor Cardiovascular Exam: Present: regular rate, normal rhythm, normal heart sounds. Absent: systolic murmur, diastolic murmur, rubs, gallop, clicks GI/Abdominal exam: Present: soft, normal bowel sounds. Absent: distended, tenderness, guarding, rebound, rigid Extremities exam: Present: normal inspection, full ROM, normal capillary refill. Absent: tenderness, pedal edema, joint swelling, calf tenderness Back exam: Present: normal inspection Neurological exam: Present: alert, oriented X3, CN II-XII intact Psychiatric exam: Present: normal affect, normal mood Skin exam: Present: warm, dry, intact, normal color. Absent: rash Course Vital Signs 09/04/18 09/04/18 09/04/18 18:10 18:57 19:00 Temperature 98.1 F Pulse Rate 56 L 73 Respiratory 18 18 Rate Blood Pressure 121/92 142/129 O2 Sat by Pulse 97 98 Oximetry 09/04/18 09/04/18 09/04/18 19:10 19:12 19:22 Temperature Pulse Rate 106 H 103 H 103 H Respiratory 12 20 20 Rate Blood Pressure 131/93 O2 Sat by Pulse 100 Oximetry 09/04/18 09/04/18 09/04/18 19:39 19:40 20:00 Temperature Pulse Rate 108 H 123 H Respiratory 22 30 H 18 Rate Blood Pressure 117/70 O2 Sat by Pulse 98 Oximetry 09/04/18 09/04/18 09/04/18 20:10 20:20 20:30 Temperature Pulse Rate 116 H 120 H 109 H Respiratory 21 19 23 Rate Blood Pressure 124/60 O2 Sat by Pulse 96 93 L 95 Oximetry 09/04/18 20:50 Temperature 98.2 F Pulse Rate 117 H Respiratory 51 H Rate Blood Pressure 124/62 O2 Sat by Pulse 97 Oximetry - Reevaluation(s) Reevaluation #1: Medical record reviewed Patient's breathing is improved with breathing treatments here in the ER, pain currently controlled Medical Decision Making - Medical Decision Making 72 female the ER for evaluation of rash, shortness of breath. Patient to be admitted for treatment pain controland treatment of SOB - Lab Data Result diagrams: 09/04/18 18:47 09/04/18 18:47 Lab Results 09/04/18 09/04/18 09/04/18 Range/Units 18:47 18:47 18:47 WBC 20.6 H (3.8-10.6) k/uL RBC 4.55 (3.80-5.40) m/uL Hgb 11.9 (11.4-16.0) gm/dL Hct 39.6 (34.0-46.0) % MCV 87.2 (80.0-100.0) fL MCH 26.3 (25.0-35.0) pg MCHC 30.1 L (31.0-37.0) g/dL RDW 19.4 H (11.5-15.5) % Plt Count 337 (150-450) k/uL Neutrophils % 87 % Lymphocytes % 6 % Monocytes % 5 % Eosinophils % 1 % Basophils % 0 % Neutrophils # 17.9 H (1.3-7.7) k/uL Lymphocytes # 1.3 (1.0-4.8) k/uL Monocytes # 1.1 H (0-1.0) k/uL Eosinophils # 0.1 (0-0.7) k/uL Basophils # 0.0 (0-0.2) k/uL Hypochromasia Marked Anisocytosis Slight PT (9.0-12.0) sec INR (<1.2) APTT (22.0-30.0) sec Sodium 138 (137-145) mmol/L Potassium 4.7 (3.5-5.1) mmol/L Chloride 98 (98-107) mmol/L Carbon Dioxide 35 H (22-30) mmol/L Anion Gap 5 mmol/L BUN 24 H (7-17) mg/dL Creatinine 0.55 (0.52-1.04) mg/dL Est GFR (CKD-EPI)AfAm >90 (>60 ml/min/1.73 sqM) Est GFR (CKD-EPI)NonAf >90 (>60 ml/min/1.73 sqM) Glucose 104 H (74-99) mg/dL Calcium 9.2 (8.4-10.2) mg/dL Magnesium 2.1 (1.6-2.3) mg/dL Total Bilirubin 0.5 (0.2-1.3) mg/dL AST 18 (14-36) U/L ALT 22 (9-52) U/L Alkaline Phosphatase 117 (38-126) U/L Troponin I (0.000-0.034) ng/mL NT-Pro-B Natriuret Pep 1360 pg/mL Total Protein 6.5 (6.3-8.2) g/dL Albumin 3.5 (3.5-5.0) g/dL 09/04/18 09/04/18 Range/Units 18:47 18:47 WBC (3.8-10.6) k/uL RBC (3.80-5.40) m/uL Hgb (11.4-16.0) gm/dL Hct (34.0-46.0) % MCV (80.0-100.0) fL MCH (25.0-35.0) pg MCHC (31.0-37.0) g/dL RDW (11.5-15.5) % Plt Count (150-450) k/uL Neutrophils % % Lymphocytes % % Monocytes % % Eosinophils % % Basophils % % Neutrophils # (1.3-7.7) k/uL Lymphocytes # (1.0-4.8) k/uL Monocytes # (0-1.0) k/uL Eosinophils # (0-0.7) k/uL Basophils # (0-0.2) k/uL Hypochromasia Anisocytosis PT 10.2 (9.0-12.0) sec INR 0.9 (<1.2) APTT 24.4 (22.0-30.0) sec Sodium (137-145) mmol/L Potassium (3.5-5.1) mmol/L Chloride (98-107) mmol/L Carbon Dioxide (22-30) mmol/L Anion Gap mmol/L BUN (7-17) mg/dL Creatinine (0.52-1.04) mg/dL Est GFR (CKD-EPI)AfAm (>60 ml/min/1.73 sqM) Est GFR (CKD-EPI)NonAf (>60 ml/min/1.73 sqM) Glucose (74-99) mg/dL Calcium (8.4-10.2) mg/dL Magnesium (1.6-2.3) mg/dL Total Bilirubin (0.2-1.3) mg/dL AST (14-36) U/L ALT (9-52) U/L Alkaline Phosphatase (38-126) U/L Troponin I <0.012 (0.000-0.034) ng/mL NT-Pro-B Natriuret Pep pg/mL Total Protein (6.3-8.2) g/dL Albumin (3.5-5.0) g/dL - EKG Data -: EKG Interpreted by Me (EKG shows sinus tachycardia rate 103, RI 1:30, QRS 80, QTC 440) - Radiology Data Radiology results: report reviewed (Chest x-rays negative for acute disease), image reviewed Disposition Clinical Impression: 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
[2018-09-04 19:18] LABS: Anisocytosis Slight; Basophils % (A) 0 %; Eosinophils # (A) 0.1 k/uL (0-0.7); Eosinophils % (A) 1 %; HCT 39.6 % (34.0-46.0); HGB 11.9 gm/dL (11.4-16.0); Hypochromasia Marked; Lymphocytes # (A) 1.3 k/uL (1.0-4.8); Lymphocytes % (A) 6 %; MCH 26.3 pg (25.0-35.0); MCHC 30.1 g/dL (31.0-37.0); MCV 87.2 fL (80.0-100.0); Monocytes # (A) 1.1 k/uL (0-1.0); Monocytes % (A) 5 %; Neutrophils # (A) 17.9 k/uL (1.3-7.7); Neutrophils % (A) 87 %; Platelet Count 337 k/uL (150-450); RBC 4.55 m/uL (3.80-5.40); RDW 19.4 % (11.5-15.5); WBC 20.6 k/uL (3.8-10.6)
[2018-09-04 19:22] LABS: INR 0.9 (<1.2); Partial Thromboplastin Time 24.4 sec (22.0-30.0); Prothrombin Time 10.2 sec (9.0-12.0)
--- NOTE | 2018-09-04 19:25 | XR ---
EXAMINATION TYPE: XR chest 1V portable DATE OF EXAM: 09/04/2018 COMPARISON: 08/23/2018 HISTORY: Difficulty breathing TECHNIQUE: Single frontal view of the chest is obtained. FINDINGS: Heart is normal. There is some infiltrate left lower lobe. There is a small infiltrate rig ht lung base. Trachea is midline. Thoracic aorta is atheromatous. There are chest leads. IMPRESSION: No heart failure. There is partial clearing of left lower lobe pneumonia compared to las t exam.
[2018-09-04 19:27] LABS: ALT 22 U/L (9-52); AST 18 U/L (14-36); Albumin 3.5 g/dL (3.5-5.0); Alkaline Phosphatase 117 U/L (38-126); Anion Gap 5 mmol/L; Blood Urea Nitrogen 24 mg/dL (7-17); Calcium 9.2 mg/dL (8.4-10.2); Carbon Dioxide 35 mmol/L (22-30); Chloride 98 mmol/L (98-107); Glucose 104 mg/dL (74-99); Magnesium 2.1 mg/dL (1.6-2.3); Potassium 4.7 mmol/L (3.5-5.1); Sodium 138 mmol/L (137-145); Total Bilirubin 0.5 mg/dL (0.2-1.3); Total Protein 6.5 g/dL (6.3-8.2)
[2018-09-04] MEDS: IPRATROPIUM-ALBUTEROL 3 ML NEB INHALATION SCH (19:40)
[2018-09-04] MEDS: valACYclovir HCL 1,000 MG TABLET PO SCH (22:05)
[2018-09-04] MEDS: methylPREDNISolone SOD SUCCI 125 MG/2 ML VIAL IV SCH (23:49)
[2018-09-04] MEDS: HYDROmorphone 1 MG/ML 1 ML SYRINGE IVP PRN (23:55)
[2018-09-05] MEDS: HYDROmorphone 1 MG/ML 1 ML SYRINGE IVP PRN ×4 (03:49→21:02)
[2018-09-05] MEDS: methylPREDNISolone SOD SUCCI 125 MG/2 ML VIAL IV SCH (05:27)
[2018-09-05] MEDS: IPRATROPIUM-ALBUTEROL 3 ML NEB INHALATION SCH ×4 (08:06→19:30)
[2018-09-05] MEDS: valACYclovir HCL 1,000 MG TABLET PO SCH ×2 (08:32→20:57)
[2018-09-05] MEDS: LIDOCAINE 5% PATCH TOPICAL SCH (08:37)
[2018-09-05] MEDS ORDERED: MELATONIN 5 MG TABLET PO PRN (10:30)
[2018-09-05] MEDS ORDERED: ALPRAZolam 0.25 MG TAB PO PRN (10:30)
[2018-09-05] MEDS ORDERED: ACETAMINOPHEN TAB 325 MG TAB PO PRN (10:35)
[2018-09-05] MEDS ORDERED: ALBUTEROL NEB (CONC) 2.5 MG/0.5 ML INHALATION SCH (12:00)
[2018-09-05] MEDS: METOPROLOL TARTRATE 25 MG TAB PO SCH ×2 (12:36→20:57)
--- NOTE | 2018-09-05 12:43 | P.HPIM ---
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 Patient started immunotherapy in July of this year. She had a recent hospitalization earlier this month for sepsis secondary to pneumonia and UTI. She was also treated for posterior rib and muscle pain secondary to recurrent tumor status post recent radiation for palliative treatment. She was discharged home on antibiotics which she completed and a steroid taper which completed on or Wednesday. She states that she developed severe pain on Wednesday night to the left side of her thoracic back area that was a burning, throbbing toothache type pain. She said Tylenol did not help at all. This became significantly worse on Wednesday and she couldn't take the pain. Patient states that she has been unable to sleep because of the pain. She talked to her son who is EMT and thought she might have shingles. She came into [facility] emergency center for evaluation and patient was diagnosed with shingles. Patient was placed on the observation unit and started on Valtrex 1000 mg twice daily and placed in droplet isolation. Patient continues to complain of severe pain to the rash area on the left posterior chest wall around laterally and under the left breast. Review of Systems All systems: negative Constitutional: Denies anorexia, Denies chills, Denies fatigue, Denies fever, Denies poor appetite, Denies weakness Eyes: denies blurred vision, denies pain Ears, nose, mouth and throat: Denies dental pain, Denies headache, Denies mouth pain, Denies nasal congestion, Denies nasal discharge, Denies sore throat Cardiovascular: Denies chest pain, Denies dyspnea on exertion, Denies shortness of breath Respiratory: Denies cough, Denies cough with sputum, Denies dyspnea, Denies excessive sputum, Denies hemoptysis, Denies wheezing Gastrointestinal: Denies abdominal pain, Denies diarrhea, Denies loss of appetite, Denies nausea, Denies vomiting Genitourinary: Denies dysuria, Denies hematuria, Denies urinary frequency Musculoskeletal: Denies frequent falls, Denies gait dysfunction, Denies muscle weakness, Denies myalgias Integumentary: Reports rash, Reports sores, Denies pruritus Neurological: Denies aphasia, Denies change in mentation, Denies change in spee ch, Denies gait dysfunction, Denies numbness, Denies seizures, Denies weakness Psychiatric: Denies anxiety, Denies depression Endocrine: Denies fatigue, Denies weight change Past Medical History Past Medical History: Cancer, COPD, Hyperlipidemia, Hypertension, Pneumonia Additional Past Medical History / Comment(s): past bleeding from hemorrhoids,stress incontinence,bronchitis, overactive bladder, kidney stone, LLL Lung CA, 06-06-17 pne/sepsis. History of Any Multi-Drug Resistant Organisms: None Reported Past Surgical History: Bladder Surgery, Breast Surgery, Cholecystectomy, Joint Replacement Additional Past Surgical History / Comment(s): left complete knee replacement, rt partial knee replacement,rectocele, bowel surgery to unkink colon,cyst removed breast,bladder surgery x3, bladder suspension, hemorrhoidectomy, rectal prolapse repair Past Anesthesia/Blood Transfusion Reactions: No Reported Reaction Additional Past Anesthesia/Blood Transfusion Reaction / Comment(s): no hx blood transfusion Smoking Status: Former smoker Additional Past Alcohol Use History / Comment(s): Patient was a smoker one to 2 packs per day for 30 years and quit in 1998. She denies any illicit drug use, alcohol abuse. Patient lives at [facility]. - Past Family History Mother Family Medical History: No Reported History Additional Family Medical History / Comment(s): Mother at age 80 from old age. Heart palpitations Father History Unknown: Yes Additional Family Medical History / Comment(s): Father when he was young from ruptured hernia. Sister with breast cancer, sister with colon cancer, sister with lung cancer, brother with lung cancer Medications and Allergies Home Medications Medication Instructions Recorded Confirmed Type Amitriptyline HCl [Elavil] 10 mg PO HS 05/25/16 09/04/18 History Aspirin EC [Ecotrin Low Dose] 81 mg PO HS 05/25/16 09/04/18 History Metoprolol Tartrate [Lopressor] 25 mg PO BID 05/25/16 09/04/18 History Oxybutynin Chloride [Ditropan] 5 mg PO BID@0800,1700 05/25/16 09/04/18 History Simvastatin [Zocor] 40 mg PO HS 05/25/16 09/04/18 History Melatonin 5 mg PO HS PRN tablet 04/22/17 09/04/18 Rx ALPRAZolam [Xanax] 0.25 mg PO TID PRN #90 tab 06/16/17 09/04/18 Rx Potassium Chloride ER [K-Dur 20] 20 meq PO DAILY 06/17/17 09/04/18 History Albuterol Nebulized (Conc) 2.5 mg INHALATION RT-QID 06/06/18 09/04/18 History [Ventolin Nebulized (Conc)] Furosemide [Lasix] 40 mg PO DAILY 06/06/18 09/04/18 History Lidocaine [Lidocaine 3% Topical 1 applic TOPICAL BID #30 gram 08/27/18 09/04/18 Rx Cream] Formoterol Fumarate [Perforomist] 20 mcg INHALATION BID 09/04/18 09/04/18 History Allergies Allergy/AdvReac Type Severity Reaction Status Date / Time nitrofurantoin AdvReac Abdominal Verified 09/04/18 21:37 [From Macrodantin] Pain Sulfa (Sulfonamide AdvReac Nausea Verified 09/04/18 21:37 Antibiotics) Physical Exam Vitals: Vital Signs Temp Pulse Pulse Resp BP BP Pulse Ox 09/05/18 08:17 100 09/05/18 08:07 100 09/05/18 07:40 97.8 F 90 18 102/61 96 09/05/18 04:00 98.2 F 89 17 138/78 92 L 09/05/18 03:43 18 09/05/18 00:00 18 09/04/18 23:32 97.9 F 67 17 132/78 91 L 09/04/18 20:50 98.2 F 117 H 51 H 124/62 97 09/04/18 20:30 109 H 23 95 09/04/18 20:20 120 H 19 124/60 93 L 09/04/18 20:10 116 H 21 96 09/04/18 20:00 18 09/04/18 19:40 123 H 30 H 117/70 98 09/04/18 19:39 108 H 22 09/04/18 19:22 103 H 20 09/04/18 19:12 103 H 20 09/04/18 19:10 106 H 12 131/93 100 09/04/18 19:00 73 18 09/04/18 18:57 142/129 98 09/04/18 18:10 98.1 F 56 L 18 121/92 97 Intake and Output 09/04/18 09/05/18 09/05/18 22:59 06:59 14:59 Intake Total 240 Balance 240 Intake: Oral 240 Other: # Voids 1 1 Weight 90.265 kg Gen: This is a 72-year-old obese female. She is resting in chair and appears to be comfortable and in no acute distress. Patient is able to speak in full sentences with no difficulty in breathing. HEENT: Head is atraumatic, normocephalic. Pupils equal, round. Sclerae is anicteric. NECK: Supple. No JVD. No lymphadenopathy. No thyromegaly. LUNGS: Clear to auscultation. No wheezes or rhonchi. No intercostal retractions. No accessory muscle usage. Rash noted to the posterior mid thoracic area, lateral chest wall and under an lower left breast. HEART: Regular rate and rhythm. No murmur. ABDOMEN: Soft. Bowel sounds are present. No masses. No tenderness. EXTREMITIES: No pedal edema. No calf tenderness. Dorsalis pedis +2 bilaterally. NEUROLOGICAL: Patient is awake, alert and oriented x3. Cranial nerves 2 through 12 are grossly intact. Results CBC & Chem 7: 09/04/18 18:47 09/04/18 18:47 Labs: Abnormal Lab Results - Last 24 Hours (Table) 09/04/18 09/04/18 Range/Units 18:47 18:47 WBC 20.6 H (3.8-10.6) k/uL MCHC 30.1 L (31.0-37.0) g/dL RDW 19.4 H (11.5-15.5) % Neutrophils # 17.9 H (1.3-7.7) k/uL Monocytes # 1.1 H (0-1.0) k/uL Carbon Dioxide 35 H (22-30) mmol/L BUN 24 H (7-17) mg/dL Glucose 104 H (74-99) mg/dL Thrombosis Risk Factor Assmnt - DVT/VTE Prophylaxis DVT/VTE Prophylaxis: Pharmacologic Prophylaxis ordered - Choose All That Apply Each Factor Represents 1 point: Obesity (BMI >25) Each Risk Factor Represents 2 Points: Age 61-74 years Thrombosis Risk Factor Assessment Total Risk Factor Score: 3 Thrombosis Risk Factor Assessment Level: Moderate Risk Assessment and Plan Plan: 1. Shingles. Patient started on Valtrex 1000 mg twice daily. Amitriptyline increased to 25 mg at bedtime. 2. Recent treatment for E. coli UTI and gram-negative pneumonia. Patient completed course of antibiotics and steroids. 3. Squamous cell carcinoma of the left lower lung with recurrence, nonsurgical candidate. Patient started immunotherapy in July. 4. Posterior right rib and muscle pain secondary to recurrent tumor status post recent radiation for palliative treatment. Lidocaine patch 5. Hypertension. Continue Lopressor 25 mg twice daily. 6. Hyperlipidemia. Continue Lipitor 20 mg at bedtime. 7. COPD, stable without exacerbation. Continue DuoNeb treatments 4 times carlos ly, Perforomist twice daily. 8. DVT prophylaxis. Heparin subcu. 9. GI prophylaxis. Pepcid. 10. Chronic T5 fracture, pathologic. Patient placed as an observation status. Discharge plan: Home to senior apartment tomorrow. Impression and plan of care have been directed as dictated by the signing physician. Maria Guadalupe Zaragoza nurse practitioner acting as scribe for signing physician.
--- NOTE | 2018-09-05 15:26 | P.CNPUL ---
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 She was not felt to be a surgical candidate, and therefore initiated concurrent chemoradiation. She only tolerated her first cycle of chemotherapy however, and finished radiotherapy treatment on 07/26/2017. Unfortunately, she now presents with a locally recurrent disease, which is large in size and invading the spinal canal. She was treated with a palliative dose of radiotherapy finishing 06/29/2018 for worsening back pain related to recurrence. She has now been hospitalized again with UTI and back pain. Following her course of radiotherapy in June, the patient did report improvement in her back pain. She went on to initiate second line immunotherapy for her progressive disease. She has only completed 2 cycles of this, with the last cycle being this past . The patient was having some aches and pains, including in the back, which she attributed to the therapy. However, over the weekend the patient reports she had increased frequency of urination. When she was getting up at night to go to the restroom, she felt she was having trouble catching her breath. On Wednesday she called EMS, and was evaluated in the ER. She was found to be febrile, and had evidence of UTI. CT PE protocol was performed on August 23. This revealed the known left lung lesion, showing slight progression. There was no evidence of multiple right sided lung nodules up to 1.6 cm, worrisome for metastatic disease. No evidence of PE. Considering she was having back pain, repeat MRI of the thoracic spine was performed on August 23. When compared to the previous MRI from the end of May, there appears to be increased extension of tumor into the spinal canal without cord compression. The patient reports her back pain has improved since she has been initiated on Decadron and morphine. She was evaluated by ortho-spine, and the recommendation is that she undergo outpatient neurosurgical evaluation. The patient currently denies any weakness, numbness or tingling of the upper/lower extremities. She has had no complaints of saddle anesthesia or difficulty with bladder/bowel control. The patient was last in the hospital on 08/23/2018. The patient came in for a acute UTI secondary to E. coli and the patient had also sepsis. The patient was treated on an inpatient basis and the patient was treated with antibiotics. During her hospital stay, the patient was also complaining of some increased shortness of breath and she was given the diagnosis of an acute COPD exacerbation. She was given prednisone burst taper. She was having back pain and she was being treated with lidocaine patch and she was seen by neurosurgery and radiation oncology. Her pain was under good control at time of her discharge. The patient was released home on a prednisone burst taper and Keflex 250 mg 3 times a day for an additional 3 days. Her pain control was with lidocaine patch topical twice. Since then, the patient was admitted to the hospital on 09/05/2018 complaining of pain across her left side of the chest mainly in the posterior thoracic area extending laterally and to the front. The pain was quite extensive and she was taking Tylenol which did not seem to help her with her pain control. At that point she decided to, to the hospital. During the same time, it was noted that the patient was having some vesicular eruption which had a dermatomal distribution typical of underlying shingles. The patient was diagnosed having shingles here in the hospital and she was started on Valtrex. She is currently receiving Valtrex 1 g 3 times a day. Her pain is under good control. No significant cough or sputum production. No pleurisy. No hemoptysis. No fever or chills. The vesicles have pre-much dried up and they are becoming more encrusted lesions. No nausea. No vomiting. No altered mental status. No other complaints otherwise for now. Review of Systems Constitutional: Denies anorexia, Denies chills, Denies fatigue, Denies fever, Denies poor appetite, and she has chronic weakness Eyes: denies blurred vision, denies pain Ears, nose, mouth and throat: Denies dental pain, Denies headache, Denies mouth pain, Denies nasal congestion, Denies nasal discharge, Denies sore throat Cardiovascular: Denies chest pain, Denies dyspnea on exertion, Denies shortness of breath Respiratory: Denies cough, Denies cough with sputum, she has dyspnea, Denies excessive sputum, Denies hemoptysis, Denies wheezing, she has chronic exertional dyspnea related to COPD and lung cancer. Gastrointestinal: Denies abdominal pain, Denies diarrhea, Denies loss of appetite, Denies nausea, Denies vomiting Genitourinary: Denies dysuria, Denies hematuria, Denies urinary frequency Musculoskeletal: Denies frequent falls, Denies gait dysfunction, Denies muscle weakness, Denies myalgias Integumentary: Reports rash, Reports sores, Denies pruritus, the patient has a shingles rash over the left lateral chest area and posteriorly to her back and anteriorly to her anterior chest. Neurological: Denies aphasia, Denies change in mentation, Denies change in speech, Denies gait dysfunction, Denies numbness, Denies seizures, Denies weakness Psychiatric: Denies anxiety, Denies depression Endocrine: Denies fatigue, Denies weight change Past Medical History Past Medical History: Cancer, COPD, Hyperlipidemia, Hypertension, Pneumonia Additional Past Medical History / Comment(s): Stage IIIa squamous cell carcinoma of the left lower lobe post chemoradiation therapy that was completed back in 2018 with subsequent recurrence and spine metastases, COPD, coronary artery disease, hypertension, hyperlipidemia, pathologic C5 fracture, recent hospitalization for an E. coli UTI, past bleeding from hemorrhoids,stress incontinence,bronchitis, overactive bladder, kidney stone. History of Any Multi-Drug Resistant Organisms: None Reported Past Surgical History: Bladder Surgery, Breast Surgery, Cholecystectomy, Joint Replacement Additional Past Surgical History / Comment(s): left complete knee replacement, rt partial knee replacement,rectocele, bowel surgery to unkink colon,cyst removed breast,bladder surgery x3, bladder suspension, hemorrhoidectomy, rectal prolapse repair Past Anesthesia/Blood Transfusion Reactions: No Reported Reaction Additional Past Anesthesia/Blood Transfusion Reaction / Comment(s): no hx blood transfusion Smoking Status: Former smoker Additional Past Alcohol Use History / Comment(s): Patient was a smoker one to 2 packs per day for 30 years and quit in 1998. She denies any illicit drug use, alcohol abuse. Patient lives at [facility]. - Past Family History Mother Family Medical History: No Reported History Additional Family Medical History / Comment(s): Mother at age 80 from old age. Heart palpitations Father History Unknown: Yes Additional Family Medical History / Comment(s): Father when he was young from ruptured hernia. Sister with breast cancer, sister with colon cancer, sister with lung cancer, brother with lung cancer Medications and Allergies Home Medications Medication Instructions Recorded Confirmed Type Amitriptyline HCl [Elavil] 10 mg PO HS 05/25/16 09/04/18 History Aspirin EC [Ecotrin Low Dose] 81 mg PO HS 05/25/16 09/04/18 History Metoprolol Tartrate [Lopressor] 25 mg PO BID 05/25/16 09/04/18 History Oxybutynin Chloride [Ditropan] 5 mg PO BID@0800,1700 05/25/16 09/04/18 History Simvastatin [Zocor] 40 mg PO HS 05/25/16 09/04/18 History Melatonin 5 mg PO HS PRN tablet 04/22/17 09/04/18 Rx ALPRAZolam [Xanax] 0.25 mg PO TID PRN #90 tab 06/16/17 09/04/18 Rx Potassium Chloride ER [K-Dur 20] 20 meq PO DAILY 06/17/17 09/04/18 History Albuterol Nebulized (Conc) 2.5 mg INHALATION RT-QID 06/06/18 09/04/18 History [Ventolin Nebulized (Conc)] Furosemide [Lasix] 40 mg PO DAILY 06/06/18 09/04/18 History Lidocaine [Lidocaine 3% Topical 1 applic TOPICAL BID #30 gram 08/27/18 09/04/18 Rx Cream] Formoterol Fumarate [Perforomist] 20 mcg INHALATION BID 09/04/18 09/04/18 History Allergies Allergy/AdvReac Type Severity Reaction Status Date / Time nitrofurantoin AdvReac Abdominal Verified 09/04/18 21:37 [From Macrodantin] Pain Sulfa (Sulfonamide AdvReac Nausea Verified 09/04/18 21:37 Antibiotics) Physical Exam Vitals: Vital Signs Temp Pulse Pulse Resp BP BP Pulse Ox 09/05/18 08:17 100 09/05/18 08:07 100 09/05/18 07:40 97.8 F 90 18 102/61 96 09/05/18 04:00 98.2 F 89 17 138/78 92 L 09/05/18 03:43 18 09/05/18 00:00 18 09/04/18 23:32 97.9 F 67 17 132/78 91 L 09/04/18 20:50 98.2 F 117 H 51 H 124/62 97 09/04/18 20:30 109 H 23 95 09/04/18 20:20 120 H 19 124/60 93 L 09/04/18 20:10 116 H 21 96 04/28/19 20:00 18 09/04/18 19:40 123 H 30 H 117/70 98 09/04/18 19:39 108 H 22 09/04/18 19:22 103 H 20 09/04/18 19:12 103 H 20 09/04/18 19:10 106 H 12 131/93 100 09/04/18 19:00 73 18 09/04/18 18:57 142/129 98 09/04/18 18:10 98.1 F 56 L 18 121/92 97 Intake and Output 09/05/18 09/05/18 09/05/18 06:59 14:59 22:59 Intake Total 758 Balance 758 Intake: Oral 758 Other: Voiding Method Toilet # Voids 1 1 Gen. appearance, comfortable likely distress Head exam was generally normal. There was no scleral icterus or corneal arcus. Mucous membranes were moist. Neck was supple and without jugular venous distension, thyromegaly, or carotid bruits. Carotids were easily palpable bilaterally. There was no adenopathy. Lungs sounds are diminished bilaterally especially in the left lung base. No wheezes overall currently crackles. Cardiac exam revealed the PMI to be normally situated and sized. The rhythm was regular and no extrasystoles were noted during several minutes of auscultation. The first and second heart sounds were normal and physiologic splitting of the second heart sound was noted. There were no murmurs, rubs, clicks, or gallops. Abdominal exam revealed normal bowel sounds. The abdomen was soft, non-tender, and without masses, organomegaly, or appreciable enlargement of the abdominal aorta. Examination of the extremities revealed easily palpable radial, femoral and pedal pulses. There was no cyanosis, clubbing or edema. Examination of the skin shows a shingles which has a dermatomal distribution over the left chest posteriorly moving to the lateral part of the chest and then anterior. There are no vesicles and the lesions are more encrusted at this point in time. Rash is also improving. Neurologically the patient is awake and alert and there is no focal logical deficits. Psychiatric there is no anxiety or depression. Results - Laboratory Findings CBC and BMP: 09/04/18 18:47 09/04/18 18:47 PT/INR, D-dimer PT 10.2 sec (9.0-12.0) 09/04/18 18:47 INR 0.9 (<1.2) 09/04/18 18:47 Abnormal lab findings: Abnormal Labs 09/04/18 09/04/18 18:47 18:47 WBC 20.6 H MCHC 30.1 L RDW 19.4 H Neutrophils # 17.9 H Monocytes # 1.1 H Carbon Dioxide 35 H BUN 24 H Glucose 104 H Assessment and Plan Plan: 1 shingles along the left chest, started posteriorly moving laterally to the anterior chest and the patient has a vesicular eruption with extensive chest pain currently on Valtrex and amitriptyline at bedtime. 2 metastatic squamous cell carcinoma. The patient started off with a left lower lobe mass and she was treated with a combination of chemoradiation therapy. Subsequently her condition progressed and the patient has metastatic lesions involving the right lung and the patient has multitude of lesions in addition to spinal metastases and the patient is currently receiving immunotherapy 3 recent sepsis secondary to a E. coli UTI , treated 4 hypertension 5 hyperlipidemia 6 COPD 7 soft tissue mass within the left para spinal region extending into the left intrathecal canal adjacent to the spinal cord without evidence of any cord deformity or cord displacement 8 extensive metastases involving the T5 through T8 levels 9 chronic back pain 10 hemorrhoids 11 urinary incontinence/overactive bladder 12 nephrolithiasis Plan Agree on Valtrex 1 g 3 times a day. Discontinue the IV Solu Medrol as the patient is taking immunotherapy and obviously the use of repeated steroids may adversely affect the immunotherapy treatment for lung cancer and impaired its efficacy. Continue pain control with Dilaudid 1 mg every 4 hours on a when necessary basis in addition to a Lidoderm patch. The rest of the outpatient medication of been ordered resume. Continue immunotherapy. Monitor the white count. We'll continue to follow make further recommendations based on her pr ogress. Possible discharge within next 24 hours as the patient's condition is currently stable.
[2018-09-05] MEDS: diphenhydrAMINE 25 MG CAP PO PRN (18:14)
[2018-09-05] MEDS: OXYBUTYNIN CHLORIDE 5 MG TAB PO SCH (18:14)
[2018-09-05] MEDS: FORMOTEROL FUMARATE 20 MCG/2 ML NEBU INHALATION SCH (19:30)
[2018-09-05] MEDS: HEPARIN SODIUM,PORCINE 5,000 UNIT/ML 1 ML VIAL SQ SCH (20:56)
[2018-09-05] MEDS ORDERED: LIDOCAINE TOPICAL SCH (21:00)
[2018-09-05] MEDS ORDERED: ASPIRIN 81 MG PO SCH (21:00)
[2018-09-05] MEDS ORDERED: SENNOSIDES-DOCUSATE SODIUM 1 EACH TAB PO SCH (21:00)
[2018-09-05] MEDS ORDERED: ATORVASTATIN 20 MG TAB PO SCH (21:00)
[2018-09-05] MEDS ORDERED: AMITRIPTYLINE HCL 25 MG TAB PO SCH (21:00)
[2018-09-06] MEDS: diphenhydrAMINE 25 MG CAP PO PRN ×3 (01:23→11:33)
[2018-09-06] MEDS: HYDROmorphone 1 MG/ML 1 ML SYRINGE IVP PRN ×2 (01:23→05:26)
[2018-09-06] MEDS: FORMOTEROL FUMARATE 20 MCG/2 ML NEBU INHALATION SCH (07:58)
[2018-09-06] MEDS: IPRATROPIUM-ALBUTEROL 3 ML NEB INHALATION SCH ×2 (07:58→11:30)
[2018-09-06 08:49] VITALS: BP 128/72; PULSE 89; RESP 17; TEMP 98.1
[2018-09-06] MEDS: valACYclovir HCL 1,000 MG TABLET PO SCH (08:58)
[2018-09-06] MEDS: HEPARIN SODIUM,PORCINE 5,000 UNIT/ML 1 ML VIAL SQ SCH (08:58)
[2018-09-06] MEDS: METOPROLOL TARTRATE 25 MG TAB PO SCH (08:58)
[2018-09-06] MEDS: OXYBUTYNIN CHLORIDE 5 MG TAB PO SCH (08:58)
[2018-09-06] MEDS ORDERED: FUROSEMIDE 40 MG TAB PO SCH (09:00)
[2018-09-06] MEDS ORDERED: POTASSIUM CHLORIDE ER 20 MEQ TAB.ER PO SCH (09:00)
[2018-09-06] MEDS ORDERED: FAMOTIDINE 20 MG TAB PO SCH (09:00)
[2018-09-06] MEDS: LIDOCAINE 5% PATCH TOPICAL SCH (11:32)
--- NOTE | 2018-09-06 13:39 | P.DS ---
Providers Date of admission: 09/05/18 07:17 Expected date of discharge: 09/06/18 Attending physician: Sunil Cagle Primary care physician: [facility] Course: This is a 72-year-old female patient of Radha Alexander, Kai with past medical history of lung cancer stage IIIa squamous cell carcinoma of the left lower lung and not considered surgical candidate completed chemoradiation in 2018 with recent recurrence within the left lung with possible bone metastasis, COPD, coronary artery disease, hypertension, hyperlipidemia, COPD, pathologic T5 fracture. Patient started immunotherapy in July of this year. She had a recent hospitalization earlier this month for sepsis secondary to pneumonia and UTI. She was also treated for posterior rib and muscle pain secondary to recurrent tumor status post recent radiation for palliative treatment. She was discharged home on antibiotics which she completed and a steroid taper which completed on or Wednesday. She states that she developed severe pain on Wednesday night to the left side of her thoracic back area that was a burning, throbbing toothache type pain. She said Tylenol did not help at all. This became significantly worse on Wednesday and she couldn't take the pain. Patient states that she has been unable to sleep because of the pain. She talked to her son who is EMT and thought she might have shingles. She came into [facility] emergency center for evaluation and patient was diagnosed with shingles. Patient was placed on the observation unit and started on Valtrex 1000 mg twice daily and placed in droplet isolation. Patient continues to complain of severe pain to the rash area on the left posterior chest wall around laterally and under the left breast. 09/06: Patient has been seen by Dr. Burgos with recommendations to continue Valtrex, immunotherapy and avoid use of steroids and continue use of pain medication. Patient states that her pain is improved today. The rash on the posterior area has dried in the process of healing. She states Benadryl seemed to help her quite a bit during the night. Patient will be discharged home today and will benefit provided a prescription for [place]. Talked back form has been completed. Patient will be discharged in stable condition. Discharge diagnoses: 1. Shingles. 2. Recent treatment for E. coli UTI and gram-negative pneumonia. 3. Squamous cell carcinoma of the left lower lung with recurrence, nonsurgical candidate. 4. Posterior right rib and muscle pain secondary to recurrent tumor status post recent radiation for palliative treatment. 5. Hypertension. 6. Hyperlipidemia. 7. COPD, stable without exacerbation. 8. Chronic T5 fracture, pathologic. Discharge plan: Home to senior apartment. Impression and plan of care have been directed as dictated by the signing physician. Maria Guadalupe Zaragoza nurse practitioner acting as scribe for signing physician. Patient Condition at Discharge: Good Plan - Discharge Summary Discharge Rx Participant: Yes New Discharge Prescriptions: New diphenhydrAMINE [Benadryl] 25 mg PO QID PRN cap PRN Reason: Itching Amitriptyline HCl [Elavil] 25 mg PO HS #30 tab valACYclovir HCL [Valtrex] 1,000 mg PO BID #14 tablet HYDROcodone/APAP 5-325MG [[place] 5-325] 1 tab PO Q6HR PRN 3 Days #12 tab PRN Reason: Pain Continue Simvastatin [Zocor] 40 mg PO HS Metoprolol Tartrate [Lopressor] 25 mg PO BID Oxybutynin Chloride [Ditropan] 5 mg PO BID@0800,1700 Aspirin EC [Ecotrin Low Dose] 81 mg PO HS Melatonin 5 mg PO HS PRN tablet PRN Reason: Insomnia ALPRAZolam [Xanax] 0.25 mg PO TID PRN #90 tab PRN Reason: Anxiety Potassium Chloride ER [K-Dur 20] 20 meq PO DAILY Albuterol Nebulized (Conc) [Ventolin Nebulized (Conc)] 2.5 mg INHALATION RT- QID Furosemide [Lasix] 40 mg PO DAILY Lidocaine [Lidocaine 3% Topical Cream] 1 applic TOPICAL BID #30 gram Formoterol Fumarate [Perforomist] 20 mcg INHALATION BID Discontinued Amitriptyline HCl [Elavil] 10 mg PO HS Discharge Medication List Aspirin EC [Ecotrin Low Dose] 81 mg PO HS 05/25/16 [History] Metoprolol Tartrate [Lopressor] 25 mg PO BID 05/25/16 [History] Oxybutynin Chloride [Ditropan] 5 mg PO BID@0800,1700 05/25/16 [History] Simvastatin [Zocor] 40 mg PO HS 05/25/16 [History] Melatonin 5 mg PO HS PRN tablet 04/22/17 [Rx] ALPRAZolam [Xanax] 0.25 mg PO TID PRN #90 tab 06/16/17 [Rx] Potassium Chloride ER [K-Dur 20] 20 meq PO DAILY 06/17/17 [History] Albuterol Nebulized (Conc) [Ventolin Nebulized (Conc)] 2.5 mg INHALATION RT-QID 06/06/18 [History] Furosemide [Lasix] 40 mg PO DAILY 06/06/18 [History] Lidocaine [Lidocaine 3% Topical Cream] 1 applic TOPICAL BID #30 gram 08/27/18 [Rx] Formoterol Fumarate [Perforomist] 20 mcg INHALATION BID 09/04/18 [History] Amitriptyline HCl [Elavil] 25 mg PO HS #30 tab 09/06/18 [Rx] HYDROcodone/APAP 5-325MG [[place] 5-325] 1 tab PO Q6HR PRN 3 Days #12 tab 09/06/18 [Rx] diphenhydrAMINE [Benadryl] 25 mg PO QID PRN cap 09/06/18 [Rx] valACYclovir HCL [Valtrex] 1,000 mg PO BID #14 tablet 09/06/18 [Rx] Follow up Appointment(s)/Referral(s): Sunil Cagle MD [Primary Care Provider] - 1 Week Discharge Disposition: HOME SELF-CARE
== END 2018-09-06 15:00 | disposition home or self-care (01) | DRG 596 ==
LOC: EC 18:07 → 1SOBS 19:01 → OBSVTOIN 09-05 07:17
PROVIDERS: ADMIT Internal Medicine Geriatric Medicine; ATTEND Internal Medicine Geriatric Medicine
DX: B02.9 Zoster without complications (principal); C34.32 Malignant neoplasm of lower lobe, left bronchus or lung; C79.51 Secondary malignant neoplasm of bone; M84.48XA Pathological fracture, other site, initial encounter for fracture; Z87.891 Personal history of nicotine dependence; E78.5 Hyperlipidemia, unspecified; I10 Essential (primary) hypertension; I25.10 Atherosclerotic heart disease of native coronary artery without angina pectoris; J44.9 Chronic obstructive pulmonary disease, unspecified; N32.81 Overactive bladder; Z87.440 Personal history of urinary (tract) infections; Z87.01 Personal history of pneumonia (recurrent); Z79.899 Other long term (current) drug therapy; Z80.0 Family history of malignant neoplasm of digestive organs; Z80.1 Family history of malignant neoplasm of trachea, bronchus and lung; Z80.3 Family history of malignant neoplasm of breast; Z87.442 Personal history of urinary calculi; Z92.3 Personal history of irradiation; Z96.653 Presence of artificial knee joint, bilateral; Z92.21 Personal history of antineoplastic chemotherapy; Z88.2 Allergy status to sulfonamides; Z88.8 Allergy status to other drugs, medicaments and biological substances; R32 Unspecified urinary incontinence
CPT/HCPCS: 36415; 71045; 80053; 83735; 83880; 84484; 85025; 85610; 85730; 93005; 94640; 94644; 94760; 96361; 96374; 96375; 99285

== ENCOUNTER 2018-09-12 08:00 | Observation (INO) | payer MEDICARE, BC ==
[2018-09-12] MEDS ORDERED: IPRATROPIUM-ALBUTEROL 3 ML NEB INHALATION STA (08:23)
[2018-09-12] MEDS ORDERED: ONDANSETRON 4 MG/2 ML VIAL IVP STA (08:24)
[2018-09-12] MEDS ORDERED: HYDROmorphone 1 MG/ML 1 ML SYRINGE IVP STA (08:24)
--- NOTE | 2018-09-12 08:45 | ED ---
General Adult HPI - General Chief complaint: Extremity Problem,Nontraumatic Stated complaint: weakness Time Seen by Provider: 09/12/18 08:00 Source: patient, EMS, RN notes reviewed Mode of arrival: EMS Limitations: no limitations - History of Present Illness Initial comments: This is a 72-year-old female with past medical history significant for lung ca ncer. Patient comes in today complaining that her left leg has been feeling weaker and has been having a difficult time walking because of it. Patient states she has full range of motion with the leg but when she stands on it she feels as though it's too weak to hold her up at times. Patient also states the left leg has felt like it's been asleep but she has sensation but it just feels like it was sleeping. Patient states lately she's had a little more difficult to breathing. Patient denies any chest pain or palpitations. Patient denies any fever chills or cough. Patient states she's also been quite a bit of pain from her shingles on her back but that is not new. Patient denies any dysuria hematuria urinary frequency. Patient denies any lightheadedness dizziness or near syncopal episode. Patient denies headache. - Related Data Home Medications Medication Instructions Recorded Confirmed Aspirin EC [Ecotrin Low Dose] 81 mg PO HS 05/25/16 09/12/18 Metoprolol Tartrate [Lopressor] 25 mg PO BID 05/25/16 09/12/18 Oxybutynin Chloride [Ditropan] 5 mg PO BID@0800,1700 05/25/16 09/12/18 Simvastatin [Zocor] 40 mg PO HS 05/25/16 09/12/18 Potassium Chloride ER [K-Dur 20] 20 meq PO DAILY 06/17/17 09/12/18 Furosemide [Lasix] 40 mg PO DAILY 06/06/18 09/12/18 Formoterol Fumarate [Perforomist] 20 mcg INHALATION RT-BID 09/04/18 09/12/18 Albuterol Nebulized [Ventolin 2.5 mg INHALATION RT-QID 09/12/18 09/12/18 Nebulized] Previous Rx's Medication Instructions Recorded Melatonin 5 mg PO HS PRN tablet 04/22/17 ALPRAZolam [Xanax] 0.25 mg PO TID PRN #90 tab 06/16/17 Lidocaine [Lidocaine 3% Topical 1 applic TOPICAL BID #30 gram 08/27/18 Cream] Amitriptyline HCl [Elavil] 25 mg PO HS #30 tab 09/06/18 HYDROcodone/APAP 5-325MG [[place] 1 tab PO Q6HR PRN 3 Days #12 tab 09/06/18 5-325] diphenhydrAMINE [Benadryl] 25 mg PO QID PRN cap 09/06/18 valACYclovir HCL [Valtrex] 1,000 mg PO BID #14 tablet 09/06/18 Allergies Allergy/AdvReac Type Severity Reaction Status Date / Time nitrofurantoin AdvReac Abdominal Verified 09/12/18 09:01 [From Macrodantin] Pain Sulfa (Sulfonamide AdvReac Nausea Verified 09/12/18 09:01 Antibiotics) Review of Systems ROS Statement: Those systems with pertinent positive or pertinent negative responses have been documented in the HPI. ROS Other: All systems not noted in ROS Statement are negative. Past Medical History Past Medical History: Cancer, COPD, Hyperlipidemia, Hypertension, Pneumonia Additional Past Medical History / Comment(s): past bleeding from hemorrhoids,s tress incontinence,bronchitis, overactive bladder, kidney stone, LLL Lung CA, 06-06-17 pne/sepsis. History of Any Multi-Drug Resistant Organisms: None Reported Past Surgical History: Bladder Surgery, Breast Surgery, Cholecystectomy, Joint Replacement Additional Past Surgical History / Comment(s): left complete knee replacement, rt partial knee replacement,rectocele, bowel surgery to unkink colon,cyst removed breast,bladder surgery x3, bladder suspension, hemorrhoidectomy, rectal prolapse repair Past Anesthesia/Blood Transfusion Reactions: No Reported Reaction Additional Past Anesthesia/Blood Transfusion Reaction / Comment(s): no hx blood transfusion Past Psychological History: No Psychological Hx Reported Smoking Status: Former smoker Past Alcohol Use History: None Reported Past Drug Use History: None Reported - Past Family History Mother Family Medical History: No Reported History Additional Family Medical History / Comment(s): Mother at age 80 from old age. Heart palpitations Father History Unknown: Yes Additional Family Medical History / Comment(s): Father when he was young from ruptured hernia. Sister with breast cancer, sister with colon cancer, sister with lung cancer, brother with lung cancer General Exam - General Exam Comments Initial Comments: GENERAL: Patient is well-developed and well-nourished. Patient is nontoxic and well- hydrated and is in mild distress. ENT: Neck is soft and supple. No significant lymphadenopathy is noted. Oropharynx is clear. Moist mucous membranes. Neck has full range of motion without elici ting any pain. EYES: The sclera were anicteric and conjunctiva were pink and moist. Extraocular movements were intact and pupils were equal round and reactive to light. Eyelids were unremarkable. PULMONARY: Patient is decreased breath sounds on the right but she do hear air movement on the left the breath sounds were almost absent in the bases. CARDIOVASCULAR: There is a regular rate and rhythm without any murmurs gallops or rubs. ABDOMEN: Soft and nontender with normal bowel sounds. SKIN: Skin is clear with no lesions or rashes and otherwise unremarkable. NEUROLOGIC: Patient is alert and oriented x3. Cranial nerves II through XII are grossly intact. Patient has slight weakness of plantar flexion of the left leg and has more difficulty lifting the leg off the bed when compared to the right.. Patient has sensation however she states it doesn't feel the same as the right she states it feels like it's asleep.. Normal speech, volume and content. Symmetrical smile. MUSCULOSKELETAL: Normal extremities with adequate strength and full range of motion. No lower extremity swelling or edema. No calf tenderness. LYMPHATICS: No significant lymphadenopathy is noted PSYCHIATRIC: Normal psychiatric evaluation. Limitations: no limitations Course Vital Signs 09/12/18 09/12/18 09/12/18 08:02 08:34 08:43 Temperature 98.8 F Pulse Rate 98 94 98 Respiratory 20 Rate Blood Pressure 127/70 O2 Sat by Pulse 98 Oximetry 09/12/18 10:34 Temperature 98.8 F Pulse Rate 107 H Respiratory 18 Rate Blood Pressure 120/58 O2 Sat by Pulse 98 Oximetry Medical Decision Making - Medical Decision Making EKG shows sinus tachycardia with frequent PVCs at 101 bpm [place] interval 218 QRS is 82 QT interval 342 QTC is 443. Patient's EKG shows no ST segment elevation or depression. CT of the brain showed no acute abnormality. CT of the chest showed increase of the mass in the left hilum with metastatic disease to the right lung. I spoke with [facility] hospitalist and they agreed to admit the patient admitted the patient wrote admitting orders. - Lab Data Result diagrams: 09/12/18 08:30 09/12/18 08:40 Lab Results 09/12/18 09/12/18 09/12/18 Range/Units 08:30 08:30 08:30 WBC 10.3 (3.8-10.6) k/uL RBC 3.74 L (3.80-5.40) m/uL Hgb 10.2 L (11.4-16.0) gm/dL Hct 33.2 L (34.0-46.0) % MCV 88.8 (80.0-100.0) fL MCH 27.3 (25.0-35.0) pg MCHC 30.8 L (31.0-37.0) g/dL RDW 19.0 H (11.5-15.5) % Plt Count 230 (150-450) k/uL Neutrophils % 83 % Lymphocytes % 8 % Monocytes % 4 % Eosinophils % 3 % Basophils % 0 % Neutrophils # 8.6 H (1.3-7.7) k/uL Lymphocytes # 0.8 L (1.0-4.8) k/uL Monocytes # 0.4 (0-1.0) k/uL Eosinophils # 0.3 (0-0.7) k/uL Basophils # 0.0 (0-0.2) k/uL Hypochromasia Marked Anisocytosis Slight PT 10.6 (9.0-12.0) sec INR 1.0 (<1.2) APTT 27.6 (22.0-30.0) sec D-Dimer 1.04 H (<0.60) mg/L FEU Sodium (137-145) mmol/L Potassium (3.5-5.1) mmol/L Chloride (98-107) mmol/L Carbon Dioxide (22-30) mmol/L Anion Gap mmol/L BUN (7-17) mg/dL Creatinine (0.52-1.04) mg/dL Est GFR (CKD-EPI)AfAm (>60 ml/min/1.73 sqM) Est GFR (CKD-EPI)NonAf (>60 ml/min/1.73 sqM) Glucose (74-99) mg/dL Plasma Lactic Acid Sacha (0.7-2.0) mmol/L Calcium (8.4-10.2) mg/dL Total Bilirubin (0.2-1.3) mg/dL AST (14-36) U/L ALT (9-52) U/L Alkaline Phosphatase (38-126) U/L Troponin I (0.000-0.034) ng/mL Total Protein (6.3-8.2) g/dL Albumin (3.5-5.0) g/dL Urine Color Yellow Urine Appearance Clear (Clear) Urine pH 7.0 (5.0-8.0) Ur Specific [place] 1.019 (1.001-1.035) Urine Protein Negative (Negative) Urine Glucose (UA) Negative (Negative) Urine Ketones Negative (Negative) Urine Blood Negative (Negative) Urine Nitrite Negative (Negative) Urine Bilirubin Negative (Negative) Urine Urobilinogen <2.0 (<2.0) mg/dL Ur Leukocyte Esterase Trace H (Negative) Urine RBC 5 (0-5) /hpf Urine WBC 3 (0-5) /hpf Ur Squamous Epith Cells 1 (0-4) /hpf Urine Bacteria Occasional H (None) /hpf Urine Mucus Rare H (None) /hpf 09/12/18 09/12/18 09/12/18 Range/Units 08:40 08:40 08:40 WBC (3.8-10.6) k/uL RBC (3.80-5.40) m/uL Hgb (11.4-16.0) gm/dL Hct (34.0-46.0) % MCV (80.0-100.0) fL MCH (25.0-35.0) pg MCHC (31.0-37.0) g/dL RDW (11.5-15.5) % Plt Count (150-450) k/uL Neutrophils % % Lymphocytes % % Monocytes % % Eosinophils % % Basophils % % Neutrophils # (1.3-7.7) k/uL Lymphocytes # (1.0-4.8) k/uL Monocytes # (0-1.0) k/uL Eosinophils # (0-0.7) k/uL Basophils # (0-0.2) k/uL Hypochromasia Anisocytosis PT (9.0-12.0) sec INR (<1.2) APTT (22.0-30.0) sec D-Dimer (<0.60) mg/L FEU Sodium 140 (137-145) mmol/L Potassium 4.2 (3.5-5.1) mmol/L Chloride 104 (98-107) mmol/L Carbon Dioxide 32 H (22-30) mmol/L Anion Gap 4 mmol/L BUN 14 (7-17) mg/dL Creatinine 0.41 L (0.52-1.04) mg/dL Est GFR (CKD-EPI)AfAm >90 (>60 ml/min/1.73 sqM) Est GFR (CKD-EPI)NonAf >90 (>60 ml/min/1.73 sqM) Glucose 95 (74-99) mg/dL Plasma Lactic Acid Sacha 0.8 (0.7-2.0) mmol/L Calcium 8.6 (8.4-10.2) mg/dL Total Bilirubin 0.3 (0.2-1.3) mg/dL AST 17 (14-36) U/L ALT 29 (9-52) U/L Alkaline Phosphatase 121 (38-126) U/L Troponin I <0.012 (0.000-0.034) ng/mL Total Protein 5.1 L (6.3-8.2) g/dL Albumin 2.7 L (3.5-5.0) g/dL Urine Color Urine Appearance (Clear) Urine pH (5.0-8.0) Ur Specific [place] (1.001-1.035) Urine Protein (Negative) Urine Glucose (UA) (Negative) Urine Ketones (Negative) Urine Blood (Negative) Urine Nitrite (Negative) Urine Bilirubin (Negative) Urine Urobilinogen (<2.0) mg/dL Ur Leukocyte Esterase (Negative) Urine RBC (0-5) /hpf Urine WBC (0-5) /hpf Ur Squamous Epith Cells (0-4) /hpf Urine Bacteria (None) /hpf Urine Mucus (None) /hpf Disposition Clinical Impression: CVA (cerebral vascular accident), Metastatic lung cancer (metastasis from lung to other site) Disposition: ADMITTED IP TO THIS HOSP Referrals: Sunil Cagle MD [Primary Care Provider] - 1-2 days Time of Disposition: 12:13
[2018-09-12] MEDS: SODIUM CHLORIDE 0.9% 500 ML 500 ML IV SCH ×2 (08:52→08:53)
[2018-09-12 08:53] LABS: Anisocytosis Slight; Basophils % (A) 0 %; Eosinophils # (A) 0.3 k/uL (0-0.7); Eosinophils % (A) 3 %; HCT 33.2 % (34.0-46.0); HGB 10.2 gm/dL (11.4-16.0); Hypochromasia Marked; Lymphocytes # (A) 0.8 k/uL (1.0-4.8); Lymphocytes % (A) 8 %; MCH 27.3 pg (25.0-35.0); MCHC 30.8 g/dL (31.0-37.0); MCV 88.8 fL (80.0-100.0); Mean Platelet Volume 6.5; Monocytes # (A) 0.4 k/uL (0-1.0); Monocytes % (A) 4 %; Neutrophils # (A) 8.6 k/uL (1.3-7.7); Neutrophils % (A) 83 %; Platelet Count 230 k/uL (150-450); RBC 3.74 m/uL (3.80-5.40); WBC 10.3 k/uL (3.8-10.6)
[2018-09-12 08:59] LABS: Appearance,Urine Clear (Clear); Bacteria,Urine Occasional /hpf; Bilirubin,Urine Negative (Negative); Blood,Urine Negative (Negative); Color,Urine Yellow; Glucose,Urine (UA) Negative (Negative); Ketones,Urine Negative (Negative); Leukocyte Esterase,Urine Trace (Negative); Mucus,Urine Rare /hpf; Nitrite,Urine Negative (Negative); Protein,Urine Negative (Negative); RBC,Urine 5 /hpf (0-5); Specific Gravity,Urine 1.019 (1.001-1.035); Squamous Epithelial Cell,Urine 1 /hpf (0-4); Urobilinogen,Urine <2.0 mg/dL (<2.0); WBC,Urine 3 /hpf (0-5)
[2018-09-12 09:06] LABS: ALT 29 U/L (9-52); AST 17 U/L (14-36); Albumin 2.7 g/dL (3.5-5.0); Alkaline Phosphatase 121 U/L (38-126); Anion Gap 4 mmol/L; Blood Urea Nitrogen 14 mg/dL (7-17); Calcium 8.6 mg/dL (8.4-10.2); Carbon Dioxide 32 mmol/L (22-30); Chloride 104 mmol/L (98-107); Glucose 95 mg/dL (74-99); Potassium 4.2 mmol/L (3.5-5.1); Sodium 140 mmol/L (137-145); Total Bilirubin 0.3 mg/dL (0.2-1.3); Total Protein 5.1 g/dL (6.3-8.2)
[2018-09-12 09:11] LABS: Partial Thromboplastin Time 27.6 sec (22.0-30.0); Prothrombin Time 10.6 sec (9.0-12.0)
[2018-09-12 09:18] LABS: D-Dimer 1.04 mg/L FEU (<0.60)
--- NOTE | 2018-09-12 09:19 | CT ---
EXAMINATION TYPE: CT brain wo con DATE OF EXAM: 09/12/2018 HISTORY: Left sided weakness CT DLP: 1038.4 mGycm. Automated Exposure Control for Dose Reduction was Utilized. TECHNIQUE: CT scan of the head is performed without contrast. COMPARISON: MRI brain June 04, 2017. FINDINGS: There is no acute intracranial hemorrhage or midline shift identified. There is diffuse v entricular and sulcal prominence consistent with diffuse age-related cerebral atrophy. There is low- attenuation in the periventricular white matter consistent with chronic small vessel ischemic change. The globes are intact and the visualized sinuses are clear. IMPRESSION: No acute intracranial hemorrhage or midline shift. There is mild to moderate diffuse ag e-related cerebral atrophy and chronic small vessel ischemic change redemonstrated without significan t change from prior MRI.
--- NOTE | 2018-09-12 10:42 | CT ---
EXAMINATION TYPE: CT chest angio for PE DATE OF EXAM: 09/12/2018 PET/CT May 28, 2018 COMPARISON: CTA chest August 23, 2018. HISTORY: SOB with elevated d-dimer. History of small cell lung cancer. CT DLP: 500.8 mGycm. Automated Exposure Control for Dose Reduction was Utilized. CONTRAST: CTA scan of the thorax is performed with IV Contrast, patient injected with 71 mL of Isovue 370, pulm onary embolism protocol. MIP Images are created on CT scanner and reviewed. FINDINGS: LUNGS: There is background moderate underlying emphysematous change redemonstrated. There are small t o tiny right greater than left pleural effusions again seen. There is persistent masslike consolidati on or neoplasm centered in left hilar region extending posteriorly and inferiorly through the left desean ng with adjacent compressive atelectasis and/or infiltrate. Left-sided volume loss with mediastinal s hift remains present. There is persistence suspicious spiculated posterior superior right lower lobe nodule now measuring 1.6 x 1.5 cm increased in size from most recent CT. There is stable 4 mm nodule right midlung axial image 75. There is fairly stable 7 x 5 mm medial right upper lung nodule axial im age 55. There are enlarging right basilar nodules on axial image 113 felt present with 3 distinct nod ules noted. No pneumothorax is evident bilaterally. Abruptly occluded left lower lobe bronchus redemo nstrated. MEDIASTINUM: There is satisfactory enhancement of the pulmonary artery and its branches, there is no CT evidence for pulmonary embolism. Enlarged main and right pulmonary artery is again seen, CT find ings consistent with underlying pulmonary hypertension There are no greater than 1 cm hilar or medias tinal lymph nodes. No cardiomegaly is seen. New small to tiny pericardial effusion anterior-inferio r aspect axial image 109. Coronary artery dilatation as present which is noted marked underlying lolis nary artery disease. OTHER: Cholecystectomy clips are present. Redemonstration of sclerosis and mild compression type frac ture deformity centered at T5 vertebra with lytic right aspect likely reflecting pathologic fracture as soft tissue mass or neoplasm extends to this level. IMPRESSION: 1. No CT evidence for acute pulmonary embolism. 2. Redemonstration of advanced lung cancer with large left hilar mass or neoplasm causing pathologic fracture mid thoracic spine with multiple metastatic lesions in the right lung. Background underlying emphysematous change is present. Left-sided volume loss redemonstrated. Continued progression from m ost recent CT noted. No suspicious acute pulmonary process is evident.
[2018-09-12] MEDS ORDERED: HYDROmorphone 1 MG/ML 1 ML SYRINGE IVP PRN (14:34)
--- NOTE | 2018-09-12 14:34 | P.CNNES ---
History of Present Illness Consult date: 09/12/18 Reason for Consult: CVA Chief complaint: Leg weakness, almost fell at home History of Present Illness: Patient is a 72-year-old female, who has been diagnosed with metastatic lung cancer, who has previously undergone chemo and radiation, was in remission but recently the tumor has progressed. Patient has been receiving immunotherapy, and has received 2 sessions of immunotherapy until she developed shingles in the left T3 4 distribution, therefore it has been held. Patient states that in the last 1 week she has developed weakness in the left leg, which has been getting worse. Yesterday she went to the bathroom, and had to grab the sink, as her knee gave out. She almost fell. She does have the lower back pain which is all across, she rates 9/10 at this time. Her left leg is weak, and patient could not tell if it is at the level of the hip knee or the ankle. Patient states that she has numbness of the left leg from knee down. Denies any symptoms in the right leg, or upper extremities or head or neck region. Patient has stage IV lung cancer, and was told that the cancer has spread to the spine, and she may get paralysis in the legs. Patient denies diabetes. She smoked 1-2 pack per day for 10-20 years, quit 20 years ago. Patient was diagnosed with lung cancer 2 years ago, for which she has received chemo and radiation, currently receiving immunotherapy. Patient had an EKG which showed normal sinus rhythm. CTA of the chest was negative for acute pulmonary embolism. Redemonstration of advanced lung cancer with large left hilar mass or new present causing pathologic fracture mid thoracic spine with multiple metastatic lesions in the right lung. Background underlying emphysematous change is present. Left-sided volume loss redemonstrated. Continued progression from most recent CT noted. No suspicious acute pulmonary process. Computed tomography scan of head showed no acute intr acranial hemorrhage or midline shift. There is mild to moderate diffuse age- related cerebral atrophy and chronic small vessel ischemic changes redemonstrated without significant change from prior MRI. Patient had an MRI of thoracic spine with and without contrast on 08/23/2018, which revealed soft tissue mass within the left paraspinal region of the lung field extending into the left intrathecal canal adjacent to the spinal cord. Cord deformity is not identified. However, the degree of narrowing is increasing from the comparison 06/08/2018. No cord displacement is evident. Extensive metastases within the T5 to T8 levels. Patient was subsequently seen by orthopedic surgery Dr Jamila DO, who recommended referral to neurosurgery at a tertiary care center. Patient's most recent blood tests from 09/12/2009 showed WBC 10.3 hemoglobin 10.2 platelets 230. Sodium and potassium are normal. Calcium 8.6, renal functions normal. UA is negative. Her last hemoglobin A1c 7.0 on 06/11/2017. 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 History of Any Multi-Drug Resistant Organisms: None Reported Past Surgical History: Bladder Surgery, Breast Surgery, Cholecystectomy, Hysterectomy, Joint Replacement Additional Past Surgical History / Comment(s): L total knee replacement, R partial knee replacement, L breast cyst removed, bladder suspension x 3, colono scopies, colon surgery for "twisted" bowel, kidney stone surgery. Past Anesthesia/Blood Transfusion Reactions: No Reported Reaction Additional Past Anesthesia/Blood Transfusion Reaction / Comment(s): no hx blood transfusion Past Psychological History: No Psychological Hx Reported Additional Psychological History / Comment(s): Pt resides at [facility]. She uses a walker to ambulate. She has home oxygen/nebulizer. She gets rides thru [employer]. When she feels well, she drives. She has an emergency pull cord system. Smoking Status: Former smoker Past Alcohol Use History: None Reported Additional Past Alcohol Use History / Comment(s): Patient was a smoker one to 2 packs per day for 30 years and quit in 2002. Past Drug Use History: None Reported - Past Family History Mother Family Medical History: No Reported History Additional Family Medical History / Comment(s): Mother at age 80 from old age. Heart palpitations Father History Unknown: Yes Additional Family Medical History / Comment(s): Father when he was young from ruptured hernia. Medications and Allergies Home Medications Medication Instructions Recorded Confirmed Type Aspirin EC [Ecotrin Low Dose] 81 mg PO HS 05/25/16 09/12/18 History Metoprolol Tartrate [Lopressor] 25 mg PO BID 05/25/16 09/12/18 History Oxybutynin Chloride [Ditropan] 5 mg PO BID@0800,1700 05/25/16 09/12/18 History Simvastatin [Zocor] 40 mg PO HS 05/25/16 09/12/18 History Melatonin 5 mg PO HS PRN tablet 04/22/17 09/12/18 Rx ALPRAZolam [Xanax] 0.25 mg PO TID PRN #90 tab 06/16/17 09/12/18 Rx Potassium Chloride ER [K-Dur 20] 20 meq PO DAILY 06/17/17 09/12/18 History Furosemide [Lasix] 40 mg PO DAILY 06/06/18 09/12/18 History Lidocaine [Lidocaine 3% Topical 1 applic TOPICAL BID #30 gram 08/27/18 09/12/18 Rx Cream] Formoterol Fumarate [Perforomist] 20 mcg INHALATION RT-BID 09/04/18 09/12/18 History Amitriptyline HCl [Elavil] 25 mg PO HS #30 tab 09/06/18 09/12/18 Rx HYDROcodone/APAP 5-325MG [[place] 1 tab PO Q6HR PRN 3 Days #12 tab 09/06/18 09/12/18 Rx 5-325] diphenhydrAMINE [Benadryl] 25 mg PO QID PRN cap 09/06/18 09/12/18 Rx valACYclovir HCL [Valtrex] 1,000 mg PO BID #14 tablet 09/06/18 09/12/18 Rx Albuterol Nebulized [Ventolin 2.5 mg INHALATION RT-QID 09/12/18 09/12/18 History Nebulized] Allergies Allergy/AdvReac Type Severity Reaction Status Date / Time nitrofurantoin AdvReac Abdominal Verified 09/12/18 09:01 [From Macrodantin] Pain Sulfa (Sulfonamide AdvReac Nausea Verified 09/12/18 09:01 Antibiotics) Physical Examination - Vital Signs Vital Signs: Vital Signs Temp Pulse Resp BP Pulse Ox 09/12/18 12:49 106 H 18 117/68 98 09/12/18 10:34 98.8 F 107 H 18 120/58 98 09/12/18 08:43 98 09/12/18 08:34 94 09/12/18 08:02 98.8 F 98 20 127/70 98 Intake and Output 09/11/18 09/12/18 09/12/18 22:59 06:59 14:59 Other: Weight 90.265 kg On examination patient is an elderly female, in mild to moderate respiratory distress. She has oxygen by nasal cannula on. Patient is alert and awake fully oriented to time place and person. Speech and language functions are normal. On cranial nerve examination her pupils are round and reactive to light. Visual mckinley are full, extraocular muscles are intact. Face is symmetric and tongue protrudes to the midline. On muscle strength testing, the strength is normal in both upper limbs. In the lower limbs, ankle dorsiflexion is about 5-5-, knee extension is 5, hip flexion is 4-on the right, 3+ on left. Reflexes are absent in the lower limbs, but possible Babinski bilaterally. No ataxia. [id number] testing. Sensory is decreased in the left leg. Patient has evidence of shingles over her left thoracic cage at around T3-4 levels. Patient has no tone in the lower extremities. Patient was placed on the bedside commode, and while trying to scoot to the bed, fell slowly to the floor, was not able to get her up. She has decreased for body tone. Required assist of 4. Results - Laboratory Findings CBC and BMP: 09/12/18 08:30 09/12/18 08:40 Abnormal Lab Findings: Abnormal Labs 09/12/18 09/12/18 09/12/18 08:30 08:30 08:30 RBC 3.74 L Hgb 10.2 L Hct 33.2 L MCHC 30.8 L RDW 19.0 H Neutrophils # 8.6 H Lymphocytes # 0.8 L D-Dimer 1.04 H Carbon Dioxide Creatinine Total Protein Albumin Ur Leukocyte Esterase Trace H Urine Bacteria Occasional H Urine Mucus Rare H 09/12/18 08:40 RBC Hgb Hct MCHC RDW Neutrophils # Lymphocytes # D-Dimer Carbon Dioxide 32 H Creatinine 0.41 L Total Protein 5.1 L Albumin 2.7 L Ur Leukocyte Esterase Urine Bacteria Urine Mucus Assessment and Plan Assessment: * 72-year-old female with metastatic lung cancer, came with left leg weakness. Examination shows bilateral leg weakness, but left worse. Patient has neftali dence of intrathecal infiltration of metastasis at T6 level, as per MRI of the thoracic spine from 08/23/2018. Her leg weakness could be related to myelopathy from metastatic infiltration of the spine. * Herpes zoster involving left T3-T4 dermatome. Plan: Patient was previously seen by orthopedic surgery Dr. Marino on 08/24/2018, who recommended neurosurgical consultation for metastasis in the thoracic spine with intrathecal infiltration. It is uncertain if neurosurgical consultation was accomplished or not. Patient at present undergoing CT of the thoracic and lumbar spine without contrast. Suggest neurosurgical and/or radiation oncology evaluation for metastasis to the thoracic spine. Consider starting Decadron 4 mg every 6 hours, although may have risk of dissemination of herpes zoster. Continue treatment for herpes zoster.
--- NOTE | 2018-09-12 14:49 | CT ---
EXAMINATION TYPE: CT thor lumbar spine wo con DATE OF EXAM: 09/12/2018 COMPARISON: CTA chest earlier today. PET/CT May 28, 2018. HISTORY: Leg weakness. CT DLP: 1334.6 mGycm Automated exposure control for dose reduction was used. FINDINGS: There is persistent mild compression type fracture at T6 level with right lucent lesion this is uncha nged from most recent studies and correlates with area of probable pathologic fracture as soft tissue mass or neoplasm extends to this level. Sclerosis of the posterior T5 vertebra is also present. No a dditional acute fracture or dislocation is seen. Alignment is stable. Spinal canal involvement cannot be excluded can't be better evaluated with MRI if desired. Cholecystectomy clips are noted. Mild fat replaced atrophy of pancreas is seen. Central calcification s both kidneys favor vascular. Some diverticula in the sigmoid colon left lower quadrant are partiall y imaged. IMPRESSION: ABOVE. TUMOR EXTENSION TO T6 VERTEBRA REDEMONSTRATED. NO ADDITIONAL NEW ACUTE FRACTURE OR DISLOCAT ION IDENTIFIED.
[2018-09-12] MEDS: ACETAMINOPHEN TAB 325 MG TAB PO PRN (15:46)
[2018-09-12] MEDS ORDERED: HYDROcodone/APAP 5-325MG 1 EACH TAB PO PRN (17:01)
[2018-09-12] MEDS ORDERED: diphenhydrAMINE 25 MG CAP PO PRN (17:01)
[2018-09-12] MEDS ORDERED: DEXAMETHASONE SOD PHOSPHATE 4 MG/ML 1 ML VIAL IV PRN (17:18)
--- NOTE | 2018-09-12 17:25 | P.HPIM ---
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 On immunotherapy in July of this year. She had a recent hospitalization earlier this month for sepsis secondary to pneumonia and UTI. She was also treated for posterior rib and muscle pain secondary to recurrent tumor status post recent radiation for palliative treatment. Patient was just here a week ago and was treated for shingles with Valtrex, was [facility] home. Patient noticed increased weakness in the left leg associated with numbness day or 2 after discharge. She also noticed significant pain in the dermatome affected by shingles with no improvement from pain medication. She is currently on [place] which she couldn't tolerate as it makes her dizzy. Currently taking Tylenol for pain control. Patient was evaluated in the ER by Dr. Catracho tomlinson concerned about stroke and did a CT of the head that was negative. The white count is evaluated in the ER shows a temp of 98.8 pulse rate 107 blood pressure 120/58 EKG suggested sinus tachycardia with PVCs. CT chest was done that suggested increasing the mass of the left hilum with metastases metastatic disease to the right lung with bony metastatic disease of T5. Since significant weakness was found in the lumbar CT thoracic or lumbar spine was done which suggested tumor extension to T6 vertebrae with no additional new fractures or dislocation identified. Patient had a temp of 101 in the ER . Neurology evaluated the patient in the ER suggested neurosurgery evaluation for spinal cord progression and involvement of the radiation oncologist. Labs done in the year suggested was that of 10.3, hemoglobin 10.2, d-dimer elevation followed by a CTA that was negative for PE troponin 2 negative. Creatinine 0.41B UN 14. UA was negative of infection. Patient was evaluated in ER did have an episode of fall requiring multiple attendants to lift the patient to bed again. She is unable to put any weight on the left lower extremity. Patient denies any chills, fever, bloody stools, change in mental status, seizure, weakness in the upper extremities. Patient could not complete her immunotherapies session last week as was unable to come out of bed. She had an appointment with Dr. Webb today which she could not go to. Review of Systems Constitutional: Denies chills, Denies fever, endorses lethargy, endorses malaise, Denies poor appetite, endorses weakness, Denies weight loss Eyes: denies decreased vision, denies diplopia, denies discharge, denies pain Ears: deny: decreased hearing Ears, nose, mouth and throat: Denies dental pain, Denies headache, Denies nasal discharge, Denies nose pain Cardiovascular: Denies chest pain, Denies decreased exercise tolerance, Denies edema, Denies high blood pressure, Denies irregular heart beat, endorses palpitations, Denies paroxysmal nocturnal dyspnea, endorses shortness of breath Respiratory: Denies congestion, Denies cough, Denies cough with sputum, endorses dyspnea, there is 2-3 L home oxygen, endorses wheezing Gastrointestinal: Denies abdominal pain, Denies change in bowel habits, Denies coffee ground emesis, Denies early satiety, Denies excessive gas, Denies heartburn, Denies hematemesis, Denies hematochezia, Denies loss of appetite, Denies nausea, Denies vomiting Genitourinary: Denies dysuria, Denies flank pain, Denies kidney stones, Denies menorrhagia, Denies urgency, Denies urinary frequency Musculoskeletal: Endorses gait dysfunction, endorses limitation of motion, D enies morning stiffness, Denies muscle cramps Integumentary: Denies rash, Denies wounds, Denies brittle nails, Denies change in hair/nails, Denies darkening of skin Neurological: Endorses balance difficulties, Denies change in speech, Denies double vision, endorses gait dysfunction, Denies loss of vision, endorses motor disturbance, endorses numbness, endorses paralysis, Denies paresthesias, Denies seizures Psychiatric: Denies anxiety, Denies depression Endocrine: Denies excessive sweating, Denies excessive thirst, Denies high blood sugars, Denies palpitations Hematologic/Lymphatic: Denies easy bruising, Denies lymphadenopathy Past Medical History Past Medical History: Cancer, COPD, Hyperlipidemia, Hypertension, Pneumonia Additional Past Medical History / Comment(s): Current shingelles, recent sepsi s/pneumonia/UTI, 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 History of Any Multi-Drug Resistant Organisms: None Reported Past Surgical History: Bladder Surgery, Breast Surgery, Cholecystectomy, Hysterectomy, Joint Replacement Additional Past Surgical History / Comment(s): L total knee replacement, R partial knee replacement, L breast cyst removed, bladder suspension x 3, colonoscopies, colon surgery for "twisted" bowel, kidney stone surgery. Past Anesthesia/Blood Transfusion Reactions: No Reported Reaction Additional Past Anesthesia/Blood Transfusion Reaction / Comment(s): no hx blood transfusion Past Psychological History: No Psychological Hx Reported Additional Psychological History / Comment(s): Pt resides at [facility]. She uses a walker to ambulate. She has home oxygen/nebulizer. She gets rides thru [employer]. When she feels well, she drives. She has an emergency pull cord system. Smoking Status: Former smoker Past Alcohol Use History: None Reported Additional Past Alcohol Use History / Comment(s): Patient was a smoker one to 2 packs per day for 30 years and quit in 2002. Past Drug Use History: None Reported - Past Family History Mother Family Medical History: No Reported History Additional Family Medical History / Comment(s): Mother at age 80 from old age. Heart palpitations Father History Unknown: Yes Additional Family Medical History / Comment(s): Father when he was young from ruptured hernia. Medications and Allergies Home Medications Medication Instructions Recorded Confirmed Type Aspirin EC [Ecotrin Low Dose] 81 mg PO HS 05/25/16 09/12/18 History Metoprolol Tartrate [Lopressor] 25 mg PO BID 05/25/16 09/12/18 History Oxybutynin Chloride [Ditropan] 5 mg PO BID@0800,1700 05/25/16 09/12/18 History Simvastatin [Zocor] 40 mg PO HS 05/25/16 09/12/18 History Melatonin 5 mg PO HS PRN tablet 04/22/17 09/12/18 Rx ALPRAZolam [Xanax] 0.25 mg PO TID PRN #90 tab 06/16/17 09/12/18 Rx Potassium Chloride ER [K-Dur 20] 20 meq PO DAILY 06/17/17 09/12/18 History Furosemide [Lasix] 40 mg PO DAILY 06/06/18 09/12/18 History Lidocaine [Lidocaine 3% Topical 1 applic TOPICAL BID #30 gram 08/27/18 09/12/18 Rx Cream] Formoterol Fumarate [Perforomist] 20 mcg INHALATION RT-BID 09/04/18 09/12/18 History Amitriptyline HCl [Elavil] 25 mg PO HS #30 tab 09/06/18 09/12/18 Rx HYDROcodone/APAP 5-325MG [[place] 1 tab PO Q6HR PRN 3 Days #12 tab 09/06/18 09/12/18 Rx 5-325] diphenhydrAMINE [Benadryl] 25 mg PO QID PRN cap 09/06/18 09/12/18 Rx valACYclovir HCL [Valtrex] 1,000 mg PO BID #14 tablet 09/06/18 09/12/18 Rx Albuterol Nebulized [Ventolin 2.5 mg INHALATION RT-QID 09/12/18 09/12/18 History Nebulized] Allergies Allergy/AdvReac Type Severity Reaction Status Date / Time nitrofurantoin AdvReac Abdominal Verified 09/12/18 09:01 [From Macrodantin] Pain Sulfa (Sulfonamide AdvReac Nausea Verified 09/12/18 09:01 Antibiotics) Physical Exam Vitals: Vital Signs Temp Pulse Pulse Resp BP BP Pulse Ox 09/12/18 16:55 124 H 09/12/18 16:50 99.5 F 124 H 24 134/75 93 L 09/12/18 15:47 101 F H 115 H 18 139/78 96 09/12/18 12:49 106 H 18 117/68 98 09/12/18 10:34 98.8 F 107 H 18 120/58 98 09/12/18 08:43 98 09/12/18 08:34 94 09/12/18 08:02 98.8 F 98 20 127/70 98 Intake and Output 05/06/19 05/06/19 05/06/19 06:59 14:59 22:59 Other: Weight 90.265 kg - Constitutional General appearance: cooperative, no acute distress, obese - EENT Eyes: anicteric sclerae, PERRLA, normal appearance ENT: hearing grossly normal - Neck Neck: no lymphadenopathy, normal ROM, no other, no rigidity, no stridor, no thyromegaly - Respiratory Respiratory: bilateral: Significant wheezing bilaterally lower extremity with dullness bilaterally no rales or crackles heard - Cardiovascular Rhythm: Tachycardic Heart sounds: normal: S1, S2 Abnormal Heart Sounds: no systolic murmur, no diastolic murmur, no rub, no S3 Gallop, no S4 Gallop, no click, no other - Gastrointestinal General gastrointestinal: normal bowel sounds, soft - Integumentary Integumentary: no rash - Neurologic Neurologic: CNII-XII intact - Musculoskeletal Musculoskeletal: 3/5 strength on the left 5 / 5 on the right lower extremity. 5/5 in bilateral upper extremity. Numbness in the left lower extremity and the left part of the abdomen below the diaphragm. No reflexes noted in the bilate ral lower extremities balance in abnormality seen due to weakness in the lower extremity. - Psychiatric Psychiatric: A&O x's 3, appropriate affect Results CBC & Chem 7: 09/12/18 08:30 09/12/18 08:40 Labs: Abnormal Lab Results - Last 24 Hours (Table) 09/12/18 09/12/18 09/12/18 Range/Units 08:30 08:30 08:30 RBC 3.74 L (3.80-5.40) m/uL Hgb 10.2 L (11.4-16.0) gm/dL Hct 33.2 L (34.0-46.0) % MCHC 30.8 L (31.0-37.0) g/dL RDW 19.0 H (11.5-15.5) % Neutrophils # 8.6 H (1.3-7.7) k/uL Lymphocytes # 0.8 L (1.0-4.8) k/uL D-Dimer 1.04 H (<0.60) mg/L FEU Carbon Dioxide (22-30) mmol/L Creatinine (0.52-1.04) mg/dL Total Protein (6.3-8.2) g/dL Albumin (3.5-5.0) g/dL Ur Leukocyte Esterase Trace H (Negative) Urine Bacteria Occasional H (None) /hpf Urine Mucus Rare H (None) /hpf 09/12/18 Range/Units 08:40 RBC (3.80-5.40) m/uL Hgb (11.4-16.0) gm/dL Hct (34.0-46.0) % MCHC (31.0-37.0) g/dL RDW (11.5-15.5) % Neutrophils # (1.3-7.7) k/uL Lymphocytes # (1.0-4.8) k/uL D-Dimer (<0.60) mg/L FEU Carbon Dioxide 32 H (22-30) mmol/L Creatinine 0.41 L (0.52-1.04) mg/dL Total Protein 5.1 L (6.3-8.2) g/dL Albumin 2.7 L (3.5-5.0) g/dL Ur Leukocyte Esterase (Negative) Urine Bacteria (None) /hpf Urine Mucus (None) /hpf Microbiology - Last 24 Hours (Table) 09/12/18 08:30 Urine Culture - Preliminary Urine,Voided Thrombosis Risk Factor Assmnt - DVT/VTE Prophylaxis DVT/VTE Prophylaxis: Pharmacologic Prophylaxis ordered - Choose All That Apply Any of the Below Risk Factors Present?: Yes Each Factor Represents 1 point: Abnormal pulmonary function (COPD), Obesity (BMI >25) Other Risk Factors: Yes Each Risk Factor Represents 2 Points: Age 61-74 years, Malignancy Other congenital or acquired thrombophilia - If yes, enter type in comment: No Each Risk Factor Represents 5 Points: Stroke (< 1 month) Thrombosis Risk Factor Assessment Total Risk Factor Score: 11 Thrombosis Risk Factor Assessment Level: High Risk Assessment and Plan Plan: #1 left lower extremity weakness secondary to compression of the spinal cord from tumor progression of lung. Decadron 4 mg every 6 hours initiated on recommendation by neurology. Patient may need a neurosurgery evaluation but would like to speak to oncology and radiation oncologist prior to transferring the patient for neurosurgery evaluation if the team agrees. Dr. Garcia and Dr. Quinn consulted #2 shingles on Valtrex 1000 twice a day. #3 post herpetic neuralgia on Tylenol at home unable to tolerate [place]. Patient initiated on Neurontin 300 3 times a day along with tramadol as needed. Continue amitriptyline 25 mg daily at bedtime #4 anxiety continue Xanax 0.25 mg 3 times a day as needed #5 acute shortness of breath likely secondary to COPD exacerbation continue Decadron 4 mg IV every 6. DuoNeb as needed for shortness of breath. Levaquin 500 every 24 hours/bronchitis continue Lasix 40 mg by mouth daily #6 overactive bladder continue oxybutynin 5 mg daily twice a day #7 hypertension continue metoprolol 25 mg by mouth twice a day Hyperlipidemia continue Lipitor 20 mg daily at bedtime CODE STATUS full code DVT prophylaxis with Lovenox 40 mg subcu daily
[2018-09-12] MEDS: GABAPENTIN 300 MG CAP PO SCH ×2 (17:31→21:09)
[2018-09-12] MEDS: ENOXAPARIN 40 MG/0.4 ML SYRINGE SQ SCH (17:39)
[2018-09-12] MEDS: LEVOFLOXACIN 500MG-D5W PMX 500 MG in DEXTROSE/WATER 1 100ML.BAG IVPB SCH (18:37)
[2018-09-12] MEDS: FORMOTEROL FUMARATE 20 MCG/2 ML NEBU INHALATION SCH (18:49)
[2018-09-12] MEDS: ALBUTEROL NEBULIZED 2.5 MG/3 ML INHALATION SCH (18:49)
[2018-09-12] MEDS ORDERED: POLYETHYLENE GLYCOL 3350 17 GM POWD.PACK PO PRN (20:44)
[2018-09-12] MEDS: AMITRIPTYLINE HCL 25 MG TAB PO SCH (21:08)
[2018-09-12] MEDS: valACYclovir HCL 1,000 MG TABLET PO SCH (21:08)
[2018-09-12] MEDS: METOPROLOL TARTRATE 25 MG TAB PO SCH (21:08)
[2018-09-12] MEDS: ASPIRIN 81 MG PO SCH (21:09)
[2018-09-12] MEDS: ATORVASTATIN 20 MG TAB PO SCH (21:09)
[2018-09-12] MEDS: LIDOCAINE 4% CREAM 5 GM TUBE TOPICAL SCH (22:58)
[2018-09-12] MEDS: traMADol 50 MG TAB PO SCH (23:15)
[2018-09-12] MEDS: ALPRAZolam 0.25 MG TAB PO PRN (23:16)
[2018-09-12] MEDS: MELATONIN 5 MG TABLET PO PRN (23:16)
[2018-09-13 07:32] LABS: Anisocytosis Slight; Basophils % (A) 0 %; Eosinophils # (A) 0.2 k/uL (0-0.7); Eosinophils % (A) 2 %; HCT 31.1 % (34.0-46.0); HGB 9.4 gm/dL (11.4-16.0); Hypochromasia Marked; Lymphocytes % (A) 9 %; MCH 27.2 pg (25.0-35.0); MCHC 30.2 g/dL (31.0-37.0); MCV 89.8 fL (80.0-100.0); Mean Platelet Volume 7.6; Monocytes # (A) 0.7 k/uL (0-1.0); Monocytes % (A) 6 %; Neutrophils # (A) 8.9 k/uL (1.3-7.7); Neutrophils % (A) 80 %; Platelet Count 263 k/uL (150-450); RBC 3.47 m/uL (3.80-5.40); RDW 18.5 % (11.5-15.5); WBC 11.1 k/uL (3.8-10.6)
[2018-09-13 07:35] LABS: ALT 27 U/L (9-52); AST 13 U/L (14-36); Albumin 2.3 g/dL (3.5-5.0); Alkaline Phosphatase 108 U/L (38-126); Anion Gap 3 mmol/L; Blood Urea Nitrogen 11 mg/dL (7-17); Calcium 8.3 mg/dL (8.4-10.2); Carbon Dioxide 34 mmol/L (22-30); Chloride 102 mmol/L (98-107); Cholesterol 90 mg/dL (<200); Glucose 79 mg/dL (74-99); HDL Cholesterol 31 mg/dL (40-60); LDL Cholesterol,Calculated 35 mg/dL (0-99); Potassium 4.2 mmol/L (3.5-5.1); Sodium 139 mmol/L (137-145); Total Bilirubin 0.3 mg/dL (0.2-1.3); Total Protein 4.5 g/dL (6.3-8.2); Triglycerides 121 mg/dL (<150)
[2018-09-13] MEDS: traMADol 50 MG TAB PO SCH ×3 (07:46→21:11)
[2018-09-13] MEDS: POTASSIUM CHLORIDE ER 20 MEQ TAB.ER PO SCH (07:47)
[2018-09-13] MEDS: ENOXAPARIN 40 MG/0.4 ML SYRINGE SQ SCH (07:47)
[2018-09-13] MEDS: OXYBUTYNIN CHLORIDE 5 MG TAB PO SCH ×3 (07:47→18:04)
[2018-09-13] MEDS: FUROSEMIDE 40 MG TAB PO SCH (07:47)
[2018-09-13] MEDS: METOPROLOL TARTRATE 25 MG TAB PO SCH ×2 (07:47→21:12)
[2018-09-13] MEDS: GABAPENTIN 300 MG CAP PO SCH ×3 (07:47→21:10)
[2018-09-13] MEDS: valACYclovir HCL 1,000 MG TABLET PO SCH ×2 (07:47→21:10)
[2018-09-13] MEDS: LIDOCAINE 4% CREAM 5 GM TUBE TOPICAL SCH ×2 (07:54→21:12)
[2018-09-13] MEDS: FORMOTEROL FUMARATE 20 MCG/2 ML NEBU INHALATION SCH ×2 (08:18→21:34)
[2018-09-13] MEDS: ALBUTEROL NEBULIZED 2.5 MG/3 ML INHALATION SCH ×4 (08:18→21:32)
[2018-09-13 10:03] VITALS: BMI 34.8
--- NOTE | 2018-09-13 12:43 | P.PN ---
Subjective Progress Note Date: 09/13/18 Patient's daughter was present today. The patient continues to complain of weakness in the legs. Complains of numbness of the left chest region in the area of herpes zoster. Denies numbness of the legs. Patient is having some trouble with controlling urine. She has significant urgency. CT of the tho racic and lumbar spine showed Tumor extension to T6 vertebra demonstrated. Patient's daughter was present, who states the patient has not been seen by neurosurgeon as yet. Patient already had undergone radiation therapy to the thoracic spine. It is uncertain if patient can further receive radiation therapy to the spine. Objective - Vital Signs Vital signs: Vital Signs Temp 97.6 F 09/13/18 11:42 Pulse 75 09/13/18 11:42 Resp 20 09/13/18 11:42 BP 112/62 09/13/18 11:42 Pulse Ox 92 L 09/13/18 11:42 Intake & Output 09/12/18 09/13/18 09/13/18 18:59 06:59 18:59 Intake Total 360 0 120 Output Total 200 500 Balance 160 0 -380 Weight 90.265 kg 92 kg 92 kg Intake: Oral 360 0 120 Output: Urine 200 500 Other: Voiding Method Bedpan Bedpan # Voids 1 2 - Exam On examination patient's mental status is normal. Cranial nerves normal. Muscle strength normal in the arms. In the lower limbs, her hip flexion is 3+ to 3-on the left, 3+ on right. Knee extension is normal on the right, painful on the left. Toe extension 4+, ankle dorsiflexion 5-bilaterally. Patient has possible Babinski bilaterally. - Labs CBC & Chem 7: 09/13/18 06:12 09/13/18 06:12 Labs: Abnormal Lab Results - Last 24 Hours (Table) 09/13/18 09/13/18 Range/Units 06:12 06:12 WBC 11.1 H (3.8-10.6) k/uL RBC 3.47 L (3.80-5.40) m/uL Hgb 9.4 L (11.4-16.0) gm/dL Hct 31.1 L (34.0-46.0) % MCHC 30.2 L (31.0-37.0) g/dL RDW 18.5 H (11.5-15.5) % Neutrophils # 8.9 H (1.3-7.7) k/uL Carbon Dioxide 34 H (22-30) mmol/L Calcium 8.3 L (8.4-10.2) mg/dL AST 13 L (14-36) U/L Total Protein 4.5 L (6.3-8.2) g/dL Albumin 2.3 L (3.5-5.0) g/dL HDL Cholesterol 31 L (40-60) mg/dL Microbiology - Last 24 Hours (Table) 09/12/18 08:30 Blood Culture - Preliminary Blood No Growth after 24 hours 09/12/18 08:30 Urine Culture - Preliminary Urine,Voided Assessment and Plan Assessment: * 72-year-old female with metastatic lung cancer, came with left leg weakness. Examination shows bilateral leg weakness, but left worse. Patient has eviden ce of intrathecal infiltration of metastasis at T6 level, as per MRI of the thoracic spine from 08/23/2018. Her leg weakness could be related to myelopathy from metastatic infiltration of the spine. * Herpes zoster involving left T3-T4 dermatome. Zoster myelitis also a possibility, though less likely Plan: Patient was previously seen by orthopedic surgery Dr. Marino on 08/24/2018, who recommended neurosurgical consultation for metastasis in the thoracic spine with intrathecal infiltration. Patient has not been seen by neurosurgeon yet. Discussed with patient's daughter and Dr. Blanc in detail. Patient's daughter is agreeing for patient to be transferred/to be seen by neurosurgeon, but does not know if she would be a candidate for surgery given significant overall metastatic disease. I would suggest urgent transfer to facility where neurosurgery can evaluate the patient. Continue Decadron 4 mg every 6 hours. Continue treatment for herpes zoster. Patient on Valtrex 1000 mg twice a day.
--- NOTE | 2018-09-13 13:11 | P.PN ---
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 On immunotherapy in July of this year. She had a recent hospitalization earlier this month for sepsis secondary to pneumonia and UTI. She was also treated for posterior rib and muscle pain secondary to recurrent tumor status post recent radiation for palliative treatment. Patient was just here a week ago and was treated for shingles with Valtrex, was discharged to senior home. Patient noticed increased weakness in the left leg associated with numbness day or 2 after discharge. She also noticed significant pain in the dermatome affected by shingles with no improvement from pain medication. She is currently on [place] which she couldn't tolerate as it makes her dizzy. Currently taking Tylenol for pain control. Patient was evaluated in the ER by Dr. Catracho tomlinson concerned about stroke and did a CT of the head that was negative. The white count is evaluated in the ER shows a temp of 98.8 pulse rate 107 blood pressure 120/58 EKG suggested sinus tachycardia with PVCs. CT chest was done that suggested increasing the mass of the left hilum with metastases metastatic disease to the right lung with bony metastatic disease of T5. Since significant weakness was found in the lumbar CT thoracic or lumbar s pine was done which suggested tumor extension to T6 vertebrae with no additional new fractures or dislocation identified. Patient had a temp of 101 in the ER . Neurology evaluated the patient in the ER suggested neurosurgery evaluation for spinal cord progression and involvement of the radiation oncologist. Labs done in the year suggested was that of 10.3, hemoglobin 10.2, d-dimer elevation follo wed by a CTA that was negative for PE troponin 2 negative. Creatinine 0.41B UN 14. UA was negative of infection. Patient was evaluated in ER did have an episode of fall requiring multiple attendants to lift the patient to bed again. She is unable to put any weight on the left lower extremity. Patient denies any chills, fever, bloody stools, change in mental status, seizure, weakness in the upper extremities. Patient could not complete her immunotherapies session last week as was unable to come out of bed. She had an appointment with Dr. Webb today which she could not go to. 09/13: Repeat lab work reveals white count of 11.1, hemoglobin 9.4, creatinine 0.53. CO2 is 34. Urine culture is showing group D enterococcus. She has been afebrile since yesterday afternoon, heart rate in the 70s to 90s, blood pressure 112/62, pulse ox 92% on 2 L nasal cannula. Urinalysis was negative for infection. The patient has been seen by Dr. Santiago with recommendations for urgent transfer to tertiary care for neurosurgery evaluation. Patient to continue Decadron 4 mg every 6 hours. Patient states that she slept well last night. She was started on gabapentin yesterday and feels she is a little sleepy today. Her pain is decreased to her chest area. She has been seen by oncology and radiation oncology also on consult. Review of Systems Constitutional: Denies chills, Denies fever, endorses lethargy, endorses malaise, Denies poor appetite, endorses weakness, Denies weight loss Eyes: denies decreased vision, denies diplopia, denies discharge, denies pain Ears: deny: decreased hearing Ears, nose, mouth and throat: Denies dental pain, Denies headache, Denies nasal discharge, Denies nose pain Cardiovascular: Denies chest pain, Denies decreased exercise tolerance, Denies edema, Denies high blood pressure, Denies irregular heart beat, endorses palpitations, Denies paroxysmal nocturnal dyspnea, endorses shortness of breath Respiratory: Denies congestion, Denies cough, Denies cough with sputum, endorses dyspnea, there is 2-3 L home oxygen, endorses wheezing Gastrointestinal: Denies abdominal pain, Denies change in bowel habits, Denies coffee ground emesis, Denies early satiety, Denies excessive gas, Denies heartburn, Denies hematemesis, Denies hematochezia, Denies loss of appetite, Denies nausea, Denies vomiting Genitourinary: Denies dysuria, Denies flank pain, Denies kidney stones, Denies menorrhagia, Denies urgency, Denies urinary frequency Musculoskeletal: Endorses gait dysfunction, endorses limitation of motion, Denies morning stiffness, Denies muscle cramps Integumentary: Denies rash, Denies wounds, Denies brittle nails, Denies change in hair/nails, Denies darkening of skin Neurological: Endorses balance difficulties, Denies change in speech, Denies double vision, endorses gait dysfunction, Denies loss of vision, endorses motor disturbance, endorses numbness, endorses paralysis, Denies paresthesias, Denies seizures Psychiatric: Denies anxiety, Denies depression Endocrine: Denies excessive sweating, Denies excessive thirst, Denies high blood sugars, Denies palpitations Hematologic/Lymphatic: Denies easy bruising, Denies lymphadenopathy, reports scabbing rash Objective - Vital Signs Vital signs: Vital Signs Temp 97.7 F 09/13/18 08:00 Pulse 96 09/13/18 08:28 Resp 20 09/13/18 08:00 BP 115/46 09/13/18 08:00 Pulse Ox 97 09/13/18 08:00 Intake & Output 09/12/18 09/13/18 09/13/18 18:59 06:59 18:59 Intake Total 360 0 120 Output Total 200 500 Balance 160 0 -380 Weight 90.265 kg 92 kg 92 kg Intake: Oral 360 0 120 Output: Urine 200 500 Other: Voiding Method Bedpan Bedpan # Voids 1 2 - Exam General appearance: cooperative, no acute distress, obese - EENT Eyes: anicteric sclerae, PERRLA, normal appearance ENT: hearing grossly normal - Neck Neck: no lymphadenopathy, normal ROM, no other, no rigidity, no stridor, no thyromegaly - Respiratory Respiratory: bilateral: Significant wheezing bilaterally lower extremity with dullness bilaterally no rales or crackles heard - Cardiovascular Rhythm: Tachycardic Heart sounds: normal: S1, S2 Abnormal Heart Sounds: no systolic murmur, no diastolic murmur, no rub, no S3 Gallop, no S4 Gallop, no click, no other - Gastrointestinal General gastrointestinal: normal bowel sounds, soft - Integumentary Integumentary: Rash and scaling noted from the left posterior thoracic area a round laterally into the anterior chest wall. - Neurologic Neurologic: CNII-XII intact - Musculoskeletal Musculoskeletal: 3/5 strength on the left 5 / 5 on the right lower extremity. 5/5 in bilateral upper extremity. Numbness in the left lower extremity and the left part of the abdomen below the diaphragm. No reflexes noted in the bilateral lower extremities balance in abnormality seen due to weakness in the lower extremity. - Psychiatric Psychiatric: A&O x's 3, appropriate affect - Labs CBC & Chem 7: 09/13/18 06:12 09/13/18 06:12 Labs: Abnormal Lab Results - Last 24 Hours (Table) 09/13/18 09/13/18 Range/Units 06:12 06:12 WBC 11.1 H (3.8-10.6) k/uL RBC 3.47 L (3.80-5.40) m/uL Hgb 9.4 L (11.4-16.0) gm/dL Hct 31.1 L (34.0-46.0) % MCHC 30.2 L (31.0-37.0) g/dL RDW 18.5 H (11.5-15.5) % Neutrophils # 8.9 H (1.3-7.7) k/uL Carbon Dioxide 34 H (22-30) mmol/L Calcium 8.3 L (8.4-10.2) mg/dL AST 13 L (14-36) U/L Total Protein 4.5 L (6.3-8.2) g/dL Albumin 2.3 L (3.5-5.0) g/dL HDL Cholesterol 31 L (40-60) mg/dL Microbiology - Last 24 Hours (Table) 09/12/18 08:30 Blood Culture - Preliminary Blood No Growth after 24 hours 09/12/18 08:30 Urine Culture - Preliminary Urine,Voided Assessment and Plan Plan: #1 left lower extremity weakness secondary to compression of the spinal cord from tumor progression of lung. Decadron 4 mg every 6 hours initiated on recommendation by neurology. Continue gabapentin 300 mg 3 times daily. Patient may need a neurosurgery evaluation but would like to speak to oncology and radiation oncologist prior to transferring the patient for neurosurgery evaluation if the team agrees. Dr. Alcaraz and Dr. Quinn consulted #2 shingles on Valtrex 1000 twice a day. #3 post herpetic neuralgia on Tylenol at home unable to tolerate [place]. Patient initiated on Neurontin 300 3 times a day along with tramadol as needed. Continue amitriptyline 25 mg daily at bedtime #4 anxiety continue Xanax 0.25 mg 3 times a day as needed #5 acute shortness of breath likely secondary to COPD exacerbation continue Decadron 4 mg IV every 6. DuoNeb as needed for shortness of breath. Levaquin 500 every 24 hours/bronchitis continue Lasix 40 mg by mouth daily #6 overactive bladder continue oxybutynin 5 mg daily twice a day #7 hypertension continue metoprolol 25 mg by mouth twice a day Hyperlipidemia continue Lipitor 20 mg daily at bedtime CODE STATUS full code DVT prophylaxis with Lovenox 40 mg subcu daily Impression and plan of care have been directed as dictated by the signing physician. Maria Guadalupe Zaragoza nurse practitioner acting as scribe for signing physician.
--- NOTE | 2018-09-13 13:12 | P.DS ---
Providers Date of admission: 09/12/18 12:46 Expected date of discharge: 09/20/18 Attending physician: Devin Blanc MD Consults: 09/12/18 12:31 Consult Physician Routine Consulting Provider: Darryl Garcia Consult Reason/Comments: metastatic lung cancer Do you want consulting provider notified?: Yes Consult Physician Routine Consulting Provider: Delmy Santiago Consult Reason/Comments: CVA Do you want consulting provider notified?: Yes 09/12/18 17:19 Consult Physician Routine Consulting Provider: Radiation Linen Room Houseperson Consult Reason/Comments: tumor progression to spine, known to Dr. 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 On immunotherapy in July of this year. She had a recent hospitalization earlier this month for sepsis secondary to pneumonia and UTI. She was also treated for posterior rib and muscle pain secondary to recurrent tumor status post recent radiation for palliative treatment. Patient was just here a week ago and was treated for shingles with Valtrex, was discharged to senior home. Patient noticed increased weakness in the left leg associated with numbness day or 2 after discharge. She also noticed significant pain in the dermatome affected by shingles with no improvement from pain medication. She is currently on [place] which she couldn't tolerate as it makes her dizzy. Currently taking Tylenol for pain control. Patient was evaluated in the ER by Dr. Catracho tomlinson concerned about stroke and did a CT of the head that was negative. The white count is evaluated in the ER shows a temp of 98.8 pulse rate 107 blood pressure 120/58 EKG suggested sinus tachycardia with PVCs. CT chest was done that suggested increasing the mass of the left hilum with metastases metastatic disease to the right lung with bony metastatic disease of T5. Since significant weakness was found in the lumbar CT thoracic or lumbar spine was done which suggested tumor extension to T6 vertebrae with no additional new fractures or dislocation identified. Patient had a temp of 101 in the ER . Neurology evaluated the patient in the ER suggested neurosurgery evaluation for spinal cord progression and involvement of the radiation oncologist. Labs done in the year suggested was that of 10.3, hemoglobin 10.2, d-dimer elevation followed by a CTA that was negative for PE troponin 2 negative. Creatinine 0.41B UN 14. UA was negative of infection. Patient was evaluated in ER did have an episode of fall requiring multiple attendants to lift the patient to bed again. She is unable to put any weight on the left lower extremity. Patient denies any chills, fever, bloody stools, change in mental status, seizure, weakness in the upper extremities. Patient could not complete her immunotherapies session last week as was unable to come out of bed. She had an appointment with Dr. Webb today which she could not go to. 09/13: Repeat lab work reveals white count of 11.1, hemoglobin 9.4, creatinine 0.53. CO2 is 34. Urine culture is showing group D enterococcus. She has been afebrile since yesterday afternoon, heart rate in the 70s to 90s, blood pressure 112/62, pulse ox 92% on 2 L nasal cannula. Urinalysis was negative for infection. The patient has been seen by Dr. Santiago with recommendations for urgent transfer to tertiary care for neurosurgery evaluation. Patient to continue Decadron 4 mg every 6 hours. Patient states that she slept well last night. She was started on gabapentin yesterday and feels she is a little sleepy today. Her pain is decreased to her chest area. She has been seen by oncology and radiation oncology also on consult. Patient has been seen by Dr. Garcia and he has told her that her condition is terminal and that he did not recommend surgical intervention or evaluation. We will plan for hospice referral and patient is thinking of going to the [facility], possible discharge tomorrow. 09/14: Patient has met with [facility] and is undecided whether to to go to [facility] with hospice or [facility]. Patient has been told that rehab is not an option for her as her lesion on her back is unstable and therapies will only worsen her symptoms. Daughter will review [facility] tonight and tomorrow there is a meeting planned with [facility] tomorrow morning and a decision will be made for final discharge plan. Overall, patient has shown decline in her condition and prognosis is very poor. Temperature max 101.7, blood pressure 88/37, pulse ox 90% on 2 L. Discussed CODE STATUS with the patient and she is agreeable to no code which is been changed in the computer. 09/20: On September 15, patient was transitioned over to inpatient hospice care for pain control. Patient continued to decline and multiple medication changes were made and patient on September 20. Please see nursing Dr. ceja for details. Discharge diagnoses: #1 left lower extremity weakness secondary to compression of the spinal cord from tumor progression of squamous cell carcinoma of the left lower lung with recurrence #2 shingles #3 post herpetic neuralgia #4 generalized anxiety disorder #5 acute shortness of breath likely secondary to COPD exacerbation and bronchitis #6 overactive bladder continue oxybutynin 5 mg daily twice a day #7 hypertension continue metoprolol 25 mg by mouth twice a day Hyperlipidemia continue Lipitor 20 mg daily at bedtime Chronic hypoxic respiratory failure. Discharge plan: Hospice Impression and plan of care have been directed as dictated by the signing physician. Maria Guadalupe Zaragoza nurse practitioner acting as scribe for signing physician. Patient Condition at Discharge: Undetermined Plan - Discharge Summary Discharge Rx Participant: No New Discharge Prescriptions: New LORazepam ORAL CONC [Ativan Intensol] 2 mg PO Q4HR PRN #30 ml PRN Reason: Anxiety Atropine Ophth Soln 1% 5Ml [Isopto Atropine 1% 5Ml] 2 drops PO Q4HR PRN #1 bottle PRN Reason: Secretions MORPHINE ORAL TREVOR CONC 20mg/mL [Roxanol Oral Soln Conc 20MG/ML] 5 mg PO Q4H PRN #30 ml PRN Reason: Pain Gabapentin [Neurontin] 300 mg PO TID #9 cap Continue Metoprolol Tartrate [Lopressor] 25 mg PO BID Oxybutynin Chloride [Ditropan] 5 mg PO BID@0800,1700 Melatonin 5 mg PO HS PRN tablet PRN Reason: Insomnia Lidocaine [Lidocaine 3% Topical Cream] 1 applic TOPICAL BID #30 gram diphenhydrAMINE [Benadryl] 25 mg PO QID PRN cap PRN Reason: Itching Amitriptyline HCl [Elavil] 25 mg PO HS #30 tab valACYclovir HCL [Valtrex] 1,000 mg PO BID #14 tablet Albuterol Nebulized [Ventolin Nebulized] 2.5 mg INHALATION RT-QID Discontinued Simvastatin [Zocor] 40 mg PO HS Aspirin EC [Ecotrin Low Dose] 81 mg PO HS Furosemide [Lasix] 40 mg PO DAILY No Action Budesonide-Formot 160-4.5 Mcg [Symbicort 160-4.5 Mcg Inhaler] 2 puff INHALATION BID #1 inhaler Calcium Carbonate [Tums] 500 mg PO TID PRN #90 chewable PRN Reason: Indigestion Discharge Medication List Metoprolol Tartrate [Lopressor] 25 mg PO BID 05/25/16 [History] Oxybutynin Chloride [Ditropan] 5 mg PO BID@0800,1700 05/25/16 [History] Melatonin 5 mg PO HS PRN tablet 04/22/17 [Rx] Lidocaine [Lidocaine 3% Topical Cream] 1 applic TOPICAL BID #30 gram 08/27/18 [Rx] Amitriptyline HCl [Elavil] 25 mg PO HS #30 tab 09/06/18 [Rx] diphenhydrAMINE [Benadryl] 25 mg PO QID PRN cap 09/06/18 [Rx] valACYclovir HCL [Valtrex] 1,000 mg PO BID #14 tablet 09/06/18 [Rx] Albuterol Nebulized [Ventolin Nebulized] 2.5 mg INHALATION RT-QID 09/12/18 [History] Atropine Ophth Soln 1% 5Ml [Isopto Atropine 1% 5Ml] 2 drops PO Q4HR PRN #1 bottle 09/14/18 [Rx] Gabapentin [Neurontin] 300 mg PO TID #9 cap 09/14/18 [Rx] LORazepam ORAL CONC [Ativan Intensol] 2 mg PO Q4HR PRN #30 ml 09/14/18 [Rx] MORPHINE ORAL TREVOR CONC 20mg/mL [Roxanol Oral Soln Conc 20MG/ML] 5 mg PO Q4H PRN #30 ml 09/14/18 [Rx] Budesonide-Formot 160-4.5 Mcg [Symbicort 160-4.5 Mcg Inhaler] 2 puff INHALATION BID #1 inhaler 09/16/18 [Rx] Calcium Carbonate [Tums] 500 mg PO TID PRN #90 chewable 09/16/18 [Rx] Follow up Appointment(s)/Referral(s): Sunil Cagle MD [Primary Care Provider] - As Needed Discharge Disposition: HOME WITH HOSPICE - Preliminary Cause of Preliminary Cause of : squamous cell carcinoma of the left lower lung
--- NOTE | 2018-09-13 13:31 | P.CONS ---
History of Present Illness - Reason for Consult Consult date: 09/13/18 metastatic lung cancer Requesting physician: Juan Carlos Hayden - Chief Complaint left lower extremity weakness and fall - History of Present Illness Mrs. Byers is a very pleasant 72-year-old female patient of Dr. Garcia who was at home over the weekend when her left knee "gave out" patient was in the bathroom, she had difficulty she was able to get herself seated on the toilet, she did call EMS. She is now having sensations of numbness in the left leg, she is no longer able to stand independently, she requires 2-3 person assist. Patient's respiratory status is slightly worse. Patient requested Dr. Garcia to see her and discuss her prognosis and options. malignancy history: Pt presented with recurrent bronchitis and persistent cough that started around February 2017, dyspnea was progressive, CXR 04/25 revealed 7.9cm LLL lung mass, CT chest 04/17/2017 revealed 5.6 x 6 x 4.9 cm mass in LLL, 6.4mm calcified RUL nodule. 04/21/2017 FNA of lung mass was positive for squamous cell carcinoma. staging PET uptake in 7.6cm LLL lung mass, otherwise negative. She started concurrent carbo/taxol with XRT 06/02/17. She had complications of pneumnoia, sepsis, and spent time at [facility], discharged 07/13/17, chemo was held and she continued with XRT as her performance status did not permit concurrent chemoradiation, she completed XRT 07/26/17. Treatment f/u CT 08/16/17 revealed improvement of her disease. She started chemotherapy with carboplatin/gemzar on 09/03/17 and completed 4 cycles on 11/12/17. F/U scans over the next 6 months did not show evidence of progression. In May she started having progressive left chest pain, PET 05/31/18 revealed LLL mass extending to T-spine, MRI of T-spine revealed large LLL mass extending to spinal canal. Completed palliative XRT to the LLL lesion on 06/29/2018. 07/28/18 she started Tecentriq, had 2 cycles. Unfortunately, she has had rapid progression of disease. Neurological deficits now present Review of Systems 10 point ROS is as stated in HPI Past Medical History Past Medical History: Cancer, COPD, Hyperlipidemia, Hypertension, Pneumonia Additional Past Medical History / Comment(s): Current shingelles, recent sepsis/pneumonia/UTI, 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 History of Any Multi-Drug Resistant Organisms: None Reported Past Surgical History: Bladder Surgery, Breast Surgery, Cholecystectomy, Hysterectomy, Joint Replacement Additional Past Surgical History / Comment(s): L total knee replacement, R partial knee replacement, L breast cyst removed, bladder suspension x 3, colonoscopies, colon surgery for "twisted" bowel, kidney stone surgery. Past Anesthesia/Blood Transfusion Reactions: No Reported Reaction Additional Past Anesthesia/Blood Transfusion Reaction / Comm: no hx blood transf usion Past Psychological History: No Psychological Hx Reported Additional Psychological History / Comment(s): Pt resides at [facility]. She uses a walker to ambulate. She has home oxygen/nebulizer. She gets rides thru [employer]. When she feels well, she drives. She has an emergency pull cord system. Smoking Status: Former smoker Past Alcohol Use History: None Reported Additional Past Alcohol Use History / Comment(s): Patient was a smoker one to 2 packs per day for 30 years and quit in 2002. Past Drug Use History: None Reported - Past Family History Mother Family Medical History: No Reported History Additional Family Medical History / Comment(s): Mother at age 80 from old age. Heart palpitations Father History Unknown: Yes Additional Family Medical History / Comment(s): Father when he was young from ruptured hernia. Medications and Allergies Home Medications Medication Instructions Recorded Confirmed Type Aspirin EC [Ecotrin Low Dose] 81 mg PO HS 05/25/16 09/12/18 History Metoprolol Tartrate [Lopressor] 25 mg PO BID 05/25/16 09/12/18 History Oxybutynin Chloride [Ditropan] 5 mg PO BID@0800,1700 05/25/16 09/12/18 History Simvastatin [Zocor] 40 mg PO HS 05/25/16 09/12/18 History Melatonin 5 mg PO HS PRN tablet 04/22/17 09/12/18 Rx ALPRAZolam [Xanax] 0.25 mg PO TID PRN #90 tab 06/16/17 09/12/18 Rx Potassium Chloride ER [K-Dur 20] 20 meq PO DAILY 06/17/17 09/12/18 History Furosemide [Lasix] 40 mg PO DAILY 06/06/18 09/12/18 History Lidocaine [Lidocaine 3% Topical 1 applic TOPICAL BID #30 gram 08/27/18 09/12/18 Rx Cream] Formoterol Fumarate [Perforomist] 20 mcg INHALATION RT-BID 09/04/18 09/12/18 H istory Amitriptyline HCl [Elavil] 25 mg PO HS #30 tab 09/06/18 09/12/18 Rx HYDROcodone/APAP 5-325MG [Alpha 1 tab PO Q6HR PRN 3 Days #12 tab 09/06/18 09/12/18 Rx 5-325] diphenhydrAMINE [Benadryl] 25 mg PO QID PRN cap 09/06/18 09/12/18 Rx valACYclovir HCL [Valtrex] 1,000 mg PO BID #14 tablet 09/06/18 09/12/18 Rx Albuterol Nebulized [Ventolin 2.5 mg INHALATION RT-QID 09/12/18 09/12/18 History Nebulized] Allergies Allergy/AdvReac Type Severity Reaction Status Date / Time nitrofurantoin AdvReac Abdominal Verified 09/12/18 09:01 [From Macrodantin] Pain Sulfa (Sulfonamide AdvReac Nausea Verified 09/12/18 09:01 Antibiotics) Physical Exam Vitals: Vital Signs Temp Pulse Pulse Resp BP BP Pulse Ox 09/13/18 11:42 97.6 F 75 18 112/62 92 L 09/13/18 08:28 96 09/13/18 08:18 90 09/13/18 08:00 97.7 F 76 18 115/46 97 09/13/18 03:14 99.8 F H 110 H 20 114/60 96 09/12/18 23:36 98 20 133/74 100 09/12/18 20:00 98.7 F 60 20 123/58 98 09/12/18 19:03 94 18 09/12/18 18:58 92 18 05/06/19 18:57 92 18 09/12/18 18:49 94 18 09/12/18 16:55 124 H 09/12/18 16:50 99.5 F 124 H 24 134/75 93 L 09/12/18 15:47 101 F H 115 H 18 139/78 96 09/12/18 12:49 106 H 18 117/68 98 Intake and Output 09/12/18 09/13/18 09/13/18 22:59 06:59 14:59 Intake Total 360 0 120 Output Total 200 500 Balance 160 0 -380 Intake: Oral 360 0 120 Output: Urine 200 500 Other: Voiding Method Bedpan Bedpan Bedpan # Voids 1 1 2 Weight 92 kg 92 kg Well-developed, overweight female sitting up in bed, mild respiratory distress noted, alert and oriented to self, place, time and situation, patient has difficulty completing a sentence without shortness of breath, O2 dependent, chest expansion is visibly symmetrical, peripheral pulses are palpable 2+. Results CBC & Chem 7: 09/13/18 06:12 09/13/18 06:12 Labs: Abnormal Lab Results - Last 24 Hours (Table) 09/13/18 09/13/18 Range/Units 06:12 06:12 WBC 11.1 H (3.8-10.6) k/uL RBC 3.47 L (3.80-5.40) m/uL Hgb 9.4 L (11.4-16.0) gm/dL Hct 31.1 L (34.0-46.0) % MCHC 30.2 L (31.0-37.0) g/dL RDW 18.5 H (11.5-15.5) % Neutrophils # 8.9 H (1.3-7.7) k/uL Carbon Dioxide 34 H (22-30) mmol/L Calcium 8.3 L (8.4-10.2) mg/dL AST 13 L (14-36) U/L Total Protein 4.5 L (6.3-8.2) g/dL Albumin 2.3 L (3.5-5.0) g/dL HDL Cholesterol 31 L (40-60) mg/dL Microbiology - Last 24 Hours (Table) 09/12/18 08:30 Blood Culture - Preliminary Blood No Growth after 24 hours 09/12/18 08:30 Urine Culture - Preliminary Urine,Voided Comments: T/L spine CT report reviewed Brain CT report reviewed CT scan - chest: report reviewed Assessment and Plan Plan: Metastatic non-small cell lung cancer: CT chest shows increase in size of mass as well as additional masses in contralateral lung. Imaging of the spine shows progression in size of soft tissue mass impending/encroaching more on the spine. Pt PS is declining, she has weakness and LLE numbness. Pt has significant disease progression. Dr. Garcia discussed with the patient his concerns regarding any additional treatment for cancer. Any treatment is palliative in nature and is not likely to provide a meaningful impact on malignancy that would give her quality or quantity of live. She is not a candidate for radiation to the spine as this area has been irradiated previously-Dr. Quinn. Patient's performance status is poor and not amenable to chemotherapy at this time, which would be the alice mmended modality due to rapid disease progression. Surgical option for treatment of the spinal mass not recommended because of poor healing, increased morbidity, and likely inability to be medically cleared. All of patient's questions were answered to her satisfaction. She has requested we speak with her family, which we will do. Hospice was discussed. Patient is agreeable to a meeting with hospice and her family to make plans. Patient does understand that her condition is terminal. Life expectancy less than 3-4 months. Doctor attests: I performed a history and physical examination of this patient, developed impression and plan of care, discussed with dictator. I agree with dictators note, documented as a scribe. Time with Patient: Greater than 30 (>50% time spent counseling and coordinating care)
--- NOTE | 2018-09-13 16:40 | P.CNPUL ---
History of Present Illness Consult date: 09/13/18 Requesting physician: Devin Blanc Chief complaint: Left leg weakness, and numbness, unsteady gait, falls at home History of present illness: This is a 72-year-old white female patient with a history of metastatic squam ous cell carcinoma on the left lower lung, who underwent concurrent chemo and radiation, unfortunate patient had recurrent disease following the treatment, and there was metastatic lesions and patient's spine invading the spinal canal. Patient had palliative dose of radiotherapy related to worsening back pain, and most recently patient was started on immunotherapy for her progressive disease. Patient received 2 cycles of immunotherapy, and was due to receive her third cycle last week but she was hospitalized with shingles and an acute urinary tract infection.. Following her hospitalization she was sent home on oral Valtrex, and the vesicular eruption on her left chest became dried and enc rusted. Patient admitted to the hospital on 09/12/2018 by an ambulance for complaints of left leg weakness, and patient started having difficult time walking on it, she was trying to ambulate to the bathroom, he was having difficulty with her balance, her left knee was buckling, she was losing her balance and she fell. Denied any loss of consciousness, denied hitting her head, denied any shortness of breath or chest pain. No fever, chills or cough or chest congestion. Her left leg felt numb up to her knee, and on today's exam she states her sensation of numbness is up to her left hip, and there is still left lower extremity weakness. Denied any headaches, lightheadedness or dizziness. No loss of sensation or motor strength in the left upper extremity, no facial weakness. No loss of vision. Brain CT was completed and showed no acute intracranial findings. Chest CTA completed and showed no evidence for acute pulmonary embolism, showed redemonstration of advanced lung cancer with large left hilar mass causing pathologic fracture in the mid thoracic spine with multiple metastatic lesions in the right lung. Background of underlying emphysematous changes, left-sided volume loss, no acute pulmonary process was evident. EKG shows sinus tachycardia without acute ischemic changes. Thoracic/lumbar spine showed tumor extension to T6 vertebra stable from previous PET scan from 05/28/2018, no acute fracture or dislocation. Patient was evaluated by neurology who felt that her leg weakness could be related to myelopathy from metastatic infiltration of the spine. Vital signs have been stable, patient is afebrile, she is on 2 L of oxygen and pulse ox is 92%, lab work did not show any significant leukocytosis, admission labs showed white blood cell count 10.3, hemoglobin 10.2, d-dimer was 1.04, electrolytes were within normal limits with exception of CO2 of 32, renal profile was within normal limits asthma lactic acid was 0.8, troponin was negative 1, urinalysis showed trace leukocytes, occasional bacteria, but no sig white blood cell count. Preliminary urine culture showed group D enterococcus, patient had previously been treated for E. coli. Blood culture showed no growth. Patient was seen by oncology, who recommended palliative care at this time and patient is considering going home with [facility] Review of Systems All systems: negative Constitutional: Reports weakness, Denies chills, Denies fever Eyes: denies blurred vision, denies pain Ears, nose, mouth and throat: Denies headache, Denies sore throat Cardiovascular: Denies chest pain, Denies shortness of breath Respiratory: Denies cough Gastrointestinal: Denies abdominal pain, Denies diarrhea, Denies nausea, Denies vomiting Genitourinary: Denies dysuria, Denies hematuria Musculoskeletal: Denies myalgias Integumentary: Reports rash, Denies pruritus Neurological: Denies numbness, Denies weakness Psychiatric: Denies anxiety, Denies depression Endocrine: Denies fatigue, Denies weight change Past Medical History Past Medical History: Cancer, COPD, Hyperlipidemia, Hypertension, Pneumonia Additional Past Medical History / Comment(s): Current shingelles, recent sepsis/pneumonia/UTI, 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 History of Any Multi-Drug Resistant Organisms: None Reported Past Surgical History: Bladder Surgery, Breast Surgery, Cholecystectomy, Hyste rectomy, Joint Replacement Additional Past Surgical History / Comment(s): L total knee replacement, R partial knee replacement, L breast cyst removed, bladder suspension x 3, colonoscopies, colon surgery for "twisted" bowel, kidney stone surgery. Past Anesthesia/Blood Transfusion Reactions: No Reported Reaction Additional Past Anesthesia/Blood Transfusion Reaction / Comment(s): no hx blood transfusion Past Psychological History: No Psychological Hx Reported Additional Psychological History / Comment(s): Pt resides at [facility]. She uses a walker to ambulate. She has home oxygen/nebulizer. She gets rides thru [employer]. When she feels well, she drives. She has an emergency pull cord system. Smoking Status: Former smoker Past Alcohol Use History: None Reported Additional Past Alcohol Use History / Comment(s): Patient was a smoker one to 2 packs per day for 30 years and quit in 2002. Past Drug Use History: None Reported - Past Family History Mother Family Medical History: No Reported History Additional Family Medical History / Comment(s): Mother at age 80 from old age. Heart palpitations Father History Unknown: Yes Additional Family Medical History / Comment(s): Father when he was young from ruptured hernia. Medications and Allergies Home Medications Medication Instructions Recorded Confirmed Type Aspirin EC [Ecotrin Low Dose] 81 mg PO HS 05/25/16 09/12/18 History Metoprolol Tartrate [Lopressor] 25 mg PO BID 05/25/16 09/12/18 History Oxybutynin Chloride [Ditropan] 5 mg PO BID@0800,1700 05/25/16 09/12/18 History Simvastatin [Zocor] 40 mg PO HS 05/25/16 09/12/18 History Melatonin 5 mg PO HS PRN tablet 04/22/17 09/12/18 Rx ALPRAZolam [Xanax] 0.25 mg PO TID PRN #90 tab 06/16/17 09/12/18 Rx Potassium Chloride ER [K-Dur 20] 20 meq PO DAILY 06/17/17 09/12/18 History Furosemide [Lasix] 40 mg PO DAILY 06/06/18 09/12/18 History Lidocaine [Lidocaine 3% Topical 1 applic TOPICAL BID #30 gram 08/27/18 09/12/18 Rx Cream] Formoterol Fumarate [Perforomist] 20 mcg INHALATION RT-BID 09/04/18 09/12/18 History Amitriptyline HCl [Elavil] 25 mg PO HS #30 tab 09/06/18 09/12/18 Rx HYDROcodone/APAP 5-325MG [[place] 1 tab PO Q6HR PRN 3 Days #12 tab 09/06/18 09/12/18 Rx 5-325] diphenhydrAMINE [Benadryl] 25 mg PO QID PRN cap 09/06/18 09/12/18 Rx valACYclovir HCL [Valtrex] 1,000 mg PO BID #14 tablet 09/06/18 09/12/18 Rx Albuterol Nebulized [Ventolin 2.5 mg INHALATION RT-QID 09/12/18 09/12/18 History Nebulized] Allergies Allergy/AdvReac Type Severity Reaction Status Date / Time nitrofurantoin AdvReac Abdominal Verified 09/12/18 09:01 [From Macrodantin] Pain Sulfa (Sulfonamide AdvReac Nausea Verified 09/12/18 09:01 Antibiotics) Physical Exam Vitals: Vital Signs Temp Pulse Pulse Resp BP Pulse Ox 09/13/18 11:42 97.6 F 75 18 112/62 92 L 09/13/18 08:28 96 09/13/18 08:18 90 09/13/18 08:00 97.7 F 76 18 115/46 97 09/13/18 03:14 99.8 F H 110 H 20 114/60 96 09/12/18 23:36 98 20 133/74 100 09/12/18 20:00 98.7 F 60 20 123/58 98 09/12/18 19:03 94 18 09/12/18 18:58 92 18 09/12/18 18:57 92 18 09/12/18 18:49 94 18 09/12/18 16:55 124 H 09/12/18 16:50 99.5 F 124 H 24 134/75 93 L Intake and Output 09/13/18 09/13/18 09/13/18 06:59 14:59 22:59 Intake Total 0 240 Output Total 500 Balance 0 -260 Intake: Oral 0 240 Output: Urine 500 Other: Voiding Method Bedpan Bedpan # Voids 1 2 Weight 92 kg 92 kg GENERAL EXAM: Alert, pleasant, 72-year-old white female, on 2 L of oxygen, comfortable in no apparent distress. HEAD: Normocephalic/atraumatic. EYES: Normal reaction of pupils, equal size. Conjunctiva pink, sclera white. NOSE: Clear with pink turbinates. THROAT: No erythema or exudates. NECK: No masses, no JVD, no thyroid enlargement, no adenopathy. CHEST: No chest wall deformity. Symmetrical expansion. Dried vesicular rash on the posterior left chest LUNGS: Equal air entry with no crackles, wheeze, rhonchi or dullness. CVS: Regular rate and rhythm, normal S1 and S2, no gallops, no murmurs, no rubs ABDOMEN: Soft, nontender. No hepatosplenomegaly, normal bowel sounds, no guarding or rigidity. EXTREMITIES: No clubbing, no edema, no cyanosis, 2+ pulses and upper and lower extremities. Left lower extremity weakness and numbness MUSCULOSKELETAL: Muscle strength and tone normal. SPINE: No scoliosis or deformity SKIN: No rashes CENTRAL NERVOUS SYSTEM: Alert and oriented -3. No focal deficits, tone is normal in all 4 extremities. PSYCHIATRIC: Alert and oriented -3. Appropriate affect. Intact judgment and insight. Results - Laboratory Findings CBC and BMP: 09/13/18 06:12 09/13/18 06:12 PT/INR, D-dimer PT 10.6 sec (9.0-12.0) 09/12/18 08:30 INR 1.0 (<1.2) 09/12/18 08:30 D-Dimer 1.04 mg/L FEU (<0.60) H 09/12/18 08:30 Abnormal lab findings: Abnormal Labs 09/12/18 09/12/18 09/12/18 08:30 08:30 08:30 WBC RBC 3.74 L Hgb 10.2 L Hct 33.2 L MCHC 30.8 L RDW 19.0 H Neutrophils # 8.6 H Lymphocytes # 0.8 L D-Dimer 1.04 H Carbon Dioxide Creatinine Calcium AST Total Protein Albumin HDL Cholesterol Ur Leukocyte Esterase Trace H Urine Bacteria Occasional H Urine Mucus Rare H 09/12/18 09/13/18 09/13/18 08:40 06:12 06:12 WBC 11.1 H RBC 3.47 L Hgb 9.4 L Hct 31.1 L MCHC 30.2 L RDW 18.5 H Neutrophils # 8.9 H Lymphocytes # D-Dimer Carbon Dioxide 32 H 34 H Creatinine 0.41 L Calcium 8.3 L AST 13 L Total Protein 5.1 L 4.5 L Albumin 2.7 L 2.3 L HDL Cholesterol 31 L Ur Leukocyte Esterase Urine Bacteria Urine Mucus - Diagnostic Findings Chest x-ray: report reviewed Additional studies: EKG reviewed, chest CTA results, brain CT results, thoracic/lumbar spine CT Assessment and Plan Plan: Assessment: #1. Left lower extremity weakness and numbness, possibly related to compression of the spinal cord from a tumor progression #2. Metastatic squamous cell carcinoma, with recurrence and progression of disease despite chemotherapy and radiation, and patient had recent progression with the spinal metastasis. Received 2 days of immunotherapy #3. Recent hospitalization for E. coli urinary tract infection, treated #4. Recent varicella-zoster infection, with the eruption of shingles rash over left posterior chest, treated #5. Hypertension #6. Hyperlipidemia #7. TD #8. Extensive metastasis involving the T5 through T8 levels, and there was a soft tissue mass within the left paraspinal region extending into the left intrathecal canal #9. Chronic back pain #10. Urinary incontinence/overactive bladder #11. Nephrolithiasis #12. Urine culture positive for strep D enterococcus, but urinalysis did not reveal significant infection, will await the results of final culture Plan: From pulmonary perspective patient's symptoms are stable, she is not complaining of any worsening shortness of breath, vital signs are stable, will continue with her maintenance inhalers and nebulized treatments. Chest x-ray was negative for any acute ulnar process. CTA chest was negative for evidence of pulmonary embolism. She still has weakness and sensory loss in the left leg, which is likely related to progression of metastatic disease within her spine. She had a discussion with her treating oncologist, and she was recommended proceeding with palliative care at this time, and the patient is considering enrolling in hospice and going home with hospice. I performed a history & physical examination of the patient and discussed their management with my nurse practitioner, Harika Jones. I reviewed the nurse practitioner's note and agree with the documented findings and plan of care. Lung sounds are positive for diminished breath sounds. The findings and the impression was discussed with the patient. I attest to the documentation by the nurse practitioner. Time with Patient: Greater than 30
[2018-09-13] MEDS: LEVOFLOXACIN 500MG-D5W PMX 500 MG in DEXTROSE/WATER 1 100ML.BAG IVPB SCH (16:50)
[2018-09-13] MEDS: AMITRIPTYLINE HCL 25 MG TAB PO SCH (21:10)
[2018-09-13] MEDS: MELATONIN 5 MG TABLET PO PRN (21:10)
[2018-09-13] MEDS: ATORVASTATIN 20 MG TAB PO SCH (21:10)
[2018-09-13] MEDS: ACETAMINOPHEN TAB 325 MG TAB PO PRN (21:11)
[2018-09-13] MEDS: ASPIRIN 81 MG PO SCH (21:11)
[2018-09-14] MEDS: traMADol 50 MG TAB PO SCH ×3 (08:03→21:11)
[2018-09-14] MEDS: GABAPENTIN 300 MG CAP PO SCH ×3 (08:04→21:12)
[2018-09-14] MEDS: POTASSIUM CHLORIDE ER 20 MEQ TAB.ER PO SCH (08:05)
[2018-09-14] MEDS: METOPROLOL TARTRATE 25 MG TAB PO SCH ×2 (08:05→21:12)
[2018-09-14] MEDS: OXYBUTYNIN CHLORIDE 5 MG TAB PO SCH ×2 (08:05→17:39)
[2018-09-14] MEDS: valACYclovir HCL 1,000 MG TABLET PO SCH ×2 (08:06→21:12)
[2018-09-14] MEDS: ENOXAPARIN 40 MG/0.4 ML SYRINGE SQ SCH (08:06)
[2018-09-14] MEDS: FORMOTEROL FUMARATE 20 MCG/2 ML NEBU INHALATION SCH ×2 (08:28→21:30)
[2018-09-14] MEDS: ALBUTEROL NEBULIZED 2.5 MG/3 ML INHALATION SCH ×5 (08:28→21:30)
[2018-09-14 09:19] LABS: Anisocytosis Slight; Basophils % (A) 0 %; Eosinophils # (A) 0.1 k/uL (0-0.7); Eosinophils % (A) 1 %; HCT 32.2 % (34.0-46.0); HGB 9.5 gm/dL (11.4-16.0); Hypochromasia Marked; Lymphocytes # (A) 0.8 k/uL (1.0-4.8); Lymphocytes % (A) 5 %; MCH 26.6 pg (25.0-35.0); MCHC 29.6 g/dL (31.0-37.0); MCV 89.7 fL (80.0-100.0); Mean Platelet Volume 6.9; Monocytes # (A) 0.7 k/uL (0-1.0); Monocytes % (A) 4 %; Neutrophils # (A) 13.7 k/uL (1.3-7.7); Neutrophils % (A) 88 %; Platelet Count 305 k/uL (150-450); RBC 3.59 m/uL (3.80-5.40); RDW 18.2 % (11.5-15.5); WBC 15.5 k/uL (3.8-10.6)
[2018-09-14 09:35] LABS: ALT 19 U/L (9-52); AST 14 U/L (14-36); Albumin 2.4 g/dL (3.5-5.0); Alkaline Phosphatase 113 U/L (38-126); Anion Gap 5 mmol/L; Blood Urea Nitrogen 16 mg/dL (7-17); Calcium 8.7 mg/dL (8.4-10.2); Carbon Dioxide 35 mmol/L (22-30); Chloride 97 mmol/L (98-107); Glucose 162 mg/dL (74-99); Potassium 4.2 mmol/L (3.5-5.1); Sodium 137 mmol/L (137-145); Total Bilirubin 0.4 mg/dL (0.2-1.3); Total Protein 4.7 g/dL (6.3-8.2)
[2018-09-14] MEDS: LIDOCAINE 4% CREAM 5 GM TUBE TOPICAL SCH ×2 (09:49→21:12)
[2018-09-14] MEDS: ACETAMINOPHEN TAB 325 MG TAB PO PRN (11:41)
[2018-09-14] MEDS: FUROSEMIDE 40 MG TAB PO SCH ×2 (13:31→17:39)
[2018-09-14] MEDS: predniSONE 20 MG TAB PO SCH (13:32)
[2018-09-14 14:01] LABS: Glucose,Whole Blood 234 mg/dL (75-99)
--- NOTE | 2018-09-14 15:33 | P.PN ---
Subjective Progress Note Date: 09/14/18 Patient's daughter was present today. The patient continues to complain of weakness and numbness in the left leg. Complains of numbness of the left chest region in the area of herpes zoster. Patient states she has not been able to pass urine today. She is drinking water. CT of the thoracic and lumbar spine showed Tumor extension to T6 vertebra demonstrated. Patient was seen by weather teacher, and oncologist, and after prolonged discussion, apparently the decision is for palliative care. Patient may go for hospice care. poultry farmworker working. Objective - Vital Signs Vital signs: Vital Signs Temp 101.7 F H 09/14/18 11:22 Pulse 88 09/14/18 13:50 Resp 24 09/14/18 11:22 BP 88/37 09/14/18 13:50 Pulse Ox 98 09/14/18 11:40 Intake & Output 09/13/18 09/14/18 09/14/18 18:59 06:59 18:59 Intake Total 1040 195 Output Total 900 Balance 140 195 Weight 92 kg 92.5 kg Intake: Intake, IV Titration 100 Amount Levofloxacin 500Mg-D5w 100 Pmx 500 mg In Dextrose/ Water 1 100ml.bag @ 100 mls/hr IVPB Q24H [facility] Rx#: [id number] Oral 940 195 Output: Urine 900 Other: Voiding Method Bedpan Bedpan Bedpan # Voids 5 3 - Exam On examination patient's mental status is normal. Detail testing deferred. - Labs CBC & Chem 7: 09/14/18 09:00 09/14/18 09:00 Labs: Abnormal Lab Results - Last 24 Hours (Table) 09/14/18 09/14/18 09/14/18 Range/Units 09:00 09:00 14:00 WBC 15.5 H (3.8-10.6) k/uL RBC 3.59 L (3.80-5.40) m/uL Hgb 9.5 L (11.4-16.0) gm/dL Hct 32.2 L (34.0-46.0) % MCHC 29.6 L (31.0-37.0) g/dL RDW 18.2 H (11.5-15.5) % Neutrophils # 13.7 H (1.3-7.7) k/uL Lymphocytes # 0.8 L (1.0-4.8) k/uL Chloride 97 L (98-107) mmol/L Carbon Dioxide 35 H (22-30) mmol/L Glucose 162 H (74-99) mg/dL POC Glucose (mg/dL) 234 H (75-99) mg/dL Total Protein 4.7 L (6.3-8.2) g/dL Albumin 2.4 L (3.5-5.0) g/dL Microbiology - Last 24 Hours (Table) 09/12/18 08:30 Urine Culture - Final Urine,Voided Enterococcus faecium 09/12/18 08:30 Blood Culture - Preliminary Blood No Growth after 48 hours Assessment and Plan Assessment: * 72-year-old female with metastatic lung cancer, came with left leg weakness. Examination shows bilateral leg weakness, but left worse, probably due to spinal cord compression from metastasis. * Herpes zoster involving left T3-T4 dermatome. Zoster myelitis also a possibility, though less likely Plan: Patient is going for palliative care, possible hospice. Continue treatment for herpes zoster. Patient on Valtrex 1000 mg twice a day. We will sign off on this case. Please call neurology if any concerns.
--- NOTE | 2018-09-14 15:39 | P.PN ---
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 On immunotherapy in July of this year. She had a recent hospitalization earlier this month for sepsis secondary to pneumonia and UTI. She was also treated for posterior rib and muscle pain secondary to recurrent tumor status post recent radiation for palliative treatment. Patient was just here a week ago and was treated for shingles with Valtrex, was discharged to senior home. Patient noticed increased weakness in the left leg associated with numbness day or 2 after discharge. She also noticed significant pain in the dermatome affected by shingles with no improvement from pain medication. She is currently on [place] which she couldn't tolerate as it makes her dizzy. Currently taking Tylenol for pain control. Patient was evaluated in the ER by Dr. Catracho tomlinson concerned about stroke and did a CT of the head that was negative. The white count is evaluated in the ER shows a temp of 98.8 pulse rate 107 blood pressure 120/58 EKG suggested sinus tachycardia with PVCs. CT chest was done that suggested increasing the mass of the left hilum with metastases metastatic disease to the right lung with bony metastatic disease of T5. Since significant weakness was found in the lumbar CT thoracic or lumbar s pine was done which suggested tumor extension to T6 vertebrae with no additional new fractures or dislocation identified. Patient had a temp of 101 in the ER . Neurology evaluated the patient in the ER suggested neurosurgery evaluation for spinal cord progression and involvement of the radiation oncologist. Labs done in the year suggested was that of 10.3, hemoglobin 10.2, d-dimer elevation follo wed by a CTA that was negative for PE troponin 2 negative. Creatinine 0.41B UN 14. UA was negative of infection. Patient was evaluated in ER did have an episode of fall requiring multiple attendants to lift the patient to bed again. She is unable to put any weight on the left lower extremity. Patient denies any chills, fever, bloody stools, change in mental status, seizure, weakness in the upper extremities. Patient could not complete her immunotherapies session last week as was unable to come out of bed. She had an appointment with Dr. Webb today which she could not go to. 09/13: Repeat lab work reveals white count of 11.1, hemoglobin 9.4, creatinine 0.53. CO2 is 34. Urine culture is showing group D enterococcus. She has been afebrile since yesterday afternoon, heart rate in the 70s to 90s, blood pressure 112/62, pulse ox 92% on 2 L nasal cannula. Urinalysis was negative for infection. The patient has been seen by Dr. Santiago with recommendations for urgent transfer to tertiary care for neurosurgery evaluation. Patient to continue Decadron 4 mg every 6 hours. Patient states that she slept well last night. She was started on gabapentin yesterday and feels she is a little sleepy today. Her pain is decreased to her chest area. She has been seen by oncology and radiation oncology also on consult. 09/14: Patient has met with [facility] and is undecided whether to to go to [facility] with hospice or [facility] home. Patient has been told that rehab is not an option for her as her lesion on her back is unstable and therapies will only worsen her symptoms. Daughter will review [facility] home tonight and tomorrow there is a meeting planned with [facility] tomorrow morning and a decision will be made for final discharge plan. Overall, patient has shown decline in her condition and prognosis is very poor. Temperature max 101.7, blood pressure 88/37, pulse ox 90% on 2 L. Discussed CODE STATUS with the patient and she is agreeable to no code which is been changed in the computer. Review of Systems Constitutional: Denies chills, Denies fever, endorses lethargy, endorses malaise, Denies poor appetite, endorses weakness, Denies weight loss Eyes: denies decreased vision, denies diplopia, denies discharge, denies pain Ears: deny: decreased hearing Ears, nose, mouth and throat: Denies dental pain, Denies headache, Denies nasal discharge, Denies nose pain Cardiovascular: Denies chest pain, Denies decreased exercise tolerance, Denies edema, Denies high blood pressure, Denies irregular heart beat, endorses palpitations, Denies paroxysmal nocturnal dyspnea, endorses shortness of breath Respiratory: Denies congestion, Denies cough, Denies cough with sputum, endorses dyspnea, there is 2-3 L home oxygen, endorses wheezing Gastrointestinal: Denies abdominal pain, Denies change in bowel habits, Denies coffee ground emesis, Denies early satiety, Denies excessive gas, Denies heartburn, Denies hematemesis, Denies hematochezia, Denies loss of appetite, Denies nausea, Denies vomiting Genitourinary: Denies dysuria, Denies flank pain, Denies kidney stones, Denies menorrhagia, Denies urgency, Denies urinary frequency Musculoskeletal: Endorses gait dysfunction, endorses limitation of motion, Denies morning stiffness, Denies muscle cramps Integumentary: Denies rash, Denies wounds, Denies brittle nails, Denies change in hair/nails, Denies darkening of skin Neurological: Endorses balance difficulties, Denies change in speech, Denies double vision, endorses gait dysfunction, Denies loss of vision, endorses motor disturbance, endorses numbness, endorses paralysis, Denies paresthesias, Denies seizures Psychiatric: Denies anxiety, Denies depression Endocrine: Denies excessive sweating, Denies excessive thirst, Denies high blood sugars, Denies palpitations Hematologic/Lymphatic: Denies easy bruising, Denies lymphadenopathy, reports scabbing rash Objective - Vital Signs Vital signs: Vital Signs Temp 101.7 F H 09/14/18 11:22 Pulse 88 09/14/18 13:50 Resp 24 09/14/18 11:22 BP 88/37 09/14/18 13:50 Pulse Ox 98 09/14/18 11:40 Intake & Output 09/13/18 09/14/18 09/14/18 18:59 06:59 18:59 Intake Total 1040 195 Output Total 900 Balance 140 195 Weight 92 kg 92.5 kg Intake: Intake, IV Titration 100 Amount Levofloxacin 500Mg-D5w 100 Pmx 500 mg In Dextrose/ Water 1 100ml.bag @ 100 mls/hr IVPB Q24H [facility] Rx#: [id number] Oral 940 195 Output: Urine 900 Other: Voiding Method Bedpan Bedpan Bedpan # Voids 5 3 - Exam General appearance: no acute distress, obese - EENT Eyes: anicteric sclerae, PERRLA, normal appearance ENT: hearing grossly normal - Neck Neck: no lymphadenopathy, normal ROM, no other, no rigidity, no stridor, no thyromegaly - Respiratory Respiratory: bilateral: Significant wheezing bilaterally lower extremity with dullness bilaterally no rales or crackles heard - Cardiovascular Rhythm: Tachycardic Heart sounds: normal: S1, S2 Abnormal Heart Sounds: no systolic murmur, no diastolic murmur, no rub, no S3 Gallop, no S4 Gallop, no click, no other - Gastrointestinal General gastrointestinal: normal bowel sounds, soft - Integumentary Integumentary: Rash and scaling noted from the left posterior thoracic area around laterally into the anterior chest wall. - Neurologic Neurologic: CNII-XII intact - Musculoskeletal Musculoskeletal: 3/5 strength on the left 5 / 5 on the right lower extremity. 5/5 in bilateral upper extremity. Numbness in the left lower extremity and the left part of the abdomen below the diaphragm. No reflexes noted in the bilateral lower extremities balance in abnormality seen due to weakness in the lower extremity. - Psychiatric Psychiatric: A&O x's 3, appropriate affect - Labs CBC & Chem 7: 09/14/18 09:00 09/14/18 09:00 Labs: Abnormal Lab Results - Last 24 Hours (Table) 09/14/18 09/14/18 09/14/18 Range/Units 09:00 09:00 14:00 WBC 15.5 H (3.8-10.6) k/uL RBC 3.59 L (3.80-5.40) m/uL Hgb 9.5 L (11.4-16.0) gm/dL Hct 32.2 L (34.0-46.0) % MCHC 29.6 L (31.0-37.0) g/dL RDW 18.2 H (11.5-15.5) % Neutrophils # 13.7 H (1.3-7.7) k/uL Lymphocytes # 0.8 L (1.0-4.8) k/uL Chloride 97 L (98-107) mmol/L Carbon Dioxide 35 H (22-30) mmol/L Glucose 162 H (74-99) mg/dL POC Glucose (mg/dL) 234 H (75-99) mg/dL Total Protein 4.7 L (6.3-8.2) g/dL Albumin 2.4 L (3.5-5.0) g/dL Microbiology - Last 24 Hours (Table) 09/12/18 08:30 Urine Culture - Final Urine,Voided Enterococcus faecium 09/12/18 08:30 Blood Culture - Preliminary Blood No Growth after 48 hours Assessment and Plan Plan: #1 left lower extremity weakness secondary to compression of the spinal cord fro m tumor progression of lung. Decadron 4 mg every 6 hours initiated on recommendation by neurology. Continue gabapentin 300 mg 3 times daily. Patient may need a neurosurgery evaluation but would like to speak to oncology and radiation oncologist prior to transferring the patient for neurosurgery e valuation if the team agrees. Dr. Alcaraz and Dr. Quinn consulted #2 shingles on Valtrex 1000 twice a day. #3 post herpetic neuralgia on Tylenol at home unable to tolerate Amberson. Patient initiated on Neurontin 300 3 times a day along with tramadol as needed. Continue amitriptyline 25 mg daily at bedtime #4 anxiety continue Xanax 0.25 mg 3 times a day as needed #5 acute shortness of breath likely secondary to COPD exacerbation continue Decadron 4 mg IV every 6. DuoNeb as needed for shortness of breath. Levaquin 500 every 24 hours/bronchitis continue Lasix 40 mg by mouth daily #6 overactive bladder continue oxybutynin 5 mg daily twice a day #7 hypertension continue metoprolol 25 mg by mouth twice a day Hyperlipidemia continue Lipitor 20 mg daily at bedtime Chronic hypoxic respiratory failure. CODE STATUS no code per patient wishes. DVT prophylaxis with Lovenox 40 mg subcu daily Discharge plan: Hospice tomorrow Impression and plan of care have been directed as dictated by the signing physician. Maria Guadalupe Zaragoza nurse practitioner acting as scribe for signing physician.
[2018-09-14] MEDS: LEVOFLOXACIN 500MG-D5W PMX 500 MG in DEXTROSE/WATER 1 100ML.BAG IVPB SCH (17:40)
[2018-09-14] MEDS: ALPRAZolam 0.25 MG TAB PO PRN (18:33)
[2018-09-14] MEDS: AMITRIPTYLINE HCL 25 MG TAB PO SCH (21:10)
[2018-09-14] MEDS: MELATONIN 5 MG TABLET PO PRN (21:10)
[2018-09-14] MEDS: ASPIRIN 81 MG PO SCH (21:11)
[2018-09-14] MEDS: ATORVASTATIN 20 MG TAB PO SCH (21:11)
[2018-09-15] MEDS: FORMOTEROL FUMARATE 20 MCG/2 ML NEBU INHALATION SCH (07:32)
[2018-09-15] MEDS: ALBUTEROL NEBULIZED 2.5 MG/3 ML INHALATION SCH ×2 (07:32→11:16)
[2018-09-15] MEDS: predniSONE 20 MG TAB PO SCH (08:04)
[2018-09-15] MEDS: GABAPENTIN 300 MG CAP PO SCH (08:04)
[2018-09-15] MEDS: METOPROLOL TARTRATE 25 MG TAB PO SCH (08:04)
[2018-09-15] MEDS: traMADol 50 MG TAB PO SCH (08:04)
[2018-09-15] MEDS: POTASSIUM CHLORIDE ER 20 MEQ TAB.ER PO SCH (08:04)
[2018-09-15] MEDS: FUROSEMIDE 40 MG TAB PO SCH (08:04)
[2018-09-15] MEDS: OXYBUTYNIN CHLORIDE 5 MG TAB PO SCH (08:04)
[2018-09-15] MEDS: valACYclovir HCL 1,000 MG TABLET PO SCH (08:04)
[2018-09-15] MEDS: LIDOCAINE 4% CREAM 5 GM TUBE TOPICAL SCH (08:05)
[2018-09-15] MEDS: ENOXAPARIN 40 MG/0.4 ML SYRINGE SQ SCH (08:05)
[2018-09-15 09:07] LABS: Anisocytosis Slight; Basophils % (A) 0 %; Eosinophils % (A) 0 %; HCT 29.2 % (34.0-46.0); HGB 8.6 gm/dL (11.4-16.0); Hypochromasia Marked; Lymphocytes # (A) 0.6 k/uL (1.0-4.8); Lymphocytes % (A) 6 %; MCH 26.6 pg (25.0-35.0); MCHC 29.3 g/dL (31.0-37.0); MCV 90.7 fL (80.0-100.0); Mean Platelet Volume 6.9; Monocytes # (A) 0.4 k/uL (0-1.0); Monocytes % (A) 3 %; Neutrophils # (A) 10.5 k/uL (1.3-7.7); Neutrophils % (A) 90 %; Platelet Count 276 k/uL (150-450); RBC 3.22 m/uL (3.80-5.40); RDW 17.6 % (11.5-15.5); WBC 11.6 k/uL (3.8-10.6)
[2018-09-15 09:49] LABS: Albumin 2.4 g/dL (3.5-5.0); Calcium 8.5 mg/dL (8.4-10.2); Potassium 4.5 mmol/L (3.5-5.1); Total Bilirubin 0.2 mg/dL (0.2-1.3); Total Protein 4.7 g/dL (6.3-8.2)
[2018-09-15 11:53] VITALS: BP 115/49; PULSE 97; RESP 17; TEMP 98.3
--- NOTE | 2018-09-15 13:32 | P.PN ---
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 On immunotherapy in July of this year. She had a recent hospitalization earlier this month for sepsis secondary to pneumonia and UTI. She was also treated for posterior rib and muscle pain secondary to recurrent tumor status post recent radiation for palliative treatment. Patient was just here a week ago and was treated for shingles with Valtrex, was discharged to senior home. Patient noticed increased weakness in the left leg associated with numbness day or 2 after discharge. She also noticed significant pain in the dermatome affected by shingles with no improvement from pain medication. She is currently on [place] which she couldn't tolerate as it makes her dizzy. Currently taking Tylenol for pain control. Patient was evaluated in the ER by Dr. Catracho tomlinson concerned about stroke and did a CT of the head that was negative. The white count is evaluated in the ER shows a temp of 98.8 pulse rate 107 blood pressure 120/58 EKG suggested sinus tachycardia with PVCs. CT chest was done that suggested increasing the mass of the left hilum with metastases metastatic disease to the right lung with bony metastatic disease of T5. Since significant weakness was found in the lumbar CT thoracic or lumbar s pine was done which suggested tumor extension to T6 vertebrae with no additional new fractures or dislocation identified. Patient had a temp of 101 in the ER . Neurology evaluated the patient in the ER suggested neurosurgery evaluation for spinal cord progression and involvement of the radiation oncologist. Labs done in the year suggested was that of 10.3, hemoglobin 10.2, d-dimer elevation follo wed by a CTA that was negative for PE troponin 2 negative. Creatinine 0.41B UN 14. UA was negative of infection. Patient was evaluated in ER did have an episode of fall requiring multiple attendants to lift the patient to bed again. She is unable to put any weight on the left lower extremity. Patient denies any chills, fever, bloody stools, change in mental status, seizure, weakness in the upper extremities. Patient could not complete her immunotherapies session last week as was unable to come out of bed. She had an appointment with Dr. Webb today which she could not go to. 09/13: Repeat lab work reveals white count of 11.1, hemoglobin 9.4, creatinine 0.53. CO2 is 34. Urine culture is showing group D enterococcus. She has been afebrile since yesterday afternoon, heart rate in the 70s to 90s, blood pressure 112/62, pulse ox 92% on 2 L nasal cannula. Urinalysis was negative for infection. The patient has been seen by Dr. Santiago with recommendations for urgent transfer to tertiary care for neurosurgery evaluation. Patient to continue Decadron 4 mg every 6 hours. Patient states that she slept well last night. She was started on gabapentin yesterday and feels she is a little sleepy today. Her pain is decreased to her chest area. She has been seen by oncology and radiation oncology also on consult. 09/14: Patient has met with [facility] and is undecided whether to to go to [facility] with hospice or [facility] home. Patient has been told that rehab is not an option for her as her lesion on her back is unstable and therapies will only worsen her symptoms. Daughter will review [facility] home tonight and tomorrow there is a meeting planned with [facility] tomorrow morning and a decision will be made for final discharge plan. Overall, patient has shown decline in her condition and prognosis is very poor. Temperature max 101.7, blood pressure 88/37, pulse ox 90% on 2 L. Discussed CODE STATUS with the patient and she is agreeable to no code which is been changed in the computer. 09/15: The patient and family have met with [facility] and plan is to go to [facility] with [facility] but payment is to be set up up front. Patient may transition to inpatient hospice here until all arrangements are completed. Review of Systems Constitutional: Denies chills, Denies fever, endorses lethargy, endorses malaise, Denies poor appetite, endorses weakness, Denies weight loss Eyes: denies decreased vision, denies diplopia, denies discharge, denies pain Ears: deny: decreased hearing Ears, nose, mouth and throat: Denies dental pain, Denies headache, Denies nasal discharge, Denies nose pain Cardiovascular: Denies chest pain, Denies decreased exercise tolerance, Denies edema, Denies high blood pressure, Denies irregular heart beat, endorses palpitations, Denies paroxysmal nocturnal dyspnea, endorses shortness of breath Respiratory: Denies congestion, Denies cough, Denies cough with sputum, endorses dyspnea, there is 2-3 L home oxygen, endorses wheezing Gastrointestinal: Denies abdominal pain, Denies change in bowel habits, Denies coffee ground emesis, Denies early satiety, Denies excessive gas, Denies heartburn, Denies hematemesis, Denies hematochezia, Denies loss of appetite, Denies nausea, Denies vomiting Genitourinary: Denies dysuria, Denies flank pain, Denies kidney stones, Denies menorrhagia, Denies urgency, Denies urinary frequency Musculoskeletal: Endorses gait dysfunction, endorses limitation of motion, Denies morning stiffness, Denies muscle cramps Integumentary: Denies rash, Denies wounds, Denies brittle nails, Denies change in hair/nails, Denies darkening of skin Neurological: Endorses balance difficulties, Denies change in speech, Denies double vision, endorses gait dysfunction, Denies loss of vision, endorses motor disturbance, endorses numbness, endorses paralysis, Denies paresthesias, Denies seizures Psychiatric: Denies anxiety, Denies depression Endocrine: Denies excessive sweating, Denies excessive thirst, Denies high blood sugars, Denies palpitations Hematologic/Lymphatic: Denies easy bruising, Denies lymphadenopathy, reports scabbing rash Objective - Vital Signs Vital signs: Vital Signs Temp 98.3 F 09/15/18 11:39 Pulse 97 09/15/18 11:39 Resp 17 09/15/18 11:39 BP 115/49 09/15/18 11:39 Pulse Ox 98 09/15/18 11:39 Intake & Output 09/14/18 09/15/18 09/15/18 18:59 06:59 18:59 Intake Total 980 Output Total 400 Balance 580 Intake: Oral 980 Output: Urine 400 Other: Voiding Method Bedpan Bedpan Bedpan Diaper Diaper # Voids 2 3 - Exam General appearance: no acute distress, obese - EENT Eyes: anicteric sclerae, PERRLA, normal appearance ENT: hearing grossly normal - Neck Neck: no lymphadenopathy, normal ROM, no other, no rigidity, no stridor, no thyromegaly - Respiratory Respiratory: bilateral: Significant wheezing bilaterally lower extremity with dullness bilaterally no rales or crackles heard - Cardiovascular Rhythm: Tachycardic Heart sounds: normal: S1, S2 Abnormal Heart Sounds: no systolic murmur, no diastolic murmur, no rub, no S3 Gallop, no S4 Gallop, no click, no other - Gastrointestinal General gastrointestinal: normal bowel sounds, soft - Integumentary Integumentary: Rash and scaling noted from the left posterior thoracic area around laterally into the anterior chest wall. - Neurologic Neurologic: CNII-XII intact - Musculoskeletal Musculoskeletal: 3/5 strength on the left 5 / 5 on the right lower extremity. 5/5 in bilateral upper extremity. Numbness in the left lower extremity and the left part of the abdomen below the diaphragm. No reflexes noted in the bilateral lower extremities balance in abnormality seen due to weakness in the lower extremity. - Psychiatric Psychiatric: A&O x's 3, appropriate affect - Labs CBC & Chem 7: 09/15/18 08:42 09/15/18 08:42 Labs: Abnormal Lab Results - Last 24 Hours (Table) 09/14/18 09/15/18 09/15/18 Range/Units 14:00 08:42 08:42 WBC 11.6 H (3.8-10.6) k/uL RBC 3.22 L (3.80-5.40) m/uL Hgb 8.6 L (11.4-16.0) gm/dL Hct 29.2 L (34.0-46.0) % MCHC 29.3 L (31.0-37.0) g/dL RDW 17.6 H (11.5-15.5) % Neutrophils # 10.5 H (1.3-7.7) k/uL Lymphocytes # 0.6 L (1.0-4.8) k/uL Chloride 97 L (98-107) mmol/L Carbon Dioxide 35 H (22-30) mmol/L BUN 25 H (7-17) mg/dL Glucose 187 H (74-99) mg/dL POC Glucose (mg/dL) 234 H (75-99) mg/dL Total Protein 4.7 L (6.3-8.2) g/dL Albumin 2.4 L (3.5-5.0) g/dL Microbiology - Last 24 Hours (Table) 09/12/18 08:30 Blood Culture - Preliminary Blood No Growth after 72 hours 09/12/18 08:30 Urine Culture - Final Urine,Voided Enterococcus faecium Assessment and Plan Plan: #1 left lower extremity weakness secondary to compression of the spinal cord from tumor progression of lung. Decadron 4 mg every 6 hours initiated on recommendation by neurology. Continue gabapentin 300 mg 3 times daily. Patient may need a neurosurgery evaluation but would like to speak to oncology and radiation oncologist prior to transferring the patient for neurosurgery evaluation if the team agrees. Dr. Alcaraz and Dr. Quinn consulted #2 shingles on Valtrex 1000 twice a day. #3 post herpetic neuralgia on Tylenol at home unable to tolerate [place]. Patient initiated on Neurontin 300 3 times a day along with tramadol as needed. Continue amitriptyline 25 mg daily at bedtime #4 anxiety continue Xanax 0.25 mg 3 times a day as needed #5 acute shortness of breath likely secondary to COPD exacerbation continue Deca dron 4 mg IV every 6. DuoNeb as needed for shortness of breath. Levaquin 500 every 24 hours/bronchitis continue Lasix 40 mg by mouth daily #6 overactive bladder continue oxybutynin 5 mg daily twice a day #7 hypertension continue metoprolol 25 mg by mouth twice a day Hyperlipidemia continue Lipitor 20 mg daily at bedtime Chronic hypoxic respiratory failure. CODE STATUS no code per patient wishes. DVT prophylaxis with Lovenox 40 mg subcu daily Discharge plan: Hospice Impression and plan of care have been directed as dictated by the signing physician. Maria Guadalupe Zaragoza nurse practitioner acting as scribe for signing physician.
[2018-09-15] MEDS ORDERED: LEVOFLOXACIN 500 MG TAB PO SCH (18:00)
== END 2018-09-15 15:03 | disposition hospice, home (50) ==
LOC: EC 08:00 → 3SCARD 12:46 → 3NMEDONC 09-13 14:22
PROVIDERS: ADMIT Internal Medicine; ATTEND Internal Medicine
DX: C79.51 Secondary malignant neoplasm of bone (principal); M84.58XA Pathological fracture in neoplastic disease, other specified site, initial encounter for fracture; B02.9 Zoster without complications; J44.9 Chronic obstructive pulmonary disease, unspecified; J96.11 Chronic respiratory failure with hypoxia; N32.81 Overactive bladder; R32 Unspecified urinary incontinence; G95.29 Other cord compression; G89.29 Other chronic pain; C34.02 Malignant neoplasm of left main bronchus; C78.01 Secondary malignant neoplasm of right lung; E78.5 Hyperlipidemia, unspecified; F41.1 Generalized anxiety disorder; I25.10 Atherosclerotic heart disease of native coronary artery without angina pectoris; I10 Essential (primary) hypertension; E66.3 Overweight; Z68.35 Body mass index [BMI] 35.0-35.9, adult; Z99.81 Dependence on supplemental oxygen; Z86.19 Personal history of other infectious and parasitic diseases; I49.3 Ventricular premature depolarization; Z87.440 Personal history of urinary (tract) infections; Z96.653 Presence of artificial knee joint, bilateral; Z79.899 Other long term (current) drug therapy; Z87.442 Personal history of urinary calculi; Z85.118 Personal history of other malignant neoplasm of bronchus and lung; Z87.891 Personal history of nicotine dependence; Z92.3 Personal history of irradiation; Z92.21 Personal history of antineoplastic chemotherapy; Z90.710 Acquired absence of both cervix and uterus; Z80.0 Family history of malignant neoplasm of digestive organs; Z80.1 Family history of malignant neoplasm of trachea, bronchus and lung; Z80.3 Family history of malignant neoplasm of breast
CPT/HCPCS: 96365; 96366 ×3; 96372 ×4; 96376; 96361; 96375; 99285; 36415; 94640 ×8; 94760; 93005 ×2; 92523; 85379; 80061; 80053 ×4; 83605; 84484; 85025 ×4; 85610; 85730; 81001; 87040; 87086; 87077; 87186; 72128; 72131; 70450; 71275; G0378 ×4; J1956 ×3; J1650 ×4; J1170; J7512 ×2; Q9967

== ENCOUNTER 2018-09-15 15:08 | Inpatient (IN) | payer MEDICAID ==
[2018-09-15] MEDS ORDERED: ATROPINE OPHTH SOLN 1% 5ML BTL SUBLINGUAL PRN ×2 (15:14→15:29)
[2018-09-15] MEDS ORDERED: ACETAMINOPHEN TAB 325 MG TAB PO PRN (15:14)
[2018-09-15] MEDS ORDERED: MELATONIN 5 MG TABLET PO PRN (15:29)
[2018-09-15] MEDS ORDERED: HYDROcodone/APAP 5-325MG 1 EACH TAB PO PRN (15:29)
[2018-09-15] MEDS ORDERED: diphenhydrAMINE 25 MG CAP PO PRN (15:29)
[2018-09-15] MEDS: MORPHINE CONC SOLN 10mg/0.5mL ORAL SYRG PO PRN (15:50)
[2018-09-15] MEDS: ALBUTEROL NEBULIZED 2.5 MG/3 ML INHALATION SCH ×2 (15:53→20:33)
[2018-09-15] MEDS: LEVOFLOXACIN 500 MG TAB PO STA ×2 (16:06→16:10)
[2018-09-15] MEDS: LEVOFLOXACIN 500 MG TAB PO SCH (16:11)
[2018-09-15] MEDS: OXYBUTYNIN CHLORIDE 5 MG TAB PO SCH (16:11)
[2018-09-15] MEDS: GABAPENTIN 300 MG CAP PO SCH ×2 (16:11→22:09)
[2018-09-15 17:54] VITALS: BMI 34.9
[2018-09-15] MEDS: FORMOTEROL FUMARATE 20 MCG/2 ML NEBU INHALATION SCH (20:33)
[2018-09-15] MEDS: LIDOCAINE 4% CREAM 5 GM TUBE TOPICAL SCH ×2 (22:08→22:42)
[2018-09-15] MEDS: ALPRAZolam 0.25 MG TAB PO PRN (22:08)
[2018-09-15] MEDS: AMITRIPTYLINE HCL 25 MG TAB PO SCH (22:09)
[2018-09-15] MEDS: valACYclovir HCL 1,000 MG TABLET PO SCH (22:09)
[2018-09-15] MEDS: METOPROLOL TARTRATE 25 MG TAB PO SCH (22:09)
[2018-09-16] MEDS: ALPRAZolam 0.25 MG TAB PO PRN (07:05)
[2018-09-16] MEDS: MORPHINE CONC SOLN 10mg/0.5mL ORAL SYRG PO PRN ×2 (07:07→10:48)
[2018-09-16] MEDS: ALBUTEROL NEBULIZED 2.5 MG/3 ML INHALATION SCH ×4 (07:24→20:46)
[2018-09-16] MEDS: FORMOTEROL FUMARATE 20 MCG/2 ML NEBU INHALATION SCH ×2 (07:24→20:46)
[2018-09-16] MEDS: predniSONE 10 MG TAB PO SCH (08:34)
[2018-09-16] MEDS: valACYclovir HCL 1,000 MG TABLET PO SCH ×2 (08:35→21:32)
[2018-09-16] MEDS: LIDOCAINE 4% CREAM 5 GM TUBE TOPICAL SCH ×2 (08:35→21:32)
[2018-09-16] MEDS: FUROSEMIDE 20 MG TAB PO SCH (08:35)
[2018-09-16] MEDS: GABAPENTIN 300 MG CAP PO SCH ×3 (08:35→21:32)
[2018-09-16] MEDS: POTASSIUM CHLORIDE ER 20 MEQ TAB.ER PO SCH (08:35)
[2018-09-16] MEDS: OXYBUTYNIN CHLORIDE 5 MG TAB PO SCH ×2 (08:35→18:03)
[2018-09-16] MEDS: METOPROLOL TARTRATE 25 MG TAB PO SCH ×2 (08:36→21:32)
[2018-09-16] MEDS ORDERED: FUROSEMIDE 40 MG TAB PO SCH (09:00)
[2018-09-16] MEDS ORDERED: ONDANSETRON 4 MG/2 ML VIAL IVP STA (11:49)
[2018-09-16] MEDS ORDERED: ONDANSETRON ODT 4 MG TAB PO PRN (11:51)
[2018-09-16] MEDS ORDERED: HYDROmorphone 2 MG TAB PO PRN (12:13)
[2018-09-16] MEDS ORDERED: LORazepam 1 MG TAB PO STA (13:16)
[2018-09-16] MEDS: HYDROmorphone 0.5 MG/0.5 ML SYRINGE IVP PRN (15:35)
[2018-09-16] MEDS: LEVOFLOXACIN 500 MG TAB PO SCH (18:02)
[2018-09-16] MEDS: PANTOPRAZOLE 40 MG/10 ML VIAL IVP SCH (21:32)
[2018-09-16] MEDS: AMITRIPTYLINE HCL 25 MG TAB PO SCH (21:32)
[2018-09-16 22:20] VITALS: TEMP 98.5
[2018-09-17 06:11] VITALS: BP 113/62
[2018-09-17] MEDS: ONDANSETRON 4 MG/2 ML VIAL IVP PRN ×2 (07:20→12:42)
[2018-09-17] MEDS: HYDROmorphone 0.5 MG/0.5 ML SYRINGE IVP PRN ×3 (07:20→19:35)
[2018-09-17] MEDS: ALBUTEROL NEBULIZED 2.5 MG/3 ML INHALATION SCH ×4 (08:42→20:38)
[2018-09-17] MEDS: FORMOTEROL FUMARATE 20 MCG/2 ML NEBU INHALATION SCH ×2 (08:42→20:38)
[2018-09-17] MEDS: GABAPENTIN 300 MG CAP PO SCH ×3 (11:05→23:04)
[2018-09-17] MEDS: LIDOCAINE 4% CREAM 5 GM TUBE TOPICAL SCH ×2 (11:10→23:05)
[2018-09-17] MEDS: DEXAMETHASONE 4 MG TAB PO SCH ×3 (11:10→23:57)
[2018-09-17] MEDS: METOPROLOL TARTRATE 25 MG TAB PO SCH ×2 (11:10→23:04)
[2018-09-17] MEDS: POTASSIUM CHLORIDE ER 20 MEQ TAB.ER PO SCH (11:10)
[2018-09-17] MEDS: FUROSEMIDE 20 MG TAB PO SCH (11:10)
[2018-09-17] MEDS: PANTOPRAZOLE 40 MG/10 ML VIAL IVP SCH (11:10)
[2018-09-17] MEDS: valACYclovir HCL 1,000 MG TABLET PO SCH ×2 (11:11→23:04)
[2018-09-17] MEDS: OXYBUTYNIN CHLORIDE 5 MG TAB PO SCH ×2 (11:11→18:11)
[2018-09-17] MEDS: IBUPROFEN 400 MG TAB PO SCH ×3 (11:12→22:42)
[2018-09-17] MEDS: LORazepam ORAL CONC 60 MG/30 ML BOTTLE PO PRN (12:42)
[2018-09-17] MEDS: predniSONE 10 MG TAB PO SCH (14:07)
[2018-09-17] MEDS: LEVOFLOXACIN 500 MG TAB PO SCH (18:11)
[2018-09-17] MEDS: DOCUSATE 100 MG CAP PO SCH (23:04)
[2018-09-17] MEDS: AMITRIPTYLINE HCL 25 MG TAB PO SCH (23:05)
[2018-09-18] MEDS: ALBUTEROL NEBULIZED 2.5 MG/3 ML INHALATION SCH ×4 (03:50→19:14)
[2018-09-18] MEDS: FORMOTEROL FUMARATE 20 MCG/2 ML NEBU INHALATION SCH ×2 (03:50→19:14)
[2018-09-18] MEDS: HYDROmorphone 0.5 MG/0.5 ML SYRINGE IVP PRN ×4 (04:22→21:12)
[2018-09-18] MEDS: IBUPROFEN 400 MG TAB PO SCH (06:54)
[2018-09-18] MEDS: FUROSEMIDE 20 MG TAB PO SCH (06:54)
[2018-09-18] MEDS: DOCUSATE 100 MG CAP PO SCH ×2 (06:54→21:13)
[2018-09-18] MEDS: DEXAMETHASONE 4 MG TAB PO SCH ×2 (06:54→17:51)
[2018-09-18] MEDS: OXYBUTYNIN CHLORIDE 5 MG TAB PO SCH ×2 (06:54→17:51)
[2018-09-18] MEDS: GABAPENTIN 300 MG CAP PO SCH ×3 (08:13→21:12)
[2018-09-18] MEDS: METOPROLOL TARTRATE 25 MG TAB PO SCH ×2 (08:13→21:13)
[2018-09-18] MEDS: valACYclovir HCL 1,000 MG TABLET PO SCH ×2 (08:14→21:12)
[2018-09-18] MEDS: POTASSIUM CHLORIDE ER 20 MEQ TAB.ER PO SCH (08:14)
[2018-09-18] MEDS: LIDOCAINE 4% CREAM 5 GM TUBE TOPICAL SCH ×2 (08:20→21:12)
[2018-09-18] MEDS: LORazepam ORAL CONC 60 MG/30 ML BOTTLE PO PRN (09:54)
[2018-09-18] MEDS ORDERED: MORPHINE CONC SOLN 10mg/0.5mL ORAL SYRG SL STA (11:23)
[2018-09-18] MEDS ORDERED: IBUPROFEN ORAL SUSP 100 MG/5 ML CUP PO SCH (11:45)
[2018-09-18] MEDS: PANTOPRAZOLE 40 MG/10 ML VIAL IVP SCH (11:54)
[2018-09-18] MEDS: IBUPROFEN ORAL SUSP 2,400 MG/120 ML BOTTLE PO SCH ×2 (15:16→18:44)
[2018-09-18] MEDS: LEVOFLOXACIN 500 MG TAB PO SCH (17:51)
[2018-09-18 19:37] VITALS: PULSE 90
[2018-09-18] MEDS: AMITRIPTYLINE HCL 25 MG TAB PO SCH (21:12)
[2018-09-19] MEDS: IBUPROFEN ORAL SUSP 2,400 MG/120 ML BOTTLE PO SCH ×4 (00:28→22:50)
[2018-09-19] MEDS: DEXAMETHASONE 4 MG TAB PO SCH ×4 (00:28→23:29)
[2018-09-19] MEDS: HYDROmorphone 0.5 MG/0.5 ML SYRINGE IVP PRN ×2 (05:36→08:44)
[2018-09-19] MEDS: FORMOTEROL FUMARATE 20 MCG/2 ML NEBU INHALATION SCH ×2 (07:20→21:41)
[2018-09-19] MEDS: ALBUTEROL NEBULIZED 2.5 MG/3 ML INHALATION SCH ×4 (07:20→21:41)
[2018-09-19] MEDS: OXYBUTYNIN CHLORIDE 5 MG TAB PO SCH ×2 (08:36→16:45)
[2018-09-19] MEDS: FUROSEMIDE 20 MG TAB PO SCH (08:37)
[2018-09-19] MEDS: DOCUSATE 100 MG CAP PO SCH ×2 (08:37→21:51)
[2018-09-19] MEDS: GABAPENTIN 300 MG CAP PO SCH ×3 (08:37→22:50)
[2018-09-19] MEDS: POTASSIUM CHLORIDE ER 20 MEQ TAB.ER PO SCH (08:40)
[2018-09-19] MEDS: METOPROLOL TARTRATE 25 MG TAB PO SCH ×2 (08:40→21:51)
[2018-09-19] MEDS: valACYclovir HCL 1,000 MG TABLET PO SCH ×2 (08:41→21:51)
[2018-09-19] MEDS: LIDOCAINE 4% CREAM 5 GM TUBE TOPICAL SCH ×2 (08:43→22:47)
[2018-09-19] MEDS: PANTOPRAZOLE 40 MG/10 ML VIAL IVP SCH (08:44)
[2018-09-19] MEDS: HYDROmorphone (PF) 50 MG in SODIUM CHLORIDE 0.9% 45 ML IV SCH (12:09)
[2018-09-19] MEDS: LORazepam 2 MG/ML INJ IV PRN ×3 (13:28→23:28)
[2018-09-19] MEDS: ONDANSETRON 4 MG/2 ML VIAL IVP PRN ×2 (17:33→23:29)
[2018-09-19] MEDS: AMITRIPTYLINE HCL 25 MG TAB PO SCH (21:51)
[2018-09-20] MEDS: DOCUSATE 100 MG CAP PO SCH (08:45)
[2018-09-20] MEDS: FUROSEMIDE 20 MG TAB PO SCH (08:45)
[2018-09-20] MEDS: OXYBUTYNIN CHLORIDE 5 MG TAB PO SCH (08:45)
[2018-09-20] MEDS: GABAPENTIN 300 MG CAP PO SCH (08:45)
[2018-09-20] MEDS: IBUPROFEN ORAL SUSP 2,400 MG/120 ML BOTTLE PO SCH (08:45)
[2018-09-20] MEDS: PANTOPRAZOLE 40 MG/10 ML VIAL IVP SCH (08:46)
[2018-09-20] MEDS: valACYclovir HCL 1,000 MG TABLET PO SCH (08:46)
[2018-09-20] MEDS: METOPROLOL TARTRATE 25 MG TAB PO SCH (08:46)
[2018-09-20] MEDS: LIDOCAINE 4% CREAM 5 GM TUBE TOPICAL SCH (08:46)
[2018-09-20] MEDS: POTASSIUM CHLORIDE ER 20 MEQ TAB.ER PO SCH (08:46)
[2018-09-20] MEDS: FORMOTEROL FUMARATE 20 MCG/2 ML NEBU INHALATION SCH (08:51)
[2018-09-20] MEDS: ALBUTEROL NEBULIZED 2.5 MG/3 ML INHALATION SCH (08:51)
[2018-09-20 08:57] VITALS: RESP 14
[2018-09-20] MEDS ORDERED: SCOPOLAMINE 1.5MG/72HR PATCH TRANSDERM SCH (10:00)
[2018-09-20] MEDS: HYDROmorphone (PF) 50 MG in SODIUM CHLORIDE 0.9% 45 ML IV SCH (10:10)
[2018-09-20] MEDS ORDERED: ALBUTEROL NEBULIZED 2.5 MG/3 ML INHALATION PRN (10:12)
[2018-09-20] MEDS: DEXAMETHASONE 4 MG TAB PO SCH (10:14)
== END 2018-09-20 15:25 | disposition expired | DRG 951 ==
LOC: 3NMEDONC 15:08
PROVIDERS: ADMIT Internal Medicine; ATTEND Internal Medicine
DX: Z51.5 Encounter for palliative care (principal); G95.29 Other cord compression; B02.29 Other postherpetic nervous system involvement; J44.1 Chronic obstructive pulmonary disease with (acute) exacerbation; C34.32 Malignant neoplasm of lower lobe, left bronchus or lung; C79.51 Secondary malignant neoplasm of bone; M84.58XA Pathological fracture in neoplastic disease, other specified site, initial encounter for fracture; C78.02 Secondary malignant neoplasm of left lung; J96.11 Chronic respiratory failure with hypoxia; B02.9 Zoster without complications; Z66 Do not resuscitate; I25.10 Atherosclerotic heart disease of native coronary artery without angina pectoris; F41.9 Anxiety disorder, unspecified; N32.81 Overactive bladder; I10 Essential (primary) hypertension; I49.3 Ventricular premature depolarization; R26.9 Unspecified abnormalities of gait and mobility; N39.3 Stress incontinence (female) (male); E78.5 Hyperlipidemia, unspecified; E66.9 Obesity, unspecified; Z68.35 Body mass index [BMI] 35.0-35.9, adult; Z99.81 Dependence on supplemental oxygen; Z79.899 Other long term (current) drug therapy; Z92.21 Personal history of antineoplastic chemotherapy; Z92.3 Personal history of irradiation; Z87.01 Personal history of pneumonia (recurrent); Z87.440 Personal history of urinary (tract) infections; Z87.442 Personal history of urinary calculi; Z98.890 Other specified postprocedural states; Z90.49 Acquired absence of other specified parts of digestive tract; Z90.710 Acquired absence of both cervix and uterus; Z96.653 Presence of artificial knee joint, bilateral; Z87.891 Personal history of nicotine dependence
CPT/HCPCS: 94640; 94760